=== PATIENT | female | born 1990 | race Caucasian/White ===

== ENCOUNTER → 2020-02-02 15:29 | Outpatient (BNVA) | payer MEDICAID, SELFPAY | PROVIDERS: PCP Pediatrics; Visit Provider Advanced Practice Midwife | DX: Z76.89 Persons encountering health services in other specified circumstances (principal) ==

== ENCOUNTER 2020-04-29 00:29 | Emergency (ER) | payer MEDICAID, SELFPAY ==
--- NOTE | ~2020-04-29 | US_ITS ---
EXAMINATION: ABDOMINAL ULTRASOUND LIMITED CLINICAL INFORMATION: Upper abdominal pain. Elevated LFTs. COMPARISON: Same day abdominal and pelvic CT. TECHNIQUE: Real-time imaging of the right upper quadrant abdominal viscera. FINDINGS: PANCREAS: The visualized pancreatic head and body are normal in appearance. The remainder of the pancreas is obscured from visualization by the overlying bowel gas. LIVER: The liver is of normal size and echogenicity without intrahepatic biliary ductal dilation. There is an approximately 10 mm echogenic focus within the right lobe GALLBLADDER: Normal. The gallbladder is physiologically distended without evidence of stones, sludge, polyps, wall thickening or pericholecystic fluid. COMMON BILE DUCT: Normal in caliber measuring 0.4 cm in diameter. RIGHT KIDNEY: There is an 11 mm cyst within the interpole region. No hydronephrosis. No renal calculi or focal parenchymal lesions. The kidney measures 11.2 cm in maximum dimension. FREE FLUID: None. US/US abdomen limited IMPRESSION: No acute abnormalities demonstrable within the upper abdomen. 10 mm echogenic nonshadowing focus within the right lobe of liver. This is nonspecific and may correspond to an hemangioma, though is nonspecific. Consider correlation with abdominal MRI for further tissue characterization.
--- NOTE | ~2020-04-29 | CT_ITS ---
EXAMINATION: CT ABDOMEN AND PELVIS WITHOUT CONTRAST CLINICAL INFORMATION: Left flank pain. COMPARISON: None. TECHNIQUE: Contiguous axial thin section helical images of the abdomen and pelvis were performed without oral or IV contrast. The data set was reformatted in the coronal and sagittal planes and reviewed on an independent workstation. DLP: 649 mGy-cm. FINDINGS: The visualized lung bases are clear. The visualized portions of the heart are unremarkable. The liver is of normal size and attenuation without focal lesions nor intrahepatic biliary ductal dilation. A normal gallbladder is identified. There is no wall thickening or discernible pericholecystic fluid. The spleen, pancreas, adrenal glands are unremarkable. Both kidneys are of normal size and attenuation without hydronephrosis or nephrolithiasis. There is no abdominal free fluid. There is neither mesenteric nor retroperitoneal lymphadenopathy. Normal unopacified loops of small and large bowel are identified. There is no pelvic free fluid. The urinary bladder is unremarkable. There is neither pelvic nor inguinal lymphadenopathy. Bone windows: Neither sclerotic nor lytic bone lesions are identified. CT/CT abdomen pelvis wo con IMPRESSION: Neither hydronephrosis nor nephrolithiasis. No acute abdominal or pelvic inflammatory or infectious processes. Automated exposure control (Care Dose) Adjustment of the mA and/or kv according to patient size (this includes techniques or standardized protocols for targeted exams where dose is matched to indication / reason for exam; i.e. extremities or head).
[2020-04-29 02:21] VITALS: BP 112/49; PULSE 81; RESP 18; TEMP 36.4; O2SAT 99; BMI 28.3
--- NOTE | 2020-04-29 03:11 | ED.ABDPAIN ---
HPI - Abdominal Pain General Chief Complaint: Abdominal Pain Stated Complaint: Flank pain Time Seen by Provider: 04/29/20 02:22 Source: patient and full time staff interpreter Mode of arrival: ambulatory Limitations: no limitations History of Present Illness HPI narrative: 30-year-old female presented with left flank pain, patient stated that the pain is severe dull aching pain localized to the left flank area sometimes radiates down to the left groin area, pain is severe (10/10), pain started since this morning, patient has been fluctuating, associated with nausea, nothing makes the pain better or nothing make it worse, patient had similar pain before when she had kidney stones. Patient had a history of kidney stones that required surgical intervention for removal. Related Data Allergies Allergy/AdvReac Type Severity Reaction Status Date / Time No Known Allergies Allergy Unverified 12/09/19 19:17 [No Known Allergies*] Review of Systems Review of Systems All other systems are reviewed and are negative Constitutional: Reports as per HPI and Reports no additional constitutional complaints Eyes: Reports as per HPI and Reports no additional eye complaints Reports system reviewed and no additional complaints, except as documented Cardiovascular: Reports as per HPI and Reports no additional cardiovascular complaints Respiratory: Reports as per HPI and Reports no additional respiratory complaints Gastrointestinal: Reports as per HPI and Reports no additional gastrointestinal complaints Genitourinary: Reports no additional female genitourinary complaints Musculoskeletal: Reports no additional musculoskeletal complaints Skin/Breast: Reports system reviewed and no additional complaints, except as docu Psychiatric: Reports no additional psychiatric complaints Endocrine: Reports no additional endocrine complaints Hematologic/Lymphatic: Reports no additional hematologic/lymphatic complaints Allergic/Immunologic: Reports no additional allergic/immunologic complaints Reports system reviewed and no additional complaints, except as documented and Reports Abnormal speech present Physical Exam Vital Signs: Vital Signs: Last Vital Signs Temp 98 F 04/29/20 06:00 Pulse 74 04/29/20 06:00 Resp 18 04/29/20 06:00 BP 134/72 04/29/20 06:00 Pulse Ox 99 04/29/20 06:00 Body Mass Index 28.3 Vital signs have been reviewed as normal and appeared to be correct. Blood pressure normal. Heart rate normal. Respiration rate normal. Temperature normal. Oxygen saturation normal. Appearance: Alert. Oriented X3. No acute distress. Head: Normal external exam. Normocephalic. Atraumatic. No Sales signs noted. No raccoon eyes noted Eyes: PERRLA. EOMI. Conjunctiva and sclera normal. Eyelids normal. ENT: TM's Normal. Pharynx normal. Uvula midline. Moist mucous membranes. No trismus noted. No drooling noted. No muffled voice noted. Neck: Normal inspection. Neck supple. FROM. No adenopathy. Thyroid Normal. No meningeal signs. No neck mass noted. CVS: Normal heart rate and rhythm. Heart sound normal. No murmurs noted. Pulses normal throughout. Respiratory: No respiratory distress. Painless inspiration. Breath sounds normal. No wheezes/rales/rhonchi noted. Chest nontender. No accessory muscle usage noted or decreased air movement noted. Abdomen: Soft , mild left side abdominal tenderness, no guarding, no rebound tenderness.. Bowel sounds normal in all 4 quadrants. No distention noted. No organomegaly noted. No visible injury noted. Back: Left CVA tenderness. Full range of motion noted. Skin: Skin warm and dry. Normal skin color. Normal skin turgor. No rashes/lesions/lacerations noted. Extremities: No lower extremity edema. Extremities exhibit normal range of motion. Extremities nontender. Neuro: Oriented X 3. No motor deficit. No sensory deficit. Reflexes normal. Course Course Course Narrative: Assessment and plan. 30-year-old female came in with upper abdominal pain/left flank pain with a history of kidney stones. Labs showed acute elevation of LFTs and bilirubin, patient will need ultrasound to rule out hepatobiliary disease. Patient had ultrasound which showed no acute abnormalities. Patient is few weeks , HELP syndrome is not a concern with unremarkable blood pressure and platelet counts. The patient is breast feeding her baby and would rather to go home to take care of the baby, I explained the patient using full time staff interpreter the importance of following up with her primary doctor for her acute elevation of her LFTs. Patient has no pain now able to tolerate p.o. intake. MDM - Abdominal Pain Lab Data Attestation: I reviewed the patient's lab results. Result diagrams: 04/29/20 03:43 04/29/20 03:43 Labs: Lab Results 04/29/20 04/29/20 04/29/20 Range/Units 03:43 03:43 04:40 WBC 8.2 (4.8-10.8) X10*3/uL RBC 4.09 L (4.20-5.50) X10*6/uL Hgb 12.8 (12.0-16.0) g/dl Hct 38.5 (37-47) % MCV 94.1 (80-98) fL MCH 31.3 (27.0-33.0) pg MCHC 33.2 (31.0-35.0) g/dl RDW 11.9 (11.0-16.0) % Plt Count 271 (160-400) X10*3/uL MPV 10.1 (9.4-12.3) fL Immature Gran % (Auto) 0.4 (0.0-0.4) % Neut % (Auto) 65.0 (45-73) % Lymph % (Auto) 21.5 (20-40) % [place] % (Auto) 11.8 H (2-11) % Eos % (Auto) 0.9 (0-4) % Baso % (Auto) 0.4 (0-2) % Lymph # (Auto) 1.8 (1.2-4.9) X10*3/uL [place] # (Auto) 1.0 (0.1-1.2) X10*3/uL Eos # (Auto) 0.1 (0.0-0.4) X10*3/uL Baso # (Auto) 0.0 (0.0-0.2) X10*3/uL Abs Immat Gran (auto) 0.03 (0.00-0.03) X10*3/uL Absolute Neuts (auto) 5.3 (2.0-8.3) X10*3/uL Absolute Nucleated RBC 0.000 (0.0-0.012) X10*3/uL Nucleated RBC % (auto) 0.0 (0.0-0.2) /100WBC Sodium 140 (135-145) mmol/L Potassium 4.2 (3.3-5.1) mmol/L Chloride 105 (96-108) mmol/L Carbon Dioxide 27 (22-29) mmol/L Anion Gap 12 (12-20) BUN 17 H (9-16) mg/dL Creatinine 0.72 (0.5-1.4) mg/dL Estim Creat Clear Calc 111.0 Estimated GFR > 60 Random Glucose 100 (60-115) mg/dL Calcium 9.3 (8.4-10.2) mg/dL Total Bilirubin 1.1 H (0.0-1.0) mg/dL Direct Bilirubin 0.7 H (0.0-0.5) mg/dL AST 569 H (5-31) U/L ALT 346 H (0-31) U/L Alkaline Phosphatase 159 H (39-117) U/L Total Protein 7.1 (6.5-8.0) g/dL Albumin 4.4 (3.5-5.0) g/dL Lipase 75 (8-78) U/L Urine Color YELLOW Urine Appearance CLEAR Urine pH 6.5 (5.0-8.0) Ur Specific [place] 1.025 (1.005-1.025) Urine Protein NEG (NEG-TRACE) MG/DL Urine Glucose (UA) NEG (NEG) MG/DL Urine Ketones NEG (NEG) MG/DL Urine Blood NEG (NEG) Urine Nitrite NEG (NEG) Ur Leukocyte Esterase NEG (NEG) Urine Test NEGATIVE (NEGATIVE) Imaging Data Abdominal ultrasound: Radiologist's impression: No acute abnormalities demonstrable within the upper abdomen. 10 mm echogenic nonshadowing focus within the right lobe of liver. This is nonspecific and may correspond to an hemangioma, though is nonspecific. Consider correlation with abdominal MRI for further tissue characterization. CT scan - abdomen: Radiologist's impression: Neither hydronephrosis nor nephrolithiasis. No acute abdominal or pelvic inflammatory or infectious processes. Automated exposure control (Care Dose) Adjustment of the mA and/or kv according to patient size (this includes techniques or standardized protocols for targeted exams where dose is matched to indication / reason for exam; i.e. extremities or head). Discharge Plan Discharge Clinical Impression: Acute left flank pain, Elevated liver function tests Patient Disposition: Home, Self-Care Instructions: Abdominal Pain (ED) Referrals: Physician,Unknown [Primary Care Provider] - 2 days (For evaluation for acute abnormal liver function test.) Interventions: ED Discharge Assessment Last Done: 04/29/20 07:26 Discharge Date/Time: 04/29/20 07:27 [facility] Past Medical History Medical History Kidney stones Surgical History History of appendectomy Social History Social History Alcohol intake: never Smoking Status: Never smoker Smoked in Last 30 Days: No Use of substances other than those prescribed or required for medical reasons: No Advance Directives: No Advance Directives Information Provided: No
[2020-04-29 03:47] LABS: Basophils Percent Auto 0.4 % (0-2); Eosinophils Absolute Auto 0.1 X10*3/uL (0.0-0.4); Eosinophils Percent Auto 0.9 % (0-4); Hematocrit 38.5 % (37-47); Hemoglobin 12.8 g/dl (12.0-16.0); Imm Gran Abs Auto 0.03 X10*3/uL (0.00-0.03); Imm Gran Pct Auto 0.4 % (0.0-0.4); Lymphocytes Absolute Auto 1.8 X10*3/uL (1.2-4.9); Lymphocytes Percent Auto 21.5 % (20-40); MANUAL DIFF FLAG NO; Mean Corpuscular HGB Conc 33.2 g/dl (31.0-35.0); Mean Corpuscular Hemoglobin 31.3 pg (27.0-33.0); Mean Corpuscular Volume 94.1 fL (80-98); Mean Platelet Volume 10.1 fL (9.4-12.3); Monocytes Percent Auto 11.8 % (2-11); Neutrophils Absolute Auto 5.3 X10*3/uL (2.0-8.3); Platelet Count 271 X10*3/uL (160-400); Red Blood Count 4.09 X10*6/uL (4.20-5.50); Red Cell Distribution Width 11.9 % (11.0-16.0); White Blood Count 8.2 X10*3/uL (4.8-10.8)
[2020-04-29] MEDS: Ketorolac Tromethamine 15 MG/ML VIAL IV (03:48)
[2020-04-29] MEDS: Morphine Sulfate 2 MG/ML CARTRIDGE 1 MG IVPUSH (03:49)
[2020-04-29 04:00] VITALS: BP 112/68; PULSE 68; RESP 18; O2SAT 98
[2020-04-29 04:13] LABS: Alanine Aminotransferase 346 U/L (0-31); Albumin Level 4.4 g/dL (3.5-5.0); Alkaline Phosphatase 159 U/L (39-117); Anion Gap 12 (12-20); Aspartate Amino Transferase 569 U/L (5-31); Bilirubin Direct 0.7 mg/dL (0.0-0.5); Bilirubin Total 1.1 mg/dL (0.0-1.0); Blood Urea Nitrogen 17 mg/dL (9-16); Calcium 9.3 mg/dL (8.4-10.2); Carbon Dioxide 27 mmol/L (22-29); Chloride 105 mmol/L (96-108); Estimated Glomerular Filt Rate > 60; Glucose Random 100 mg/dL (60-115); Lipase 75 U/L (8-78); Potassium 4.2 mmol/L (3.3-5.1); Sodium 140 mmol/L (135-145); Total Protein 7.1 g/dL (6.5-8.0)
[2020-04-29 04:46] LABS: Glucose Urine UA NEG (NEG); Leukocyte Esterase Urine NEG (NEG); Nitrite Urine NEG (NEG); PH 6.5 (5.0-8.0); Specific Gravity - Urine 1.025 (1.005-1.025); Urine Blood NEG (NEG); Urine Ketones NEG (NEG); Urine Protein NEG (NEG-TRACE)
[2020-04-29 04:47] LABS: UPreg QC Valid YES
[2020-04-29 04:48] LABS: Appearance Urine CLEAR; Color Urine YELLOW; Urine Pregnancy NEGATIVE (NEGATIVE)
[2020-04-29 06:00] VITALS: BP 134/72; PULSE 74; RESP 18; TEMP 36.6; O2SAT 99
== END 2020-04-29 07:27 | disposition home or self-care (01) ==
PROVIDERS: Emergency Provider Emergency Medicine
DX: R10.9 Unspecified abdominal pain (principal); R10.2 Pelvic and perineal pain; R79.89 Other specified abnormal findings of blood chemistry; Z87.442 Personal history of urinary calculi
CPT/HCPCS: 36415; 74176; 76705; 80048; 80076; 81003; 81025; 83690; 85025; 96374; 96375; 99284; J1885; J2270

== ENCOUNTER → 2020-06-01 12:45 | Outpatient (BNVA) | payer MEDICAID, SELFPAY | PROVIDERS: PCP Pediatrics; Visit Provider Physician Assistant ==

== ENCOUNTER → 2020-07-03 11:52 | Outpatient (BNVA) | payer MEDICAID, SELFPAY | PROVIDERS: PCP Pediatrics; Visit Provider Physician Assistant ==

== ENCOUNTER 2020-07-05 13:57 | Outpatient (REF) | payer MEDICAID, SELFPAY ==
[2020-07-05 15:00] LABS: COVID-19 Test Positive (Negative)
== END 2020-07-05 13:58 | disposition home or self-care (01) ==
LOC: HO.LAB 13:57
PROVIDERS: Visit Provider Internal Medicine
DX: Z20.822 Contact with and (suspected) exposure to COVID-19 (principal)
CPT/HCPCS: 36415; 87635; C9803

== ENCOUNTER 2020-07-24 11:33 | Outpatient (REF) | payer MEDICAID, SELFPAY ==
[2020-07-24 12:21] LABS: MANUAL DIFF FLAG NO
[2020-07-24 12:25] LABS: Basophils Absolute Auto 0.1 X10*3/uL (0.0-0.2); Basophils Percent Auto 0.8 % (0-2); Eosinophils Absolute Auto 0.1 X10*3/uL (0.0-0.4); Hematocrit 39.9 % (37-47); Hemoglobin 13.4 g/dl (12.0-16.0); Imm Gran Abs Auto 0.02 X10*3/uL (0.00-0.03); Imm Gran Pct Auto 0.3 % (0.0-0.4); Mean Corpuscular HGB Conc 33.6 g/dl (31.0-35.0); Mean Corpuscular Hemoglobin 31.2 pg (27.0-33.0); Mean Platelet Volume 10.9 fL (9.4-12.3); Monocytes Absolute Auto 0.7 X10*3/uL (0.1-1.2); Monocytes Percent Auto 10.2 % (2-11); Neutrophils Absolute Auto 3.8 X10*3/uL (2.0-8.3); Neutrophils Percent Auto 56.7 % (45-73); Platelet Count 268 X10*3/uL (160-400); Red Blood Count 4.29 X10*6/uL (4.20-5.50); Red Cell Distribution Width 11.5 % (11.0-16.0); White Blood Count 6.6 X10*3/uL (4.8-10.8)
[2020-07-24 12:58] LABS: Alanine Aminotransferase 14 U/L (0-31); Albumin Level 4.5 g/dL (3.5-5.0); Alkaline Phosphatase 93 U/L (39-117); Anion Gap 11 (12-20); Aspartate Amino Transferase 14 U/L (5-31); Bilirubin Total 0.5 mg/dL (0.0-1.0); Blood Urea Nitrogen 12 mg/dL (9-16); Calcium 9.6 mg/dL (8.4-10.2); Carbon Dioxide 27 mmol/L (22-29); Chloride 106 mmol/L (96-108); Estimated Glomerular Filt Rate > 60; Glucose Random 97 mg/dL (60-115); Potassium 4.3 mmol/L (3.3-5.1); Sodium 140 mmol/L (135-145); Total Protein 7.3 g/dL (6.5-8.0)
[2020-07-25 04:45] LABS: HBS Num1 66.67 mIU/mL (0-7.99); HBc Num1 0.06 S/CO (0.00-0.79); Hepatitis B Core Antibody Nonreactive (Nonreactive); ~Hepatitis B Surface Antibody REACTIVE (Nonreactive)
[2020-07-25 04:51] LABS: HBsAGNum1 0.19 S/CO (0.00-0.99); Hepatitis B Surface Antigen Negative (Negative); ~HepC Num1 0.12 S/CO (0.00-0.79); ~Hepatitis C Antibody Nonreactive (Nonreactive)
[2020-07-25 17:42] LABS: Mitochondrial Antibodies NEGATIVE (NEGATIVE)
[2020-07-26 08:18] LABS: Hepatitis A Antibody IgM 0.15 Index (0-0.79); ~Hepatitis A Antibody IgM Nonreactive (Nonreactive)
[2020-07-26 23:32] LABS: Anti Nuclear Antibody Screen POSITIVE (NEGATIVE); Anti Nuclear Antibody Titer 1:40 titer
[2020-07-30 11:26] LABS: Smooth Muscle Antibody <20 U (<20)
== END 2020-07-24 11:34 | disposition home or self-care (01) ==
LOC: HO.LAB 11:33
PROVIDERS: PCP Pediatrics; Visit Provider Physician Assistant
DX: R10.11 Right upper quadrant pain (principal); R79.89 Other specified abnormal findings of blood chemistry; R74.8 Abnormal levels of other serum enzymes; R74.01 Elevation of levels of liver transaminase levels
CPT/HCPCS: 36415; 80053; 85025; 86038; 86039; 86255; 86256; 86704; 86706; 86709; 86803; 87340

== ENCOUNTER → 2020-08-01 11:03 | Outpatient (BNVA) | payer MEDICAID, SELFPAY | PROVIDERS: Visit Provider Physician Assistant ==

== ENCOUNTER 2020-08-14 14:38 | Outpatient (REF) | payer MEDICAID, SELFPAY ==
[2020-08-15 09:00] LABS: CT PCR NOT DETECTED (Not Detect.); NG PCR NOT DETECTED (Not Detect.)
[2020-08-26 15:51] LABS: HPV 16 RNA NOT DETECTED (NOT DETECTED); HPV mRNA E6/E7 rflx Detected (Not Detected)
== END 2020-08-14 14:39 | disposition home or self-care (01) ==
LOC: HO.LAB 14:38
PROVIDERS: Visit Provider Advanced Practice Midwife
DX: Z01.419 Encounter for gynecological examination (general) (routine) without abnormal findings (principal); E66.9 Obesity, unspecified; Z20.2 Contact with and (suspected) exposure to infections with a predominantly sexual mode of transmission; Z68.34 Body mass index [BMI] 34.0-34.9, adult
CPT/HCPCS: 36415; 84443; 87491; 87591; 87624; 87625; 88142

== ENCOUNTER → 2020-09-04 12:09 | Outpatient (BNVA) | payer MEDICAID, SELFPAY | PROVIDERS: Visit Provider Advanced Practice Midwife ==

== ENCOUNTER 2020-09-27 10:07 | Outpatient (REF) | payer MEDICAID, SELFPAY | END 2020-09-27 10:08 | disposition home or self-care (01) | LOC: HO.LAB 10:07 | PROVIDERS: Visit Provider Obstetrics & Gynecology | DX: R87.612 Low grade squamous intraepithelial lesion on cytologic smear of cervix (LGSIL) (principal) | CPT/HCPCS: 57454; 88305 ==

== ENCOUNTER → 2020-10-11 11:36 | Outpatient (BNVA) | payer MEDICAID, SELFPAY | PROVIDERS: PCP Pediatrics; Visit Provider Obstetrics & Gynecology ==

== ENCOUNTER 2020-12-08 15:50 | Outpatient (REF) | payer MEDICAID, SELFPAY ==
--- NOTE | ~2020-12-08 | XR_ITS ---
EXAMINATION: XR LUMBAR SPINE XR HIP, RIGHT XR HIP, LEFT CLINICAL INFORMATION: Sacrococcygeal disorders. COMPARISON: None TECHNIQUE: AP, lateral, coned down, bilateral oblique views of the lumbar spine. AP view of the pelvis with AP and frog-leg lateral views of the right and left hip. FINDINGS: LUMBAR SPINE: Transitional anatomy with 6 xkr-wyk-ozbyrua lumbar-type vertebral bodies. Normal vertebral body alignment. No acute fracture or subluxation. No loss of vertebral body or intervertebral disc height. No lytic or blastic osseous lesion. No abnormal soft tissue calcification. Right lower quadrant surgical clips. RIGHT HIP: No joint space narrowing or marginal osteophytes. No osseous erosion. No fracture or dislocation. Phleboliths within the pelvis. LEFT HIP: No joint space narrowing or marginal osteophytes. No osseous erosion. No fracture or dislocation. Phleboliths within the pelvis. XR/XR lumbar spine 4V min IMPRESSION: Lumbar spine: Transitional anatomy with 6 [id number]-[id number] lumbar-type vertebral bodies. No acute osseous abnormality. Right hip: Unremarkable examination. Left hip: Unremarkable examination.
--- NOTE | ~2020-12-08 | XR_ITS ---
EXAMINATION: XR LUMBAR SPINE XR HIP, RIGHT XR HIP, LEFT CLINICAL INFORMATION: Sacrococcygeal disorders. COMPARISON: None TECHNIQUE: AP, lateral, coned down, bilateral oblique views of the lumbar spine. AP view of the pelvis with AP and frog-leg lateral views of the right and left hip. FINDINGS: LUMBAR SPINE: Transitional anatomy with 6 pfx-rqc-cwrsoec lumbar-type vertebral bodies. Normal vertebral body alignment. No acute fracture or subluxation. No loss of vertebral body or intervertebral disc height. No lytic or blastic osseous lesion. No abnormal soft tissue calcification. Right lower quadrant surgical clips. RIGHT HIP: No joint space narrowing or marginal osteophytes. No osseous erosion. No fracture or dislocation. Phleboliths within the pelvis. LEFT HIP: No joint space narrowing or marginal osteophytes. No osseous erosion. No fracture or dislocation. Phleboliths within the pelvis. XR/XR hip LT min 2V IMPRESSION: Lumbar spine: Transitional anatomy with 6 cey-ktw-uuzress lumbar-type vertebral bodies. No acute osseous abnormality. Right hip: Unremarkable examination. Left hip: Unremarkable examination.
--- NOTE | ~2020-12-08 | XR_ITS ---
EXAMINATION: XR LUMBAR SPINE XR HIP, RIGHT XR HIP, LEFT CLINICAL INFORMATION: Sacrococcygeal disorders. COMPARISON: None TECHNIQUE: AP, lateral, coned down, bilateral oblique views of the lumbar spine. AP view of the pelvis with AP and frog-leg lateral views of the right and left hip. FINDINGS: LUMBAR SPINE: Transitional anatomy with 6 zgc-riz-yokzjyy lumbar-type vertebral bodies. Normal vertebral body alignment. No acute fracture or subluxation. No loss of vertebral body or intervertebral disc height. No lytic or blastic osseous lesion. No abnormal soft tissue calcification. Right lower quadrant surgical clips. RIGHT HIP: No joint space narrowing or marginal osteophytes. No osseous erosion. No fracture or dislocation. Phleboliths within the pelvis. LEFT HIP: No joint space narrowing or marginal osteophytes. No osseous erosion. No fracture or dislocation. Phleboliths within the pelvis. XR/XR hip RT min 2V IMPRESSION: Lumbar spine: Transitional anatomy with 6 hvx-gje-yeshwzp lumbar-type vertebral bodies. No acute osseous abnormality. Right hip: Unremarkable examination. Left hip: Unremarkable examination.
[2020-12-08 16:28] LABS: Hematocrit 39.2 % (37-47); Mean Corpuscular HGB Conc 33.2 g/dl (31.0-35.0); Mean Corpuscular Hemoglobin 30.7 pg (27.0-33.0); Mean Corpuscular Volume 92.5 fL (80-98); Mean Platelet Volume 10.9 fL (9.4-12.3); Platelet Count 248 X10*3/uL (160-400); Red Blood Count 4.24 X10*6/uL (4.20-5.50); Red Cell Distribution Width 11.9 % (11.0-16.0); White Blood Count 7.9 X10*3/uL (4.8-10.8)
[2020-12-08 17:00] LABS: Anion Gap 12 (12-20); Blood Urea Nitrogen 15 mg/dL (9-16); Calcium 9.6 mg/dL (8.4-10.2); Carbon Dioxide 25 mmol/L (22-29); Chloride 105 mmol/L (96-108); Cholesterol 159 mg/dL; Estimated Glomerular Filt Rate > 60; Glucose Random 91 mg/dL (60-115); HDL Cholesterol 55 mg/dL; LDL Cholesterol Calculated 87 mg/dl; Potassium 4.3 mmol/L (3.3-5.1); Sodium 138 mmol/L (135-145); Triglycerides 86 mg/dL
[2020-12-08 17:20] LABS: Thyroid Stimulating Hormone 2.15 uIU/mL (0.32-4.0); Vitamin D 25-OH Total 22.3 ng/mL (>30)
[2020-12-09 07:47] LABS: Estimated Average Glucose 105 mg/dL; Hemoglobin A1c % 5.3 %
[2020-12-11 04:05] LABS: ~HepC Num1 0.09 S/CO (0.00-0.79); ~Hepatitis C Antibody Nonreactive (Nonreactive)
[2020-12-11 04:07] LABS: HBS Num1 77.42 mIU/mL (0-7.99); HBsAGNum1 0.82 S/CO (0.00-0.99); HIV AB/AG Nonreactive (Nonreactive); HIV Num 1 0.06 S/CO (0.00-0.99); Hepatitis B Surface Antigen Negative (Negative); ~Hepatitis B Surface Antibody REACTIVE (Nonreactive)
== END 2020-12-08 15:51 | disposition home or self-care (01) ==
LOC: HO.LAB 15:50
PROVIDERS: PCP Pediatrics; Visit Provider Family Medicine
DX: Z01.84 Encounter for antibody response examination (principal); Z11.4 Encounter for screening for human immunodeficiency virus [HIV]; E66.9 Obesity, unspecified
CPT/HCPCS: 36415; 72110; 73502; 80048; 80061; 82306; 83036; 84443; 85027; 86706; 86803; 87340; 87389

== ENCOUNTER 2021-08-13 12:50 | Outpatient (REF) | payer MEDICAID, SELFPAY ==
[2021-08-13 16:20] LABS: CT PCR NOT DETECTED (Not Detect.)
[2021-08-13 16:21] LABS: NG PCR NOT DETECTED (Not Detect.)
[2021-08-14 10:54] LABS: BV Int Neg Control Negative (Negative); BV Int Pos Control Positive (Positive)
== END 2021-08-13 12:51 | disposition home or self-care (01) ==
LOC: HO.LAB 12:50
PROVIDERS: PCP Pediatrics; Visit Provider Obstetrics & Gynecology
DX: Z11.3 Encounter for screening for infections with a predominantly sexual mode of transmission (principal); B37.3 Candidiasis of vulva and vagina
CPT/HCPCS: 87480; 87491; 87510; 87591; 87660; 99212

== ENCOUNTER 2021-10-11 17:05 | Emergency (ER) | payer MEDICAID, SELFPAY ==
--- NOTE | ~2021-10-11 | CT_ITS ---
EXAMINATION: CT ANGIOGRAM OF THE CHEST WITH AND WITHOUT CONTRAST (CT PULMONARY ANGIOGRAM FOR PE) CLINICAL INFORMATION: Reason for Exam CP, elevated D-dimer COMPARISON: None TECHNIQUE: Prior to contrast administration, noncontrast localization images were obtained. Subsequently, multidetector volumetric imaging was performed from the thoracic inlet to below the diaphragms following the administration of 71 mL Omnipaque 350 intravenous contrast. No contrast reaction reported Sagittal, coronal, and MIP oblique sagittal reformatted images were obtained on the CT workstation, uploaded to PACS, and reviewed. This CT examination was performed using dose optimization techniques as appropriate, variously including the following: *Automated exposure control *Adjustment of mA and/or kV according to patient size (this includes techniques or standardized protocols for targeted exams where dose is matched to indication/reason for exam; i.e. extremities or head) *Use of iterative reconstruction technique Total exam dose-length product 327 mGy-cm FINDINGS: QUALITY OF STUDY/CONTRAST BOLUS: Satisfactory. PULMONARY ARTERIES: No central or segmental pulmonary emboli. THORACIC AORTA: No aneurysm or dissection. LUNG: No focal consolidation, nodules or masses. PLEURA: No pleural effusion or pneumothorax. MEDIASTINUM: Normal heart size. No pericardial effusion. No hilar or mediastinal lymphadenopathy. No evidence of septal bowing or right heart strain. CHEST WALL/AXILLA: No axillary or internal mammary lymphadenopathy. OSSEOUS STRUCTURES: No acute or suspicious osseous abnormality. UPPER ABDOMEN: Unremarkable. No reflux of contrast into the hepatic veins to suggest elevated right heart pressures. CT/CT angio chest PE protocol IMPRESSION: Normal CT of chest. VTE: negative
--- NOTE | ~2021-10-11 | XR_ITS ---
EXAMINATION: XR CHEST CLINICAL INFORMATION: Syncope. COMPARISON: Chest x-ray 05/12/2016 TECHNIQUE: Frontal portable view of the chest was obtained. 6:02 PM FINDINGS: No significant abnormality is noted involving the heart, lungs, mediastinum, bony thorax or soft tissues. XR/XR chest 1V IMPRESSION: Unremarkable examination.
[2021-10-11 17:16] VITALS: BP 115/38; PULSE 75; RESP 14; TEMP 37.2; O2SAT 99; BMI 38.2
--- NOTE | 2021-10-11 17:18 | ECG_ITS ---
Test Reason : syncope Blood Pressure : / mmHG Vent. Rate : 086 BPM Atrial Rate : 086 BPM P-R Int : 098 ms QRS Dur : 072 ms QT Int : 346 ms P-R-T Axes : 044 020 006 degrees QTc Int : 414 ms Sinus rhythm with sinus arrhythmia with short [place] Otherwise normal ECG When compared to the previous EKG of No significant changes seen Referred By: Jimbo Potter Electronically Signed By:Bright Schultz
--- NOTE | 2021-10-11 17:50 | ED.GENADULT ---
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 Mid chest pain started 3 weeks ago described as dull aching pain in the middle of her chest with no radiation pain has been constant, severe 10/10, increased with movement or touch nothing relieves the pain. Patient declined any trauma to her chest, no recent travel, no lower extremity swelling or tenderness, no difficulty breathing. No history of chest pain. supervisor liquid yeast was used patient was flat affect shake her head to answer most of the questions. Decline depression or SI or HI. Stated that she passed out at work today patient is not giving details of the syncopal episode. Related Data Previous Rx's Medication Instructions Recorded terconazole 0.8 % vaginal cream 1 appful vaginal BEDTIME 3 days 08/13/21 #20 grams metronidazole 500 mg tablet 500 mg PO BID 7 days #14 tabs 08/14/21 Allergies Allergy/AdvReac Type Severity Reaction Status Date / Time No Known Allergies Allergy Verified 09/04/20 12:15 [No Known Allergies*] Review of Systems Review of Systems: All other systems are reviewed and are negative Constitutional: Reports as per HPI and Reports no additional constitutional complaints Eyes: Reports as per HPI and Reports no additional eye complaints Reports system reviewed and no additional complaints, except as documented Cardiovascular: Reports as per HPI and Reports no additional cardiovascular complaints Respiratory: Reports as per HPI and Reports no additional respiratory complaints Gastrointestinal: Reports as per HPI and Reports no additional gastrointestinal complaints Genitourinary: Reports no additional female genitourinary complaints Musculoskeletal: Reports no additional musculoskeletal complaints Skin/Breast: Reports system reviewed and no additional complaints, except as docu Psychiatric: Reports no additional psychiatric complaints Endocrine: Reports no additional endocrine complaints Hematologic/Lymphatic: Reports no additional hematologic/lymphatic complaints Allergic/Immunologic: Reports no additional allergic/immunologic complaints Reports system reviewed and no additional complaints, except as documented and Reports Abnormal speech present [facility] Past Medical History Medical History ASCUS with positive high risk HPV Kidney stones due to Obese Pap smear of cervix with ASCUS, cannot exclude HGSIL Surgical History History of appendectomy Family History Family History Maternal Grandmother Cancer Social History Social History Household Members: Significant Other Alcohol intake: never Patient Tobacco Use Status: Never used Tobacco Use of substances other than those prescribed or required for medical reasons: No Advance Directives: No Advance Directives Information Provided: No Patient : No Current occupational status: 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 Blood pressure normal. Heart rate normal. Respiration rate normal. Temperature normal. Oxygen saturation normal. Appearance: Alert. Oriented X3. No acute distress. Head: Normal external exam. Normocephalic. Atraumatic. No Sales signs noted. No raccoon eyes noted Eyes: PERRLA. EOMI. Conjunctiva and sclera normal. Eyelids normal. ENT: TM's Normal. Pharynx normal. Uvula midline. Moist mucous membranes. No trismus noted. No drooling noted. No muffled voice noted. Neck: Normal inspection. Neck supple. FROM. No adenopathy. Thyroid Normal. No meningeal signs. No neck mass noted. CVS: Normal heart rate and rhythm. Heart sound normal. No murmurs noted. Pulses normal throughout. Respiratory: No respiratory distress. Painless inspiration. Breath sounds normal. No wheezes/rales/rhonchi noted. Sternal/mid chest tenderness, no step-off, no deformity.. No accessory muscle usage noted or decreased air movement noted. Abdomen: Soft and nontender. Bowel sounds normal in all 4 quadrants. No distention noted. No organomegaly noted. No visible injury noted. Back: No CVA tenderness. Full range of motion noted. Skin: Skin warm and dry. Normal skin color. Normal skin turgor. No rashes/lesions/lacerations noted. Extremities: No lower extremity edema. Extremities exhibit normal range of motion. Extremities nontender. Neuro: Oriented X 3. Cranial nerve exam: II-XII are grossly intact No motor deficit. No sensory deficit. Reflexes normal. Course Course Course Narrative: 31-year-old female came in for evaluation of chest pain, patient's HEART score of 1, because slightly elevated handley of D-dimer patient had a CTA which was negative for PE or any other pathology. Patient is tender on costochondral joint which suggesting acute costochondritis. Patient was instructed to use NSAIDs. 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 Medical Decision Making Lab Data Result diagrams: 10/11/21 17:53 10/11/21 17:53 Labs: Lab Results 10/11/21 10/11/21 10/11/21 Range/Units 17:53 17:53 17:53 WBC 10.5 (4.8-10.8) X10*3/uL RBC 4.24 (4.20-5.50) X10*6/uL Hgb 12.9 (12.0-16.0) g/dl Hct 38.8 (37.0-47.0) % MCV 91.5 (80.0-98.0) fL MCH 30.4 (27.0-33.0) pg MCHC 33.2 (31.0-35.0) g/dl RDW 11.9 (11.0-16.0) % Plt Count 275 (160-400) X10*3/uL MPV 11.1 (9.4-12.3) fL Immature Gran % (Auto) 0.3 (0.0-0.4) % Neut % (Auto) 71.6 (45-73) % Lymph % (Auto) 19.3 L (20-40) % [place] % (Auto) 8.2 (2-11) % Eos % (Auto) 0.3 (0-4) % Baso % (Auto) 0.3 (0-2) % Lymph # (Auto) 2.0 (1.2-4.9) X10*3/uL [place] # (Auto) 0.9 (0.1-1.2) X10*3/uL Eos # (Auto) 0.0 (0.0-0.4) X10*3/uL Baso # (Auto) 0.0 (0.0-0.2) X10*3/uL Abs Immat Gran (auto) 0.03 (0.00-0.03) X10*3/uL Absolute Neuts (auto) 7.5 (2.0-8.3) x10*3/uL Absolute Nucleated RBC 0.000 (0.0-0.012) X10*3/uL Nucleated RBC % (auto) 0.0 (0.0-0.2) /100WBC D-Dimer High Sensitivty NG/ML Sodium 137 (135-145) mmol/L Potassium 3.9 (3.3-5.1) mmol/L Chloride 104 (96-108) mmol/L Carbon Dioxide 25 (22-29) mmol/L Anion Gap 12 (12-20) BUN 10 (9-16) mg/dL Creatinine 0.74 (0.5-1.4) mg/dL Estim Creat Clear Calc 120.4 Estimated GFR > 60 Random Glucose 96 (60-115) mg/dL Calcium 9.2 (8.4-10.2) mg/dL Total Bilirubin 0.5 (0.0-1.0) mg/dL Direct Bilirubin 0.2 (0.0-0.5) mg/dL AST 14 (5-31) U/L ALT 10 (0-31) U/L Alkaline Phosphatase 89 (39-117) U/L Troponin I High Sens < 3.5 (<3.5-17.0) ng/L Total Protein 7.3 (6.5-8.0) g/dL Albumin 4.4 (3.5-5.0) g/dL Lipase 22 (8-78) U/L Beta HCG, Quant < 2 mIU/mL Urine Color Urine Appearance Urine pH (5.0-8.0) Ur Specific [place] (1.005-1.025) Urine Protein (NEG-TRACE) MG/DL Urine Glucose (UA) (NEG) MG/DL Urine Ketones (NEG) MG/DL Urine Blood (NEG) Urine Nitrite (NEG) Ur Leukocyte Esterase (NEG) Urine RBC (0) /HPF Urine WBC (0-4) /HPF Ur Squamous Epith Cells /LPF Urine Bacteria /LPF Urine Test (NEGATIVE) 10/11/21 10/11/21 10/11/21 Range/Units 17:53 19:20 19:20 WBC (4.8-10.8) X10*3/uL RBC (4.20-5.50) X10*6/uL Hgb (12.0-16.0) g/dl Hct (37.0-47.0) % MCV (80.0-98.0) fL MCH (27.0-33.0) pg MCHC (31.0-35.0) g/dl RDW (11.0-16.0) % Plt Count (160-400) X10*3/uL MPV (9.4-12.3) fL Immature Gran % (Auto) (0.0-0.4) % Neut % (Auto) (45-73) % Lymph % (Auto) (20-40) % [place] % (Auto) (2-11) % Eos % (Auto) (0-4) % Baso % (Auto) (0-2) % Lymph # (Auto) (1.2-4.9) X10*3/uL [place] # (Auto) (0.1-1.2) X10*3/uL Eos # (Auto) (0.0-0.4) X10*3/uL Baso # (Auto) (0.0-0.2) X10*3/uL Abs Immat Gran (auto) (0.00-0.03) X10*3/uL Absolute Neuts (auto) (2.0-8.3) x10*3/uL Absolute Nucleated RBC (0.0-0.012) X10*3/uL Nucleated RBC % (auto) (0.0-0.2) /100WBC D-Dimer High Sensitivty 360 NG/ML Sodium (135-145) mmol/L Potassium (3.3-5.1) mmol/L Chloride (96-108) mmol/L Carbon Dioxide (22-29) mmol/L Anion Gap (12-20) BUN (9-16) mg/dL Creatinine (0.5-1.4) mg/dL Estim Creat Clear Calc Estimated GFR Random Glucose (60-115) mg/dL Calcium (8.4-10.2) mg/dL Total Bilirubin (0.0-1.0) mg/dL Direct Bilirubin (0.0-0.5) mg/dL AST (5-31) U/L ALT (0-31) U/L Alkaline Phosphatase (39-117) U/L Troponin I High Sens (<3.5-17.0) ng/L Total Protein (6.5-8.0) g/dL Albumin (3.5-5.0) g/dL Lipase (8-78) U/L Beta HCG, Quant mIU/mL Urine Color YELLOW Urine Appearance CLEAR Urine pH 6.5 (5.0-8.0) Ur Specific [place] <= 1.005 (1.005-1.025) Urine Protein NEG (NEG-TRACE) MG/DL Urine Glucose (UA) NEG (NEG) MG/DL Urine Ketones NEG (NEG) MG/DL Urine Blood TRACE (NEG) Urine Nitrite NEG (NEG) Ur Leukocyte Esterase TRACE H (NEG) Urine RBC 1-4 (0) /HPF Urine WBC 1-4 (0-4) /HPF Ur Squamous Epith Cells 2+ /LPF Urine Bacteria TRACE /LPF Urine Test NEGATIVE (NEGATIVE) Imaging Data Chest x-ray: Attestation: I personally reviewed and interpreted this imaging study as follows: Radiologist's impression: No acute pathology. CTA of the chest: Attestation: I personally reviewed and interpreted this imaging study as follows: Radiologist's impression: No acute pathology ECG Data Attestation: I personally reviewed and interpreted this ECG as follows: Interpretation: Normal sinus rhythm at 86 beats per minute, slightly short VA interval, no ST-T changes. Discharge Plan Discharge Clinical Impression: Chest pain, Abnormal ECG Patient Disposition: Home, Self-Care Instructions: Costochondritis (ED) Prescriptions: No Action metronidazole 500 mg tablet 500 mg PO BID 7 Days Qty: 14 0RF terconazole 0.8 % cream 1 appful vaginal BEDTIME 3 Days Qty: 20 0RF Referrals: Physician,Unknown J [Primary Care Provider] -
[2021-10-11 17:54] VITALS: O2SAT 100
[2021-10-11] MEDS: 0.9 % Sodium Chloride 1,000 ML 999 ML IV (17:56)
[2021-10-11 18:03] LABS: MANUAL DIFF FLAG NO
[2021-10-11 18:04] LABS: Basophils Percent Auto 0.3 % (0-2); Eosinophils Percent Auto 0.3 % (0-4); Hematocrit 38.8 % (37.0-47.0); Hemoglobin 12.9 g/dl (12.0-16.0); Imm Gran Abs Auto 0.03 X10*3/uL (0.00-0.03); Imm Gran Pct Auto 0.3 % (0.0-0.4); Lymphocytes Percent Auto 19.3 % (20-40); Mean Corpuscular HGB Conc 33.2 g/dl (31.0-35.0); Mean Corpuscular Hemoglobin 30.4 pg (27.0-33.0); Mean Corpuscular Volume 91.5 fL (80.0-98.0); Mean Platelet Volume 11.1 fL (9.4-12.3); Monocytes Absolute Auto 0.9 X10*3/uL (0.1-1.2); Monocytes Percent Auto 8.2 % (2-11); Neutrophils Absolute Auto 7.5 x10*3/uL (2.0-8.3); Neutrophils Percent Auto 71.6 % (45-73); Platelet Count 275 X10*3/uL (160-400); Red Blood Count 4.24 X10*6/uL (4.20-5.50); Red Cell Distribution Width 11.9 % (11.0-16.0); White Blood Count 10.5 X10*3/uL (4.8-10.8)
[2021-10-11 18:15] LABS: D Dimer High Sensitivity 360 NG/ML
[2021-10-11 18:18] LABS: Alanine Aminotransferase 10 U/L (0-31); Albumin Level 4.4 g/dL (3.5-5.0); Alkaline Phosphatase 89 U/L (39-117); Anion Gap 12 (12-20); Aspartate Amino Transferase 14 U/L (5-31); Bilirubin Direct 0.2 mg/dL (0.0-0.5); Bilirubin Total 0.5 mg/dL (0.0-1.0); Blood Urea Nitrogen 10 mg/dL (9-16); Calcium 9.2 mg/dL (8.4-10.2); Carbon Dioxide 25 mmol/L (22-29); Chloride 104 mmol/L (96-108); Creatinine Clr Calc Pharmacy 120.4; Estimated Glomerular Filt Rate > 60; Glucose Random 96 mg/dL (60-115); Lipase 22 U/L (8-78); Potassium 3.9 mmol/L (3.3-5.1); Sodium 137 mmol/L (135-145); Total Protein 7.3 g/dL (6.5-8.0)
[2021-10-11 18:23] LABS: Troponin-I High Sensitivity < 3.5 ng/L (<3.5-17.0)
[2021-10-11 18:59] LABS: HCG Quantitative < 2 mIU/mL
[2021-10-11 19:33] LABS: UPreg QC Valid YES; Urine Pregnancy NEGATIVE (NEGATIVE)
[2021-10-11 19:43] VITALS: BP 115/52; PULSE 71; RESP 13; TEMP 36.6; O2SAT 97
[2021-10-11 19:55] LABS: Appearance Urine CLEAR; Color Urine YELLOW; Glucose Urine UA NEG (NEG); Leukocyte Esterase Urine TRACE (NEG); Nitrite Urine NEG (NEG); PH 6.5 (5.0-8.0); Specific Gravity - Urine <= 1.005 (1.005-1.025); UACC Culture Trigger NO; Urine Blood TRACE (NEG); Urine Ketones NEG (NEG); Urine Protein NEG (NEG-TRACE)
[2021-10-11 19:59] LABS: Bacteria Urine TRACE /LPF; Squamous Epithelial Cell Urine 2+ /LPF
[2021-10-11] MEDS: iohexoL 350 MG/ML 100 ML INFUS..BTL IV (20:41)
[2021-10-11] MEDS: Ibuprofen 600 MG TABLET PO (21:20)
[2021-10-11 22:33] VITALS: BP 112/58; PULSE 67; RESP 18; TEMP 36.7; O2SAT 98
== END 2021-10-11 23:05 | disposition home or self-care (01) ==
PROVIDERS: Emergency Provider Emergency Medicine
DX: R07.9 Chest pain, unspecified (principal); R94.31 Abnormal electrocardiogram [ECG] [EKG]; E66.9 Obesity, unspecified; Z68.38 Body mass index [BMI] 38.0-38.9, adult
CPT/HCPCS: 36415; 71045; 71275; 80048; 80076; 81001; 81025; 83690; 84484; 84702; 85025; 85379; 93005; 96360; 99284; 99285; Q9967

== ENCOUNTER 2021-11-08 10:39 | Outpatient (REF) | payer MEDICAID, SELFPAY ==
--- NOTE | ~2021-11-08 | XR_ITS ---
EXAMINATION: XR LUMBOSACRAL SPINE WITH OBLIQUES CLINICAL INFORMATION: Low back pain and left-sided sciatica COMPARISON: Previous x-ray November 2020 TECHNIQUE: AP, both oblique, and lateral views of the lumbar spine. Lateral view of the lumbosacral junction. FINDINGS: There may be a transitional vertebral body segment or 6 lumbar-type vertebral bodies. There is mild curvature of the lower lumbar spine to the right. Bone alignment is otherwise normal. No fracture or dislocation is seen. Disc spaces are normal. There is lower lumbar spine facet arthritis. XR/XR lumbar spine 4V min IMPRESSION: Transitional anatomy. Lower lumbar spine facet arthritis.
--- NOTE | ~2021-11-08 | XR_ITS ---
EXAMINATION: XR HIP, LEFT CLINICAL INFORMATION: Pain COMPARISON: Previous x-ray November 2020 TECHNIQUE: Two views of the left hip. FINDINGS: Bones and soft tissues are normal. No fracture. Alignment is anatomic. Hip joint space is maintained. XR/XR hip LT min 2V IMPRESSION: Normal left hip.
== END 2021-11-08 10:40 | disposition home or self-care (01) ==
LOC: HO.XRAY 10:39
PROVIDERS: Absent Provider Pediatrics; PCP Pediatrics; Visit Provider Internal Medicine
DX: M25.552 Pain in left hip (principal); M54.42 Lumbago with sciatica, left side
CPT/HCPCS: 72110; 73502

== ENCOUNTER → 2021-12-06 08:57 | Outpatient (BNVA) | payer MEDICAID, SELFPAY | PROVIDERS: PCP Pediatrics; Visit Provider Advanced Practice Midwife | DX: N92.6 Irregular menstruation, unspecified (principal) | CPT/HCPCS: 99212 ==

== ENCOUNTER → 2021-12-12 10:23 | Outpatient (BNVA) | payer MEDICAID, SELFPAY | PROVIDERS: PCP Family Medicine; Referring Provider Family Medicine; Visit Provider Internal Medicine Cardiovascular Disease | DX: R07.89 Other chest pain (principal) | CPT/HCPCS: 99202 ==

== ENCOUNTER 2022-01-03 11:01 | Outpatient (REF) | payer MEDICAID, SELFPAY ==
[2022-01-03 15:56] LABS: CT PCR NOT DETECTED (Not Detect.); NG PCR NOT DETECTED (Not Detect.)
== END 2022-01-03 11:02 | disposition home or self-care (01) ==
LOC: HO.LNP 11:01
PROVIDERS: Visit Provider Advanced Practice Midwife
DX: Z01.419 Encounter for gynecological examination (general) (routine) without abnormal findings (principal); Z11.3 Encounter for screening for infections with a predominantly sexual mode of transmission
CPT/HCPCS: 87491; 87591; 88142

== ENCOUNTER 2022-07-22 07:56 | Outpatient (REF) | payer MEDICAID, SELFPAY ==
[2022-07-22 15:37] LABS: CT PCR NOT DETECTED (Not Detect.); NG PCR NOT DETECTED (Not Detect.)
[2022-07-23 09:35] LABS: BV Int Neg Control Negative (Negative); BV Int Pos Control Positive (Positive)
== END 2022-07-22 07:57 | disposition home or self-care (01) ==
LOC: HO.LAB 07:56
PROVIDERS: PCP Pediatrics; Visit Provider Advanced Practice Midwife
DX: R10.2 Pelvic and perineal pain (principal)
CPT/HCPCS: 0353U; 87086; 87480; 87510; 87660; 99212

== ENCOUNTER 2022-07-22 08:45 | Outpatient (REF) | payer MEDICAID, SELFPAY | END 2022-07-22 08:46 | disposition home or self-care (01) | LOC: HO.LNP 08:45 | PROVIDERS: Visit Provider Advanced Practice Midwife | DX: Z13.89 Encounter for screening for other disorder (principal) ==

== ENCOUNTER 2022-10-17 13:16 | Emergency (ER) | payer MEDICAID, SELFPAY ==
--- NOTE | ~2022-10-17 | US_ITS ---
EXAMINATION: US ABDOMEN LIMITED CLINICAL INFORMATION: Right upper quadrant pain. COMPARISON: 04/29/2020 Limited abdominal ultrasound. TECHNIQUE: Real-time imaging of the right upper quadrant abdominal viscera. FINDINGS: PANCREAS: Visualized portions unremarkable. LIVER: Diffuse increased echotexture. A homogeneous echogenic focus is seen in the right lobe inferiorly measuring 1.7 x 1.0 x 1.2 cm (previously 1.0 x 0.8 x 0.7 cm). Color Doppler showed no abnormal vascular flow. GALLBLADDER: Mildly distended limiting evaluation without intraluminal abnormality. No pericholecystic fluid. COMMON BILE DUCT: Normal in caliber measuring 0.3 cm in diameter. RIGHT KIDNEY: 10.0 cm. Unremarkable. FREE FLUID: None. US/US abdomen limited IMPRESSION: 1. Hepatic steatosis. Small homogeneous echogenic focus in the right lobe is nonspecific but demonstrates benign features. This could represent a small hemangioma, mildly increased in size from the 2020 study.
--- NOTE | ~2022-10-17 | CT_ITS ---
9EXAMINATION: CT ABDOMEN AND PELVIS WITH CONTRAST CLINICAL INFORMATION: Abdominal pain with elevated lipase COMPARISON: 04/29/2020 TECHNIQUE: Multidetector volumetric images were obtained from the superior aspect of the liver through the pubic symphysis following administration 85 mL of Omnipaque 350 intravenous contrast. Sagittal and coronal reformatted images were obtained on the technologist's workstation. Oral contrast: No This CT examination was performed using dose optimization techniques as appropriate, variously including the following: *Automated exposure control *Adjustment of mA and/or kV according to patient size (this includes techniques or standardized protocols for targeted exams where dose is matched to indication/reason for exam; i.e. extremities or head) *Use of iterative reconstruction technique DLP: 799mGy-cm FINDINGS: LUNG BASES: The visualized lung bases are unremarkable. LIVER, GALLBLADDER, AND BILIARY TREE: Liver is of low attenuation without intrahepatic masses or ductal dilatation seen. The gallbladder is unremarkable with no evidence of radiopaque gallstones, gallbladder wall thickening, or obvious pericholecystic inflammatory changes. PANCREAS: Unremarkable. SPLEEN: Unremarkable. ADRENAL GLANDS: Unremarkable. KIDNEYS AND URETERS: The kidneys are normal in size, shape, and attenuation. No hydronephrosis, hydroureter, or calculi seen. No perinephric stranding. BLADDER: Unremarkable. GASTROINTESTINAL TRACT: The small and large bowel are unremarkable. The appendix is surgically absent.. ABDOMINAL WALL: No significant hernia is appreciated. LYMPH NODES: Normal. VASCULAR: Unremarkable. PELVIC VISCERA: There is left ovarian 3.5 x 3.7 x 3.3 cm cyst. There is no free fluid in the pelvis. The right adnexa is unremarkable. OSSEOUS STRUCTURES: Unremarkable. CT/CT abdomen pelvis w IV con IMPRESSION: 1. No explanation for abdominal pain. 2. Hepatic steatosis. 3. Left ovarian cyst. Fleischner guidelines were followed.
[2022-10-17 13:22] VITALS: BP 107/67; PULSE 82; RESP 18; TEMP 36.6; O2SAT 100; BMI 41.1
--- NOTE | 2022-10-17 13:23 | ED.GENADULT ---
HPI - General Adult General Chief complaint: Abdominal Pain Stated complaint: abd pain weakness in body Time Seen by Provider: 10/17/22 17:34 Source: patient Mode of arrival: ambulatory Limitations: no limitations History of Present Illness HPI narrative: Patient comes to the emergency room complaining of epigastric pain. Patient denies nausea vomiting diarrhea. No URI or UTI symptoms. The abdominal pain is unrelated to foods or drinks. Related Data Previous Rx's Medication Instructions Recorded metronidazole 500 mg tablet 500 mg PO BID 7 days #14 tabs 07/23/22 Allergies Allergy/AdvReac Type Severity Reaction Status Date / Time No Known Allergies Allergy Verified 07/22/22 08:13 [No Known Allergies*] Review of Systems Review of Systems: Constitutional : No Weight loss, No Fever, No Chills, No Night Sweats, No Fatigue, No Malaise ENT/Mouth : No Hearing loss, No Ear Pain, No Nasal Congestion, No Sinus Pain, No Hoarseness, No sore throat, No Rhinorrhea, No Swallowing Difficulty Eyes: No Eye Pain, No Swelling, No Redness, No Foreign Body, No Discharge, No Vision Changes Cardiovascular : No Chest Pain, No SOB, No Dyspnea on Exertion, No Orthopnea, No Edema, No Palpitations Respiratory : No Cough, No Sputum, No Wheezing, No Smoke Exposure, No Dyspnea Gastrointestinal : No Nausea, No Vomiting, No Diarrhea, No Constipation, complaining of epigastric pain, no melena Genitourinary : no irregular bleeding, No Dysuria, No Urinary Frequency, No Hematuria, No Urinary Incontinence, No Urgency, No Flank Pain, No Urinary Flow Changes, No Hesitancy Musculoskeletal : No joint pain, No Myalgias, No Joint Swelling Skin : No Skin Lesions, No rash Neuro : No Weakness, No Numbness, No Paresthesias, No Loss of Consciousness, No Dizziness, No Headache Psych : No Anxiety/Panic, No Depression, No SI/HI/AH/VH, No Social Issues, Heme/Lymph: No Bruising, No Bleeding,No Lymphadenopathy Endocrine : No Polyuria, No Polydipsia, No Temperature Intolerance PMFSH Past Medical History Medical History ASCUS with positive high risk HPV DALTON I (cervical intraepithelial neoplasia I) Kidney stones Obese Pap smear of cervix with ASCUS, cannot exclude HGSIL Surgical History History of appendectomy Family History Family History Maternal Grandmother Colon cancer Father HTN (hypertension) Maternal Grandfather Diabetes Social History Social History Household Members: Significant Other Household Members Other:: mom Housing: House Alcohol intake: never Patient Tobacco Use Status: Never used Tobacco Smoked in Last 30 Days: No Use of substances other than those prescribed or required for medical reasons: No Advance Directives: No Advance Directives Information Provided: No Patient : No 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 Oriented X3. No acute distress. Well-appearing Eyes: Pupils equal, round and reactive to light. ENT: Pharynx normal. Neck: Normal inspection. Neck supple. No lymph nodes noted. No crepitus CVS: Normal heart rate and rhythm. Pulses normal. Normal S1 and S2 Respiratory: No respiratory distress. Breath sounds normal. No Wheezing. No rales Abdomen: Soft , mild epigastric pain to palpation, no rebound, no guarding, No rigidity. No distention. Skin: Skin warm and dry. Normal skin color. Normal skin turgor. Extremities: No lower extremity edema. No Lacerations. No Rash Neuro: Oriented X 3. No motor deficit. No sensory deficit. Moving all extremities. No slurred speech. CN 2 through 12 grossly intact Psych: calm, cooperative, normal affect Course Course Course Narrative: This is an RME: Additional HPI, ROS, PE not included below will be deferred to primary provider. This is a [id number] presenting to the emergency department with a complaint of abdominal pain x 1 week. Reports nausea, no fevers, no chills. No vomiting. VSS. +RUQ pain with palpation. Hx of appendectomy. Plan: labs, UA, US RUQ Medications Administered Discontinued Medications Generic Name Dose Route Start Last Admin Trade Name Joseph PRN Reason Stop Dose Admin Iohexol 85 ml 10/17/22 19:39 10/17/22 19:40 Iohexol 350 Mg/Ml 100 Ml Infus..Btl IV 10/17/22 19:40 85 ml ONCE ONE Administration Medical Decision Making Medical Decision Making [facility] Narrative: -my interpretation of labs: Lipase is slightly elevated, white blood cell count within normal limits. Also, in the urine there is blood. Patient states that she has not had her menstrual period in couple of months. Denies flank pain, negative for UTI. Patient does have his kidney stones. my interpretation of CT scan of the abdomen: no kidney stones, pancreas looks normal Differential Diagnosis Differential Diagnoses: The differential diagnosis associated with the presentation includes (Pancreatitis, peptic ulcer disease, kidney stones, UTI, peptic ulcer perforation) Admission/Observation Consideration of admission/observation: Escalation of care including admission/observation considered ( initially, admission was considered for abdominal pain, pancreatitis, peptic ulcer disease versus perforation) Lab Data [facility] Lab Attestation statement: I reviewed the patient's lab results. 10/17/22 13:40 10/17/22 13:40 Labs: Lab Results 10/17/22 10/17/22 10/17/22 Range/Units 13:40 13:40 14:54 WBC 8.4 (4.8-10.8) X10*3/uL RBC 4.31 (4.20-5.50) X10*6/uL Hgb 13.1 (12.0-16.0) g/dl Hct 39.0 (37.0-47.0) % MCV 90.5 (80.0-98.0) fL MCH 30.4 (27.0-33.0) pg MCHC 33.6 (31.0-35.0) g/dl RDW 12.7 (11.0-16.0) % Plt Count 284 (160-400) X10*3/uL MPV 10.4 (9.4-12.3) fL Immature Gran % (Auto) 0.5 H (0.0-0.4) % Neut % (Auto) 66.1 (45-73) % Lymph % (Auto) 22.4 (20-40) % [place] % (Auto) 8.8 (2-11) % Eos % (Auto) 1.5 (0-4) % Baso % (Auto) 0.7 (0-2) % Lymph # (Auto) 1.9 (1.2-4.9) X10*3/uL [place] # (Auto) 0.7 (0.1-1.2) X10*3/uL Eos # (Auto) 0.1 (0.0-0.4) X10*3/uL Baso # (Auto) 0.1 (0.0-0.2) X10*3/uL Abs Immat Gran (auto) 0.04 H (0.00-0.03) X10*3/uL Absolute Neuts (auto) 5.6 (2.0-8.3) x10*3/uL Absolute Nucleated RBC 0.000 (0.0-0.012) X10*3/uL Nucleated RBC % (auto) 0.0 (0.0-0.2) /100WBC Sodium 139 (135-145) mmol/L Potassium 4.1 (3.3-5.1) mmol/L Chloride 107 (96-108) mmol/L Carbon Dioxide 23 (22-29) mmol/L Anion Gap 13 (12-20) BUN 10 (9-16) mg/dL Creatinine 0.69 (0.5-1.4) mg/dL Estim Creat Clear Calc 133.3 Estimated GFR > 60 Random Glucose 116 H (60-115) mg/dL Calcium 9.3 (8.4-10.2) mg/dL Magnesium 2.1 (1.6-2.6) mg/dL Total Bilirubin 0.4 (0.0-1.0) mg/dL Direct Bilirubin 0.1 (0.0-0.5) mg/dL AST 18 (5-31) U/L ALT 23 (0-31) U/L Alkaline Phosphatase 82 (39-117) U/L Total Protein 7.3 (6.5-8.0) g/dL Albumin 4.1 (3.5-5.0) g/dL Lipase 88 H (8-78) U/L Urine Color Yellow Urine Appearance Cloudy Urine pH 7.5 (5.0-9.0) Ur Specific Sage 1.015 (1.005-1.025) Urine Protein Negative (Neg-Trace) mg/dL Urine Glucose (UA) Negative (Negative) mg/dL Urine Ketones Negative (Negative) mg/dL Urine Blood Trace H (Negative) Urine Nitrite Negative (Negative) Ur Leukocyte Esterase Trace H (Negative) Urine RBC 6-10 H (0-2) /HPF Urine WBC 6-10 H (0-5) /HPF Ur Squamous Epith Cells 6-10 (0-2) /HPF Urine Bacteria Trace (None Seen) Hyaline Casts 0-2 (0-2) /LPF Urine Test (NEGATIVE) 10/17/22 Range/Units 14:54 WBC (4.8-10.8) X10*3/uL RBC (4.20-5.50) X10*6/uL Hgb (12.0-16.0) g/dl Hct (37.0-47.0) % MCV (80.0-98.0) fL MCH (27.0-33.0) pg MCHC (31.0-35.0) g/dl RDW (11.0-16.0) % Plt Count (160-400) X10*3/uL MPV (9.4-12.3) fL Immature Gran % (Auto) (0.0-0.4) % Neut % (Auto) (45-73) % Lymph % (Auto) (20-40) % [place] % (Auto) (2-11) % Eos % (Auto) (0-4) % Baso % (Auto) (0-2) % Lymph # (Auto) (1.2-4.9) X10*3/uL [place] # (Auto) (0.1-1.2) X10*3/uL Eos # (Auto) (0.0-0.4) X10*3/uL Baso # (Auto) (0.0-0.2) X10*3/uL Abs Immat Gran (auto) (0.00-0.03) X10*3/uL Absolute Neuts (auto) (2.0-8.3) x10*3/uL Absolute Nucleated RBC (0.0-0.012) X10*3/uL Nucleated RBC % (auto) (0.0-0.2) /100WBC Sodium (135-145) mmol/L Potassium (3.3-5.1) mmol/L Chloride (96-108) mmol/L Carbon Dioxide (22-29) mmol/L Anion Gap (12-20) BUN (9-16) mg/dL Creatinine (0.5-1.4) mg/dL Estim Creat Clear Calc Estimated GFR Random Glucose (60-115) mg/dL Calcium (8.4-10.2) mg/dL Magnesium (1.6-2.6) mg/dL Total Bilirubin (0.0-1.0) mg/dL Direct Bilirubin (0.0-0.5) mg/dL AST (5-31) U/L ALT (0-31) U/L Alkaline Phosphatase (39-117) U/L Total Protein (6.5-8.0) g/dL Albumin (3.5-5.0) g/dL Lipase (8-78) U/L Urine Color Urine Appearance Urine pH (5.0-9.0) Ur Specific Sage (1.005-1.025) Urine Protein (Neg-Trace) mg/dL Urine Glucose (UA) (Negative) mg/dL Urine Ketones (Negative) mg/dL Urine Blood (Negative) Urine Nitrite (Negative) Ur Leukocyte Esterase (Negative) Urine RBC (0-2) /HPF Urine WBC (0-5) /HPF Ur Squamous Epith Cells (0-2) /HPF Urine Bacteria (None Seen) Hyaline Casts (0-2) /LPF Urine Test NEGATIVE (NEGATIVE) Independent Interpretation I performed an independent interpretation of an: CT Scan Radiology Impression Discussion of test interpretation with radiology: I have reviewed the radiologist's reading. Radiologist Impression: FINDINGS: LUNG BASES: The visualized lung bases are unremarkable.? LIVER, GALLBLADDER, AND BILIARY TREE: Liver is of low attenuation without intrahepatic masses or ductal dilatation seen. The gallbladder is unremarkable with no evidence of radiopaque gallstones, gallbladder wall thickening, or obvious pericholecystic inflammatory changes.? PANCREAS: Unremarkable.? SPLEEN: Unremarkable.? ADRENAL GLANDS: Unremarkable.? KIDNEYS AND URETERS: The kidneys are normal in size, shape, and attenuation. No hydronephrosis, hydroureter, or calculi seen. No perinephric stranding. ? BLADDER: Unremarkable.? GASTROINTESTINAL TRACT: The small and large bowel are unremarkable. The appendix is surgically absent..? ABDOMINAL WALL: No significant hernia is appreciated.? LYMPH NODES: Normal. VASCULAR: Unremarkable. PELVIC VISCERA: There is left ovarian 3.5 x 3.7 x 3.3 cm cyst. There is no free fluid in the pelvis. The right adnexa is unremarkable.? OSSEOUS STRUCTURES: Unremarkable.? CT/CT abdomen pelvis w IV con IMPRESSION: 1.? No explanation for abdominal pain. 2.? Hepatic steatosis. 3.? Left ovarian cyst. ? Fleischner guidelines were followed.m Critical Care Time Critical Care Time Critical Care Time: Yes Total Critical Care Time: 30 Attestation: I have personally provided critical care time. Time includes review of lab data, radiology results, discussion with consultants, and monitoring for potential decompensation. Intervention performed as documented. Discharge Plan Discharge Clinical Impression: Abdominal pain Patient Disposition: Home, Self-Care Instructions: Abdominal Pain (ED) Additional Instructions: Please follow-up with your primary care physician tomorrow. If you have any worsening or new symptoms, please return to the emergency room or call 911 Prescriptions: No Action metronidazole 500 mg tablet 500 mg PO BID 7 Days Qty: 14 0RF Rx Instructions: Take with food, Avoid alcohol and vinegar products
[2022-10-17 13:43] LABS: MANUAL DIFF FLAG NO
[2022-10-17 13:45] LABS: Basophils Absolute Auto 0.1 X10*3/uL (0.0-0.2); Basophils Percent Auto 0.7 % (0-2); Eosinophils Absolute Auto 0.1 X10*3/uL (0.0-0.4); Eosinophils Percent Auto 1.5 % (0-4); Hemoglobin 13.1 g/dl (12.0-16.0); Imm Gran Abs Auto 0.04 X10*3/uL (0.00-0.03); Imm Gran Pct Auto 0.5 % (0.0-0.4); Lymphocytes Absolute Auto 1.9 X10*3/uL (1.2-4.9); Lymphocytes Percent Auto 22.4 % (20-40); Mean Corpuscular HGB Conc 33.6 g/dl (31.0-35.0); Mean Corpuscular Hemoglobin 30.4 pg (27.0-33.0); Mean Corpuscular Volume 90.5 fL (80.0-98.0); Mean Platelet Volume 10.4 fL (9.4-12.3); Monocytes Absolute Auto 0.7 X10*3/uL (0.1-1.2); Monocytes Percent Auto 8.8 % (2-11); Neutrophils Absolute Auto 5.6 x10*3/uL (2.0-8.3); Neutrophils Percent Auto 66.1 % (45-73); Platelet Count 284 X10*3/uL (160-400); Red Blood Count 4.31 X10*6/uL (4.20-5.50); Red Cell Distribution Width 12.7 % (11.0-16.0); White Blood Count 8.4 X10*3/uL (4.8-10.8)
[2022-10-17 13:58] LABS: Alanine Aminotransferase 23 U/L (0-31); Albumin Level 4.1 g/dL (3.5-5.0); Alkaline Phosphatase 82 U/L (39-117); Anion Gap 13 (12-20); Aspartate Amino Transferase 18 U/L (5-31); Bilirubin Direct 0.1 mg/dL (0.0-0.5); Bilirubin Total 0.4 mg/dL (0.0-1.0); Blood Urea Nitrogen 10 mg/dL (9-16); Calcium 9.3 mg/dL (8.4-10.2); Carbon Dioxide 23 mmol/L (22-29); Chloride 107 mmol/L (96-108); Creatinine Clr Calc Pharmacy 133.3; Estimated Glomerular Filt Rate > 60; Glucose Random 116 mg/dL (60-115); Lipase 88 U/L (8-78); Magnesium 2.1 mg/dL (1.6-2.6); Potassium 4.1 mmol/L (3.3-5.1); Sodium 139 mmol/L (135-145); Total Protein 7.3 g/dL (6.5-8.0)
[2022-10-17 15:06] LABS: UPreg QC Valid YES
[2022-10-17 15:08] LABS: Appearance Urine Cloudy; Color Urine Yellow; Glucose Urine UA Negative (Negative); Leukocyte Esterase Urine Trace (Negative); Nitrite Urine Negative (Negative); PH 7.5 (5.0-9.0); Specific Gravity - Urine 1.015 (1.005-1.025); UMIC TRIGGER UACC YES; Urine Blood Trace (Negative); Urine Ketones Negative (Negative); Urine Pregnancy NEGATIVE (NEGATIVE); Urine Protein Negative (Neg-Trace)
[2022-10-17 15:13] LABS: Bacteria Urine Trace (None Seen); Hyaline Casts Urine 0-2 /LPF (0-2); UACC Culture Trigger YES
[2022-10-17 17:41] VITALS: BP 107/65; PULSE 77; RESP 18; TEMP 36.8; O2SAT 100
[2022-10-17 19:35] VITALS: BP 91/45; PULSE 77; RESP 16; O2SAT 100
[2022-10-17] MEDS: iohexoL 350 MG/ML 100 ML INFUS..BTL 85 ML IV (19:40)
== END 2022-10-17 21:06 | disposition home or self-care (01) ==
PROVIDERS: Physician Assistant Medical; Emergency Provider Emergency Medicine; PCP Pediatrics
DX: R10.13 Epigastric pain (principal); Z79.899 Other long term (current) drug therapy
CPT/HCPCS: 36415; 74177; 76705; 80048; 80076; 81001; 81003; 81025; 83690; 83735; 85025; 87086; 99284; Q9967

== ENCOUNTER 2022-10-18 12:33 | Outpatient (REF) | payer MEDICAID, SELFPAY ==
--- NOTE | ~2022-10-18 | US_ITS ---
EXAMINATION: US PELVIS CLINICAL INFORMATION: Pelvic and perineal pain. Left ovarian cyst on CT 10/17/2022. COMPARISON: None available. TECHNIQUE: Ultrasound of the pelvis is performed using transabdominal transducer along with Doppler. The patient declined transvaginal evaluation. FINDINGS: Uterus: The uterus is anteverted and measures 7.9 x 3.6 x 5.7 cm. The uterus is anteverted and anteflexed. The double wall endometrial thickness is 8 mm. The uterus is smooth in contour and has normal myometrial echogenicity. No visible fibroid. Adnexa: Both ovaries are visualized. There is normal color flow to the adnexa. There is no ovarian torsion. There is no pelvic ascites or fluid collection. Right ovary measures 3.4 x 2.2 x 3.3 cm. Right ovarian volume 13 mL. Left ovary measures 3.4 x 2.2 x 3.3 cm. Left ovarian volume 17 mL. There is a 2.7 x 1.6 x 2.2 cm simple avascular cyst in the right ovary. This is consistent with a a follicle, normal finding. No follow-up imaging is recommended based on the ultrasound appearance. US/US pelvic complete IMPRESSION: 2.7 cm follicle in the left ovary. No follow-up imaging is recommended. No evidence of ovarian torsion by Doppler.
== END 2022-10-18 12:34 | disposition home or self-care (01) ==
LOC: HO.US 12:33
PROVIDERS: PCP Pediatrics; Visit Provider Advanced Practice Midwife
DX: R10.2 Pelvic and perineal pain (principal)
CPT/HCPCS: 76856

== ENCOUNTER 2022-11-08 11:41 | Outpatient (REF) | payer MEDICAID, SELFPAY | END 2022-11-08 11:42 | disposition home or self-care (01) | LOC: HO.LNP 11:41 | PROVIDERS: PCP Pediatrics; Visit Provider Advanced Practice Midwife | DX: Z71.2 Person consulting for explanation of examination or test findings (principal); R10.2 Pelvic and perineal pain; N83.202 Unspecified ovarian cyst, left side; N89.8 Other specified noninflammatory disorders of vagina | CPT/HCPCS: 99214 ==

== ENCOUNTER 2022-11-08 11:41 | Outpatient (AMB) | payer MEDICAID, SELFPAY ==
--- NOTE | 2022-11-08 11:48 | A.OFFVISPN_ITS ---
Intake Intake Visit Reasons: ultra sound follow up (30 mins) Allergies No Known Allergies [No Known Allergies*] Allergy (Verified 07/22/22 08:13) [facility] Medical History ASCUS with positive high risk HPV DALTON I (cervical intraepithelial neoplasia I) Kidney stones Obese Pap smear of cervix with ASCUS, cannot exclude HGSIL Surgical History History of appendectomy Family History Maternal Grandmother Colon cancer Father HTN (hypertension) Maternal Grandfather Diabetes Social History Household Members: Significant Other Household Members Other:: mom Housing: House Alcohol intake: never Patient Tobacco Use Status: Never used Tobacco 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
--- NOTE | 2022-11-08 11:51 | A.OFFVIS_ITS ---
Intake Vital Signs 11/08/22 11:54 Height 5 ft 2 in Weight 222 lb BMI 40.6 BP 110/70 Intake Visit Reasons: ultra sound follow up (30 mins) Intake Note: The patient agreed to use of a medical affairs leader during this encounter. Scribed for SIRISHA Griggs by Maddison Stern medical affairs leader, on 11/08/2022 at 12:02 pm EST. Etcher Hand Required: Yes Etcher Hand Language: Tnt Powder Worker Name: Jayna DUCKWORTH Information Interpreted: non-clinical & clinical Accompanied by: Self / Same As Patient Allergies No Known Allergies [No Known Allergies*] Allergy (Verified 11/08/22 11:55) Is last menstrual period known: Yes Last menstrual period: 10/26/22 HPI HPI Comments History of Present Illness Details She is here to discuss US results regarding history of left pelvic pain. Reports she is still having pelvic pain today and now green vaginal discharge. She denies any dysuria or urinary symptoms, and admits to holding her urine for while at work. Her menses skipped in September, had a normal cycle this month. She has not been sexually active for sometime. She is unable to void for a urine sample and agree's to complete one at the lab. 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 Sexual orientation: Straight/Heterosexual Gender identity: Female Female Reproductive History Menstrual Date of last menstrual period: 10/26/22 Physical Exam Vital Signs: Last Vital Signs BP 110/70 11/08/22 11:54 BMI result Body Mass Index 40.6 Const General: cooperative, healthy appearing, comfortable, no acute distress, well developed, alert and awake Other: slightly tender on left pelvis General: Yes bladder normal to palpation External Female Exam: normal external appearance and normal appearance of the urethra Speculum Exam - Vagina: normal appearance of the vagina, normal palpation and abnormal vaginal discharge yellow (slightly green ) Speculum Exam - Cervix: normal appearance of the cervix and normal palpation Bimanual exam- vagina & uterus: normal bimanual exam, normal palpation, bladder normal to palpation and normal palpation Bimanual Exam- Adnexa, other: normal adnexae and no masses Results Reviewed Results Reviewed: EXAMINATION:? US PELVIS CLINICAL INFORMATION:? Pelvic and perineal pain. Left ovarian cyst on CT 10/17/2022. COMPARISON: None available. TECHNIQUE: Ultrasound of the pelvis is performed using transabdominal transducer along with Doppler. The patient declined transvaginal evaluation. FINDINGS: Uterus: The uterus is anteverted and measures 7.9 x 3.6 x 5.7 cm.? The uterus is anteverted and anteflexed. The double wall endometrial thickness is 8 mm.? The uterus is smooth in contour and has normal myometrial echogenicity. ? No visible fibroid. Adnexa: Both ovaries are visualized. There is normal color flow to the adnexa. There is no ovarian torsion.? There is no pelvic ascites or fluid collection. Right ovary measures 3.4 x 2.2 x 3.3 cm. Right ovarian volume 13 mL. Left ovary measures 3.4 x 2.2 x 3.3 cm. Left ovarian volume 17 mL. There is a 2.7 x 1.6 x 2.2 cm simple avascular cyst in the right ovary. This is consistent with a a follicle, normal finding. No follow-up imaging is recommended based on the ultrasound appearance. US/US pelvic complete IMPRESSION: 2.7 cm follicle in the left ovary. No follow-up imaging is recommended. No evidence of ovarian torsion by Doppler. Ordering Physician: Ayaka Chen MD Date of Service: 10/17/22 Procedure(s): CT abdomen pelvis w IV con Accession Number(s): [id number] cc: Ayaka Chen MD~ 9EXAMINATION: CT ABDOMEN AND PELVIS WITH CONTRAST? CLINICAL INFORMATION: Abdominal pain with elevated lipase? COMPARISON: 04/29/2020 TECHNIQUE: Multidetector volumetric images were obtained from the superior aspect of the liver through the pubic symphysis following administration 85 mL of Omnipaque 350 intravenous contrast. Sagittal and coronal reformatted images were obtained on the technologist's workstation.? Oral contrast: No This CT examination was performed using dose optimization techniques as appropriate, variously including the following: *Automated exposure control *Adjustment of mA and/or kV according to patient size (this includes techniques or standardized protocols for targeted exams where dose is matched to indication/reason for exam; i.e. extremities or head) *Use of iterative reconstruction technique DLP: 799mGy-cm FINDINGS: LUNG BASES: The visualized lung bases are unremarkable.? LIVER, GALLBLADDER, AND BILIARY TREE: Liver is of low attenuation without intrahepatic masses or ductal dilatation seen. The gallbladder is unremarkable with no evidence of radiopaque gallstones, gallbladder wall thickening, or obvious pericholecystic inflammatory changes.? PANCREAS: Unremarkable.? SPLEEN: Unremarkable.? ADRENAL GLANDS: Unremarkable.? KIDNEYS AND URETERS: The kidneys are normal in size, shape, and attenuation. No hydronephrosis, hydroureter, or calculi seen. No perinephric stranding. ? BLADDER: Unremarkable.? GASTROINTESTINAL TRACT: The small and large bowel are unremarkable. The appendix is surgically absent..? ABDOMINAL WALL: No significant hernia is appreciated.? LYMPH NODES: Normal. VASCULAR: Unremarkable. PELVIC VISCERA: There is left ovarian 3.5 x 3.7 x 3.3 cm cyst. There is no free fluid in the pelvis. The right adnexa is unremarkable.? OSSEOUS STRUCTURES: Unremarkable.? CT/CT abdomen pelvis w IV con IMPRESSION: 1.? No explanation for abdominal pain. 2.? Hepatic steatosis. 3.? Left ovarian cyst. ? Fleischner guidelines were followed. Assessment & Plan Assessment & Plan (1) Encounter to discuss test results: Code(s): Z71.2 - Person consulting for explanation of examination or test findings Plan: Discussed: US findings of: 2.7 cm follicle in the left ovary. (2) Pelvic pain: Code(s): R10.2 - Pelvic and perineal pain Plan: Recommended: Due to her ongoing pain from the cyst, plan to schedule US follow up in 2 months. She agrees to have work up done. Pelvic US ordered. Instructed to go to ER with any increased pain. May take Tylenol and use heating pad prn for pain. Urine at lab. All of her questions and concerns were addressed to the best of my ability and shared decision making. She is agreeable to plan of care. (3) Left ovarian cyst: Code(s): N83.202 - Unspecified ovarian cyst, left side (4) Vaginal discharge: Code(s): N89.8 - Other specified noninflammatory disorders of vagina Plan: BV testing and GC/CT panel done today. Await results and treat accordingly. Orders: Orders US pelvic and transvaginal 12/19/22 N83.202 - Unspecified ovarian cyst, left side, R10.2 - Pelvic and perineal pain UA CC w/rflx Micro + Cult Today R10.2 - Pelvic and perineal pain Bacterial Vaginosis Panel Today R10.2 - Pelvic and perineal pain CT NG by PCR Today R10.2 - Pelvic and perineal pain Coding Level of Care Code Est Pt Level 4 (64358) Diagnoses Encounter to discuss test results Z71.2 Pelvic pain R10.2 Left ovarian cyst N83.202 Vaginal discharge N89.8
[2022-11-08 11:54] VITALS: BP 110/70; BMI 40.6
== END 2022-11-08 12:17 | disposition home or self-care (01) ==
LOC: HO.HWS 11:41
PROVIDERS: PCP Pediatrics; Visit Provider Advanced Practice Midwife
DX: Z71.2 Person consulting for explanation of examination or test findings (principal); R10.2 Pelvic and perineal pain; N83.202 Unspecified ovarian cyst, left side; N89.8 Other specified noninflammatory disorders of vagina
CPT/HCPCS: 99214

== ENCOUNTER 2022-11-08 19:37 | Outpatient (REF) | payer MEDICAID, SELFPAY ==
[2022-11-09 04:08] LABS: CT PCR NOT DETECTED (Not Detect.); NG PCR NOT DETECTED (Not Detect.)
[2022-11-09 11:48] LABS: BV Int Neg Control Negative (Negative); BV Int Pos Control Positive (Positive)
== END 2022-11-08 19:38 | disposition home or self-care (01) ==
LOC: HO.LNP 19:37
PROVIDERS: Visit Provider Advanced Practice Midwife
DX: R10.2 Pelvic and perineal pain (principal)
CPT/HCPCS: 0353U; 87480; 87510; 87660

== ENCOUNTER 2022-12-19 10:52 | Outpatient (REF) | payer MEDICAID, SELFPAY ==
--- NOTE | ~2022-12-19 | US_ITS ---
EXAMINATION: US PELVIS COMPLETE CLINICAL INFORMATION: Pelvic pain COMPARISON: Pelvic ultrasound 10/10/2022 TECHNIQUE: Transabdominal imaging was performed. FINDINGS: The uterus is of normal size and echogenicity measuring 9.9 x 3.6 x 4.1 cm. A regular homogeneous endometrium is identified measuring 0.8 cm. Both ovaries are of normal size and echogenicity. The right measures 3.4 x 1.8 x 2.4 cm for a volume of 7.7 mL. The left measures 3.2 x 2.2 x 2.0 cm for a volume of 7.4 mL. There is no pelvic free fluid. US/US pelvic complete IMPRESSION: Unremarkable pelvic ultrasound.
[2022-12-19 14:15] LABS: Appearance Urine Clear; Color Urine Yellow; Glucose Urine UA Negative (Negative); Leukocyte Esterase Urine Moderate (2+) (Negative); Nitrite Urine Negative (Negative); PH 6.5 (5.0-9.0); Specific Gravity - Urine <= 1.005 (1.005-1.025); UMIC TRIGGER UACC YES; Urine Blood Trace (Negative); Urine Ketones Negative (Negative); Urine Protein Negative (Neg-Trace)
[2022-12-19 14:30] LABS: Bacteria Urine None Seen (None Seen); Hyaline Casts Urine 0-2 /LPF (0-2); RBC Urine 0-2 /HPF (0-2); Squamous Epithelial Cell Urine 0-2 /HPF (0-2); WBC Urine 0-5 /HPF (0-5)
== END 2022-12-19 10:53 | disposition home or self-care (01) ==
LOC: HO.US 10:52
PROVIDERS: PCP Pediatrics; Visit Provider Advanced Practice Midwife
DX: R10.2 Pelvic and perineal pain (principal); N83.202 Unspecified ovarian cyst, left side
CPT/HCPCS: 76856; 81001

== ENCOUNTER 2022-12-26 11:19 | Outpatient (REF) | payer MEDICAID, SELFPAY ==
[2022-12-28 04:35] LABS: Prolactin 6.7 ng/mL
[2022-12-30 16:13] LABS: Testosterone, Free 9.4 pg/mL (0.1-6.4); Testosterone, Total 50 ng/dL (2-45)
== END 2022-12-26 11:20 | disposition home or self-care (01) ==
LOC: HO.CHCLDS 11:19
PROVIDERS: Visit Provider Pediatrics
DX: L70.0 Acne vulgaris (principal); R63.5 Abnormal weight gain; N92.6 Irregular menstruation, unspecified
CPT/HCPCS: 36415; 80061; 83036; 83525; 84146; 84402; 84403; 84443

== ENCOUNTER 2023-01-09 10:43 | Outpatient (AMB) | payer MEDICAID, SELFPAY ==
--- NOTE | 2023-01-09 10:45 | A.OFFVIS_ITS ---
Intake Vital Signs 01/09/23 10:46 Height 5 ft 2 in Weight 220 lb BMI 40.2 BP 100/66 Intake Visit Reasons: US follow up/45 mins Intake Note: The patient agreed to use of a medical director/head team physician during this encounter. Scribed for SIRISHA Griggs by Maddison Stern medical director/head team physician, on 01/09/2023 at 11:24 am EST. Telecasting Technician Required: Yes Telecasting Technician Language: Appraiser Irrigation Tax Name: Renetta [id number] Information Interpreted: non-clinical & clinical Allergies No Known Allergies [No Known Allergies*] Allergy (Verified 01/09/23 10:46) Is last menstrual period known: Yes Last menstrual period: 12/03/22 HPI HPI Comments History of Present Illness Details She is here to discuss US results regarding pelvic pain. Reports she feels occasion pelvic pain. Hx of BV; has taken Rx and has no more abnormal vaginal discharge. Currently not sexually active. 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 FINDINGS: The uterus is of normal size and echogenicity measuring 9.9 x 3.6 x 4.1 cm. A regular homogeneous endometrium is identified measuring 0.8 cm. Both ovaries are of normal size and echogenicity. The right measures 3.4 x 1.8 x 2.4 cm for a volume of 7.7 mL. The left measures 3.2 x 2.2 x 2.0 cm for a volume of 7.4 mL. There is no pelvic free fluid. US/US pelvic complete IMPRESSION: Unremarkable pelvic ultrasound. Assessment & Plan Assessment & Plan (1) Encounter to discuss test results: Code(s): Z71.2 - Person consulting for explanation of examination or test findings Plan: Discussed: US findings: normal. Encouraged to use condoms for STD and prevention if become sexually active. All of her questions and concerns were addressed to the best of my ability and shared decision making. She is agreeable to plan of care. RTO 03/2023 for AG. Coding Level of Care Code Est Pt Level 3 (07730) Diagnoses Encounter to discuss test results Z71.2
[2023-01-09 10:46] VITALS: BP 100/66; BMI 40.2
== END 2023-01-09 11:28 | disposition home or self-care (01) ==
PROVIDERS: PCP Pediatrics; Visit Provider Advanced Practice Midwife
DX: Z71.2 Person consulting for explanation of examination or test findings (principal)
CPT/HCPCS: 99213

== ENCOUNTER → 2023-01-09 10:43 | Outpatient (BNVA) | payer MEDICAID, SELFPAY | PROVIDERS: PCP Pediatrics; Visit Provider Advanced Practice Midwife | DX: Z71.2 Person consulting for explanation of examination or test findings (principal) | CPT/HCPCS: 99212 ==

== ENCOUNTER 2023-05-23 10:17 | Outpatient (AMB) | payer MEDICAID, SELFPAY ==
[2023-05-23 10:38] VITALS: BP 112/68; BMI 40.8
--- NOTE | 2023-05-23 10:38 | MHC.OFFVIS ---
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 Doing well with no concerns. She tries to eat healthy and stays active with exercise. Menses irregular, skips up to several months, x7-8d, HMB x 3-4d/7-8. She reports her menses are irregular when her weight is up. She has been struggling with weight loss and has a follow up with her PCP to discuss this again. Lab values reviewed there was a elevated testosterone level noted from December of 2022, the patient was unaware of the test results ordered by her primary care physician. She reports never being told she had PCOS. Currently is not sexually active. She denies vaginal itching and irritation. STI screening offered; she declines. Denies family history of breast, ovarian cancer. colon cancer-[facility] [place]. Last pap smear 2021, negative. CINI/HPV+-2020, Colpo 2020-CINI. [facility] Medical History (Updated 05/23/23 @ 11:03 by Ifrah Lilly CNM) Left ovarian cyst Pelvic pain DLATON I (cervical intraepithelial neoplasia I) ASCUS with positive high risk HPV Pap smear of cervix with ASCUS, cannot exclude HGSIL Obese Kidney stones Surgical History History of appendectomy Family History (Updated 05/23/23 @ 10:48 by Jayna Almeida CMA) Maternal Grandmother Colon cancer Father HTN (hypertension) Maternal Grandfather Diabetes Maternal Grandfather Prostate cancer Social History (Updated 05/23/23 @ 10:55 by Jayna Almeida CMA) Household Members Other:: mom and son Housing: House Alcohol intake: never Patient Tobacco Use Status: Never used Tobacco Current occupational status: 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 Sexual orientation: Straight/Heterosexual Gender identity: Female Female Reproductive History Menstrual Age of Menarche: 14 Duration of menses: 3-5 days Date of last menstrual period: 04/20/23 Total pregnancies: 1 Full term: 1 Number of Living Children: 1 Date of last pap smear: 01/04/22 Review of Systems Const All systems reviewed & are unremarkable except as noted in HPI and below Reports as per HPI Eyes Reports no additional complaints ENT Reports no additional complaints Card Reports no additional complaints Resp Reports no additional complaints GI Reports as per HPI and Reports no additional complaints Reports as per HPI Musc Reports no additional complaints Skin/Breast Reports as per HPI Neuro Reports no additional complaints Psych Reports no additional complaints Endo Reports no additional complaints Prem/Lymph Reports no additional complaints Aller/Immun Reports no additional complaints Physical Exam Vital Signs: Last Vital Signs BP 112/68 05/23/23 10:38 BMI result Body Mass Index 40.8 Const General: cooperative, healthy appearing, no acute distress, well developed and alert Orientation/consciousness: patient oriented x3 HEENT Head: Yes normal to inspection Eyes General: appearance normal, both eyes and all related structures Neck Neck: Yes normal visual inspection Thyroid: Thyroid normal Chest Chest palpation & inspection: normal inspection of the chest and other (no puckering, dimpling, peau de orange, retraction, discharge, masses) Breast/axilla inspection: normal inspection of the breasts Breast/axilla palpation: normal palpation of the breasts Resp Effort & Inspection: normal respiratory effort GI Inspection: Yes normal to inspection Palpation (GI): Soft to palpation Rectal Exam - Female: deferred General: Yes bladder normal to palpation External Female Exam: normal external appearance and normal appearance of the urethra Speculum Exam - Vagina: normal appearance of the vagina, normal palpation and normal vaginal discharge Speculum Exam - Cervix: normal appearance of the cervix and normal palpation Bimanual exam- vagina & uterus: normal bimanual exam, normal palpation, uterine size normal, bladder normal to palpation, normal palpation and non-tender Bimanual Exam- Adnexa, other: no masses Skin General skin exam: no rashes or lesions noted Rashes: no rashes Neuro General: patient oriented x3 Cognition (Neuro): normal cognition Extrem General: Yes normal to inspection Psych Attitude: cooperative Thought process: Normal thought process present Assessment & Plan Assessment & Plan (1) Encounter for well woman exam with routine gynecological exam: Code(s): Z01.419 - Encounter for gynecological examination (general) (routine) without abnormal findings (2) History of abnormal cervical Pap smear: Code(s): Z87.42 - Personal history of other diseases of the female genital tract Plan Discussed: Current recommendations for pap smears per ASCCP guidelines. Breast awareness and periodic breast exams. Maintain a healthy lifestyle including a well balanced diet and routine exercise. Use condoms for STI and prevention. Advised to discuss the test results with her primary care at her next visit this month. There may be a diagnosis of PCOS that she is unaware of, advised treatment is available either intermittent use of hormones or continues dosing and other options available if needed, consider a follow-up appointment to review the options. Patient verbalizes understanding and agrees to the plan of care. She was given opportunity to ask questions and all questions were answered to the best of my ability. RTO in one year for annual animal behaviorist examination. This note is constructed using voice recognition software. While every effort has been made to ensure accuracy, perforator operator errors may have been included. Orders: Orders Pap Smear Today R87.619 - Unspecified abnormal cytological findings in specimens from cervix uteri Coding Level of Care Code Est Pt Prev Care 18-39y(75094) Diagnoses Encounter for well woman exam with routine gynecological exam Z01.419 History of abnormal cervical Pap smear Z87.42
== END 2023-05-23 11:25 | disposition home or self-care (01) ==
PROVIDERS: PCP Pediatrics; Visit Provider Advanced Practice Midwife
DX: Z01.419 Encounter for gynecological examination (general) (routine) without abnormal findings (principal); Z87.42 Personal history of other diseases of the female genital tract
CPT/HCPCS: 99395

== ENCOUNTER 2023-05-23 10:17 | Outpatient (REF) | payer MEDICAID, SELFPAY ==
[2023-05-30 05:58] LABS: HPV mRNA E6/E7 rflx Detected (Not Detected)
[2023-05-30 06:09] LABS: HPV 16 RNA NOT DETECTED (NOT DETECTED)
== END 2023-05-23 10:18 | disposition home or self-care (01) ==
LOC: HO.LNP 10:17
PROVIDERS: PCP Pediatrics; Visit Provider Advanced Practice Midwife
DX: Z01.419 Encounter for gynecological examination (general) (routine) without abnormal findings (principal); R87.619 Unspecified abnormal cytological findings in specimens from cervix uteri; Z87.42 Personal history of other diseases of the female genital tract
CPT/HCPCS: 87624; 87625; 88142; 99395

== ENCOUNTER → 2023-05-28 09:15 | Outpatient (BNVA) | payer MEDICAID, SELFPAY | PROVIDERS: PCP Pediatrics; Visit Provider Physician Assistant ==

== ENCOUNTER 2023-06-06 11:28 | Outpatient (AMB) | payer MEDICAID, SELFPAY ==
--- NOTE | 2023-06-05 13:20 | A.OFFVIS_ITS ---
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 Her goal is-------. She reports first being concerned about her weight . She has tried multiple methods of weight loss including------- without permanent results. She lives with -------. She works ---days per week She wakes at: bed at Breakfast: Lunch: Dinner: After dinner: Other snacks: Liquids: Alcohol intake: tobacco: marijuana: Exercise: Last mammogram: Last pap smear: control method: UMANG: ESS: GERD: QOL: PFSH Medical History (Updated 06/05/23 @ 13:21 by Kiana Acuna PA-C) Obese Left ovarian cyst Pelvic pain DALTON I (cervical intraepithelial neoplasia I) ASCUS with positive high risk HPV Pap smear of cervix with ASCUS, cannot exclude HGSIL Kidney stones Surgical History History of appendectomy Family History (Updated 05/23/23 @ 10:48 by Jayna Almeida CMA) Maternal Grandmother Colon cancer Father HTN (hypertension) Maternal Grandfather Diabetes Maternal Grandfather Prostate cancer Social History (Updated 05/23/23 @ 10:55 by Jayna Almeida CMA) Household Members Other:: mom and son Housing: House Alcohol intake: never Patient Tobacco Use Status: Never used Tobacco Current occupational status: 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 Blood work, h pylori , CXR, ECG, Abd ULS and UGI have been ordered. She is being scheduled for RD and BH initial consultations. She will start SWL classes and watch at 3 classes before her next appt with Karen. 1. Adequate sleep of 7-8 hours per night discussed 2. Healthy meal plan - stop skipping meals and stop all sweetened drinks All meals/MR's need to take 20 minutes to complete 8am - protein shake with water or UAM 11 am - protein shake with water or UAM 1:30 pm- bar or yogurt 7 pm- dinner of 12 forks lean protein, 12 forks vegetable, 1 serving fruit Exercise - Cardio 4 d week = treadmill at speed 3.0, incline 3-5 - to burn 350 calories 3 d/ wk - circuit room 20/20/40 lbs The importance of avoiding and breast feeding for at least 18 months after bariatric surgery was discussed in the information session and was reinforced today. Pt will purchase body composition analyzer (recommended list given to patient) and weight herself weekly. Next appt with me in 3 weeks. Text me with any questions and weekly weights. Patient is morbidly obese and is not considered stable at this time.?I spent a total of 60 minutes reviewing/updating records, examining the patient and counseling the patient on weight management as detailed above. Coding Diagnoses Obese E66.9
--- NOTE | 2023-06-06 11:32 | MHC.OFFVISWM ---
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 Her goal is to have good life with her son. He is 3 years old and she has not been able to losse the weight since she gave . . She reports first being concerned about her weight over last 3 years. . She has tried multiple methods of weight loss including diets without permanent results. She lives with her mother and her son. She works 5 days per week from 2 pm to 11 pm. She wakes at: 10 am bed at 5 am. Breakfast: 10am- 2 eggs boiled, crackers and coffee lactaid and sugar Lunch: 5-6 pm - [employer] mostly -- chicken nugget, vietnamese fries and lemonade. IF brings food rice/larsen and pork chop, water. only eats lettuce and tomato for vegetables Dinner: 11:30 pm - corn flakes with Lactaid. After dinner: nothing Other snacks: states no snacks Liquids: no soda or fruit juices Alcohol intake: none, tobacco:none, marijuana: none Exercise: has gym membership - has not been since last year. Last mammogram: too young Last pap smear: within 1 year control method: none, no male sex partners UMANG: 3 ESS:3 GERD: 5 QOL:76 PFSH Medical History (Updated 06/05/23 @ 13:21 by Kiana Acuna PA-C) Obese Left ovarian cyst Pelvic pain DALTON I (cervical intraepithelial neoplasia I) ASCUS with positive high risk HPV Pap smear of cervix with ASCUS, cannot exclude HGSIL Kidney stones Surgical History History of appendectomy Family History (Updated 05/23/23 @ 10:48 by Jayna Almeida CMA) Maternal Grandmother Colon cancer Father HTN (hypertension) Maternal Grandfather Diabetes Maternal Grandfather Prostate cancer Social History (Updated 05/23/23 @ 10:55 by Jayna Almeida CMA) Household Members Other:: mom and son Housing: House Alcohol intake: never Patient Tobacco Use Status: Never used Tobacco 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 Blood work, h pylori , CXR, ECG, Abd ULS and UGI have been ordered. She is being scheduled for initial consultations. She will start SWL classes, and will be scheduled for RD appt when we are able to do so. Weight/BMI when had initial appointment on May in our office was 222.4 lbsor BMI of 40.7. 1. Adequate sleep of 7-8 hours per night discussed, 2am - 10 am 2. Healthy meal plan - All meals/MR's need to take 20 minutes to complete 10 am- coffee 11 am - protein shake with water or UAM 2 pm - protein shake with water or UAM 5- 6 pm- dinner of 12 forks lean protein, 12 forks vegetable, 1 serving fruit 11:30 pm - protein bar Exercise - gym 5 d week. treadmill speed 2.8, incliine 2-7 (3 minutes) 350 calories The importance of avoiding and breast feeding for at least 18 months after bariatric surgery was discussed in the information session and was reinforced today. Pt will purchase body composition analyzer (recommended list given to patient) and weight herself weekly. Next appt with Dr Terry in 3 weeks. Will purchase scale to send Dr Terry weekly weights. Patient is morbidly obese and is not considered stable at this time.?I spent a total of 60 minutes reviewing/updating records, examining the patient and counseling the patient on weight management as detailed above. Coding Level of Care Code New Pt Level 5 (96686) Diagnoses Obese E66.9
[2023-06-06 11:43] VITALS: BP 116/58; PULSE 91; TEMP 35.9; O2SAT 96; BMI 39.9
== END 2023-06-06 12:36 | disposition home or self-care (01) ==
PROVIDERS: PCP Pediatrics; Visit Provider Physician Assistant
DX: E66.9 Obesity, unspecified (principal)
CPT/HCPCS: 99205

== ENCOUNTER → 2023-06-06 11:28 | Outpatient (BNVA) | payer MEDICAID, SELFPAY | PROVIDERS: PCP Pediatrics; Visit Provider Physician Assistant | DX: E66.9 Obesity, unspecified (principal); Z68.39 Body mass index [BMI] 39.0-39.9, adult | CPT/HCPCS: 99212 ==

== ENCOUNTER 2023-06-25 10:50 | Outpatient (REF) | payer OTHER, SELFPAY ==
--- NOTE | 2023-06-25 11:15 | ECG_ITS ---
Test Reason : e66.9 Blood Pressure : / mmHG Vent. Rate : 079 BPM Atrial Rate : 079 BPM P-R Int : 126 ms QRS Dur : 074 ms QT Int : 362 ms P-R-T Axes : 061 021 005 degrees QTc Int : 415 ms Normal sinus rhythm Normal ECG When compared with ECG of 11-OCT-2021 17:41, No significant change was found Referred By: Kiana Acuna Electronically Signed By:NOEMÍ WARREN MD
[2023-06-25 11:41] LABS: MANUAL DIFF FLAG NO
[2023-06-25 11:44] LABS: Basophils Percent Auto 0.4 % (0-2); Eosinophils Absolute Auto 0.1 X10*3/uL (0.0-0.4); Eosinophils Percent Auto 0.7 % (0-4); Hematocrit 38.5 % (37.0-47.0); Hemoglobin 12.7 g/dl (12.0-16.0); Imm Gran Abs Auto 0.03 X10*3/uL (0.00-0.03); Imm Gran Pct Auto 0.3 % (0.0-0.4); Lymphocytes Absolute Auto 1.6 X10*3/uL (1.2-4.9); Lymphocytes Percent Auto 14.3 % (20-40); Mean Corpuscular Hemoglobin 30.2 pg (27.0-33.0); Mean Corpuscular Volume 91.7 fL (80.0-98.0); Mean Platelet Volume 10.6 fL (9.4-12.3); Monocytes Absolute Auto 0.9 X10*3/uL (0.1-1.2); Monocytes Percent Auto 8.1 % (2-11); Neutrophils Absolute Auto 8.7 x10*3/uL (2.0-8.3); Neutrophils Percent Auto 76.2 % (45-73); Platelet Count 283 X10*3/uL (160-400); Red Cell Distribution Width 12.9 % (11.0-16.0); White Blood Count 11.4 X10*3/uL (4.8-10.8)
[2023-06-25 12:05] LABS: Alanine Aminotransferase 20 U/L (0-31); Albumin Level 3.9 g/dL (3.5-5.0); Alkaline Phosphatase 83 U/L (39-117); Anion Gap 11 (12-20); Aspartate Amino Transferase 16 U/L (5-31); Bilirubin Total 0.5 mg/dL (0.0-1.0); Blood Urea Nitrogen 11 mg/dL (9-16); C Reactive Protein 2.89 mg/dL (< or = 0.50); Calcium 9.1 mg/dL (8.4-10.2); Carbon Dioxide 25 mmol/L (22-29); Chloride 108 mmol/L (96-108); Cholesterol 130 mg/dL (<200); Estimated Glomerular Filt Rate > 60; Glucose Random 125 mg/dL (60-115); HDL Cholesterol 47 mg/dL (>40); Iron 57 mcg/dL (30-160); LDL Cholesterol Calculated 73 mg/dL (<100); Percent Iron Saturation 22 % (15-50); Sodium 140 mmol/L (135-145); Total Iron Binding Capacity 260 mcg/dL (228-428); Total Protein 7.4 g/dL (6.5-8.0); Triglycerides 54 mg/dL (<150); Unsaturated Iron Binding 203 ug/dL
[2023-06-25 12:21] LABS: Ferritin 26 ng/mL (10-122); Insulin 20 uU/mL (2-29); TSH reflex Free T4 7.34 uIU/mL (0.32-4.0); Vitamin D 25-OH Total 18.1 ng/mL (>30)
[2023-06-25 12:35] LABS: Folate 13.2 ng/mL (> or = 4.0); Vitamin B12 616 pg/mL (200-900)
[2023-06-25 13:18] LABS: Free T4 (Free Thyroxine) 0.68 ng/dL (0.71-1.85)
[2023-06-25 15:00] LABS: Estimated Average Glucose 108 mg/dL; Hemoglobin A1c % 5.4 % (<6.0)
[2023-06-28 03:18] LABS: Zinc 57 mcg/dL (60-130)
[2023-06-29 10:48] LABS: Vitamin B1 7 nmol/L (8-30)
[2023-06-30 22:19] LABS: Vitamin A 28 mcg/dL (38-98)
== END 2023-06-25 10:51 | disposition home or self-care (01) ==
LOC: HO.XRAY 10:50
PROVIDERS: Absent Provider Physician Assistant; PCP Pediatrics; Visit Provider Physician Assistant Surgical
DX: E66.9 Obesity, unspecified (principal); Z01.818 Encounter for other preprocedural examination
CPT/HCPCS: 36415; 80053; 80061; 82306; 82607; 82728; 82746; 83036; 83525; 83540; 84425; 84439; 84443; 84590; 84630; 85025; 86140; 93005

== ENCOUNTER → 2023-06-25 11:15 | Outpatient (BNV) | payer OTHER, SELFPAY | PROVIDERS: Absent Provider Physician Assistant; PCP Pediatrics; Visit Provider Internal Medicine Cardiovascular Disease | DX: I45.6 Pre-excitation syndrome (principal) | CPT/HCPCS: 93010 ==

== ENCOUNTER 2023-07-02 10:46 | Outpatient (AMB) | payer OTHER, SELFPAY ==
[2023-07-02 11:01] VITALS: BP 120/78; BMI 40.2
--- NOTE | 2023-07-02 11:01 | MHC.OFFVIS ---
Intake Vital Signs 07/02/23 11:01 Height 5 ft 2 in Weight 220 lb BMI 40.2 BP 120/78 Intake Visit Reasons: colposcopy Chief Financial Officer Required: Yes Chief Financial Officer Language: Computer Aided Design Drafter Name: Avi [id number] Information Interpreted: non-clinical & clinical Restaurant Front Manager: Restaurant Front Manager Present (Aidyn) Allergies No Known Allergies [No Known Allergies*] Allergy (Verified 07/02/23 11:01) Is last menstrual period known: Yes Last menstrual period: 06/26/23 Post menopausal: No HPI HPI Comments History of Present Illness Details Presenting for colposcopy for negative Pap/HPV positive, history of DALTON 1 in 2020 [facility] Medical History Obese Left ovarian cyst Pelvic pain DALTON I (cervical intraepithelial neoplasia I) ASCUS with positive high risk HPV Pap smear of cervix with ASCUS, cannot exclude HGSIL Kidney stones Surgical History History of appendectomy Family History Maternal Grandmother Colon cancer Father HTN (hypertension) Maternal Grandfather Diabetes Maternal Grandfather Prostate cancer Social History Household Members Other:: mom and son Housing: House Alcohol intake: never Patient Tobacco Use Status: Never used Tobacco 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 occupational 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: 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 Sexual 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: Straight/Heterosexual Gender identity: Female Female Reproductive History Menstrual Age of Menarche: 14 Date of last menstrual period: 06/26/23 control method: none Date of last pap smear: 05/27/23 (+HPV) Physical Exam Vital Signs: Last Vital Signs BP 120/78 07/02/23 11:01 BMI result Body Mass Index 40.2 Office Procedures Colposcopy Before the procedure was started discussed with the patient the procedure, alternatives & all the risks associated with the procedure (bleeding, infection, injury to vagina, bladder, vessels, possible need for transfusion with all its risks) then patient signed the consent Pap smear = LSIL Urine test done in the office was negative Speculum inserted, acetic acid used Colposcopy done Transformation zone seen, acetowhite lesions identified at 11+12+1 o?clock, cervical biopsies taken from 11+12+1 o?clock, ECC done afterwards. Vaginoscopy of the upper vagina showed no evidence of any aceto-white lesions Monsel solution used for hemostasis. The patient tolerated well . At the end the patient was instructed to call if temp>100.4, abdominal pain, n/v, bleeding; The patient was given the following instructions: nothing per vagina, no intercourse or bath tub use. All questions answered the patient verbalized understanding. Instructed the patient to make an appointment in 2 weeks for follow-up This note was generated with a voice recognition program. Some errors may have been overlooked during the review of this note. Sometimes these errors may affect the content or meaning of a given sentence. 64362-Nnvegnsco of cervix including upper vagina with biopsy and ECC Procedure code (CPT) selection complete Results AMB Test Urine AMB Test Urine Negative Last Edit by GUCCI Fritz on 07/02/23 12:12 Results Reviewed Results Reviewed: Laboratory Last Values [facility] Clinic Negative 07/02/23 12:11 Assessment & Plan Assessment & Plan (1) HPV (human papilloma virus) infection: Code(s): B97.7 - Papillomavirus as the cause of diseases classified elsewhere Plan: Colpo done, see procedure Orders: Orders AMB HCG Urine Test Today Z32.02 - Encounter for test, result negative AMB Colposcopy Today B97.7 - Papillomavirus as the cause of diseases classified elsewhere Coding Level of Care Code Procedure Only Diagnoses HPV (human papilloma virus) infection B97.7 CPT Codes Colposcopy - CPT: 59677-Yoajdnqzh of cervix including upper vagina with biopsy and ECC ([id number])
== END 2023-07-02 12:32 | disposition home or self-care (01) ==
LOC: HO.HWS 10:46
PROVIDERS: PCP Pediatrics; Visit Provider Obstetrics & Gynecology
DX: R87.810 Cervical high risk human papillomavirus (HPV) DNA test positive (principal); Z32.02 Encounter for pregnancy test, result negative
CPT/HCPCS: 57454

== ENCOUNTER 2023-07-02 10:46 | Outpatient (REF) | payer OTHER, SELFPAY | END 2023-07-02 10:47 | disposition home or self-care (01) | LOC: HO.LNP 10:46 | PROVIDERS: PCP Pediatrics; Visit Provider Obstetrics & Gynecology | DX: A63.0 Anogenital (venereal) warts (principal); Z32.02 Encounter for pregnancy test, result negative | CPT/HCPCS: 57454; 81025; 88305 ==

== ENCOUNTER 2023-07-08 16:46 | Emergency (ER) | payer OTHER, SELFPAY ==
[2023-07-08 17:24] VITALS: BP 138/66; PULSE 90; RESP 18; TEMP 37.2; O2SAT 98; BMI 41.1
[2023-07-08 18:22] LABS: IDNOW Serial# 08D9AD1C; Strep A Nucleic Acid Negative (Negative)
[2023-07-08 18:28] LABS: Influenza A PCR NEGATIVE (Negative); Influenza B PCR NEGATIVE (Negative); Resp Syncy Virus RNA Qual PCR NEGATIVE (Negative); SARS COV2 PCR INHOUSE NEGATIVE (Negative)
--- NOTE | 2023-07-08 18:32 | ED.URI ---
HPI - URI/Sore Throat General Chief Complaint: Upper Respiratory Symptoms Stated Complaint: sore throat/fever/headaches/body aches Time Seen by Provider: 07/08/23 18:14 Source: patient Mode of arrival: ambulatory Limitations: no limitations History of Present Illness HPI Narrative: Patient is a 33-year-old female who presents emergency department for evaluation of body aches, intermittent headache, nonproductive cough, sore throat. Symptom onset was 2 days ago. She denies taking any pobb-tiz-uhqaunw medications for symptomatic relief. Denies any known sick contacts. Denies fevers, chills, dizziness, neck pain, neck stiffness, chest pain, shortness of breath, difficulty breathing, vomiting, abdominal pain, numbness or tingling of the extremities, genitourinary symptoms. Related Data Previous Rx's ?Medication ?Instructions ?Recorded cholecalciferol (vitamin D3) 125 125 mcg PO DAILY 90 days #90 caps 06/25/23 mcg (5,000 unit) capsule thiamine HCl (vitamin B1) 100 mg 100 mg PO DAILY 90 days #90 tabs 06/30/23 tablet zinc gluconate 30 mg tablet 30 mg PO DAILY #60 tabs 06/30/23 vitamin A palmitate 3,000 mcg 3,000 mcg PO DAILY 90 days #90 caps 07/01/23 (10,000 unit) capsule amoxicillin 500 mg capsule 500 mg PO BID #20 caps 07/08/23 Allergies Allergy/AdvReac Type Severity Reaction Status Date / Time No Known Allergies Allergy Verified 07/08/23 17:27 [No Known Allergies*] Review of Systems Review of Systems: Yes all other systems are reviewed and are negative PMFSH Past Medical History Attestation statement: The following information was validated with the patient. Source: old records reviewed Medical History Obese Left ovarian cyst Pelvic pain DALTON I (cervical intraepithelial neoplasia I) ASCUS with positive high risk HPV Pap smear of cervix with ASCUS, cannot exclude HGSIL Kidney stones Surgical History History of appendectomy Family History Family History Maternal Grandmother Colon cancer Father HTN (hypertension) Maternal Grandfather Diabetes Maternal Grandfather Prostate cancer Social History Social History Household Members Other:: mom and son Housing: House Alcohol intake: never Patient Tobacco Use Status: Never used Tobacco Advance Directives: No Advance Directives Information Provided: No 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 No acute distress.?Normal affect. Eyes: Pupils equal, round and reactive to light.? ENT: TM normal bilaterally. Pharynx 3+ tonsillar hypertrophy bilaterally with white exudates. Uvula midline. No trismus. No drooling. No palatal petechiae ? Neck: Normal inspection.? Neck supple.??No cervical adenopathy CVS: Heart sounds normal. Normal heart rate and rhythm.? Pulses normal.?? Respiratory: No respiratory distress.? Lung sounds clear to auscultation bilaterally?? Abdomen: Soft and non-tender. Normoactive bowel sounds. Skin: Skin warm and dry.? Normal skin color.? ? Extremities: No lower extremity edema.? Neuro: Moves all extremities spontaneously. Sensation intact bilaterally. No motor deficits. Ambulates with normal steady gait. Medical Decision Making Medical Decision Making MDM Narrative: Patient is a 33-year-old female presenting for evaluation of upper respiratory symptoms. COVID-19/influenza/RSV testing negative. Strep a testing is negative. At this time history and physical exam not consistent with pneumonia. Discussed treatment with course of antibiotics given physical exam of pharynx, received single dose of dexamethasone while in the emergency department Well-appearing, nontoxic, afebrile, no tachycardia or tachypnea/hypoxia. Speaking clear full sentences, ambulatory with steady gait. Discussed conservative treatment including rest, hydration, Tylenol/ibuprofen as needed for fever and body aches, saline nasal spray, humidifier, ofms-qcb-hxqzzzc cold medication. Advised to follow-up with primary care provider as needed, discussed reasons to return back to the emergency department. All questions were answered. Patient discharged home in stable condition. Differential Diagnosis Differential Diagnoses: The differential diagnosis associated with the presentation includes ( See narrative above) Admission/Observation Consideration of admission/observation: Escalation of care including admission/observation considered ( see narrative above) Lab Data MDM Lab Attestation statement: I reviewed the patient's lab results. ( see narrative above) Labs: Lab Results 07/08/23 Range/Units 17:34 Influenza Type A (PCR) NEGATIVE (Negative) Influenza Type B (PCR) NEGATIVE (Negative) RSV RNA Qual (PCR) NEGATIVE (Negative) SARS-CoV-2 RNA (RT-PCR) NEGATIVE (Negative) S. pyogenes GrpA FABIO Negative (Negative) External Record Review External record reviewed: Outpatient record Prescription Management I considered prescription management with: Pain Medication ( acetaminophen/ibuprofen) and Antibiotic Discharge Plan Discharge Clinical Impression: Pharyngitis Patient Disposition: Home, Self-Care Instructions: Pharyngitis (ED) Additional Instructions: Complete the entire course of antibiotics as prescribed. Be sure to rest, stay well hydrated drinking plenty of fluids, eat small frequent meals. Tylenol/ibuprofen can be used as needed for fever/pain. Hrcs-vij-rkumqhk cold medications may be helpful as well for symptoms. Saline nasal spray, humidifier may be helpful for nasal congestion. You may return to the emergency department with any new or worsening symptoms or concerns. Follow-up with your primary care provider as needed. Should remain out of school/ work until symptoms have resolved and have been without a fever for 24 hours without the use of Tylenol or ibuprofen. Prescriptions: New amoxicillin 500 mg capsule 500 mg PO BID Qty: 20 0RF No Action cholecalciferol (vitamin D3) 125 mcg (5,000 unit) capsule 125 mcg PO DAILY 90 Days Qty: 90 1RF thiamine HCl (vitamin B1) 100 mg tablet 100 mg PO DAILY 90 Days Qty: 90 0RF zinc gluconate 30 mg tablet 30 mg PO DAILY Qty: 60 0RF vitamin A palmitate 3,000 mcg (10,000 unit) capsule 3,000 mcg PO DAILY 90 Days Qty: 90 0RF Print Language: Latvian
[2023-07-08] MEDS: Amoxicillin 500 MG CAPSULE 1000 MG PO (18:49)
[2023-07-08] MEDS: dexAMETHasone sod phosphate 4 MG/ML VIAL 8 MG PO (18:49)
[2023-07-08 19:03] VITALS: BP 103/55; PULSE 74; RESP 16; TEMP 36.9; O2SAT 97
== END 2023-07-08 19:04 | disposition home or self-care (01) ==
PROVIDERS: Emergency Provider Emergency Medicine; PCP Pediatrics
DX: J02.9 Acute pharyngitis, unspecified (principal)
CPT/HCPCS: 0241U; 87651; 99282; 99283; J1100

== ENCOUNTER 2023-07-15 10:33 | Outpatient (REF) | payer OTHER, SELFPAY ==
[2023-07-15 15:08] LABS: TSH reflex Free T4 21.66 uIU/mL (0.32-4.0)
[2023-07-15 18:58] LABS: Free T4 (Free Thyroxine) 0.57 ng/dL (0.71-1.85)
== END 2023-07-15 10:34 | disposition home or self-care (01) ==
LOC: HO.CHCLDS 10:33
PROVIDERS: Visit Provider Pediatrics
DX: R79.89 Other specified abnormal findings of blood chemistry (principal)
CPT/HCPCS: 36415; 84439; 84443

== ENCOUNTER 2023-07-21 08:56 | Outpatient (AMB) | payer OTHER, SELFPAY ==
--- NOTE | 2023-07-21 09:06 | MHC.OFFVIS ---
Vital Signs 07/21/23 09:08 Height 5 ft 2 in Weight 224 lb 13.944 oz BMI 41.1 BP 108/66 Intake Visit Reasons: colpo follow up Arc Cutter Plasma Arc Required: Yes Arc Cutter Plasma Arc Language: Assistant Manager Retail Name: Jayna DUCKWORTH Information Interpreted: non-clinical & clinical Accompanied by: Self / Same As Patient Allergies No Known Allergies [No Known Allergies*] Allergy (Verified 07/21/23 09:09) Is last menstrual period known: Yes Last menstrual period: 07/09/23 HPI Comments Details: Presenting post colpo for follow-up. The patient is doing well with no complaints. The pathology showed the following: A. Endocervix, curettage: Endocervical glandular mucosa with abundant mucus and inflammation; negative for dysplasia. B. Cervix, 1:00, biopsy: Endocervical glandular mucosa with marked inflammation; negative for dysplasia; no squamous component present. C. Cervix, 11:00, biopsy: Endocervical glandular mucosa with marked inflammation; negative for dysplasia; no squamous component present. D. Cervix, 12:00, biopsy: Endocervical glandular mucosa with marked inflammation and focal reactive changes; negative for dysplasia; no squamous component present [facility] Medical History Obese Left ovarian cyst Pelvic pain DALTON I (cervical intraepithelial neoplasia I) ASCUS with positive high risk HPV Pap smear of cervix with ASCUS, cannot exclude HGSIL Kidney stones Surgical History History of appendectomy Family History Maternal Grandmother Colon cancer Father HTN (hypertension) Maternal Grandfather Diabetes Maternal Grandfather Prostate cancer Social History Household Members Other:: mom and son Housing: House Alcohol intake: never Patient Tobacco Use Status: Never used Tobacco 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 occupational status: 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 Sexual orientation: Straight/Heterosexual Gender identity: Female Female Reproductive History Menstrual Age of Menarche: 14 Date of last menstrual period: 07/09/23 Review of Systems Const All systems reviewed & are unremarkable except as noted in HPI and below Reports as per HPI and Reports no additional complaints GI Reports no additional complaints Reports no additional complaints Physical Exam Vital Signs: Last Vital Signs BP 108/66 07/21/23 09:08 BMI result Body Mass Index 41.1 Assessment & Plan Assessment & Plan (1) HPV (human papilloma virus) infection: Code(s): B97.7 - Papillomavirus as the cause of diseases classified elsewhere Category: Medical Plan: Discussed with the patient the pathology results of the colposcopy biopsies & endocervical curettage. Discussed with the patient the sensitivity specificity, positive and negative predictive value in detecting cervical cancer in addition discussed the regression, persistence and progression rates. Recommended co-testing in 12 months, if cytology and or HPV are abnormal will proceed was colposcopy biopsy and endocervical curettage. Instructions given to the patient to schedule a co test appointment in 1 year. All questions answered the patient verbalized understanding. Coding Level of Care Code Est Pt Level 3 (36977) Diagnoses HPV (human papilloma virus) infection B97.7
[2023-07-21 09:08] VITALS: BP 108/66; BMI 41.1
== END 2023-07-21 09:21 | disposition home or self-care (01) ==
LOC: HO.HWS 08:56
PROVIDERS: PCP Pediatrics; Visit Provider Obstetrics & Gynecology
DX: R87.810 Cervical high risk human papillomavirus (HPV) DNA test positive (principal)
CPT/HCPCS: 99213

== ENCOUNTER → 2023-07-21 08:56 | Outpatient (BNVA) | payer OTHER, SELFPAY | PROVIDERS: PCP Pediatrics; Visit Provider Obstetrics & Gynecology | DX: Z71.2 Person consulting for explanation of examination or test findings (principal) | CPT/HCPCS: 99212 ==

== ENCOUNTER 2023-08-25 13:30 | Outpatient (REF) | payer MEDICAID, SELFPAY ==
[2023-08-25 15:42] LABS: TSH reflex Free T4 14.56 uIU/mL (0.32-4.0)
== END 2023-08-25 13:31 | disposition home or self-care (01) ==
LOC: HO.CHCLDS 13:30
PROVIDERS: Visit Provider Pediatrics
DX: E03.9 Hypothyroidism, unspecified (principal)
CPT/HCPCS: 36415; 84439; 84443

== ENCOUNTER 2023-09-09 16:23 | Outpatient (REF) | payer MEDICAID, SELFPAY ==
--- NOTE | ~2023-09-09 | XR_ITS ---
EXAMINATION: XR FOOT, RIGHT CLINICAL INFORMATION: Acute pain. COMPARISON: None available. TECHNIQUE: AP, lateral, and oblique views of the right foot. FINDINGS: Radiopaque marker placed by technologist to indicate the area of concern as indicated by the patient along the medial base of the first metatarsal. Minimal degenerative changes in the first metatarsophalangeal joint and first tarsometatarsal joint. No displaced fracture appreciated. XR/XR foot RT min 3V IMPRESSION: 1. Minimal degenerative changes in the first metatarsophalangeal joint and first tarsometatarsal joint. No displaced fracture appreciated. 2. Recommend follow-up imaging in 10-14 days if fracture is suspected.
== END 2023-09-09 16:24 | disposition home or self-care (01) ==
LOC: HO.XRAY 16:23
PROVIDERS: Absent Provider Pediatrics; PCP Pediatrics; Visit Provider Nurse Practitioner Family
DX: M79.671 Pain in right foot (principal)
CPT/HCPCS: 73630

== ENCOUNTER 2023-10-16 14:56 | Outpatient (REF) | payer MEDICAID, SELFPAY ==
[2023-10-16 18:09] LABS: TSH reflex Free T4 2.56 uIU/mL (0.32-4.0)
[2023-10-17 23:08] LABS: Triiodothyronine T3 Total 123 ng/dL (76-181)
== END 2023-10-16 14:57 | disposition home or self-care (01) ==
LOC: HO.CHCLDS 14:56
PROVIDERS: Visit Provider Pediatrics
DX: E03.8 Other specified hypothyroidism (principal)
CPT/HCPCS: 36415; 84443; 84480

== ENCOUNTER 2023-10-30 14:47 | Outpatient (AMB) | payer MEDICAID, SELFPAY ==
--- NOTE | 2023-10-30 14:56 | MHC.OFFVISWM ---
VS Expanded 10/30/23 15:07 BP 125/63 Blood Pressure Location Rt brachial Blood Pressure Position Sitting Pulse 93 Pulse Source Pulse Oximeter Temp 97.2 F Temperature Source Temporal Artery Scan Pulse Oximetry 97 Oxygen Delivery Method Room Air Height 5 ft 2 in Weight 227 lb 12.8 oz BMI 41.7 Body Fat % 45.6 Body Fat Mass 103.8 Fat Free Mass 123.8 Visceral Fat Rating 14.0 Body Water % 38.7 Body Water Mass 88.2 Muscle Mass/Score 117.8 Basal Metabolic Rate/Score 1,738 Intake Visit Reasons: (OV) f/u SWL Envelope Folding Machine Adjuster Required: Yes Envelope Folding Machine Adjuster Name: office cmi Allergies No Known Allergies [No Known Allergies*] Allergy (Verified 10/30/23 15:00) Medication List - Last Reconciled 10/30/23 by DANGELO Ayala amoxicillin 500 mg PO BID thiamine HCl (vitamin B1) 100 mg PO DAILY 90 days vitamin A palmitate 3,000 mcg PO DAILY 90 days zinc gluconate 30 mg PO DAILY HPI Comments Details: Patient is a 33-year-old female who returns to the office today in follow-up. She was initially seen in the office for her 1st visit on 06/06/2023 with a weight of 218 lb and a BMI of 39.9. She has not been seen since. There was an insurance issue that now is cleared up. Weight today is 227.8 lb with a BMI of 41.7. Meal plan: Orgain 1 scoop in water, in the morning ham and cheese lunch veg with chicken protein bar, doesn't know name rice, 1/2 chicken breast, salad Drinking 80 oz water Exercise plan: none PF gym membership [facility] Medical History Obese Left ovarian cyst Pelvic pain DALTON I (cervical intraepithelial neoplasia I) ASCUS with positive high risk HPV Pap smear of cervix with ASCUS, cannot exclude HGSIL Kidney stones Surgical History History of appendectomy Family History Maternal Grandmother Colon cancer Father HTN (hypertension) Maternal Grandfather Diabetes Maternal Grandfather Prostate cancer Social History Household Members Other:: mom and son Housing: House Alcohol intake: never Patient Tobacco Use Status: Never used Tobacco 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 occupational 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: 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 Sexual orientation: Straight/Heterosexual Gender identity: Female Female Reproductive History Menstrual Age of Menarche: 14 Physical Exam Vital Signs: Last Vital Signs Temp 97.2 F 10/30/23 15:07 Pulse 93 10/30/23 15:07 BP 125/63 10/30/23 15:07 Pulse Ox 97 10/30/23 15:07 Oxygen Delivery Method Room Air 10/30/23 15:07 BMI result Body Mass Index 41.7 Const General: healthy appearing and no acute distress Resp Effort & Inspection: normal respiratory effort Auscultation: clear to auscultation bilaterally Cardio Rate: regular rate Rhythm: regular rhythm GI Auscultation: normal bowel sounds Extrem General: Yes normal to inspection Assessment & Plan Assessment & Plan (1) Morbid obesity: Code(s): E66.01 - Morbid (severe) obesity due to excess calories Category: Medical Plan: Patient will reestablish in the program. She was given a link to the [email or web address]. she was instructed to follow the directions exactly. We will have her return to the office in approximately 1 month. Encouraged to return to [employer] with a goal of burning 300 calories or more per day on cardio equipment such as stationary bike, treadmill, elliptical machine. She expressed understanding and will follow up as directed.
[2023-10-30 15:07] VITALS: BP 125/63; PULSE 93; TEMP 36.2; O2SAT 97; BMI 41.7
== END 2023-10-30 15:26 | disposition home or self-care (01) ==
PROVIDERS: PCP Pediatrics; Visit Provider Physician Assistant Surgical
DX: E66.01 Morbid (severe) obesity due to excess calories (principal)
CPT/HCPCS: 99213

== ENCOUNTER → 2023-10-30 14:47 | Outpatient (BNVA) | payer MEDICAID, SELFPAY | PROVIDERS: PCP Pediatrics; Visit Provider Physician Assistant Surgical | DX: E66.01 Morbid (severe) obesity due to excess calories (principal); Z68.41 Body mass index [BMI] 40.0-44.9, adult | CPT/HCPCS: 99212 ==

== ENCOUNTER 2023-11-01 14:30 | Emergency (ER) | payer MEDICAID, SELFPAY ==
[2023-11-01 14:34] VITALS: BP 111/43; PULSE 79; RESP 16; TEMP 36.6; O2SAT 96; BMI 41.9
--- NOTE | 2023-11-01 14:34 | ED.GENADULT ---
HPI - General Adult General Chief complaint: Upper Respiratory Symptoms Stated complaint: Wants Covid Test Time Seen by Provider: 11/01/23 15:40 Source: patient Mode of arrival: ambulatory Limitations: no limitations History of Present Illness ED Provider: evie CARR narrative: Patient is a 33-year-old female presenting with cough and congestion for 3 days. Denies fevers. Reports sore throat. Requesting covid testing. Denies sick contacts. complaint: cough, sore throat Onset (ago): day(s) Treatments prior to arrival: none Related Data Previous Rx's ?Medication ?Instructions ?Recorded zinc gluconate 30 mg tablet 30 mg PO DAILY #60 tabs 06/30/23 vitamin A palmitate 3,000 mcg 3,000 mcg PO DAILY 90 days #90 caps 07/01/23 (10,000 unit) capsule amoxicillin 500 mg capsule 500 mg PO BID #20 caps 07/08/23 thiamine HCl (vitamin B1) 100 mg 100 mg PO DAILY 90 days #90 tabs 10/13/23 tablet Allergies Allergy/AdvReac Type Severity Reaction Status Date / Time No Known Allergies Allergy Verified 11/01/23 14:37 [No Known Allergies*] Review of Systems Review of Systems: As per HPI. Yes all other systems are reviewed and are negative Constitutional: Constitutional: Reports as per HPI PMF Past Medical History Medical History Obese Left ovarian cyst Pelvic pain DALTON I (cervical intraepithelial neoplasia I) ASCUS with positive high risk HPV Pap smear of cervix with ASCUS, cannot exclude HGSIL Kidney stones Surgical History History of appendectomy Family History Family History Maternal Grandmother Colon cancer Father HTN (hypertension) Maternal Grandfather Diabetes Maternal Grandfather Prostate cancer Social History Social History Household Members Other:: mom and son Housing: House Alcohol intake: never Patient Tobacco Use Status: Never used Tobacco Advance Directives: No Advance Directives Information Provided: No 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 Blood pressure normal. Heart rate normal. Respiratory rate normal. Temperature normal. Oxygen saturation normal. Const General: cooperative, healthy appearing and no acute distress Orientation/consciousness: oriented to person, oriented to place, oriented to time and patient oriented x3 Limitations: no limitations HENMT Head: Yes normocephalic and Yes atraumatic Ears: external ears normal, TM's normal bilaterally and EAC's normal General nose exam: Normal external nose present, Normal nasal mucous membranes and turbinates present and Normal septum present Face and sinus: Yes face symmetric Mouth: oropharynx normal and moist mucous membranes Throat: Yes tonsils normal, Yes uvula midline, No peritonsillar mass and No uvular edema Eyes Pupils: Equal, round and reactive pupils present Neck Neck: Yes normal visual inspection, Yes no lymphadenopathy and Yes supple Resp Effort & Inspection: normal respiratory effort and able to speak in complete sentences Auscultation: clear to auscultation bilaterally Cardio Rate: regular rate Rhythm: regular rhythm Heart sounds: S1 normal heart sound present and S2 normal heart sound present GI Palpation (GI): Soft to palpation and nontender Auscultation: normoactive bowel sounds General: Yes no CVA tenderness Back/Spine/Pelvis Back: no CVA tenderness Skin General skin exam: elasticity normal and turgor normal Neuro General: oriented to person, oriented to place, oriented to time, patient oriented x3, moves all extremities, no focal motor deficits and CN's II-XI intact bilaterally Cranial nerves: Yes Equal, round and reactive pupils present Cognition (Neuro): normal cognition Extrem General: Yes full ROM, Yes no pedal edema and Yes no calf tenderness Psych Mental Status: mental status grossly normal Affect: normal affect Thought process: Normal thought process present Course Course Course Narrative: This is a rapid medical exam performed by Vida Haddad NP: Additional HPI, ROS, PE not included below will be deferred to primary provider. Patient is a 33-year-old female presenting with cough and congestion for 3 days. Denies fevers. Reports sore throat. Requesting covid testing.' Plan: viral and strep swabs Medical Decision Making Medical Decision Making MDM Narrative: Patient is a 33-year-old female presenting with cough and congestion for 3 days. On exam patient is awake, A+Ox3, VS WNL, afebrile, normal neurological exam without focal deficits, physical exam findings as above. Given reported symptoms and physical exam findings, initial differential includes viral illness, Covid, flu, strep pharyngitis. Strep and viral swabs negative. Patient left the department prior to receiving results of testing, stated she needed to pick her son up. Discussed with patient that results can be found on the patient portal and patient verbalized understanding of this. Instructed patient to ensure adequate fluid, adequate rest, alternate Tylenol and ibuprofen. Follow up with PCP. Patient verbalized understanding of and agreement with plan. Differential Diagnosis Differential Diagnoses: The differential diagnosis associated with the presentation includes As per [facility] Lab Data [facility] Lab Attestation statement: I reviewed the patient's lab results. As per [facility] Labs: Lab Results 11/01/23 Range/Units 14:43 Influenza Type A (PCR) NEGATIVE (Negative) Influenza Type B (PCR) NEGATIVE (Negative) RSV RNA Qual (PCR) NEGATIVE (Negative) SARS-CoV-2 RNA (RT-PCR) NEGATIVE (Negative) S. pyogenes GrpA FABIO Negative (Negative) External Record Review External record reviewed: Inpatient record, Office record and Outpatient record Discharge Plan Discharge Clinical Impression: Acute viral syndrome Patient Disposition: Left W/O Completing Treatment Additional Instructions: You were evaluated in the emergency department today for sore throat and cough. Your Covid, flu, and strep tests were all negative. Your symptoms are likely related to a viral illness which will resolve on its own with time and rest. You should ensure adequate fluid intake, and can use Tylenol 650 mg or ibuprofen 600 mg every 6 hours as needed for fever or discomfort. Please follow-up with your primary care provider this week. Return to the emergency department if you develop chest pain, worsening shortness of breath, difficulty swallowing, fever 100.4? F or greater or any other concerning symptoms. Prescriptions: No Action zinc gluconate 30 mg tablet 30 mg PO DAILY Qty: 60 0RF vitamin A palmitate 3,000 mcg (10,000 unit) capsule 3,000 mcg PO DAILY 90 Days Qty: 90 0RF thiamine HCl (vitamin B1) 100 mg tablet 100 mg PO DAILY 90 Days Qty: 90 0RF amoxicillin 500 mg capsule 500 mg PO BID Qty: 20 0RF Print Language: Czech
[2023-11-01 15:26] LABS: Influenza A PCR NEGATIVE (Negative); Influenza B PCR NEGATIVE (Negative); Resp Syncy Virus RNA Qual PCR NEGATIVE (Negative); SARS COV2 PCR INHOUSE NEGATIVE (Negative)
[2023-11-01 15:28] LABS: IDNOW Serial# 58CA691E; Strep A Nucleic Acid Negative (Negative)
--- NOTE | 2023-11-01 16:21 | PC.NURSE ---
pt was not in ED when results came back. LWCT
== END 2023-11-01 16:21 | disposition left against medical advice (07) ==
PROVIDERS: Registered Nurse Emergency; Emergency Provider Emergency Medicine; PCP Pediatrics
DX: B34.9 Viral infection, unspecified (principal); R05.9 Cough, unspecified; J02.9 Acute pharyngitis, unspecified; Z03.818 Encounter for observation for suspected exposure to other biological agents ruled out
CPT/HCPCS: 0241U; 87651; 99281; 99283

== ENCOUNTER 2023-12-31 10:31 | Outpatient (AMB) | payer MEDICAID, SELFPAY ==
--- NOTE | 2023-12-31 10:36 | MHC.OFFVISWM ---
VS Expanded 12/31/23 10:44 BP 110/55 L Blood Pressure Location Rt brachial Blood Pressure Position Sitting Pulse 81 Pulse Source Pulse Oximeter Temp 97.7 F Temperature Source Temporal Artery Scan Pulse Oximetry 97 Oxygen Delivery Method Room Air Height 5 ft 2 in Weight 222 lb 6.4 oz BMI 40.7 Body Fat % 43.4 Body Fat Mass 96.4 Fat Free Mass 125.8 Visceral Fat Rating 11.0 Body Water % 40.7 Body Water Mass 90.4 Muscle Mass/Score 119.4 Basal Metabolic Rate/Score 1,784 Intake Visit Reasons: (OV) f/u SWL Past Due Accounts Clerk Required: Yes Past Due Accounts Clerk Services: Past Due Accounts Clerk Present Past Due Accounts Clerk Name: hospital cmi Allergies No Known Allergies [No Known Allergies*] Allergy (Verified 12/31/23 10:39) Medication List - Last Reconciled 12/31/23 by DANGELO Ayala levothyroxine 88 mcg PO QAM thiamine HCl (vitamin B1) 100 mg PO DAILY 90 days vitamin A palmitate 3,000 mcg PO DAILY 90 days zinc gluconate 30 mg PO DAILY HPI Comments Details: Patient is a 33-year-old female who returns to the office today in follow-up. She was initially seen in the office for her 1st visit on 06/06/2023 with a weight of 218 lb and a BMI of 39.9. She had not been seen since. There was an insurance issue that now is cleared up. She was seen to reestablish care on 10/30/2023 with a weight of 227.8 lb with a BMI of 41.7. Weight today is 2-2.4 lb with a BMI of 40.7. She has lost 5.4 lb or 2.3% total body weight loss. She states she is following the meal plan but sometimes does not eat. She was not using the [employer] kimberly, although she would have been given her vanc at her last appointment, there was some confusion and it was unclear how this happened. She had not been communicating either. She is now completely committed to the process. She was given another piece of paper with a link to the kimberly. Meal plan: oatmeal or ham and cheese, coffee black chicken w lettuce bar exercise plan: PF 3 days per week, 30 min, treadmill, 150-200 calories stationary bike at home 1-2 x per week, [facility] Medical History Obese Left ovarian cyst Pelvic pain DALTON I (cervical intraepithelial neoplasia I) ASCUS with positive high risk HPV Pap smear of cervix with ASCUS, cannot exclude HGSIL Kidney stones Surgical History History of appendectomy Family History Maternal Grandmother Colon cancer Father HTN (hypertension) Maternal Grandfather Diabetes Maternal Grandfather Prostate cancer Social History Household Members Other:: mom and son Housing: House Alcohol intake: never Patient Tobacco Use Status: Never used Tobacco Current occupational status: 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 Sexual orientation: Straight/Heterosexual Gender identity: Female Female Reproductive History Menstrual Age of Menarche: 14 Physical Exam Const General: healthy appearing and no acute distress Resp Effort & Inspection: normal respiratory effort Auscultation: clear to auscultation bilaterally Cardio Rate: regular rate Rhythm: regular rhythm GI Auscultation: normal bowel sounds Extrem General: Yes normal to inspection Assessment & Plan Assessment & Plan (1) Morbid obesity: Code(s): E66.01 - Morbid (severe) obesity due to excess calories Category: Medical Plan: We will start the kimberly, meal plan, exercise plan. Discussed the importance of exercise and counting her calories burned per day. Goal is 300 per day. She states she can go to [employer] 3 days per week and use her stationary bike at home 4 days per week. We will have her return to the office in approximately 1 month.
[2023-12-31 10:44] VITALS: BP 110/55; PULSE 81; TEMP 36.5; O2SAT 97; BMI 40.7
== END 2023-12-31 11:03 | disposition home or self-care (01) ==
PROVIDERS: PCP Pediatrics; Visit Provider Physician Assistant Surgical
DX: E66.01 Morbid (severe) obesity due to excess calories (principal)
CPT/HCPCS: 99213

== ENCOUNTER → 2023-12-31 10:31 | Outpatient (BNVA) | payer MEDICAID, SELFPAY | PROVIDERS: PCP Pediatrics; Visit Provider Physician Assistant Surgical | DX: E66.01 Morbid (severe) obesity due to excess calories (principal); Z68.41 Body mass index [BMI] 40.0-44.9, adult | CPT/HCPCS: 99212 ==

== ENCOUNTER 2024-01-06 08:17 | Day surgery (SDC) | payer MEDICAID, SELFPAY ==
--- NOTE | 2024-01-02 11:53 | P.CONAN_ITS ---
Documented by User: Vonnie Blakely NP 01/02/24 11:53 HPI - Anesthesia Eval Consult details Narrative: 33yo F for Upper Endoscopy PMFSH Active Problems Active Problems: All Active Problems Morbid obesity (Acute) HPV (human papilloma virus) infection (Acute) Elevated TSH (Acute) Pre-op evaluation (Acute) Obese (Acute) Left ovarian cyst (Acute) Pelvic pain (Acute) Encounter for annual routine gynecological examination (Acute) Bacterial vaginosis (Acute) Vulvovaginal candidiasis (Acute) LGSIL (low grade squamous intraepithelial dysplasia) (Acute) Abnormal Pap smear of cervix (Acute) Transaminitis (Acute) Past Medical History Medical History Kidney calculi Left ovarian cyst Pelvic pain DALTON I (cervical intraepithelial neoplasia I) ASCUS with positive high risk HPV Pap smear of cervix with ASCUS, cannot exclude HGSIL Obese Kidney stones Family History Family History Maternal Grandmother Colon cancer Father HTN (hypertension) Maternal Grandfather Diabetes Maternal Grandfather Prostate cancer Surgical History Surgical History History of appendectomy Social History Social History Household Members Other:: mom and son Housing: House Alcohol intake: never Patient Tobacco Use Status: Never used Tobacco Have you been hit, kicked, punched, or otherwise hurt by someone within the past year? 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 Sexual orientation: Straight/Heterosexual Gender identity: Female Meds Allergies Allergy/AdvReac Type Severity Reaction Status Date / Time No Known Allergies Allergy Verified 12/31/23 10:39 [No Known Allergies*] Home Medications ?Medication ?Instructions ?Recorded ?Confirmed ?Last Taken ?Type levothyroxine 50 mcg tablet 88 mcg PO QAM 12/31/23 12/31/23 Unknown History Assessment and Plan Assessment Anesthesia Assessment: Chart Reviewed Documented by User: Erna Martinez MD 01/06/24 10:14 [facility] Past Medical History Medical History Kidney calculi Left ovarian cyst Pelvic pain DALTON I (cervical intraepithelial neoplasia I) ASCUS with positive high risk HPV Pap smear of cervix with ASCUS, cannot exclude HGSIL Obese Kidney stones Family History Family History Maternal Grandmother Colon cancer Father HTN (hypertension) Maternal Grandfather Diabetes Maternal Grandfather Prostate cancer Surgical History Surgical History History of appendectomy History of Problems with Anesthesia: No Social History Social History Household Members Other:: mom and son Housing: House Alcohol intake: never Patient Tobacco Use Status: Never used Tobacco Have you been hit, kicked, punched, or otherwise hurt by someone within the past year? 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 Sexual orientation: Straight/Heterosexual Gender identity: Female Meds Allergies Allergy/AdvReac Type Severity Reaction Status Date / Time No Known Allergies Allergy Verified 12/31/23 10:39 [No Known Allergies*] Home Medications ?Medication ?Instructions ?Recorded ?Confirmed ?Last Taken ?Type levothyroxine 50 mcg tablet 88 mcg PO QAM 12/31/23 12/31/23 Unknown History Exam Airway Mallampati Class: II TM Dist: >3cm Neck ROM: Full Loose/Missing/Broken Teeth: No Heart: RRR Lungs: CTA Assessment and Plan Assessment Anesthesia Assessment: Anesthesia Plan Discussed Final Anesthetic Review History of Problems with Anesthesia: No NPO: Yes ASA Class: III Final Preanesthetic Review: Meds/Allgs Chart Reviewed, Consent Obtained/Reviewed and Anes Risks/Benef Reviewed Patient Risk: Intermediate Procedure Risk: Intermediate Anesthetic Plan Anesthetic Plan: MAC: Disposition: Standard PACU
[2024-01-06 08:27] VITALS: BP 94/56; PULSE 82; RESP 18; TEMP 36.3; O2SAT 98; BMI 40.8
[2024-01-06] MEDS: Lactated Ringers 1,000 ML 100 ML IVCONT (08:46)
[2024-01-06 09:25] LABS: UPreg QC Valid YES; Urine Pregnancy NEGATIVE (NEGATIVE)
--- NOTE | 2024-01-06 10:03 | MHC.SHP ---
Pre-Procedural Eval Section A - 24 Hr Update-Section A only Date of Service: 01/06/24 The patient is an INPATIENT: No The patient has been examined within 24 hours of the surgical procedure. The History & Physical has been completed within 30 days and I have reviewed it.: Yes Section B - Complete if H&P > 30 days Chief Complaint: Morbid (severe) obesity due to excess calories Details of Present Illness: GERD Relevant Family History (Specify if Yes): No Relevant Social History: None Present Medications: None Medical History: No relevant PMH History of Previous Operations: No relevant previous surgery Allergies: Allergies Allergy/AdvReac Type Severity Reaction Status Date / Time No Known Allergies Allergy Verified 12/31/23 10:39 [No Known Allergies*] Review of Systems Sugical H&P ROS: Negative: Constitution, Cardiovascular, Respiratory, Neurological, Psychiatric, Hem-Onc, Allergic/Immunologic, Gastrointestinal, Genitourinary, Musculoskeletal, Integumentary, Endocrine and Eyes/Ears/Nose/Throat Exam Surgical H&P Exam: Normal: HEENT, Normal: Heart, Normal: Lungs, Normal: Extremities, Normal: Abdomen, Normal: Skin and Normal: Neurological Plan Diagnosis/Plan: Unchanged (EGD to assess etiology of GERD. Risks of bleeding and perforation were discussed with the patient and she is in agreement with the plan.) I have reviewed the history and physical and performed a pertinent physical examination on my patient. No changes have occurred unless specified. Time Spent With Patient Time: Total time managing care of this patient today ____ minutes.
--- NOTE | 2024-01-06 10:04 | PM.OP ---
Brief Operative Note Date of Service: 01/06/24 Pre-op diagnosis: GERD Post-op diagnosis: same (Normal endoscopy) Procedure: PROCEDURE DATE: 01/06/2024 PREOPERATIVE DIAGNOSIS: GERD POSTOPERATIVE DIAGNOSIS: ?Same as above. 1) Normal endoscopy PROCEDURE: [id number] with biopsies Surgeon: ?Moses Iverson M.D.. Ph.D. Talent Acquisition Coordinator: None ? Anesthesia: IV sedation Estimated blood loss: ?Minimal FINDINGS AND PROCEDURE: ? OPERATIVE INDICATIONS: ?The patient is a 33 year old female known to me who is interested in bariatric surgery. The patient has GERD. Based on this information I recommended an upper endoscopy to evaluate the patient's symptoms. Risks and complications of the surgery were discussed with the patient in advance particularly the possibility of perforation or bleeding that may require surgical intervention. The patient understood the risks and was in agreement with the plan. ? PROCEDURE: After informed consent was obtained by the patient, the patient was ?transferred to the Operating Room and was placed in the supine position.? After successful induction of IV sedation, a mouth block was inserted and the patient was placed in the left lateral decubitus position. An upper endoscopy was performed next, the oropharynx and esophagus appeared within the normal limits. There was no hiatal hernia. The z-line was smooth. Two biopsies were obtained from the distal esophagus 2-3 cm proximal to the GE junction and two additional biopsies from the GE junction. The stomach was entered and it appeared to be of normal size. There was no gastritis. There was no stricture or ulcer. A biopsy was obtained from the gastric fundus and the antrum. Retroflexion of the scope revealed a normal GE junction. No significant bleeding was noted from any of the biopsy sites. The scope was then advanced into the duodenum which appeared to be normal as well. At that point the duodenum ?and the stomach were decompressed and the scope was withdrawn from the patient's mouth. The patient extubated and was transferred in stable condition to the Recovery Room for further care. I was present and performed all steps of the procedure. There were no residents to assist with this case. Moses Iverson M.D., Ph.D. Surgeon: Tristan Iverson MD Anesthesia: MAC Was an Talent Acquisition Coordinator used for this Procedure?: No Estimated blood loss (mL): 0 IV fluids (mL): 400 Urine output (mL): 0 (Dino Person to record output) Pathology: other (1) antrum x1, 2) fundus x1, 3) GE junction x2, 4) distal esophagus x2) Condition: stable Disposition: PACU
[2024-01-06 10:40] VITALS: BP 104/50; PULSE 79; RESP 18; TEMP 36.4; O2SAT 100
[2024-01-06 10:55] VITALS: BP 114/52; PULSE 75; RESP 18; O2SAT 98
[2024-01-06 11:09] VITALS: BP 104/58; PULSE 63; RESP 18; TEMP 36.4; O2SAT 98
== END 2024-01-06 11:50 | disposition home or self-care (01) ==
PROVIDERS: Nurse Practitioner; PCP Pediatrics; Visit Provider Surgery
PROC: 0DJ08ZZ Inspection of Upper Intestinal Tract, Via Natural or Artificial Opening Endoscopic (ICD-10-PCS; CPT 43235; principal; 2024-01-06 10:20)
DX: K21.9 Gastro-esophageal reflux disease without esophagitis (principal); E66.01 Morbid (severe) obesity due to excess calories; Z68.41 Body mass index [BMI] 40.0-44.9, adult; R10.2 Pelvic and perineal pain; N87.0 Mild cervical dysplasia; N83.202 Unspecified ovarian cyst, left side; Z79.899 Other long term (current) drug therapy; Z87.442 Personal history of urinary calculi
CPT/HCPCS: 43239; 81025; 88305; 88313; 88342; J2003; J2704

== ENCOUNTER → 2024-01-06 08:17 | Outpatient (BNV) | payer MEDICAID, SELFPAY | PROVIDERS: PCP Pediatrics; Visit Provider Surgery | DX: K21.9 Gastro-esophageal reflux disease without esophagitis (principal) | CPT/HCPCS: 43239 ==

== ENCOUNTER 2024-02-05 15:29 | Outpatient (AMB) | payer MEDICAID, SELFPAY ==
--- NOTE | 2024-02-05 15:30 | MHC.OFFVISWM ---
VS Expanded 02/05/24 15:36 BP 111/57 L Blood Pressure Location Rt brachial Blood Pressure Position Sitting Pulse 83 Pulse Source Pulse Oximeter Temp 96.6 F L Temperature Source Temporal Artery Scan Pulse Oximetry 98 Oxygen Delivery Method Room Air Height 5 ft 2 in Weight 219 lb 3.2 oz BMI 40.1 Body Fat % 43.1 Body Fat Mass 94.4 Fat Free Mass 124.8 Visceral Fat Rating 10.0 Body Water % 40.8 Body Water Mass 89.6 Muscle Mass/Score 118.4 Basal Metabolic Rate/Score 1,767 Intake Visit Reasons: (OV) f/u SWL Concrete Bucket Loader Required: Yes Concrete Bucket Loader Services: Concrete Bucket Loader Present Concrete Bucket Loader Name: hospital cmi Allergies No Known Allergies [No Known Allergies*] Allergy (Verified 02/05/24 15:32) Medication List - Last Reconciled 02/05/24 by DANGELO Ayala levothyroxine 88 mcg PO QAM thiamine HCl (vitamin B1) 100 mg PO DAILY 90 days vitamin A palmitate 3,000 mcg PO DAILY 90 days zinc gluconate 30 mg PO DAILY HPI Comments Details: Patient is a 33-year-old female who returns to the office today in follow-up. She was initially seen in the office for her 1st visit on 06/06/2023 with a weight of 227.8 lb and a BMI of 41.7. She was seen again in follow-up on 12/31/2023 at which point she was having difficulty using the [employer] kimberly. she was given another paper with the link to the program. Since then, she has lost about 8.6 lb in total. Weight today is 219.2 with a BMI of 40.1. This corresponds to an 8.6 lb weight loss or 3.7% total body weight loss. She states she is now doing the [employer] kimberly Meal plan: Orgain, 2 scoops mcduffie protein bar x 2 2 meals not counting forks exercise plan: PF 5 days per week, 30 min, treadmill, 350 calories stationary bike at home 4 x per week, 350 calories PFSH Medical History Kidney calculi Left ovarian cyst Pelvic pain DALTON I (cervical intraepithelial neoplasia I) ASCUS with positive high risk HPV Pap smear of cervix with ASCUS, cannot exclude HGSIL Obese Kidney stones Surgical History History of appendectomy Family History Maternal Grandmother Colon cancer Father HTN (hypertension) Maternal Grandfather Diabetes Maternal Grandfather Prostate cancer Social History Household Members Other:: mom and son Housing: House Alcohol intake: never Patient Tobacco Use Status: Never used Tobacco Current occupational status: 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 Sexual orientation: Straight/Heterosexual Gender identity: Female Female Reproductive History Menstrual Age of Menarche: 14 Physical Exam Const General: healthy appearing and no acute distress Resp Effort & Inspection: normal respiratory effort Auscultation: clear to auscultation bilaterally Cardio Rate: regular rate Rhythm: regular rhythm GI Auscultation: normal bowel sounds Extrem General: Yes normal to inspection Assessment & Plan Assessment & Plan (1) Morbid obesity: Code(s): E66.01 - Morbid (severe) obesity due to excess calories Category: Medical Plan: Encouraged to go into the right BMI kimberly and update with her new weight. Encouraged to text me her weight weekly which she has not been doing. Additionally, I requested that she send me her meal plan so I can see what she is doing as she is not able to clearly identify what she is doing. Her exercise has been going very well. Encouraged to continue. Return to clinic 3-4 weeks
[2024-02-05 15:36] VITALS: BP 111/57; PULSE 83; TEMP 35.9; O2SAT 98; BMI 40.1
== END 2024-02-05 16:21 | disposition home or self-care (01) ==
PROVIDERS: PCP Pediatrics; Visit Provider Physician Assistant Surgical
DX: E66.01 Morbid (severe) obesity due to excess calories (principal)
CPT/HCPCS: 99213

== ENCOUNTER → 2024-02-05 15:29 | Outpatient (BNVA) | payer MEDICAID, SELFPAY | PROVIDERS: PCP Pediatrics; Visit Provider Physician Assistant Surgical | DX: E66.01 Morbid (severe) obesity due to excess calories (principal); Z68.41 Body mass index [BMI] 40.0-44.9, adult | CPT/HCPCS: 99212 ==

== ENCOUNTER 2024-04-07 07:43 | Outpatient (AMB) | payer MEDICAID, SELFPAY ==
[2024-04-07 07:47] VITALS: BP 118/70; BMI 40.1
--- NOTE | 2024-04-07 07:47 | MHC.OFFVIS ---
Vital Signs 04/07/24 07:47 Height 5 ft 2 in Weight 219 lb BMI 40.1 BP 118/70 Intake Visit Reasons: Breast pain Three Dimensional Art Instructor Required: Yes Three Dimensional Art Instructor Language: Bait Packer Services: Three Dimensional Art Instructor Present (in person) Three Dimensional Art Instructor Name: Jayna DUCKWORTH Information Interpreted: non-clinical & clinical Accompanied by: Self / Same As Patient Allergies No Known Allergies [No Known Allergies*] Allergy (Verified 04/07/24 07:50) Is last menstrual period known: Yes Last menstrual period: 03/20/24 HPI Comments Details: Patient is here today with concerns that she had 2 cycles very closely spaced this past month, history of irregular cycles, elevated testosterone level, and thyroid disease. She reports that when her weight was 155 her cycles were normal and monthly. She admits to taking her levothyroxine daily on time. She also reports bilateral generalized breast pain, no nipple discharge. She denies any acne or hirsutism symptoms. 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/Heterosexual Gender identity: Female Female Reproductive History Menstrual Age of Menarche: 14 Date of last menstrual period: 03/20/24 Review of Systems Const All systems reviewed & are unremarkable except as noted in HPI and below Reports no additional complaints Skin/Breast Reports system reviewed and no additional complaints, except as documented and Reports as per HPI Physical Exam Vital Signs: Last Vital Signs BP 118/70 04/07/24 07:47 BMI result Body Mass Index 40.1 Const General: cooperative, healthy appearing and no acute distress Chest Breast/axilla inspection: normal inspection of the breasts and normal inspection of the axillae Breast/axilla palpation: normal palpation of the breasts Skin General skin exam: no rashes or lesions noted Assessment & Plan Assessment & Plan (1) Elevated testosterone level: Code(s): R79.89 - Other specified abnormal findings of blood chemistry Category: Medical (2) Morbid obesity: Code(s): E66.01 - Morbid (severe) obesity due to excess calories Category: Medical (3) Breast pain: Code(s): N64.4 - Mastodynia (4) Abnormal uterine bleeding (AUB): Code(s): N93.9 - Abnormal uterine and vaginal bleeding, unspecified Plan Discussed: Weight contributing factor to hormonal imbalances directly and packing menstrual cycling. Recheck labs, advised to call if there is any heavy prolonged bleeding episodes. Wear a supportive bra, may use [id number] Tylenol as manufacture's directions for breast pain. Continue with weight loss program. Follow up to discuss lab results and plan of care. The patient expressed understanding and agreement with the plan of care. All of her questions and concerns were addressed to the best of my ability. This note is constructed using voice recognition software. While every effort has been made to ensure accuracy, academic coordinator errors may have been included. Orders: Orders Testosterone, Free/Total Today N92.6 - Irregular menstruation, unspecified, R79.89 - Other specified abnormal findings of blood chemistry Prolactin Today N92.6 - Irregular menstruation, unspecified, R79.89 - Other specified abnormal findings of blood chemistry DHEA Sulfate Today N92.6 - Irregular menstruation, unspecified, R79.89 - Other specified abnormal findings of blood chemistry Complete Blood Count no Diff Today N92.6 - Irregular menstruation, unspecified, R79.89 - Other specified abnormal findings of blood chemistry TSH reflex Free T4 Today N92.6 - Irregular menstruation, unspecified, R79.89 - Other specified abnormal findings of blood chemistry 17 Hydroxyprogesterone Today N92.6 - Irregular menstruation, unspecified, R79.89 - Other specified abnormal findings of blood chemistry HCG Quantitative Today N92.6 - Irregular menstruation, unspecified, R79.89 - Other specified abnormal findings of blood chemistry Coding Level of Care Code Est Pt Level 3 (51862) Diagnoses Elevated testosterone level R7.89 Morbid obesity E66.01 Breast pain N64.4 Abnormal uterine bleeding (AUB) N93.9
== END 2024-04-07 08:25 | disposition home or self-care (01) ==
LOC: HO.HWS 07:43
PROVIDERS: PCP Pediatrics; Visit Provider Advanced Practice Midwife
DX: R79.89 Other specified abnormal findings of blood chemistry (principal); E66.01 Morbid (severe) obesity due to excess calories; N64.4 Mastodynia; N93.9 Abnormal uterine and vaginal bleeding, unspecified
CPT/HCPCS: 99213

== ENCOUNTER 2024-04-07 07:43 | Outpatient (REF) | payer MEDICAID, SELFPAY ==
[2024-04-07 09:03] LABS: Hematocrit 38.3 % (37.0-47.0); Mean Corpuscular HGB Conc 33.9 g/dl (31.0-35.0); Mean Corpuscular Hemoglobin 29.9 pg (27.0-33.0); Mean Platelet Volume 10.9 fL (9.4-12.3); Platelet Count 283 X10*3/uL (160-400); Red Blood Count 4.35 X10*6/uL (4.20-5.50); Red Cell Distribution Width 12.9 % (11.0-16.0); White Blood Count 8.8 X10*3/uL (4.8-10.8)
[2024-04-07 09:50] LABS: HCG Quantitative < 2 mIU/mL; TSH reflex Free T4 1.18 uIU/mL (0.32-4.0)
[2024-04-08 18:53] LABS: DHEA Sulfate 84 mcg/dL (19-237); Prolactin 7.9 ng/mL
[2024-04-13 20:38] LABS: Testosterone, Free 3.3 pg/mL (0.1-6.4); Testosterone, Total 26 ng/dL (2-45)
== END 2024-04-07 07:44 | disposition home or self-care (01) ==
LOC: HO.LAB 07:43
PROVIDERS: PCP Pediatrics; Visit Provider Advanced Practice Midwife
DX: N64.4 Mastodynia (principal); R79.89 Other specified abnormal findings of blood chemistry; N92.6 Irregular menstruation, unspecified; N93.9 Abnormal uterine and vaginal bleeding, unspecified; E66.01 Morbid (severe) obesity due to excess calories; Z68.41 Body mass index [BMI] 40.0-44.9, adult
CPT/HCPCS: 36415; 82627; 83498; 84146; 84402; 84403; 84443; 84702; 85027; 99212

== ENCOUNTER 2024-04-12 13:22 | Outpatient (AMB) | payer MEDICAID, SELFPAY ==
--- NOTE | 2024-04-12 13:22 | MHC.OFFVIS ---
Intake Visit Reasons: Vaginal bleeding Rolloff Driver Required: Yes Rolloff Driver Language: Engineer/Conductor Services: Rolloff Driver Present ([employer]) Rolloff Driver Name: Tammy [id number] Information Interpreted: clinical only Health And Wellness Instructor: Health And Wellness Instructor Present ([employer]) Allergies No Known Allergies [No Known Allergies*] Allergy (Verified 04/12/24 13:29) Medication List - Last Reconciled 04/12/24 by Mignon Mcgregor, KAREN levothyroxine 88 mcg PO QAM thiamine HCl (vitamin B1) 100 mg PO DAILY 90 days topiramate 50 mg PO DAILY vitamin A palmitate 3,000 mcg PO DAILY 90 days zinc gluconate 30 mg PO DAILY Is last menstrual period known: Yes Last menstrual period: 03/17/24 (on and off until 04/07/24) Post menopausal: No Patient : No HPI HPI Vaginal bleeding: Details: Patient is here because she has lot of bleeding- more than after leaving the office on the day she was seen (on the ). She said she was told to call if she has bleeding was more, so she did, and her doctor also told her to get checked. The patient says this happened 3 times for her recently that she started bleeding when it was not time for her period. On March 20 she bled, and that lasted a few days, and then it started again on March 25, and lasted 3 days, and then she started bleeding more on April 07 after she left the appointment to discuss the bleeding. She had blood work done that was ordered at that visit and she has an appointment to discuss the results on the . She also reports that she did not understand what she had to do about her abnormal Pap smear. Review of the records show that she had a colposcopy and a full discussion about the results last spring and there was a plan to repeat her Pap smear and follow-up thusly in June. Some of the blood tests she had done on the of this month are ready and are within normal limits but the others are not ready yet. Patient says she put a pad on about an hour ago but she does not want to get checked vaginally today because she is bleeding. Of note the CBC from the does not note a low H&H at all, her TSH is also within normal range. The patient also reports that she had a Nexplanon for control the year after she had her daughter and she did gain a lot of weight when she had that in. She has not had sex in the last year. She does note that she has gained a lot of weight she is working to lose the weight now. This was discussed at the visit on the as well. [facility] Medical History (Updated 04/12/24 @ 14:31 by Mignon Mcgregor CNM) Elevated testosterone level Kidney calculi Left ovarian cyst Pelvic pain DALTON I (cervical intraepithelial neoplasia I) ASCUS with positive high risk HPV Pap smear of cervix with ASCUS, cannot exclude HGSIL Obese Kidney stones Surgical History (Reviewed 04/07/24 @ 07:51 by Jayna Almeida [facility]) History of appendectomy Family History (Reviewed 04/07/24 @ 07:51 by Jayna Almeida [facility]) Maternal Grandmother Colon cancer Father HTN (hypertension) Maternal Grandfather Diabetes Maternal Grandfather Prostate cancer Social History (Reviewed 04/07/24 @ 07:51 by Jayna Almeida [facility]) Household Members Other:: mom and son Housing: House Alcohol intake: never Patient Tobacco Use Status: Never used Tobacco Patient : No Current occupational status: 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 Results Reviewed Results Reviewed: Name: Vanessa Menchaca Age/Sex: 34/F : 1990 Unit#: [id number] Attend Dr: Ifrah Lilly CNM Re04/07/24 Status: DEP REF Location: .LAB Disch: SPEC : [id number] JT: 04/07/24 STATUS: COMP REQ : [id number] RECD: 04/07/[address]: Ifrah Lilly CNM COMP: 04/07/24 ENTERED: 04/07/[address]: Melody Robins MD ORDERED: CBC No Diff Test Result Flag Reference WBC 8.8 4.8-10.8 X10*3/uL RBC 4.35 4.20-5.50 X10*6/uL HGB 13.0 12.0-16.0 g/dl HCT 38.3 37.0-47.0 % MCV 88.0 80.0-98.0 fL MCH 29.9 27.0-33.0 pg MCHC 33.9 31.0-35.0 g/dl RDW 12.9 11.0-16.0 % PLT 283 160-400 X10*3/uL MPV 10.9 9.4-12.3 fL NRBC Pct Auto 0.0 0.0-0.2 /100WBC NRBC Abs Auto 0.000 0.0-0.012 X10*3/uL Name: Vanessa Menchaca Age/Sex: 34/F : 1990 Unit#: [id number] Attend Dr: Ifrah Lilly CNM Re04/07/24 Status: DEP [facility] Disch: SPEC : [id number] JT: 04/07/24 STATUS: COMP REQ : [id number] RECD: 04/07/24 [facility] DR: Ifrah Lilly CNM COMP: 04/07/2450 ENTERED: 04/07/[address]: Melody Robins MD ORDERED: TSH Rflx, HCG Quant Test Result Flag Reference TSH 1.18 0.32-4.0 uIU/mL HCG Quant < 2 mIU/mL Weeks post LMP Approximate hCG (Last Menstrual Period) Range (mIU/ml) 3 - 4 weeks 9 - 130 4 - 5 weeks 75 - 2,600 5 - 6 weeks 850 - 20,800 6 - 7 weeks 4000 - 100,200 7 - 12 weeks 11,500 - 289,000 12 - 16 weeks 18,300 - 137,000 16 - 29 weeks (2nd trimester) 1,400 - 53,000 29 - 41 weeks (3rd trimester) 940 - 60,000 The Braga B-hCG assay is used for the early detection of ; it cannot be used to diagnose any condition unrelated to . If a B-hCG level is not supported by the clinical evidence, results should be confirmed by an alternative method (qualitative urine hCG, for example). END Most other chemistries are pending..... Assessment & Plan Assessment & Plan (1) Abnormal uterine bleeding (AUB): Code(s): N93.9 - Abnormal uterine and vaginal bleeding, unspecified Category: Medical (2) HPV (human papilloma virus) infection: Code(s): B97.7 - Papillomavirus as the cause of diseases classified elsewhere Category: Medical Plan I reviewed the plan made with Ifrah Lilly 5 days ago and reviewed that some labs are backs for instance her CBC and her thyroid levels which are both normal but other labs significantly the hormonal levels are still pending. I offered the patient an ultrasound to add to the assessment but it may or may not show anything and she would be unlikely to have that appointment for the ultrasound in a urgent fashion so it probably will not be back by the time she sees Ifrah for the follow-up of the lab work on the . Review that there is a plan for her Pap smear to be done next June according to the note per Dr. Crane status post colposcopy review. I also reviewed with the patient, her past history with her menses. She says she did have irregular menses in the past and she did not need control to help with that. She remembers being on the Nexplanon but she did gain weight during that time but it was also the year she was . I asked if she had ever had increased facial hair and she said she did I asked her if she ever heard about PCOS and she had not. I broached the subject of how weight and being overweight can contribute to an increased hormonal milieu that contributes to elevated hormones that contribute to an irregular menstrual cycle and in fact irregular bleeding. I reiterated what had been said at the previous visit that the most important thing she can do for her health is to continue her efforts to lose weight and that is the most important thing she can do and eventually her periods may return to normal. Additionally there are other hormonal methods of control that can be considered to help regulate menstrual bleeding these will be discussed further afterwards. I have added a pelvic ultrasound to her workup and we will have a visit after to review but she has should keep her original appointments made as well. She was pretty clear that she did not want a pelvic exam while she was bleeding I did review that if she were ever hemorrhaging or if anyone was that that would be important to have an exam.. Visit was supported with tablet translation. Orders: Orders US pelvic and transvaginal Today N93.9 - Abnormal uterine and vaginal bleeding, unspecified Coding Level of Care Code Est Pt Level 3 (47359) Diagnoses Abnormal uterine bleeding (AUB) N93.9 HPV (human papilloma virus) infection B97.7
== END 2024-04-12 14:13 | disposition home or self-care (01) ==
LOC: HO.HWSM 13:22
PROVIDERS: PCP Pediatrics; Visit Provider Advanced Practice Midwife
DX: N93.9 Abnormal uterine and vaginal bleeding, unspecified (principal); B97.7 Papillomavirus as the cause of diseases classified elsewhere
CPT/HCPCS: 99213

== ENCOUNTER → 2024-04-12 13:22 | Outpatient (BNVA) | payer MEDICAID, SELFPAY | PROVIDERS: PCP Pediatrics; Visit Provider Advanced Practice Midwife | DX: N93.9 Abnormal uterine and vaginal bleeding, unspecified (principal); B97.7 Papillomavirus as the cause of diseases classified elsewhere | CPT/HCPCS: 99212 ==

== ENCOUNTER 2024-04-21 07:34 | Outpatient (AMB) | payer MEDICAID, SELFPAY ==
--- OUTSIDE RECORDS SUMMARY | 2024-04-21 07:37 | XMS_ITS | Encounter Summary ---
Author Organization [employer] Address [address] [place] [address] Care Team Providers Care Cloth Brushing And Sueding Supervisor Name Role Phone Meldoy Robins MD Primary Care Provider [phone] Encounter Details Date Type Department Care Team (Late st Contact Info) Description 10/07/2022 Abstract [facility] [address] [place] [address] Melody Robins MD [address] [place] [address] Social History Tobacco Use Types Packs/Day Years Used Date Smoking Tobacco: Never Smokeless Tobacco: Never Comments Unknown Sex and Gender Information Value Date Recorded Sex Assigned at Female 01/21/2022 10:31 AM EDT Legal Sex Female 10:31 AM EDT Gender Identity Female 01/21/2022 10:31 AM EDT Sexual Orientation Straight 01/21/2022 10 :31 AM EDT documented as of this encounter Plan of Treatment Not on file documented as of this encounter Visit Diagnoses Not on filedocumented in this encounter Care Teams Cloth Brushing And Sueding Supervisor Relationship Specialty Start Date End Date Melody Robins MD [address] [place] [address] PCP - General Family Medicine 10/02/16 documented as of this encounter
--- OUTSIDE RECORDS SUMMARY | 2024-04-21 07:37 | XMS_ITS | Encounter Summary ---
Author Organization [employer] Address [address] [facility] 7t [place] [address] Care Team Providers Care Foot And Ankle Surgeon Name Role Phone Melody Robins MD Primary Care Provider [phone] Encounter Details Date Type Department Care Team ([facility] Contact Info) Description 04/07/2024 Orders Only GENERIC EXTERNAL DATA DEPARTMENT Provider, Generic External Data Social History Tobacco Use Types Packs/Day Years Used Date Smoking Tobacco: Never Passive Smoke Exposure: Never Smokeless Tobacco: Never Alcohol Use Standard Drinks/Week Comments Never 0 (1 standard drink = 0.6 oz pur e alcohol) Alcohol Answer Date Recorded Frequency of Alcohol Consumption Not on file 12/26/2022 Average Number of Drinks Not on file 023 Frequency of Binge Drinking Not on file 07/2022 Score 0 12/26/2022 Depression Answer Date Recorded Patient Health Questionnaire-9 Score 9 07/15/2023 Patient Health Questionnaire-9 Score 9 07/15/2023 Last PHQ-9: Questionnaire Data Not on file 0 07/15/2023 Housing Stability Answer Date Recorded What is your housing situation today? I have amara hirsch 01/06/[address] you li ve. Do you have problems with any of the following? I am not sure;None of the above 01/06/2023 Food Insecurity Answer Date Recorded Within the past 12 months, y ou worried that your food would run out before you got money to buy more: Never True 01/06/2023 Within the past 12 months,th e food you bought just didn't last and you didn't have enough money to get more: Never True Transportation Answer Date Recorded In the past 12 months, has l ack of transportation kept you from medical appts, meetings, work or from getting things needed for daily living? No 01/06/2023 Utilities Answer Date Recorded In the past 12 months, has t he electric, gas, oil or water company threatened to shut off services in your home? No 01/06/2023 Depression Answer Date Recorded Patient Health Questionnaire-2 Score 2 07/15/2023 Comments Unknown Sex and Gender Information Value Date Recorded Sex Assigned at Female 01/21/2022 10:31 AM EDT Legal Sex Female 10:31 AM EDT Gender Identity Female 01/21/2022 10:31 AM EDT Sexual Orientation Straight 01/21/2022 10 :31 AM EDT documented as of this encounter Plan of Treatment Not on file documented as of this encounter Procedures Procedure Name Priority Date/Time Associated Diagnosis Comments TSH W/REFLEX TO FT4 Routine 04/07/2024 8 :41 AM EST 17-HYDROXYPROGESTER ONE Routine 04/07/2024 8:41 AM EST PROLACTIN Routine 04/07/2024 8:41 AM EST DHEA SULFATE Routine 04/07/2024 8:41 AM EST CBC Routine 04/07/2024 8:41 AM EST TESTOSTERONE, FREE (DIALYSIS) AND TOTAL,MS Routine 04/07/2024 8:41 AM EST HCG, TOTAL, QN Routine 04/07/2024 8:41 AM EST documented in this encounter Results * Testosterone, Free (Dialysis) And Total, MS (04/07/2024 8:41 AM EST) Testosterone, Total 26 2 - 45 ng/dL [facility] Comment:For additional infor alf, please refer tohttp://education.EquipRent.com/faq/CivqbOrlpmcgovindQWDDDILDQ301(This link is being provided for informational/educational purposes only.)This test was developed and its analytical performancecharacteristics have been determined by [facility] [place], [place]. It hasnot been cleared or approved by the U.S. Food and DrugAdministration. This assay has been validated pursuantto the CLIA regulations and is used for clinicalpurposes. Testosterone, Free 3.3 0.1 - 6.4 pg/mL [facility] Comment:This test was develo ped and its analytical performancecharacteristics have been determined by [facility] [place], [place]. It hasnot been cleared or approved by the U.. Food and DrugAdministration. This assay has been validated pursuantto the CLIA regulations and is used for clinicalpurposes.THIS TEST WAS PERFORMED AT:[facility] [id number] [place] [address]UDVWCTEPETER LOCKETT MD,PHD 04/07/2024 8:41 AM EST 04/07/2024 8:41 AM EST us Generic External Data Provider LAB BLOOD ORDERAB LES Final Result [facility] [address] [place] [phone] * 17-Hydroxyprogesterone (04/07/2024 8:41 AM EST) 17-OHProgesterone 34 see note ng/dL [facility] Comment: Unable to flag abnormal result(s), please refer ?to reference range(s) below:Adult Female Reference Ranges ??for 17-Hydroxyprogesterone: ??Pre- Menopausal Mid Follicular: ??23 - 102 ng/dL ??Pre-Menopausal Surge: ? 67 - 349 ng/dL ??Pre-Menopausal Mid Luteal: ? 139 - 431 ng/dL ??Postmenopausal Phase: ?< or = 45 ng/dL ?Female Jasbir Stages: ??II - III Females: ??18 - 220 ng/dL ??IV - V ?? Females: ??36 - 200 ng/dLIncludes data from J Clin Endocrinol Metab. ??1990;73:674-686; J Clin Endocrinol Metab. ??1989;69;0157-6893; J Clin Endocrinol Metab. ??1994;78:226-270. Pediatr Res 1988;23:525-529. ??MedLinePlus (accessed 09/06/13).This test was developed and its analytical performancecharacteristics have been determined by [facility] [place], [place]. It hasnot been cleared or approved by the U.S. Food and DrugAdministration. This assay has been validated pursuantto the CLIA regulations and is used for clinicalpurposes.THIS TEST WAS PERFORMED AT:[id number] [place], [place] ??[address]PETER LOCKETT MD,PHD 04/07/2024 8:41 AM EST 04/07/2024 8:41 AM EST Generic External Data Provider LAB BLOOD ORDERAB LES Final Result Performing Organization Address [facility]/ZIP Co de Phone Number [facility] [address] [place] [phone] * DHEA Sulfate (04/07/2024 8:41 AM EST) Pathologist [facility] DHEA Sulfate 84 19 - 237 mcg/dL [facility] Comment:THIS TEST WAS PERFOR MED AT:[facility] [address] [id number] BAILEY MD 04/07/2024 8:41 AM EST 04/07/2024 8:41 AM EST Generic External Data Provider LAB BLOOD ORDERAB LES Final Result Performing Organization Address [facility] Co de Phone Number [facility] [address] [place] [phone] * Prolactin (04/07/2024 8:41 AM EST) Prolactin 7.9 ng/mL [facility] Comment:Reference Range Fema les Non- 3.0-30.0 10.0-209.0 Postmenopausal 2.0-20.0THIS TEST WAS PERFORMED AT:[facility] [place] [id number] BAILEY MD 04/07/2024 8:41 AM EST 04/07/2024 8:41 AM EST Generic External Data Provider LAB BLOOD ORDERAB LES Final Result Performing Organization Address [facility] Co de Phone Number [facility] [address] [place] [phone] * hCG, Total, Quantitative (04/07/2024 8:41 AM EST) HCG Quantitative <2 mIU/mL [facility] Comment:Weeks post LMP Appro ximate hCG(Last Menstrual Period) Range (mIU/ml)3 - 4 weeks 9 - 1304 - 5 weeks 75 - 2,6005 - 6 weeks 850 - 20,8006 - 7 weeks 4000 - 100,2007 - 12 weeks 11,500 - 289,33604 - 16 weeks 18,300 - 137,17106 - 29 weeks (2nd trimester) 1,400 - 53,85591 - 41 weeks (3rd trimester) 940 - 60,000The Braga B- hCG assay is used for the early detection ofpregnancy; it cannot be used to diagnose any conditionunrelated to . If a B-hCG level is not supportedby the clinical evidence, results should be confirmed by analternative method (qualitative urine hCG, for example). 04/07/2024 8:41 AM EST 04/07/2024 8:41 AM EST Generic External Data Provider LAB BLOOD ORDERAB LES Final Result Performing Organization Address [facility] Co de Phone Number [facility] [address] [place] [phone] * TSH with Reflex to Free T4 (04/07/2024 8:41 AM EST) TSH reflex Free T4 1.18 0.32 - 4.0 uIU/mL [facility] 04/07/2024 8:41 AM EST 04/07/2024 8:41 AM EST us Generic External Data Provider LAB BLOOD ORDERAB LES Final Result Performing Organization Address City/[facility] Co de Phone Number [facility] [address] [place] [phone] * CBC (04/07/2024 8:41 AM EST) White Blood Count 8.8 4.8 - 10.8 X10*3/uL [facility] Red Blood Count 4.35 4.20 - 5.50 X10*6/uL [facility] Hemoglobin 13.0 12.0 - 16.0 g/dl [facility] Hematocrit 38.3 37.0 - 47.0 % [facility] Mean Corpuscular Volume 88.0 80.0 - 98.0 fL [facility] Mean Corpuscular Hemoglobin 29.9 27.0 - 33.0 pg [facility] Mean Corpuscular HGB Conc 33.9 31.0 - 35.0 g/dl [facility] Red Cell Distribution Width 12.9 11.0 - 16.0 % [facility] Platelet Count 283 160 - 400 X10*3/uL [facility] Mean Platelet Volume 10.9 9.4 - 12.3 fL [facility] NRBC Pct Auto 0.0 0.0 - 0.2 /100WBC [facility] NRBC Abs Auto 0.000 0.0 - 0.012 X10*3/uL [facility] 04/07/2024 8:41 AM EST 04/07/2024 8:41 AM EST us Generic External Data Provider LAB BLOOD ORDERAB LES Final Result Performing Organization Address City/[facility]/ZIP Co de Phone Number [facility] [address] [place] [phone] [phone] documented in this encounter Visit Diagnoses Not on filedocumented in this encounter Additional Health Concerns Assessment Noted Time PHQ-9 Depression Total Score: 9 07/15/19 24 9:49 AM EDT documented as of this encounter Care Teams Foot And Ankle Surgeon Relationship Specialty Start Date End Date Melody Robins MD [address] [place] [phone] PCP - General Family Medicine 10/02/16 documented as of this encounter
--- OUTSIDE RECORDS SUMMARY | 2024-04-21 07:37 | XMS_ITS | Encounter Summary ---
Author Organization [employer] Address [address] [facility] 7 [place] [address] Care Team Providers Care Refinery Operator Assistant Name Role Phone Melody Robins MD Primary Care Provider [phone] Reason for Visit * Reason Onset Date Comments Appointment Request 09/19/2023 Encounter Details Date Type Department Care Team ([facility] Contact Info) Description 09/19/2023 Telephone [facility] [address] [place] [address] Melody Robins MD [address] [place] [address] Appointment Request Social History Tobacco Use Types Packs/Day Years [...] AM EDT documented as of this encounter Miscellaneous Notes * Telephone Encounter - Annie Ruano RN - 09/24/2023 4:01 PM EDT Pt is scheduled for appt to discuss with PCP. * Telephone Encounter - Jeff Edwards - 09/19/2023 2:06 PM EDT Tc from patient requesting a appt to discuss options of Weight Loss documented in this encounter Plan of Treatment Not on file documented as of this encounter Visit Diagnoses Not on filedocumented in this encounter Additional Health Concerns Assessment Noted Time PHQ-9 Depression Total Score: 9 07/15/19 24 9:49 AM EDT documented as of this encounter Care Teams Refinery Operator Assistant Relationship Specialty Start Date End Date Melody Robins MD [address] [place] [address] PCP - General Family Medicine 10/02/16 documented as of this encounter
--- OUTSIDE RECORDS SUMMARY | 2024-04-21 07:37 | XMS_ITS | Encounter Summary ---
Author Organization [employer] Address [address] [facility] 7 [place] [address] Care Team Providers Care Certified Histologic Technician Name Role Phone Melody Robins MD Primary Care Provider [phone] Reason for Visit * Reason Onset Date Comments Appointment Request 11/22/2022 Encounter Details Date Type Department Care Team ([facility] Contact Info) Description 11/22/2022 Telephone [facility] [address] [place] [address] Melody Robins MD [address] [place] [address] Appointment Request Social History Tobacco Use Types Packs/Day Years Used Date Smoking Tobacco: Never Smokeless Tobacco: Never Alcohol Answer Date Recorded Frequency of Alcohol [...] encounter Miscellaneous Notes * Telephone Encounter - Yadi Cordoba - 11/22/2022 12:34 PM EDT Tc from pt requesting schedule an appt with PCP fiction and nonfiction writer prose attempted to gather information pt denied toleave information, Supervisor [employer] also explained protocol to f/u appts and PE appt, call disconnected however after call disconnceted fiction and nonfiction writer prose noticed [facility] 01/21[facility]22 OV - chronic conditions. documented in this encounter Plan of Treatment Not on file documented as of this encounter Visit Diagnoses Not on filedocumented in this encounter Care Teams Certified Histologic Technician Relationship Specialty Start Date End Date Melody Robins MD [address] [place] [phone] PCP - General Family Medicine 10/02/16 documented as of this encounter
--- OUTSIDE RECORDS SUMMARY | 2024-04-21 07:37 | XMS_ITS | Encounter Summary ---
Author Organization [employer] Address [address] [facility] 7 [place] [address] Care Team Providers Care Drive Thru Order Taker Name Role Phone Melody Robins MD Primary Care Provider [phone] Reason for Visit * Reason Onset Date Comments Nurse Triage 03/22/2024 Encounter Details Date Type Department Care Team ([facility] Contact Info) Description 03/22/2024 Telephone [facility] PEDS [address] [place] [address] Melody Robins MD [address] [place] [address] Nurse Triage Social History Tobacco Use Types Packs/Day Years [...] encounter Miscellaneous Notes * Telephone Encounter - Linda Fisher RN - 03/22/2024 11:51 AM EST Call returned to Vanessa Taylor to triage below. Reports having back pain x weeks. Pt having lower back pain . Non radiating and no leg numbness. No urinary sx. No abd pain. Pt has used OTC advilwith mild relief. Pt advised of disposition, no appts in [facility]. Agrees to seek WIC. Reviewed WIC operating hours and that wait times vary. Reviewed home care advise, ER precautions and reasons to call back. Protocol Used: Back Pain (Adult) Protocol-Based Disposition: See in Office or Video Visit within 2 Weeks Video visit offer not recorded Positive Triage Question: * Back pain lasts > 2 weeks * All higher-acuity triage questions were negative Care Advice Discussed: * Reassurance and Education - Back Pain * Reasons To Call Back - Fever occurs - Numbness or weakness occurs - Loss of control of your bladder or bowel - Severe pain not better after taking pain medicines - Pain begins to shoot into the leg - You become worse * Telephone Encounter - Susi Lux - 03/22/2024 10:46 AM EST Symptom: Back Pain - Not From Injury Outcome: Schedule an appointment to be seen within 3 days Reason: Caller denied all higher acuity questions The caller accepted this outcome. documented in this encounter Plan of Treatment Not on file documented as of this encounter Visit Diagnoses Not on filedocumented in this encounter Additional Health Concerns Assessment Noted Time PHQ-9 Depression Total Score: 9 07/15/19 24 9:49 AM EDT documented as of this encounter Care Teams Drive Thru Order Taker Relationship Specialty Start Date End Date Melody Robins MD [address] [place] [phone] PCP - General Family Medicine 10/02/16 documented as of this encounter
--- OUTSIDE RECORDS SUMMARY | 2024-04-21 07:37 | XMS_ITS | Encounter Summary ---
Author Organization [employer] [facility] Address [address] [place] [address] [address] [place] [address] Care Team Providers Care Pool Finisher Name Role Phone Melody Robins MD Primary Care Provider [phone] Encounter Details Date Type Department Care Team (Late st Contact Info) Description 12/17/2022 Orders Only [facility] MED[facility]INE [address] [place], [place] [phone] Polly Diamond Social History Tobacco Use Types Packs/Day Years [...] Procedure Name Priority Date/Time Associated Diagnosis Comments COLPOSCOPY Routine 09/27/2020 12:00 AM EDT documented in this encounter Results * Colposcopy (09/27/2020 12:00 AM EDT) us Historical Provider IN CLINIC/BEDSIDE ORDERAB LES Final Result documented in this encounter Visit Diagnoses Not on filedocumented in this encounter Care Teams Pool Finisher Relationship Specialty Start Date End Date Melody Robins MD [address] [place] [address] PCP - General Family Medicine 10/02/16 documented as of this encounter
--- OUTSIDE RECORDS SUMMARY | 2024-04-21 07:37 | XMS_ITS | Clinical Summary ---
Author Organization [employer] Address [address] [place] [address] 7[address] [place] [address] Care Team Providers Care Tile Inspector Name Role Phone Melody Robins MD Primary Care Provider [phone] Allergies No known active allergies Medications ergocalciferol (Vitamin D2) 1.25 MG (70800 UT) capsule Take 1 capsule (1.25 mg) by mouth 1 (one) time per week. 15 capsule 07/15/19 24 Active zinc gluconate 30 MG tablet Take 1 tablet by mouth Once per day. 06/30/19 24 Active beta carotene (vitamin A) 3 MG (74723 UT) capsule Take by mouth Once per day. 07/01/19 24 Active thiamine (Vitamin B-1) 100 MG tablet TAKE 1 TABLET BY MOUTH EVERY DAY FOR 90 DAYS 06/30/19 24 Active triamcinolone (Kenalog) 0.1 % cream Apply topically if needed in the morning and at bedtime (pain and swelling). 80 g 1 09/09/19 24 Active phentermine 8 MG tablet Take 1 tab orally with topamax every morning 30 tablet 11/26/19 24 Active fluticasone (Flonase Allergy Relief) 50 MCG/ACT nasal spray Administer 1 spray into each nostril Once per day. Shake gently. Before first use, prime pump. After use, clean tip and replace cap. 16 g 2 12/04/19 24 025 Active acetaminophen (Tylenol) 500 MG tablet Take 2 tablets (1,000 mg) by mouth every 6 (six) hours if needed for moderate pain or fever for up to 25 doses. 40 tablet 12/04/19 24 Active ibuprofen 400 MG tablet Take 1 tablet (400 mg) by mouth every 6 (six) hours if needed for moderate pain or fever for up to 30 doses. 30 tablet 12/04/19 24 Active levothyroxine (Synthroid) 88 MCG tablet TAKE 1 TABLET BY MOUTH BEFORE BREAKFAST 90 tablet 1 01/26/20 24 Active topiramate 50 MG tablet TAKE 1 TABLET BY MOUTH EVERY DAY 30 tablet 3 04/15/19 25 Active topiramate (Topamax) 50 MG tablet Take 50 mg by mouth Once per day. 30 tablet 3 11/26/19 24 025 Discontinued Active Problems Problem Noted Date Diagnosed Date Class 3 severe obesity due t o excess calories without serious comorbidity with body mass index (BMI) of 40.0 to 44.9 in adult 10/15/2023 Gastroenteritis 04/26/2023 Assessment & Plan (04/26/2023 7:25 PM EST): Flu and COVID 19 neg Pt w symptoms of viral gastroenteritis Appears Hydrated, no jaundice -hydration ,tylenol prn -zofran prn -told if ongoing diarrhea in next 2 days can try w peptobismol -alarm signs and symptoms discussed w pt,to go to ER if not able to tolerate food in stomach,blood in stools or mucus ,etc. Acute back pain with sciatica 03/11/2022 Primary insomnia 11/27/2016 Acne vulgaris 10/02/2016 Generalized anxiety disorder 10/02/2016 Encounters Date Type Department Care Team Description 04/15/2024 Refill [facility] [address] [place], [place] [phone] Melody Robins MD 04/07/2024 Orders Only GENERIC EXTERNAL DATA DEPARTMENT Provider, Generic External Data 03/22/2024 Telephone [facility] [address] [place], [place] [phone] Melody Robins MD Nurse Triage 01/26/2024 Refill [facility] [address] [place] [address] Melody Robins MD from Last 3 Months Immunizations Name Administration Dates Next Due HPV 9-Valent 07/15/2023 Influenza injectable quadriv alent IIV4 with preservative 01/14/2017 Influenza injectable quadrivalent preservative f ree 01/19/2021,01/07/2020 Pfizer Covid-19 Vaccine 12+ 10/22/2020, 1 Pfizer Covid-19 Vaccine 12+ carmen-sucrose (Banks C ap) 05/28/2021 TD (adult), 2 Lf tetanus tox oid, preservative free, adsorbed 01/19/2019 Social History Tobacco Use Types Packs/Day Years Used Date Smoking Tobacco: Never Passive Smoke Exposure: Never Smokeless Tobacco: Never Tobacco Cessation:Counseling Given: Not Answered Alcohol Use Standard Drinks/Week Comments Never 0 [...] Orientation Straight 01/21/2022 10 :31 AM EDT Last Filed Vital Signs Vital Sign Reading Time Taken Comments Blood Pressure 131/68 12/04/2023 1:43 PM EDT Pulse 92 12/04/2023 1:43 PM EDT Temperature 36.5 ??C (97.7 ??F) 12/04/2023 1:43 PM ED T Respiratory Rate 17 12/04/2023 1:43 PM EDT Oxygen Saturation 99% 12/04/2023 1:43 PM EDT Inhaled Oxygen Concentration - - Weight 105 kg (230 lb 9.6 oz) 12/04/2023 1:43 PM EDT Height 159.4 cm (5' 2.75 ) 11/26/2023 10:21 AM E DT Body Mass Index 41.18 11/26/2023 10:21 AM EDT Plan of Treatment Health Maintenance Due Date Last Done Comments Alcohol/Substance Use Screening 2004 Family Planning (PISQ) 2007 Hepatitis B Vaccines (1 of 3 - 19+ 3-dose series) 2011 DTaP/Tdap/Td Vaccines (1 - Tdap) 01/20/2019 01/19/2019 HPV/Cotest 09/27/2021 08/14/2020, 08/14/2020 HPV Vaccines (2 - 3-dose SCDM series) 08/12/2023 07/15/2023 COVID-19 Vaccine ( season) 2023 05/28/2021, 10/22/2020, 10/22/2020, Additional history exists Influenza Vaccine (#1) 2023 , 01/07/2020, 01/14/2017 SDOH Screening 12/27/2023 12/26/2022 Depression Monitoring (PHQ-9) 01/14/2024 07/15/2023, 07/15/2023 Cervical Cancer Screening 05/22/2024 Pap Smear 05/22/2024 05/23/2023, 03/0 03/2023, 01/03/2022, Additional history exists Depression Screening 07/14/2024 07/15/2023, 07/15/19 24 Tobacco Screening 12/03/2024 12/04/2023 Lipid Panel 06/24/2028 06/25/2023, 12/26/2022 Zoster Vaccines (1 of 2) 2042 RSV Patients and Patients Aged 60 years or older (1 - 1-dose 75+ series) 2067 HIV Screening Completed 01/22/2022, 11/22, 12/15/2019 Hepatitis C Screening Completed 01/22/2022 , 12/08/2020, 07/24/2020, Additional history exists HIB Vaccines Aged Out No longer eligi ble based on patient's age to complete this topic Hepatitis A Vaccines Aged Out No long er eligible based on patient's age to complete this topic IPV Vaccines Aged Out No longer eligi ble based on patient's age to complete this topic Meningococcal Vaccine Aged Out No erika erlinda eligible based on patient's age to complete this topic Pneumococcal Vaccine: Pediatrics (0 to 5 Years) and At-Risk Patients (6 to 49) Years) Aged Out No longer eligible based on patient's age to complete this topic RSV under 20 months Aged Out No longe r eligible based on patient's age to complete this topic Rotavirus Vaccines Aged Out No longer eligible based on patient's age to complete this topic Procedures Procedure Name Priority Date/Time Associated Diagnosis Comments TESTOSTERONE, FREE (DIALYSIS) AND TOTAL,MS Routine 04/07/2024 8:41 AM EST 17-HYDROXYPROGESTERO NE Routine 04/07/2024 8:41 AM EST DHEA SULFATE Routine 04/07/2024 8:41 AM EST PROLACTIN Routine 04/07/2024 8:41 AM EST HCG, TOTAL, QN Routine 04/07/2024 8:41 AM EST TSH W/REFLEX TO FT4 Routine 04/07/2024 8 :41 AM EST CBC Routine 04/07/2024 8:41 AM EST LIPID PANEL, STANDARD Routine 06/25/2023 11:40 AM EDT PAP SMEAR Routine 05/23/2023 11:27 AM EST [facility] HISTORICAL HEPATITIS C AB W/REFL TO HCV RNA, QN, PCR Routine 01/22/2022 10:34 AM EDT HIV 1/2 ANTIGEN/ANTIBODY, FOURTH GENERATION W/RFL Routine 01/22/2022 10:34 AM EDT [facility] HISTORICAL HPV E6/E7 RFLX SHRUTI 16 18/45 Routine 08/14/2020 3:10 PM EDT from Last 3 Months or Most Recently Relevant to Health Maintenance Results * TSH with Reflex to Free T4 (04/07/2024 8:41 AM EST) TSH reflex Free T4 1.18 0.32 - 4.0 uIU/mL [facility] 04/07/2024 8:41 AM EST 04/07/2024 8:41 AM EST us Generic External Data Provider LAB BLOOD ORDERAB LES Final Result Performing Organization Address City/State/[facility] Co de Phone Number [facility] [address] [place] [phone] * 17-Hydroxyprogesterone (04/07/2024 8:41 AM EST) 17-OHProgesterone 34 see note ng/dL [facility] Comment: Unable to flag abnormal result(s), [...] Endocrinol Metab. ??1990;73:674-686; J Clin Endocrinol Metab. ??1989;69;2713-5667; J Clin Endocrinol Metab. ??1994;78:226-270. Pediatr Res 1988;23:525-529. ??MedLinePlus (accessed 09/06/13).This test was developed and its analytical performancecharacteristics have been determined by [employer] [place], [place]. It hasnot been cleared or approved by the U.S. Food and DrugAdministration. This assay has been validated pursuantto the CLIA regulations and is used for clinicalpurposes.THIS TEST WAS PERFORMED AT:[employer] [place], [place] ??[address]PETER LOCKETT MD,PHD 04/07/2024 8:41 AM EST 04/07/2024 8:41 AM EST Generic External Data Provider LAB BLOOD ORDERAB LES Final Result Performing Organization Address [facility] Co de Phone Number [facility] [address] [place] [phone] * Prolactin (04/07/2024 8:41 AM EST) Prolactin 7.9 ng/mL [facility] Comment:Reference Range Fema les Non- 3.0-30.0 10.0-209.0 Postmenopausal 2.0-20.0THIS TEST WAS PERFORMED AT:[employer] [address] [id number] BAILEY MD 04/07/2024 8:41 AM EST 04/07/2024 8:41 AM EST Generic External Data Provider LAB BLOOD ORDERAB LES Final Result [facility] [address] [place] [address] [phone] * DHEA Sulfate (04/07/2024 8:41 AM EST) DHEA Sulfate 84 19 - 237 mcg/dL [facility] Comment:THIS TEST WAS PERFOR MED AT:[employer] [facility])[address] [place] [id number] BAILEY MD 04/07/2024 8:41 AM EST 04/07/2024 8:41 AM EST Generic External Data Provider LAB BLOOD ORDERAB LES Final Result Performing Organization Address [facility] Co de Phone Number [facility] [address] [place] [address] [phone] * CBC (04/07/2024 8:41 AM EST) Pathologist [facility] White Blood Count 8.8 4.8 - 10.8 X10*3/uL [facility] Red Blood Count 4.35 4.20 - 5.50 X10*6/uL [facility] Hemoglobin 13.0 12.0 - 16.0 g/dl [facility] Hematocrit 38.3 37.0 - 47.0 % [facility] Mean Corpuscular Volume 88.0 80.0 - 98.0 fL [facility] Mean Corpuscular Hemoglobin 29.9 27.0 - 33.0 pg [facility] Mean Corpuscular HGB Conc 33.9 31.0 - 35.0 g/dl [facility] Red Cell Distribution Width 12.9 11.0 - 16.0 % [facility] Platelet Count 283 160 - 400 X10*3/uL [facility] Mean Platelet Volume 10.9 9.4 - 12.3 fL [facility] NRBC Pct Auto 0.0 0.0 - 0.2 /100WBC [facility] NRBC Abs Auto 0.000 0.0 - 0.012 X10*3/uL [facility] 04/07/2024 8:41 AM EST 04/07/2024 8:41 AM EST us Generic External Data Provider LAB BLOOD ORDERAB LES Final Result Performing Organization Address City/[facility]/ZIP Co de Phone Number [facility] [address] [place] [address] [phone] * Testosterone, Free (Dialysis) And Total, MS (04/07/2024 8:41 AM EST) Testosterone, Total 26 2 - 45 ng/dL [facility] Comment:For additional infor alf, please refer tohttp://education.Adwanted/faq/IsknqTtkdxkcszqeiBTKPLOELY833(This link is being provided for informational/educational purposes only.)This test was developed and its analytical performancecharacteristics have been determined by [employer], [place]. It hasnot been cleared or approved by the U.S. Food and DrugAdministration. This assay has been validated pursuantto the CLIA regulations and is used for clinicalpurposes. Testosterone, Free 3.3 0.1 - 6.4 pg/mL [facility] Comment:This test was develo ped and its analytical performancecharacteristics have been determined by [employer]. It hasnot been cleared or approved by the U.S. Food and DrugAdministration. This assay has been validated pursuantto the CLIA regulations and is used for clinicalpurposes.THIS TEST WAS PERFORMED AT:[employer] [id number] [place] [phone] LOCKETT MD,PHD 04/07/2024 8:41 AM EST 04/07/2024 8:41 AM EST us Generic External Data Provider LAB BLOOD ORDERAB LES Final Result [facility] [address] [place] [address] [phone] * hCG, Total, Quantitative (04/07/2024 8:41 AM EST) HCG Quantitative <2 mIU/mL [facility] Comment:Weeks post LMP Appro ximate hCG(Last Menstrual Period) Range (mIU/ml)3 - 4 weeks 9 - 1304 - 5 weeks 75 - 2,6005 - 6 weeks 850 - 20,8006 - 7 weeks 4000 - 100,2007 - 12 weeks 11,500 - 289,50231 - 16 weeks 18,300 - 137,93603 - 29 weeks (2nd trimester) 1,400 - 53,65614 - 41 weeks (3rd trimester) 940 - [...] Provider LAB BLOOD ORDERAB LES Final Result [facility] [address] [place] [address] [phone] * Lipid Panel, Standard (06/25/2023 11:40 AM EDT) Triglycerides 54 <150 mg/dL [facility] Comment:Desirable Triglyceri de: less than 150 mg/dLBorderline High Triglyceride 150-199 mg/dLHigh Triglyceride: 200-499 mg/dLVery High Triglyceride: greater than or equal to 5OO mg/dL Cholesterol 130 <200 mg/dL [facility] Comment:Desirable Cholestero l: less than 200 mg/dLBorderline High Cholesterol: 200-239 mg/dLHigh Cholesterol: greater than 239 mg/dL LDL Cholesterol Calculated 73 <100 mg/dL [facility] Comment:Desirable LDL: less than 100 mg/dLNear Optimal/Above Optimal LDL: 110- 129 mg/dLBorderline High LDL: 130-159 mg/dLHigh LDL: 160-189 mg/dLVery High LDL: greater than or equal to 190 mg/dL HDL Cholesterol 47 >40 mg/dL [facility] Comment:Desirable HDL: great er than 40 mg/dL Note: This HDL assay may give artificially low results in patients with liver disease. 06/25/2023 11:4 0 AM EDT 06/25/2023 11:40 AM EDT us Generic External Data Provider LAB BLOOD ORDERAB LES Final Result Performing Organization Address City/State/[facility] Co de Phone Number [facility] [address] [place] [phone] * Pap Smear (05/23/2023 11:27 AM EST) 05/23/2023 11:2 7 AM EST 05/27/2023 7:30 AM EST Narrative [facility] - 06/04/2023 6:05 PM EDT ----- ------- Name: Vanessa Menchaca ? Age/Sex: 33/F ? : 1990 Unit#: [id number] ?? Attend Dr: Ifrah Lilly CNM ?Re05/23/23 ?Status: DEP REF ? Location: HO.LNP ?Disch: ? ----- ------- SPEC : [id number] ? RECD: 05/27/23 ? STATUS: ??SOUT ? REQ NUM: [id number] ? JT: 05/23/23 ? SUBM DR: Ifrah Lilly CNM ? ENTERED: ??05/27/23 ?SP TYPE: Pap Smr ?OTHR : Melody Robins MD ? ORDERED: ??Pap Smear, PAP path review ? Interpretation ?? General Category: ? Negative for intraepithelial lesion/malignancy. ?? Adequacy: ? Endocervical component present. ?? Interpretation: ? Reactive cellular changes. ?Abundant, partially obscuring acute inflammation present. ? HPV mRNA E6/E7: ?DETECTED ? This assay detects E6/E7 viral messenger RNA (mRNA) from 14 high-risk HPV types (16, 18, ?? 31, 33, 35, 39, 45, 51, 52, 56, 58, 59, 66, 68) ? HPV Type 16 RNA: ?Not Detected ?? HPV Type 18/45 RNA: ? Not Detected ? HPV testing performed by [facility], [place], [place]. ??See reference laboratory ?? portion of the EMR for entire report. ?Clinical Information LMP: 04/20/23 Previous PAP test: 2021, ASCUS ? Material Received ?? ThinPrep-Cervical Copies To: ?? Melody Robins MD ?? [address] ?? [place] [address] ?? [phone] ?? Ifrah Lilly CNM ?? [address] [facility] ?? [place] [address] ?? [phone] ----- ------- Signed (signature on file) Zhanna Timo 06/04/231804 ? ----- ------- ? END OF REPORT ? us Generic External Data Provider LAB CYTOLOGY YOLIE YU Final Result [facility] [address] [place] [address] [phone] * HEPATITIS C AB W/REFL TO HCV RNA, QN, PCR (01/22/2022 10:34 AM EDT) HEPATITIS C ANTIBODY NON-REACTI VE NON-REACT MEL [facility] INDEX 0.09 <1.00 [facility] Comment: ?? HCV antibody was non-reactive. There is no laboratory ?? evidence of HCV infection. ?? In most cases, no further action is required. However, if recent HCV exposure is suspected, a test for HCV RNA (test code 98631) is suggested. ?? For additional information please refer to http://[employer].Adwanted/faq/IDP22c4 (This link is being provided for informational/ educational purposes only.) ?? 01/22/2022 10:3 4 AM EDT Brenda [place] ANP HISTORICAL/NON ORDERABLE LABS Fi nal Result CONVERTED LEGACY LABS * HIV 1/2 ANTIGEN/ANTIBODY,FOURTH GENERATION W/RFL (01/22/2022 10:34 AM EDT) HIV-1/2 ANTIGEN AND ANTIBODIES, 4TH GENERATION W/ REFLEX NON-REACT MEL NON-REACT MEL [facility] Comment: HIV-1 antigen and HIV-1/HIV-2 antibodies were not detected. There is no laboratory evidence of HIV infection. ?? PLEASE NOTE: This information has been disclosed to you from records whose confidentiality may be protected by state law. ??If your state requires such protection, then the state law prohibits you from making any further disclosure of the information without the specific written consent of the person to whom it pertains, or as otherwise permitted by law. A general authorization for the release of medical or other information is NOT sufficient for this purpose. ? For additional information please refer to http://[employer]/faq/RUC622 (This link is being provided for informational/ educational purposes only.) ? The performance of this assay has not been clinically validated in patients less than 2 years old. ?? 01/22/2022 10:3 4 AM EDT us Brenda Eric ANP LAB BLOOD ORDERABLES Final Resul t CONVERTED LEGACY LABS * (ABNORMAL) HPV E6/E7 RFLX SHRUTI 16 18/45 (08/14/2020 3:10 PM EDT) [facility] HPV 16 RNA NOT DETECTED NOT DETECTED [facility] HPV 18/45 RNA NOT DETECTED NOT DETECTED [facility] Comment: Methodology: Outboard Motor Assembler Mediated Amplification The analytical performance characteristics of this assay have been determined by [facility]. The modifications have not been cleared or approved by the FDA. This assay has been validated pursuant to the CLIA regulations and is used for clinical purposes. THIS TEST WAS PERFORMED AT: [employer] [facility] [address],[facility] [address] [place], [place] ??[phone] DARLYN BAILEY MD HPV mRNA E6/E7 rflx Detected(A) Not Detected [facility] Comment: Methodology: Outboard Motor Assembler-Mediated Amplification This assay detects E6/E7 viral messenger RNA (mRNA) from 14 high-risk HPV types (16,18,31,33,35,39,45,51,52,56,58,59,66,68). The analytical performance characteristics of this assay have been determined by [facility]. The modifications have not been cleared or approved by the FDA. This assay has been validated pursuant to the CLIA regulations and is used for clinical purposes. For additional information, please refer to http://education.IdenTrust.Apparity/faq/ZQI074q0 (This link if provided for information/ educational purposes only.) THIS TEST WAS PERFORMED AT: [employer] [facility] [address] [place], [place] ??[phone] DARLYN BAILEY MD 08/14/2020 3:10 PM EDT Ifrah Lilly HISTORICAL/NON ORDERABLE LABS Fi nal Result [facility] [address] from Last 3 Months or Most Recently Relevant to Health Maintenance Insurance [facility] C3 Care Teams Tile Inspector Relationship Specialty Start Date End Date Melody Robins MD [address] [place] [phone] PCP - General Family Medicine 10/02/16
--- OUTSIDE RECORDS SUMMARY | 2024-04-21 07:37 | XMS_ITS | Encounter Summary ---
Author Organization [employer] Address [address] [place] [address] [address] [place] [address] Care Team Providers Care Legal Summer Intern Name Role Phone Melody Robins MD Primary Care Provider [phone] Encounter Details Date Type Department Care Team (Late st Contact Info) Description 12/17/2022 Orders Only [facility] [address] [place], [place] [phone] ProviderLuli MD Social History Tobacco Use Types Packs/Day Years [...] Procedure Name Priority Date/Time Associated Diagnosis Comments HM PAP/HPV Routine 01/03/2022 PAP/HPV Routine 08/14/2020 documented in this encounter Results * Hm Pap Smear (01/03/2022) Historical Provider HEALTH MAINTENANCE Final Result * Hm Pap Smear (08/14/2020) us Historical Provider HEALTH MAINTENANCE Final Result documented in this encounter Visit Diagnoses Not on filedocumented in this encounter Care Teams Legal Summer Intern Relationship Specialty Start Date End Date Melody Robins MD [address] [place] [address] PCP - General Family Medicine 10/02/16 documented as of this encounter
--- OUTSIDE RECORDS SUMMARY | 2024-04-21 07:37 | XMS_ITS | Encounter Summary ---
Author Organization [employer] Address [address] [facility] [address]t [place] [address] Care Team Providers Care Furniture Sales Consultant Name Role Phone Melody Robins MD Primary Care Provider [phone] Reason for Visit * Reason Comments Med Refill Encounter Details Date Type Department Care Team ([facility] Contact Info) Description 04/15/2024 Refill [facility] [address] [place], [place] [phone] Melody Robins MD [address] [place] [address] Social History Tobacco Use Types Packs/Day Years [...] documented as of this encounter Care Teams Furniture Sales Consultant Relationship Specialty Start Date End Date Melody Robins MD [address] [place] [phone] PCP - General Family Medicine 10/02/16 documented as of this encounter
--- OUTSIDE RECORDS SUMMARY | 2024-04-21 07:37 | XMS_ITS | Encounter Summary ---
Author Organization [employer] Address [address] [facility] [address] [place] [address] Care Team Providers Care Marine Resource Economist Name Role Phone Melody Robins MD Primary Care Provider [phone] Reason for Visit * Reason Onset Date Comments Appointment Request 09/29/2023 Encounter Details Date Type Department Care Team ([facility] Contact Info) Description 09/29/2023 Telephone [facility] [address] [place] [address] Melody Robins MD [address] [place] [address] Appointment Request Social History Tobacco Use Types [...] encounter Miscellaneous Notes * Telephone Encounter - Jeff Edwards - 09/29/2023 8:47 AM EDT Tc from patient calling to request for a in person appt sooner than 10/14 or to change the televisitappt to a office visit documented in this encounter Plan of Treatment Not on file documented as of this encounter Visit Diagnoses Not on filedocumented in this encounter Additional Health Concerns Assessment Noted Time PHQ-9 Depression Total Score: 9 07/15/19 24 9:49 AM EDT documented as of this encounter Care Teams Marine Resource Economist Relationship Specialty Start Date End Date Melody Robins MD [address] [place] [address] PCP - General Family Medicine 10/02/16 documented as of this encounter
--- NOTE | 2024-04-21 07:47 | MHC.OFFVIS ---
Intake Visit Reasons: lab follow up Petal Shaper Hand Required: Yes Petal Shaper Hand Language: Self Propelled Dredge Operator Name: Rita [id number] Information Interpreted: non-clinical & clinical Mineralogy Professor: Mineralogy Professor Present Allergies No Known Allergies [No Known Allergies*] Allergy (Verified 04/21/24 07:49) Is last menstrual period known: Yes Last menstrual period: 04/07/24 HPI Comments Details: Patient is here today for a follow up lab results, history of AUB, reports 3 episodes of bleeding within the last month very heavy on 1 day April 08. Ultrasound is scheduled 04/28/2024. [facility] Medical History (Updated 04/12/24 @ 14:31 by Mignon Mcgregor CNM) Elevated testosterone level Kidney calculi Left ovarian cyst Pelvic pain DALTON I (cervical intraepithelial neoplasia I) ASCUS with positive high risk HPV Pap smear of cervix with ASCUS, cannot exclude HGSIL Obese Kidney stones Surgical History History of appendectomy Family History Maternal Grandmother Colon cancer Father HTN (hypertension) Maternal Grandfather Diabetes Maternal Grandfather Prostate cancer Social History Household Members Other:: mom and son Housing: House Alcohol intake: never Patient Tobacco Use Status: Never used Tobacco Current occupational status: 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 Sexual orientation: Straight/Heterosexual Gender identity: Female Female Reproductive History Menstrual Age of Menarche: 14 Date of last menstrual period: 04/07/24 Review of Systems Const All systems reviewed & are unremarkable except as noted in HPI and below Endo Reports no additional complaints Physical Exam Const General: cooperative, healthy appearing and no acute distress Psych Appearance: well kempt Attitude: cooperative Thought process: Normal thought process present Assessment & Plan Assessment & Plan (1) Abnormal uterine bleeding (AUB): Code(s): N93.9 - Abnormal uterine and vaginal bleeding, unspecified Category: Medical Plan Discussed: Lab work reviewed all normal ranges. Ultrasound scheduled 04/28/2024, had seen another provider for same symptoms but prefers to have only 1 visit for the follow up and plans to reschedule her appointment. Reviewed workup for AUB to include EMB, patient agrees to the plan. Options for treatment of AUB to include Mirena IUD-booklet given for review. Anticipatory guidance for EMB workup to include taking 3 Advil 200 mg each, per manufacture's recommendation if no contraindications 1 hour before her procedure with food and fluids. The patient expressed understanding and agreement with the plan of care. All of her questions and concerns were addressed to the best of my ability. Total time I personally spent on visit and management today: ?30 minutes. Time spent included review of pertinent office notes in the electronic health record; review of laboratory and imaging results; review of personal family medical history; discussing diagnosis and plan of care with the patient; documenting the encounter in the EMR. This note is constructed using voice recognition software. While every effort has been made to ensure accuracy, information director errors may have been included. Coding Level of Care Code Est Pt Level 3 (38016) Diagnoses Abnormal uterine bleeding (AUB) N93.9
== END 2024-04-21 08:29 | disposition home or self-care (01) ==
LOC: HO.HWS 07:34
PROVIDERS: PCP Pediatrics; Visit Provider Advanced Practice Midwife
DX: N93.9 Abnormal uterine and vaginal bleeding, unspecified (principal)
CPT/HCPCS: 99213

== ENCOUNTER → 2024-04-21 07:34 | Outpatient (BNVA) | payer MEDICAID, SELFPAY | PROVIDERS: PCP Pediatrics; Visit Provider Advanced Practice Midwife | DX: N93.9 Abnormal uterine and vaginal bleeding, unspecified (principal) | CPT/HCPCS: 99212 ==

== ENCOUNTER → 2024-04-28 13:19 | Outpatient (REF) | payer MEDICAID, SELFPAY ==
--- NOTE | ~2024-04-28 | US_ITS ---
EXAMINATION: US PELVIS CLINICAL INFORMATION: Abnormal uterine bleeding. COMPARISON: 11/30/2022. 10/18/2022. TECHNIQUE: Ultrasound of the pelvis is performed using both transabdominal and transvaginal transducers along with Doppler. Transvaginal imaging is performed due to inadequate visualization transabdominally. FINDINGS: Uterus: The uterus is anteverted, anteflexed and measures 9.0 x 4.0 x 4.9 cm. Normal-appearing cervix. The double wall endometrial thickness is 6 mm. It is uniform. The uterus is smooth in contour and has normal myometrial echogenicity. No visible fibroid. Adnexa: Both ovaries are visualized. There is normal color flow to the adnexa. There is no ovarian torsion. There is no pelvic ascites or fluid collection. There are no adnexal masses. Right ovary measures 3.8 x 2 x 1 x 2.1 cm. Volume = 8.8 mL. Normal sonographic appearance. Left ovary measures 3.1 x 2.0 x 2.2 cm. Volume = 7.1 mL. Normal sonographic appearance. US/US pelvic and transvaginal IMPRESSION: Normal ultrasound of the pelvis. Electronically signed by: Josemanuel Jaime MD 04/28/2024 03:58 PM [facility]
--- OUTSIDE RECORDS SUMMARY | 2024-04-28 14:45 | XMS_ITS | Encounter Summary ---
Author Organization [employer] Address [address] [facility] 7t [place] [address] Care Team Providers Care Artist Relationship Manager Name Role Phone Melody Robins MD Primary Care Provider [phone] Encounter Details Date Type Department Care Team (Late st Contact Info) Description 10/07/2022 Abstract [facility] MED & PEDS [address] [place] [address] Melody Rboins MD [address] [place] [address] Social History Tobacco Use Types Packs/Day Years [...] on filedocumented in this encounter Care Teams Artist Relationship Manager Relationship Specialty Start Date End Date Melody Robins MD [address] [place] [address] PCP - General Family Medicine 10/02/16 documented as of this encounter
--- OUTSIDE RECORDS SUMMARY | 2024-04-28 14:45 | XMS_ITS | Encounter Summary ---
Author Organization [employer] Address [address] [facility] 7t [place] [address] Care Team Providers Care Patient Services Clerk Name Role Phone Melody Robins MD Primary Care Provider [phone] Reason for Visit * Reason Comments Med Refill Encounter Details Date Type Department Care Team ([facility] Contact Info) Description 04/15/2024 Refill [facility] MED & PEDS [address] [place], [place] [phone] Melody Robins MD [address] [place] [address] Social History Tobacco Use Types Packs/Day Years [...] documented as of this encounter Care Teams Patient Services Clerk Relationship Specialty Start Date End Date Melody Robins MD [address] [place] [address] PCP - General Family Medicine 10/02/16 documented as of this encounter
--- OUTSIDE RECORDS SUMMARY | 2024-04-28 14:45 | XMS_ITS | Encounter Summary ---
Author Organization [employer] Address [address] [facility] 7 [place] [address] Care Team Providers Care Lead Manufacturing Technician Name Role Phone Melody Robins MD Primary Care Provider Reason for Visit * Reason Onset Date Comments Appointment Request 09/19/2023 Encounter Details Date Type Department Care Team ([facility] Contact Info) Description 09/19/2023 Telephone [facility] MEDICINE [address] [place] [address] Melody Robins MD [address] [place] [address] Appointment Request Social History Tobacco Use Types [...] documented as of this encounter Care Teams Lead Manufacturing Technician Relationship Specialty Start Date End Date Melody Robins MD [address] [place] [address] PCP - General Family Medicine 10/02/16 documented as of this encounter
--- OUTSIDE RECORDS SUMMARY | 2024-04-28 14:45 | XMS_ITS | Encounter Summary ---
Author Organization [employer] [facility] Address [address] [place] [address] 7t [place] [address] Care Team Providers Care Vp Of Customer Experience Strategy Name Role Phone Melody Robins MD Primary Care Provider Encounter Details Date Type Department Care Team (Late st Contact Info) Description 12/17/2022 Orders Only [facility] MEDICINE [address] [place], [place] [phone] Polly Diamond Social History Tobacco Use Types [...] on filedocumented in this encounter Care Teams Vp Of Customer Experience Strategy Relationship Specialty Start Date End Date Melody Robins MD [address] [place] [address] PCP - General Family Medicine 10/02/16 documented as of this encounter
--- OUTSIDE RECORDS SUMMARY | 2024-04-28 14:45 | XMS_ITS | Encounter Summary ---
Author Organization [employer] Address [address] [facility] 7 [place] [address] Care Team Providers Care Hotel Recreational Facilities Manager Name Role Phone Melody Robins MD Primary Care Provider [phone] Reason for Visit * Reason Onset Date Comments Appointment Request 11/22/2022 Encounter Details Date Type Department Care Team ([facility] Contact Info) Description 11/22/2022 Telephone [facility] MEDICINE [address] [place] [address] Melody Robins MD [address] [place] [address] Appointment Request Social History Tobacco Use Types [...] pt requesting schedule an appt with PCP publications writer attempted to gather information pt denied toleave information, [employer] Demonstrator also explained protocol to f/u appts and PE appt, call disconnected however after call disconnceted publications writer noticed [facility] OV - chronic conditions. documented in this encounter Plan of Treatment Not on file documented as of this encounter Visit Diagnoses Not on filedocumented in this encounter Care Teams Hotel Recreational Facilities Manager Relationship Specialty Start Date End Date Melody Robins MD [address] [place] [phone] PCP - General Family Medicine 10/02/16 documented as of this encounter
--- OUTSIDE RECORDS SUMMARY | 2024-04-28 14:45 | XMS_ITS | Encounter Summary ---
Author Organization [employer] Address [address] [place] [address] 7 [place] [address] Care Team Providers Care Rn Family Name Role Phone Melody Robins MD Primary Care Provider [phone] Encounter Details Date Type Department Care Team (Late st Contact Info) Description 12/17/2022 Orders Only [facility] MEDICINE [address] [place], [place] [phone] ProviderLuli MD Social History Tobacco Use Types [...] on filedocumented in this encounter Care Teams Rn Family Relationship Specialty Start Date End Date Melody Robins MD [address] [place] [address] PCP - General Family Medicine 10/02/16 documented as of this encounter
--- OUTSIDE RECORDS SUMMARY | 2024-04-28 14:45 | XMS_ITS | Encounter Summary ---
Author Organization [employer] Address [address] [facility] 7 [place] [address] Care Team Providers Care Brazer Crawler Torch Name Role Phone Melody Robins MD Primary Care Provider [phone] Reason for Visit * Reason Onset Date Comments Appointment Request 09/29/2023 Encounter Details Date Type Department Care Team ([facility] Contact Info) Description 09/29/2023 Telephone [facility] MEDICINE [address] [place] [address] Melody Robins MD [address] [place] [address] Appointment Request Social History Tobacco Use Types [...] documented as of this encounter Care Teams Brazer Crawler Torch Relationship Specialty Start Date End Date Melody Robins MD [address] [place] [address] PCP - General Family Medicine 10/02/16 documented as of this encounter
--- OUTSIDE RECORDS SUMMARY | 2024-04-28 14:45 | XMS_ITS | Encounter Summary ---
Author Organization [employer] Address [address] [facility] 7t [place] [address] Care Team Providers Care Social Media Strategist Name Role Phone Melody Robins MD Primary Care Provider [phone] Encounter Details Date Type Department Care Team ([facility] Contact Info) Description 04/07/2024 Orders Only GENERIC [...] Testosterone, Total 26 2 - 45 ng/dL [facility] Comment:For additional infor alf, please refer tohttp://education.GoLive! [email or web address]/[email or web address](This link is being provided for informational/educational purposes only.)This test was developed and its analytical performancecharacteristics have been determined by [facility] [place], [place]. It hasnot been cleared or approved by the U.S. Food and DrugAdministration. This assay has been validated pursuantto the CLIA regulations and is used for clinicalpurposes. Testosterone, Free 3.3 0.1 - 6.4 pg/mL [facility] Comment:This test was develo ped and its analytical performancecharacteristics have been determined by [employer] [place], [place]. It hasnot been cleared or approved by the U.. Food and DrugAdministration. This assay has been validated pursuantto the CLIA regulations and is used for clinicalpurposes.THIS TEST WAS PERFORMED AT:[employer] [id number] [place] [id number] LOCKETT MD,PHD 04/07/2024 8:41 AM EST 04/07/2024 8:41 AM EST us Generic External Data Provider LAB BLOOD ORDERAB LES Final Result [facility] [address] [place] [phone] * 17-Hydroxyprogesterone (04/07/2024 8:41 AM EST) 17-OHProgesterone 34 see note ng/dL [facility] Comment: Unable to flag [...] Endocrinol Metab. ??1990;73:674-686; J Clin Endocrinol Metab. ??1989;69;0399-8728; J Clin Endocrinol Metab. ??1994;78:226-270. Pediatr Res 1988;23:525-529. ??MedLinePlus (accessed 09/06/13).This test was developed and its analytical performancecharacteristics have been determined by [facility] [place], [place]. It hasnot been cleared or approved by the U.S. Food and DrugAdministration. This assay has been validated pursuantto the CLIA regulations and is used for clinicalpurposes.THIS TEST WAS PERFORMED AT:[employer] [place], [place] ??[address] 8PETER LOCKETT MD,PHD 04/07/2024 8:41 AM EST 04/07/2024 8:41 AM EST Generic External Data Provider LAB BLOOD ORDERAB LES Final Result Performing Organization Address [facility]/ZIP Co de Phone Number [facility] [address] [place] [phone] * DHEA Sulfate (04/07/2024 8:41 AM EST) Pathologist [facility] DHEA Sulfate 84 19 - 237 mcg/dL [facility] Comment:THIS TEST WAS PERFOR MED AT:[employer] [address] [id number] BAILEY MD 04/07/2024 8:41 AM EST 04/07/2024 8:41 AM EST Generic External Data Provider LAB BLOOD ORDERAB LES Final Result Performing Organization Address [facility] Co de Phone Number [facility] [address] [place] [phone] * Prolactin (04/07/2024 8:41 AM EST) Prolactin 7.9 ng/mL [facility] Comment:Reference Range Fema les Non- 3.0-30.0 10.0-209.0 Postmenopausal 2.0-20.0THIS TEST WAS PERFORMED AT:[employer] [place] [id number] BAILEY MD 04/07/2024 8:41 AM EST 04/07/2024 8:41 AM EST Generic External Data Provider LAB BLOOD ORDERAB LES Final Result Performing Organization Address [facility] Co de Phone Number [facility] [address] [place] [phone] * hCG, Total, Quantitative (04/07/2024 8:41 AM EST) HCG Quantitative <2 mIU/mL [facility] Comment:Weeks post LMP Appro ximate hCG(Last Menstrual Period) Range (mIU/ml)3 - 4 weeks 9 - 1304 - 5 weeks 75 - 2,6005 - 6 weeks 850 - 20,8006 - 7 weeks 4000 - 100,2007 - 12 weeks 11,500 - 289,12567 - 16 weeks 18,300 - 137,00459 - 29 weeks (2nd trimester) 1,400 - 53,84144 - 41 weeks (3rd trimester) 940 - [...] ORDERAB LES Final Result Performing Organization Address [facility] Co de Phone Number [facility] [address] [place] [phone] * TSH with Reflex to Free T4 (04/07/2024 8:41 AM EST) TSH reflex Free T4 1.18 0.32 - 4.0 uIU/mL [facility] 04/07/2024 8:41 AM EST 04/07/2024 8:41 AM EST us Generic External Data Provider LAB BLOOD ORDERAB LES Final Result Performing Organization Address [facility] Co de Phone Number [facility] [address] [place] [phone] * CBC (04/07/2024 8:41 AM EST) White Blood Count 8.8 4.8 - 10.8 X10*3/uL [facility] Red Blood Count 4.35 4.20 - 5.50 X10*6/uL [facility] Hemoglobin 13.0 12.0 - 16.0 g/dl [facility] Hematocrit 38.3 37.0 - 47.0 % [facility] Mean Corpuscular Volume 88.0 80.0 - 98.0 fL [facility] Mean Corpuscular Hemoglobin 29.9 27.0 - 33.0 pg [facility] Mean Corpuscular HGB Conc 33.9 31.0 - 35.0 g/dl [facility] Red Cell Distribution Width 12.9 11.0 - 16.0 % [facility] Platelet Count 283 160 - 400 X10*3/uL [facility] Mean Platelet Volume 10.9 9.4 - 12.3 fL [facility] NRBC Pct Auto 0.0 0.0 - 0.2 /100WBC [facility] NRBC Abs Auto 0.000 0.0 - 0.012 X10*3/uL [facility] 04/07/2024 8:41 AM EST 04/07/2024 8:41 AM EST us Generic External Data Provider LAB BLOOD ORDERAB LES Final Result Performing Organization Address [facility]/ZIP Co de Phone Number [facility] [address] [place] [phone] documented in this encounter Visit Diagnoses Not on filedocumented in this encounter Additional Health Concerns Assessment Noted Time PHQ-9 Depression Total Score: 9 07/15/19 24 9:49 AM EDT documented as of this encounter Care Teams Social Media Strategist Relationship Specialty Start Date End Date Melody Robins MD [address] [place] [address] PCP - General Family Medicine 10/02/16 documented as of this encounter
--- OUTSIDE RECORDS SUMMARY | 2024-04-28 14:45 | XMS_ITS | Clinical Summary ---
Author Organization [employer] Address [address] [place] [address] [address] [place] [address] Care Team Providers Care Army Manager Name Role Phone Melody Robins MD Primary Care Provider [phone] Allergies No known active allergies Medications * This document contains information received from the source organization and may not represent a complete record from that organization. ergocalciferol (Vitamin D2) 1.25 MG (88105 UT) capsule Take 1 capsule (1.25 mg) by mouth 1 (one) time per week. 15 capsule 07/15/19 24 Active zinc gluconate 30 MG tablet Take 1 tablet by mouth Once per day. 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 Vanessa presented to the clinic today for a virtual reality specialist visit for her son. During pedi visit, mom was visible stress and emotionally overwhelmed. Mom reported presentation of sxs are associated with her son diagnosis (Autism). She is currently living with her mother but reports needing assistance to apply for housing. Pt has a therapist with [facility] and have weekly appointments per her report. Not interested at this time to start medication. clinician engaged patient with active/reflective listening. Reviewed and assessed for risk, current stressors and protective factors using open-ended questions. Pt will be referred with CM to assist with housing resources. Explored coping strategies that pt can use during stressful times. Provided [facility] contact information and educated patient on the importance of reaching out to others. Class 3 severe obesity due t o [...] vulgaris 10/02/2016 Generalized anxiety disorder 10/02/2016 Encounters * This document contains information received from the source organization and may not represent a complete record from that organization. Date Type Department Care Team Description 04/15/2024 Refill [facility] [address] [place] [address] Melody Robins MD 04/07/2024 Orders Only GENERIC EXTERNAL DATA DEPARTMENT Provider, Generic External Data 03/22/2024 Telephone [facility] [address] [place] [address] Melody Robins MD Nurse Triage from Last 3 Months Immunizations Name Administration [...] Answer Date Recorded Patient Health Questionnaire-9 Score 11 04/21/2024 Patient Health Questionnaire-9 Score 11 04/21/2024 Last PHQ-9: Questionnaire Data Not on file 0 04/21/2024 Housing Stability Answer Date Recorded What is [...] Answer Date Recorded Patient Health Questionnaire-2 Score 4 04/21/2024 Comments Unknown Sex and Gender Information Value [...] , 01/07/2020, 01/14/2017 SDOH Screening 12/27/2023 12/26/2022 Cervical Cancer Screening 05/22/2024 Pap Smear 05/22/2024 05/23/2023, 03/0 03/2023, 01/03/2022, Additional history exists Depression Monitoring (PHQ-9) 10/19/2024 04/21/2024, 04/21/2024 Tobacco Screening 12/03/2024 12/04/2023 Depression Screening 04/21/2025 04/21/2024, 04/21/19 25 Lipid Panel 06/24/2028 06/25/2023, 12/26/2022 Zoster Vaccines [...] PAP SMEAR Routine 05/23/2023 11:27 AM EST [facility] HISTORICAL HEPATITIS C AB W/REFL TO HCV RNA, QN, PCR Routine 01/22/2022 10:34 AM EDT HIV 1/2 ANTIGEN/ANTIBODY, FOURTH GENERATION W/RFL Routine 01/22/2022 10:34 AM EDT [facility] HISTORICAL HPV E6/E7 RFLX SHRUTI 16 18/45 Routine 08/14/2020 3:10 PM EDT from Last 3 Months or Most Recently Relevant to Health Maintenance Results * TSH with Reflex to Free T4 (04/07/2024 8:41 AM EST) TSH reflex Free T4 1.18 0.32 - 4.0 uIU/mL [facility] 04/07/2024 8:41 AM EST 04/07/2024 8:41 AM EST us Generic External Data Provider LAB BLOOD ORDERAB LES Final Result Performing Organization Address City/State/[facility] Co de Phone Number [facility] [address] [place] [phone] * 17-Hydroxyprogesterone (04/07/2024 8:41 AM EST) Pathologist [facility] 17-OHProgesterone 34 see note ng/dL [facility] Comment: Unable to flag abnormal [...] Endocrinol Metab. ??1990;73:674-686; J Clin Endocrinol Metab. ??1989;69;1241-4190; J Clin Endocrinol Metab. ??1994;78:226-270. Pediatr Res 1988;23:525-529. ??MedLinePlus (accessed 09/06/13).This test was developed and its analytical performancecharacteristics have been determined by [facility] [place] It hasnot been cleared or approved by the U.S. Food and DrugAdministration. This assay has been validated pursuantto the CLIA regulations and is used for clinicalpurposes.THIS TEST WAS PERFORMED AT:[facility] [place]/[facility] [place], [place] ??[address]PETER LOCKETT MD,PHD 04/07/2024 8:41 AM EST 04/07/2024 8:41 AM EST Generic External Data Provider LAB BLOOD ORDERAB LES Final Result Performing Organization Address [facility] de Phone Number [facility] [address] [place] [phone] * Prolactin (04/07/2024 8:41 AM EST) Prolactin 7.9 ng/mL [facility] Comment:Reference Range Fema les Non- 3.0-30.0 10.0-209.0 Postmenopausal 2.0-20.0THIS TEST WAS PERFORMED AT:[facility] [place] [id number] BAILEY MD 04/07/2024 8:41 AM EST 04/07/2024 8:41 AM EST Generic External Data Provider LAB BLOOD ORDERAB LES Final Result Performing Organization Address [facility] [address] [place] [phone] * DHEA Sulfate (04/07/2024 8:41 AM EST) DHEA Sulfate 84 19 - 237 mcg/dL [facility] Comment:THIS TEST WAS PERFOR MED AT:[facility] [place] [address] [id number] BAILEY MD 04/07/2024 8:41 AM EST 04/07/2024 8:41 AM EST Generic External Data Provider LAB BLOOD ORDERAB LES Final Result Performing Organization Address [facility]/ZIP Co de Phone Number [facility] [address] [place] [phone] [phone] * CBC (04/07/2024 8:41 AM EST) White Blood Count 8.8 4.8 - 10.8 X10*3/uL [facility] Red Blood Count 4.35 4.20 - 5.50 X10*6/uL [facility] Hemoglobin 13.0 12.0 - 16.0 g/dl [facility] Hematocrit 38.3 37.0 - 47.0 % [facility] Mean Corpuscular Volume 88.0 80.0 - 98.0 fL [facility] Mean Corpuscular Hemoglobin 29.9 27.0 - 33.0 pg [facility] Mean Corpuscular HGB Conc 33.9 31.0 - 35.0 g/dl [facility] Red Cell Distribution Width 12.9 11.0 - 16.0 % [facility] Platelet Count 283 160 - 400 X10*3/uL [facility] Mean Platelet Volume 10.9 9.4 - 12.3 fL [facility] NRBC Pct Auto 0.0 0.0 - 0.2 /100WBC [facility] NRBC Abs Auto 0.000 0.0 - 0.012 X10*3/uL [facility] 04/07/2024 8:41 AM EST 04/07/2024 8:41 AM EST us Generic External Data Provider LAB BLOOD ORDERAB LES Final Result [facility] [address] [place] [phone] * Testosterone, Free (Dialysis) And Total, MS (04/07/2024 8:41 AM EST) Pathologist [facility] Testosterone, Total 26 2 - 45 ng/dL [facility] Comment:For additional infor alf, please refer tohttp://education.Generic Media/faq/VsapdYeimrlisdswcZUFHFCHQT040(This link is being provided for informational/educational purposes only.)This test was developed and its analytical performancecharacteristics have been determined by [facility] [place], [place]. It hasnot been cleared or approved by the U.S. Food and DrugAdministration. This assay has been validated pursuantto the CLIA regulations and is used for clinicalpurposes. Testosterone, Free 3.3 0.1 - 6.4 pg/mL [facility] Comment:This test was develo ped and its analytical performancecharacteristics have been determined by [place] It hasnot been cleared or approved by the U.S. Food and DrugAdministration. This assay has been validated pursuantto the CLIA regulations and is used for clinicalpurposes.THIS TEST WAS PERFORMED AT:[facility] [place]/[facility] [address] [place] [address]YAMEYMIPETER LOCKETT MD,PHD 04/07/2024 8:4 1 AM EST 04/07/2024 8:41 AM EST us Generic External Data Provider LAB BLOOD ORDERAB LES Final Result [facility] [address] [place] [phone] * hCG, Total, Quantitative (04/07/2024 8:41 AM EST) HCG Quantitative <2 mIU/mL [facility] Comment:Weeks post LMP Appro ximate hCG(Last Menstrual Period) Range (mIU/ml)3 - 4 weeks 9 - 1304 - 5 weeks 75 - 2,6005 - 6 weeks 850 - 20,8006 - 7 weeks 4000 - 100,2007 - 12 weeks 11,500 - 289,44823 - 16 weeks 18,300 - 137,84049 - 29 weeks (2nd trimester) 1,400 - 53,03800 - 41 weeks (3rd trimester) 940 - [...] ORDERAB LES Final Result Performing Organization Address [facility] Co de Phone Number [facility] [address] [place] [phone] * Lipid Panel, Standard (06/25/2023 11:40 AM EDT) Triglycerides 54 <150 mg/dL [facility] Comment:Desirable Triglyceri de: less than 150 mg/dLBorderline High Triglyceride 150-199 mg/dLHigh Triglyceride: 200-499 mg/dLVery High Triglyceride: greater than or equal to 5OO mg/dL Cholesterol 130 <200 mg/dL [facility] Comment:Desirable Cholestero l: less than 200 mg/dLBorderline High Cholesterol: 200-239 mg/dLHigh Cholesterol: greater than 239 mg/dL LDL Cholesterol Calculated 73 <100 mg/dL [facility] Comment:Desirable LDL: less than 100 mg/dLNear Optimal/Above Optimal LDL: 110- 129 mg/dLBorderline High LDL: 130-159 mg/dLHigh LDL: 160-189 mg/dLVery High LDL: greater than or equal to 190 mg/dL HDL Cholesterol 47 >40 mg/dL [facility] Comment:Desirable HDL: great er than 40 mg/dL Note: This HDL assay may give artificially low results in patients with liver disease. 06/25/2023 11:4 0 AM EDT 06/25/2023 11:40 AM EDT us Generic External Data Provider LAB BLOOD ORDERAB LES Final Result Performing Organization Address [facility]/ZIP Co de Phone Number [facility] [address] [place] [phone] * Pap Smear (05/23/2023 11:27 AM EST) 05/23/2023 11:2 7 AM EST 05/27/2023 7:30 AM EST Bhupinder [facility] - 06/04/2023 6:05 PM EDT ----- ------- Name: Vanessa Menchaca ? Age/Sex: 33/F ? : 1990 Unit#: [id number] ?? Attend Dr: Ifrah Lilly CNM ?Re05/23/23 ?Status: DEP REF ? Location: HO.LNP ?Disch: ? ----- ------- SPEC : [id number] ? RECD: 05/27/23-729 ? STATUS: ??SOUT ? REQ NUM: [id number] ? JT: 03 ? SUBM DR: Ifrah LillyM ? ENTERED: ??05/27/23 ?SP TYPE: Pap Smr ?OTHR DR: Melody Robins MD ? ORDERED: ??Pap Smear, [...] Not Detected ? HPV testing performed by [facility], [place], [place]. ??See reference laboratory ?? portion of the EMR for entire report. ?Clinical Information LMP: 04/20/23 Previous PAP test: 2021, ASCUS ? Material Received ?? ThinPrep-Cervical Copies To: ?? Melody Robins MD ?? [address] ?? [place] [address] ?? [phone] ?? Ifrah Lilly CNM ?? [address] [place] [address] [address] ?? [place] [address] ?? [phone] ----- ------- Signed (signature on file) Zhanna Laurens 06/04/231804 ? ----- ------- ? END OF REPORT ? us Generic External Data Provider LAB CYTOLOGY ORDE GIGI Final Result [facility] [address] [place] [phone] * HEPATITIS C AB W/REFL TO [...] a test for HCV RNA (test code 10644) is suggested. ?? For additional information please refer to http://education.Generic Media/faq/UCO74i4 (This link is being provided for informational/ educational purposes only.) ?? 01/22/2022 10:3 4 AM EDT us Brenda Eric ANP HISTORICAL/NON ORDERABLE LABS Fi nal Result Performing Organization Address [facility]/ZIP Co de Phone Number [facility] * HIV 1/2 ANTIGEN/ANTIBODY,FOURTH GENERATION W/RFL (01/22/2022 10:34 AM EDT) Pathologist [facility] HIV-1/2 ANTIGEN AND ANTIBODIES, 4TH GENERATION W/ [...] ? For additional information please refer to http://education.Devunity.BigMachines/faq/PDB810 (This link is being provided for informational/ educational purposes only.) ? The performance of this assay has not been clinically validated in patients less than 2 years old. ?? 01/22/2022 10:3 4 AM EDT us Brenda Eric ANP LAB BLOOD ORDERABLES Final Resul t Performing Organization Address City/[facility]/ZIP Co de Phone Number [facility] * (ABNORMAL) HPV E6/E7 RFLX SHRUTI 16 18/45 (08/14/2020 3:10 PM EDT) Pathologist [facility] HPV 16 RNA NOT DETECTED NOT DETECTED [facility] HPV 18/45 RNA NOT DETECTED NOT DETECTED [facility] Comment: Methodology: Behavioral Health Assistant Mediated Amplification The analytical performance characteristics of this assay have been determined by [facility]. The modifications have not been cleared or approved by the FDA. This assay has been validated pursuant to the CLIA regulations and is used for clinical purposes. THIS TEST WAS PERFORMED AT: [facility] [address] [place], [place] ??[phone] DARYLN BAILEY MD HPV mRNA E6/E7 rflx Detected(A) Not Detected [facility] Comment: Methodology: Behavioral Health Assistant-Mediated Amplification This assay detects E6/E7 viral messenger RNA (mRNA) from 14 high-risk HPV types (16,18,31,33,35,39,45,51,52,56,58,59,66,68). The analytical performance characteristics of this assay have been determined by [facility]. The modifications have not been cleared or approved by the FDA. This assay has been validated pursuant to the CLIA regulations and is used for clinical purposes. For additional information, please refer to http://education.Generic Media/faq/YNS950n3 (This link if provided for information/ educational purposes only.) THIS TEST WAS PERFORMED AT: [facility] [address] [place], [place] ??[phone] DARLYN BAILEY MD 08/14/2020 3:10 PM EDT us Ifrah Lilly HISTORICAL/NON ORDERABLE LABS Fi nal Result [facility] [address] from Last 3 Months or Most Recently Relevant to Health Maintenance [place] [address] C3 Care Teams Army Manager Relationship Specialty Start Date End Date Melody Robins MD [address] [place] [phone] PCP - General Family Medicine 10/02/16
== END | disposition home or self-care (01) ==
LOC: HO.US 13:19
PROVIDERS: PCP Pediatrics; Visit Provider Advanced Practice Midwife
DX: N93.9 Abnormal uterine and vaginal bleeding, unspecified (principal)
CPT/HCPCS: 76830; 76856

== ENCOUNTER → 2024-04-28 13:21 | Outpatient (BNV) | payer MEDICAID, SELFPAY | PROVIDERS: PCP Pediatrics; Visit Provider Radiology Diagnostic Radiology | DX: N93.9 Abnormal uterine and vaginal bleeding, unspecified (principal) | CPT/HCPCS: 76830; 76856 ==

== ENCOUNTER 2024-05-05 15:09 | Outpatient (REF) | payer MEDICAID, SELFPAY | END 2024-05-05 15:10 | disposition home or self-care (01) | LOC: HO.LAB 15:09 | PROVIDERS: PCP Pediatrics; Visit Provider Advanced Practice Midwife | DX: N89.8 Other specified noninflammatory disorders of vagina (principal); R30.0 Dysuria; R82.90 Unspecified abnormal findings in urine | CPT/HCPCS: 81025; 99212 ==

== ENCOUNTER 2024-05-05 15:09 | Outpatient (AMB) | payer MEDICAID, SELFPAY ==
--- NOTE | 2024-05-05 15:19 | MHC.OFFVIS ---
Intake Visit Reasons: EMB/U/S follow up/30 minutes Help Desk Administrator Required: Yes Help Desk Administrator Language: [employer] Services: Help Desk Administrator Present Help Desk Administrator Name: Jayna Information Interpreted: non-clinical & clinical Filenet Developer: Filenet Developer Present (Jayna) Allergies No Known Allergies [No Known Allergies*] Allergy (Verified 05/05/24 15:20) Is last menstrual period known: Yes Last menstrual period: 04/07/24 HPI Comments Details: Patient is here for an EMB due to AUB. She reports she is having burning with urination, with a urine odor. [facility] Medical History (Updated 04/12/24 @ 14:31 by Mignon Mcgregor CNM) Elevated testosterone level Kidney calculi Left ovarian cyst Pelvic pain DALTON I (cervical intraepithelial neoplasia I) ASCUS with positive high risk HPV Pap smear of cervix with ASCUS, cannot exclude HGSIL Obese Kidney stones Surgical History History of appendectomy Family History Maternal Grandmother Colon cancer Father HTN (hypertension) Maternal Grandfather Diabetes Maternal Grandfather Prostate cancer Social History Household Members Other:: mom and son Housing: House Alcohol intake: never Patient Tobacco Use Status: Never used Tobacco Current occupational status: 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 Sexual orientation: Straight/Heterosexual Gender identity: Female Female Reproductive History Menstrual Age of Menarche: 14 Date of last menstrual period: 04/07/24 Review of Systems Const All systems reviewed & are unremarkable except as noted in HPI and below Physical Exam Const General: cooperative, healthy appearing and no acute distress Orientation/consciousness: patient oriented x3 GI Inspection: Yes normal to inspection Palpation (GI): Soft to palpation and Other GI palpation findings present (Nontender) Rectal Exam - Female: visual inspection normal General: Yes bladder normal to palpation External Female Exam: normal appearance of the urethra Speculum Exam - Vagina: normal appearance of the vagina, normal palpation and abnormal vaginal discharge (Frothy discharge) Speculum Exam - Cervix: normal appearance of the cervix and normal palpation Bimanual exam- vagina & uterus: normal bimanual exam, normal palpation, uterine size normal, bladder normal to palpation, normal palpation, uterine shape normal and non-tender Bimanual Exam- Adnexa, other: normal adnexae Neuro General: patient oriented x3 Results AMB Test Urine AMB Test Urine Negative Last Edit by GUCCI Ohara on 05/05/24 15:27 Assessment & Plan Assessment & Plan (1) Abnormal urine odor: Code(s): R82.90 - Unspecified abnormal findings in urine Plan: Urinalysis culture if indicated. Attempted to do sample here was unable to complete, sent to lab to complete a UA clean-catch once able to void. (2) Dysuria: Code(s): R30.0 - Dysuria Plan: As noted above. (3) Vaginal discharge: Code(s): N89.8 - Other specified noninflammatory disorders of vagina Plan: GC chlamydia and BV panel. Plan Plan GC chlamydia, BV panel, UA clean-catch. Encouraged to hydrate well. Await test results for plan of care. Reschedule EMB procedure. The patient expressed understanding and agreement with the plan of care. All of her questions and concerns were addressed to the best of my ability. This note is constructed using voice recognition software. While every effort has been made to ensure accuracy, wheat combine driver errors may have been included. Orders: Orders AMB HCG Urine Test Today Z32.02 - Encounter for test, result negative Bacterial Vaginosis Panel Today N89.8 - Other specified noninflammatory disorders of vagina, R30.0 - Dysuria CT NG by PCR Today N89.8 - Other specified noninflammatory disorders of vagina, R30.0 - Dysuria UA CC w/rflx Micro + Cult Today R30.0 - Dysuria Coding Level of Care Code Est Pt Level 3 (93366) Diagnoses Abnormal urine odor R82.90 Dysuria R30.0 Vaginal discharge N89.8
--- OUTSIDE RECORDS SUMMARY | 2024-05-05 16:12 | XMS_ITS | Encounter Summary ---
Author Organization [employer] Address [address] [facility] 7 [place] [address] Care Team Providers Care Blasting Contract Man Name Role Phone Melody Robins MD Primary Care Provider [phone] Reason for Visit * Reason Onset Date Comments Appointment Request 09/19/2023 Encounter Details Date Type Department Care Team ([facility] Contact Info) Description 09/19/2023 Telephone [facility] [address] [place] [address] Melody Robins MD [address] [place] [address] Appointment Request Social History Tobacco Use Types [...] documented as of this encounter Care Teams Blasting Contract Man Relationship Specialty Start Date End Date Melody Robins MD [address] [place] [address] PCP - General Family Medicine 10/02/16 documented as of this encounter
--- OUTSIDE RECORDS SUMMARY | 2024-05-05 16:12 | XMS_ITS | Encounter Summary ---
Author Organization [employer] Address [address] [facility] 7 [place] [address] Care Team Providers Care Service Supervisor Name Role Phone Melody Robins MD Primary Care Provider [phone] Reason for Visit * Reason Onset Date Comments Appointment Request 09/29/2023 Encounter Details Date Type Department Care Team ([facility] Contact Info) Description 09/29/2023 Telephone [facility] [address] [place] [address] Melody Robins MD [address] [place] [address] Appointment Request Social History Tobacco Use Types [...] documented as of this encounter Care Teams Service Supervisor Relationship Specialty Start Date End Date Melody Robins MD [address] [place] [address] PCP - General Family Medicine 10/02/16 documented as of this encounter
--- OUTSIDE RECORDS SUMMARY | 2024-05-05 16:12 | XMS_ITS | Clinical Summary ---
Author Organization [employer] Address [address] [place] [address] [address] [place] [address] Care Team Providers Care Mileage Clerk Name Role Phone Melody Robins MD Primary Care Provider [phone] Allergies No known active allergies Medications * This document contains information received from the source organization and may not represent a complete record from that organization. ergocalciferol (Vitamin D2) 1.25 MG (95612 UT) capsule Take 1 capsule (1.25 mg) by mouth 1 (one) time per week. 15 capsule 07/15/19 24 Active zinc gluconate 30 MG tablet Take 1 tablet by mouth Once per day. 06/30/19 24 Active beta carotene (vitamin A) 3 MG (19018 UT) capsule Take by mouth Once per [...] presented to the clinic today for a accident examiner visit for her son. During pedi visit, mom was visible stress and emotionally overwhelmed. Mom reported presentation of sxs are associated with her son diagnosis (Autism). She is currently living with her mother but reports needing assistance to apply for housing. Pt has a therapist with [facility] and have weekly appointments per her report. Not interested at this time to start medication. clinician engaged patient with active/reflective listening. Reviewed and assessed for risk, current stressors and protective factors using open-ended questions. Pt will be referred with CM to assist with housing resources. Explored coping strategies that pt can use during stressful times. Provided [facility] contact information and educated patient on the [...] organization. Date Type Department Care Team Description 04/28/2024 Orders Only [facility] External Provider, [facility] 04/15/2024 Refill [facility] [address] [place] [address] Melody Robins MD 04/07/2024 Orders Only GENERIC EXTERNAL DATA DEPARTMENT Provider, Generic External Data 03/22/2024 Telephone [facility] [address] [place] [address] Melody Robins MD Nurse Triage from Last [...] Frequency of Binge Drinking Not on file 1007/2022 Score 0 12/26/2022 Depression Answer Date Recorded [...] 3-dose SCDM series) 08/12/2023 07/15/2023 COVID-19 Vaccine (2023- season) 2023 05/28/2021, 10/22/2020, 10/22/2020, Additional history [...] Procedure Name Priority Date/Time Associated Diagnosis Comments US PELVIS TRANSVAGINAL Routine 04/28/2024 1:31 PM EST TESTOSTERONE, FREE (DIALYSIS) AND TOTAL,MS Routine 04/07/2024 8:41 AM EST 17-HYDROXYPROGESTERON E Routine 04/07/2024 8:41 AM EST DHEA SULFATE [...] Recently Relevant to Health Maintenance Results * US Pelvis Transvaginal (04/28/2024 1:31 PM EST) Anatomical Region Laterality Modality Pelvis Ultrasound 04/28/2024 1:31 PM EST Narrative 04/28/2024 4:02 PM EST ? [facility] ?[address] ?[place] [address] ? Ultrasound Report ? Signed ? Patient: Vanessa Menchaca ?MR#: [id number] ?? [id number] ? : 1990 ?Acct:[id number] ? Age/Sex: 34 / F ?ADM Date: 04/28/24 ? Loc: HO.US ? Attending Dr: Mignon Mcgregor CNM ? Ordering Physician: Mignon cMgregor CNM ?? Date of Service: 04/28/24 ?? Procedure(s): US pelvic and transvaginal ?? Accession Number(s): [id number] ? cc: Melody Robins MD; Mignon Mcgregor CNM ? EXAMINATION: ? US PELVIS ? CLINICAL INFORMATION: ? Abnormal uterine bleeding. ? COMPARISON: ?? 11/30/2022. 10/18/2022. ? TECHNIQUE: ?? Ultrasound of the pelvis is performed using both transabdominal and ?? transvaginal transducers along with Doppler. Transvaginal imaging is ?? performed due to inadequate visualization transabdominally. ? FINDINGS: ?? Uterus: ?? The uterus is anteverted, anteflexed and measures 9.0 x 4.0 x 4.9 cm. ? Normal-appearing cervix. ? The double wall endometrial thickness is 6 mm. ??It is uniform. ? The uterus is smooth in contour and has normal myometrial echogenicity. ?No visible fibroid. ? Adnexa: ?? Both ovaries are visualized. There is normal color flow to the adnexa. ?? There is no ovarian torsion. ??There is no pelvic ascites or fluid ?? collection. There are no adnexal masses. ? Right ovary measures 3.8 x 2 x 1 x 2.1 cm. Volume = 8.8 mL. Normal ?? sonographic appearance. ? Left ovary measures 3.1 x 2.0 x 2.2 cm. Volume = 7.1 mL. Normal ?? sonographic appearance. ? US/US pelvic and transvaginal ?? IMPRESSION: ?? Normal ultrasound of the pelvis. ? Electronically signed by: ??Josemanuel Jaime MD ??04/28/2024 03:58 PM EST RP ? Dictated By: ?Josemanuel Jaime MD ? Signed By: ?<Electronically signed by Josemanuel Jaime MD in OV> ?04/28/24 1558 ? DD/ 1331 ? TD/TT: 04/28/24 1349 ? Physical Plant Manager: ? Procedure Note Donemlissater, Image - 04/28/2024 [place] [address] Ultrasound Report Signed Patient: Elver Menchaca#: [id number] : 1990Acct:[id number] Age/Sex: 34 / FADM Date: 04/28/24 Loc: HO. Attending Dr: Mignon Mcgregor CNM Ordering Physician: Mignon Mcgregor CNM Date of Service: 04/28/24 Procedure(s): US pelvic and transvaginal Accession Number(s): [id number] cc: Melody Robins MD; Mignon Mcgregor CNM EXAMINATION: US PELVIS CLINICAL INFORMATION: Abnormal uterine bleeding. COMPARISON: 11/30/2022. 10/18/2022. TECHNIQUE: Ultrasound of the pelvis is performed using both transabdominal and transvaginal transducers along with Doppler. Transvaginal imaging is performed due to inadequate visualization transabdominally. FINDINGS: Uterus: The uterus is anteverted, anteflexed and measures 9.0 x 4.0 x 4.9 cm. Normal-appearing cervix. The double wall endometrial thickness is 6 mm. It is uniform. The uterus is smooth in contour and has normal myometrial echogenicity. No visible fibroid. Adnexa: Both ovaries are visualized. There is normal color flow to the adnexa. There is no ovarian torsion. There is no pelvic ascites or fluid collection. There are no adnexal masses. Right ovary measures 3.8 x 2 x 1 x 2.1 cm. Volume = 8.8 mL. Normal sonographic appearance. Left ovary measures 3.1 x 2.0 x 2.2 cm. Volume = 7.1 mL. Normal sonographic appearance. US/US pelvic and transvaginal IMPRESSION: Normal ultrasound of the pelvis. Electronically signed by: Josemanuel Jaime MD 04/28/2024 03:58 PM EST Dictated By: Josemanuel Jaime MD Signed By: <Electronically signed by Josemanuel Jaime MD in OV> 04/28/24 1558 DD/ 1331 TD/TT: 04/28/24 1349 Physical Plant Manager: us [facility] External Provider IMG US PROCEDURES Edited Result - Final * TSH with Reflex to Free T4 (04/07/2024 8:41 AM EST) TSH reflex Free T4 1.18 0.32 - 4.0 uIU/mL [facility] 04/07/2024 8:41 AM EST 04/07/2024 8:41 AM EST us Generic External Data Provider LAB BLOOD ORDERAB LES Final Result [facility] [address] [place] [phone] * 17-Hydroxyprogesterone (04/07/2024 8:41 AM EST) 17-OHProgesterone 34 see note ng/dL [facility] Comment: Unable to flag abnormal [...] Endocrinol Metab. ??1990;73:674-686; J Clin Endocrinol Metab. ??1989;69;2603-2072; J Clin Endocrinol Metab. ??1994;78:226-270. Pediatr Res 1988;23:525-529. ??MedLinePlus (accessed 09/06/13).This test was developed and its analytical performancecharacteristics have been determined by [employer] [place], [place]. It hasnot been cleared or approved by the U.S. Food and DrugAdministration. This assay has been validated pursuantto the CLIA regulations and is used for clinicalpurposes.THIS TEST WAS PERFORMED AT:[employer]/[facility] [place], [place] ??[address]PATIBURCIO LOCKETT MD,PHD 04/07/2024 8:41 AM EST 04/07/2024 8:41 AM EST us Generic External Data Provider LAB BLOOD ORDERAB LES Final Result [facility] [address] [place] [phone] * Prolactin (04/07/2024 8:41 AM EST) Prolactin 7.9 ng/mL [facility] Comment:Reference Range Fema les Non- 3.0-30.0 10.0-209.0 Postmenopausal 2.0-20.0THIS TEST WAS PERFORMED AT:[employer] [address] [address]SDQVRDARLYN BAILEY MD 04/07/2024 8:41 AM EST 04/07/2024 8:41 AM EST Generic External Data Provider LAB BLOOD ORDERAB LES Final Result Performing Organization Address [facility] de Phone Number [facility] [address] [place] [address] [phone] * DHEA Sulfate (04/07/2024 8:41 AM EST) DHEA Sulfate 84 19 - 237 mcg/dL [facility] Comment:THIS TEST WAS PERFOR MED AT:[facility] [place] [id number] BAILEY MD 04/07/2024 8:41 AM EST 04/07/2024 8:41 AM EST Generic External Data Provider LAB BLOOD ORDERAB LES Final Result Performing Organization Address [facility] de Phone Number [facility] [address] [place] [address] [phone] * CBC (04/07/2024 8:41 AM EST) White Blood Count 8.8 4.8 - 10.8 X10*3/uL [facility] Red Blood Count 4.35 4.20 - 5.50 X10*6/uL [facility] Hemoglobin 13.0 12.0 - 16.0 g/dl [facility] Hematocrit 38.3 37.0 - 47.0 % [facility] Mean Corpuscular Volume 88.0 80.0 - 98.0 fL [facility] Mean Corpuscular Hemoglobin 29.9 27.0 - 33.0 pg [facility] Mean Corpuscular HGB Conc 33.9 31.0 - 35.0 g/dl [facility] Red Cell Distribution Width 12.9 11.0 - 16.0 % [facility] Platelet Count 283 160 - 400 X10*3/uL [facility] Mean Platelet Volume 10.9 9.4 - 12.3 fL [facility] NRBC Pct Auto 0.0 0.0 - 0.2 /100WBC [facility] NRBC Abs Auto 0.000 0.0 - 0.012 X10*3/uL [facility] 04/07/2024 8:41 AM EST 04/07/2024 8:41 AM EST us Generic External Data Provider LAB BLOOD ORDERAB LES Final Result [facility] [address] [place] [address] [phone] * Testosterone, Free (Dialysis) And Total, MS (04/07/2024 8:41 AM EST) Testosterone, Total 26 2 - 45 ng/dL [facility] Comment:For additional infor alf, please refer tohttp://education.Tribold/faq/ZqczvPdgsdyqskioqHOLQOCARP150(This link is being provided for informational/educational purposes only.)This test was developed and its analytical performancecharacteristics have been determined by [employer], [place]. It hasnot been cleared or approved by the U.S. Food and DrugAdministration. This assay has been validated pursuantto the CLIA regulations and is used for clinicalpurposes. Testosterone, Free 3.3 0.1 - 6.4 pg/mL [facility] Comment:This test was develo ped and its analytical performancecharacteristics have been determined by [employer], [place]. It hasnot been cleared or approved by the U.S. Food and DrugAdministration. This assay has been validated pursuantto the CLIA regulations and is used for clinicalpurposes.THIS TEST WAS PERFORMED AT:[employer] [address] [place] [address]IFACGAJ W. MASON,MD,PHD 04/07/2024 8:41 AM EST 04/07/2024 8:41 AM EST us Generic External Data Provider LAB BLOOD ORDERAB LES Final Result Performing Organization Address [facility] Co de Phone Number [facility] [address] [place] [phone] * hCG, Total, Quantitative (04/07/2024 8:41 AM EST) HCG Quantitative <2 mIU/mL [facility] Comment:Weeks post LMP Appro ximate hCG(Last Menstrual Period) Range (mIU/ml)3 - 4 weeks 9 - 1304 - 5 weeks 75 - 2,6005 - 6 weeks 850 - 20,8006 - 7 weeks 4000 - 100,2007 - 12 weeks 11,500 - 289,86503 - 16 weeks 18,300 - 137,21576 - 29 weeks (2nd trimester) 1,400 - 53,71169 - 41 weeks (3rd trimester) 940 - [...] ORDERAB LES Final Result Performing Organization Address [facility] Co de Phone Number [facility] [address] [place] [phone] * Lipid Panel, Standard (06/25/2023 11:40 AM EDT) Triglycerides 54 <150 mg/dL [facility] Comment:Desirable Triglyceri de: less than 150 mg/dLBorderline High Triglyceride 150-199 mg/dLHigh Triglyceride: 200-499 mg/dLVery High Triglyceride: greater than or equal to 5OO mg/dL Cholesterol 130 <200 mg/dL [facility] Comment:Desirable Cholestero l: less than 200 mg/dLBorderline High Cholesterol: 200-239 mg/dLHigh Cholesterol: greater than 239 mg/dL LDL Cholesterol Calculated 73 <100 mg/dL [facility] Comment:Desirable LDL: less than 100 mg/dLNear Optimal/Above Optimal LDL: 110- 129 mg/dLBorderline High LDL: 130-159 mg/dLHigh LDL: 160-189 mg/dLVery High LDL: greater than or equal to 190 mg/dL HDL Cholesterol 47 >40 mg/dL [facility] Comment:Desirable HDL: great er than 40 mg/dL Note: This HDL assay may give artificially low results in patients with liver disease. 06/25/2023 11:4 0 AM EDT 06/25/2023 11:40 AM EDT us Generic External Data Provider LAB BLOOD ORDERAB LES Final Result Performing Organization Address City/State/[facility] de Phone Number [facility] [address] [place] [phone] * Pap Smear (05/23/2023 11:27 AM EST) 05/23/2023 11:2 7 AM EST 05/27/2023 7:30 AM EST Narrative [facility] - 06/04/2023 6:05 PM EDT ----- ------- Name: Vanessa Menchaca ? Age/Sex: 33/F ? : 1990 Unit#: [id number] ?? Attend Dr: Ifrah Lilly CNM ?Re05/23/23 ?Status: DEP REF ? Location: HO.LNP ?Disch: ? ----- ------- SPEC : [id number] ? RECD: 05/27/23 ? STATUS: ??SOUT ? REQ NUM: [id number] ? JT: 05/23/23 ? SUBM DR: Ifrah [...] Not Detected ? HPV testing performed by [employer], [place], [place]. ??See reference laboratory ?? portion of the EMR for entire report. ?Clinical Information LMP: 04/20/23 Previous PAP test: 2021, [facility] ? Material Received ?? ThinPrep-Cervical Copies To: ?? Melody Robins MD ?? [address] ?? [place] [address] ?? [phone] ?? Ifrah Lilly CNM ?? [address] [place] [address] [facility] ?? [place] [address] ?? [phone] ----- ------- Signed (signature on file) Zhanna Greenwood 06/04/231804 ? ----- ------- ? END OF REPORT ? us Generic External Data Provider LAB CYTOLOGY ORDAsha YU Final Result [facility] [address] [place] [address] [phone] * HEPATITIS C AB W/REFL TO [...] a test for HCV RNA (test code 96984) is suggested. ?? For additional information please refer to http://education.Tribold/faq/VDO71b0 (This link is being provided for informational/ educational purposes only.) ?? 01/22/2022 10:3 4 AM EDT Brenda Eric ANP HISTORICAL/NON ORDERABLE LABS Fi nal Result Performing Organization Address City/[facility] Co de Phone Number CONVERTED LEGACY LABS [...] ? For additional information please refer to http://[employer].Tribold/faq/TJA553 (This link is being provided for informational/ educational purposes only.) ? The performance of this assay has not been clinically validated in patients less than 2 years old. ?? 01/22/2022 10:3 4 AM EDT [facility] LAB BLOOD ORDERABLES Final Resul t CONVERTED LEGACY LABS * (ABNORMAL) HPV E6/E7 RFLX SHRUTI 16 18/45 (08/14/2020 3:10 PM EDT) [facility] HPV 16 RNA NOT DETECTED NOT DETECTED [facility] HPV 18/45 RNA NOT DETECTED NOT DETECTED [facility] Comment: Methodology: Diplomatic Interpreter/Translator Mediated Amplification The analytical performance characteristics of this assay have been determined by [employer]. The modifications have not been cleared or approved by the FDA. This assay has been validated pursuant to the CLIA regulations and is used for clinical purposes. THIS TEST WAS PERFORMED AT: [facility] [address] [place] [address],[facility] [place], [place] ??[phone] DARLYN BAILEY MD HPV mRNA E6/E7 rflx Detected(A) Not Detected [facility] Comment: Methodology: Diplomatic Interpreter/Translator-Mediated Amplification This assay detects E6/E7 viral messenger RNA (mRNA) from 14 high-risk HPV types (16,18,31,33,35,39,45,51,52,56,58,59,66,68). The analytical performance characteristics of this assay have been determined by [employer]. The modifications have not been cleared or approved by the FDA. This assay has been validated pursuant to the CLIA regulations and is used for clinical purposes. For additional information, please refer to http://[employer].Tribold/faq/FSR575t0 (This link if provided for information/ educational purposes only.) THIS TEST WAS PERFORMED AT: [facility] [address] [place] [address],[address] [place], [place] ??[phone] DARLYN BAILEY MD 08/14/2020 3:10 PM EDT us Ifrahlisseth Bestoney HISTORICAL/NON ORDERABLE LABS Fi nal Result [facility] [address] [place] [address], from Last 3 Months or Most Recently Relevant to Health Maintenance Insurance [employer] Care Teams Mileage Clerk Relationship Specialty Start Date End Date Melody Robins MD [address] [place] [address] PCP - General Family Medicine 10/02/16
--- OUTSIDE RECORDS SUMMARY | 2024-05-05 16:12 | XMS_ITS | Encounter Summary ---
Author Organization [employer] Address [address] [facility] [address] [place] [address] Care Team Providers Care Food Critic Name Role Phone Melody Robins MD Primary Care Provider [phone] Encounter Details Date Type Department Care Team (Late st Contact Info) Description 10/07/2022 Abstract [facility] [address] [place] [address] Melody Robins MD [address] [place] [address] Social History Tobacco Use Types Packs/Day Years [...] on filedocumented in this encounter Care Teams Food Critic Relationship Specialty Start Date End Date Melody Robins MD [address] [place] [address] PCP - General Family Medicine 10/02/16 documented as of this encounter
--- OUTSIDE RECORDS SUMMARY | 2024-05-05 16:12 | XMS_ITS | Encounter Summary ---
Author Organization [employer] Address [address] [facility] 7t [place] [address] Care Team Providers Care Tomahawk Weapon System Operator Name Role Phone Melody Robins MD Primary Care Provider [phone] Encounter Details Date Type Department Care Team ([facility] Contact Info) Description 04/07/2024 Orders Only [...] Testosterone, Total 26 2 - 45 ng/dL [facility] Comment:For additional infor alf, please refer tohttp://education.Rogate/faq/YdviuVmovfzzpqkppHETMPYXCR633(This link is being provided for informational/educational purposes only.)This test was developed and its analytical performancecharacteristics have been determined by [facility] [place], [place]. It hasnot been cleared or approved by the U.S. Food and DrugAdministration. This assay has been validated pursuantto the CLIA regulations and is used for clinicalpurposes. Testosterone, Free 3.3 0.1 - 6.4 pg/mL [facility] Comment:This test was develo ped and its analytical performancecharacteristics have been determined by [facility] [place], [place]. It hasnot been cleared or approved by the U.. Food and DrugAdministration. This assay has been validated pursuantto the CLIA regulations and is used for clinicalpurposes.THIS TEST WAS PERFORMED AT:[employer] [id number] [place] [address]VIJXQJPPETER LOCKETT MD,PHD 04/07/2024 8:41 AM EST 04/07/2024 8:41 AM EST us Generic External Data Provider LAB BLOOD ORDERAB LES Final Result [facility] [address] [place] [phone] * 17-Hydroxyprogesterone (04/07/2024 8:41 AM EST) 17-OHProgesterone 34 see note ng/dL [facility] Comment: Unable to flag abnormal [...] Endocrinol Metab. ??1990;73:674-686; J Clin Endocrinol Metab. ??1989;69;3201-7765; J Clin Endocrinol Metab. ??1994;78:226-270. Pediatr Res 1988;23:525-529. ??MedLinePlus (accessed 09/06/13).This test was developed and its analytical performancecharacteristics have been determined by [facility] [place], [place]. It hasnot been cleared or approved by the U.S. Food and DrugAdministration. This assay has been validated pursuantto the CLIA regulations and is used for clinicalpurposes.THIS TEST WAS PERFORMED AT:[facility] [place], [place] ??[address]PETER LOCKETT MD,PHD 04/07/2024 8:41 AM EST 04/07/2024 8:41 AM EST Generic External Data Provider LAB BLOOD ORDERAB LES Final Result Performing Organization Address [facility]/ZIP Co de Phone Number [facility] [address] [place] [phone] * DHEA Sulfate (04/07/2024 8:41 AM EST) Pathologist [facility] DHEA Sulfate 84 19 - 237 mcg/dL [facility] Comment:THIS TEST WAS PERFOR MED AT:[employer] [address] [id number] BAILEY MD 04/07/2024 8:41 AM EST 04/07/2024 8:41 AM EST Generic External Data Provider LAB BLOOD ORDERAB LES Final Result Performing Organization Address [facility] Co de Phone Number [facility] [address] [place] [phone] * Prolactin (04/07/2024 8:41 AM EST) Prolactin 7.9 ng/mL [facility] Comment:Reference Range Fema les Non- 3.0-30.0 10.0-209.0 Postmenopausal 2.0-20.0THIS TEST WAS PERFORMED AT:[facility] [place] [address]ZDXBEDARLYN BAILEY MD 04/07/2024 8:41 AM EST 04/07/2024 8:41 AM EST Generic External Data Provider LAB BLOOD ORDERAB LES Final Result Performing Organization Address [facility] Co de Phone Number [facility] [address] [place] [phone] * hCG, Total, Quantitative (04/07/2024 8:41 AM EST) HCG Quantitative <2 mIU/mL [facility] Comment:Weeks post LMP Appro ximate hCG(Last Menstrual Period) Range (mIU/ml)3 - 4 weeks 9 - 1304 - 5 weeks 75 - 2,6005 - 6 weeks 850 - 20,8006 - 7 weeks 4000 - 100,2007 - 12 weeks 11,500 - 289,22424 - 16 weeks 18,300 - 137,67602 - 29 weeks (2nd trimester) 1,400 - 53,86118 - 41 weeks (3rd trimester) 940 - [...] ORDERAB LES Final Result Performing Organization Address [facility] Co de Phone Number [facility] [address] [place] [phone] * TSH with Reflex to Free T4 (04/07/2024 8:41 AM EST) TSH reflex Free T4 1.18 0.32 - 4.0 uIU/mL [facility] 04/07/2024 8:41 AM EST 04/07/2024 8:41 AM EST us Generic External Data Provider LAB BLOOD ORDERAB LES Final Result Performing Organization Address City/[facility] Co de Phone Number [facility] [address] [place] [phone] * CBC (04/07/2024 8:41 AM EST) White Blood Count 8.8 4.8 - 10.8 X10*3/uL [facility] Red Blood Count 4.35 4.20 - 5.50 X10*6/uL [facility] Hemoglobin 13.0 12.0 - 16.0 g/dl [facility] Hematocrit 38.3 37.0 - 47.0 % [facility] Mean Corpuscular Volume 88.0 80.0 - 98.0 fL [facility] Mean Corpuscular Hemoglobin 29.9 27.0 - 33.0 pg [facility] Mean Corpuscular HGB Conc 33.9 31.0 - 35.0 g/dl [facility] Red Cell Distribution Width 12.9 11.0 - 16.0 % [facility] Platelet Count 283 160 - 400 X10*3/uL [facility] Mean Platelet Volume 10.9 9.4 - 12.3 fL [facility] NRBC Pct Auto 0.0 0.0 - 0.2 /100WBC [facility] NRBC Abs Auto 0.000 0.0 - 0.012 X10*3/uL [facility] 04/07/2024 8:41 AM EST 04/07/2024 8:41 AM EST us Generic External Data Provider LAB BLOOD ORDERAB LES Final Result Performing Organization Address City/[facility]/ZIP Co de Phone Number [facility] [address] [place] [phone] documented in this encounter Visit Diagnoses Not on filedocumented in this encounter Additional Health Concerns Assessment Noted Time PHQ-9 Depression Total Score: 9 07/15/19 24 9:49 AM EDT documented as of this encounter Care Teams Tomahawk Weapon System Operator Relationship Specialty Start Date End Date Melody Robins MD [address] [place] [phone] PCP - General Family Medicine 10/02/16 documented as of this encounter
--- OUTSIDE RECORDS SUMMARY | 2024-05-05 16:12 | XMS_ITS | Encounter Summary ---
Author Organization [employer] Address [address] [facility] 7t [place] [address] Care Team Providers Care Material Worker Name Role Phone Melody Robins MD Primary Care Provider [phone] Reason for Visit * Reason Comments Med Refill Encounter Details Date Type Department Care Team ([facility] Contact Info) Description 04/15/2024 Refill [facility] MED & PEDS [address] [place], [place] [phone] Melody Robins MD [address] [place] [address] Social History Tobacco Use Types Packs/Day Years [...] documented as of this encounter Care Teams Material Worker Relationship Specialty Start Date End Date Melody Robins MD [address] [place] [address] PCP - General Family Medicine 10/02/16 documented as of this encounter
--- OUTSIDE RECORDS SUMMARY | 2024-05-05 16:12 | XMS_ITS | Encounter Summary ---
Author Organization [employer] Address [address] [place] [address] 7 [place] [address] Care Team Providers Care Director Hematology Name Role Phone Melody Robins MD Primary Care Provider [phone] Encounter Details Date Type Department Care Team (Late st Contact Info) Description 12/17/2022 Orders Only [facility] MEDICINE [address] [place], [place] [phone] ProviderLuli MD Social History Tobacco Use Types [...] on filedocumented in this encounter Care Teams Director Hematology Relationship Specialty Start Date End Date Melody Robins MD [address] [place] [address] PCP - General Family Medicine 10/02/16 documented as of this encounter
--- OUTSIDE RECORDS SUMMARY | 2024-05-05 16:12 | XMS_ITS | Encounter Summary ---
Author Organization [facility] Address [address] [place] [address] 7t [place] [address] Care Team Providers Care Manager Labor Relations Name Role Phone Melody Robins MD Primary Care Provider [phone] Encounter Details Date Type Department Care Team (Late st Contact Info) Description 12/17/2022 Orders Only [facility] MEDICINE [address] [place], [place] [phone] Polly Diamond Social History Tobacco Use Types [...] on filedocumented in this encounter Care Teams Manager Labor Relations Relationship Specialty Start Date End Date Melody Robins MD [address] [place] [address] PCP - General Family Medicine 10/02/16 documented as of this encounter
--- OUTSIDE RECORDS SUMMARY | 2024-05-05 16:12 | XMS_ITS | Encounter Summary ---
Author Organization [employer] Address [address] [facility] 7t [place] [address] Care Team Providers Care Ear Mold Laboratory Technician Name Role Phone Melody Robins MD Primary Care Provider [phone] Encounter Details Date Type Department Care Team ([facility] Contact Info) Description 04/28/2024 Orders Only [facility] External Provider, [facility] Social History Tobacco Use Types Packs/Day Years [...] PELVIS TRANSVAGINAL Routine 04/28/2024 1:31 PM EST documented in this encounter Results * US Pelvis Transvaginal (04/28/2024 1:31 PM EST) Anatomical Region Laterality Modality Pelvis Ultrasound 04/28/2024 1:31 PM EST Narrative 04/28/2024 4:02 PM EST ? [facility] ?[address] ?[place] [address] ? Ultrasound Report ? Signed ? Patient: Ran Taylor,Vanessa ?MR#: [id number] ?? [id number] ? : 1990 ?Acct:[id number] ? Age/Sex: 34 / F ?ADM Date: 04/28/24 ? Loc: HO.US ? Attending Dr: Mignon Mcgregor CNM ? Ordering Physician: Mignon Mcgregor CNM ?? Date of Service: 04/28/24 ?? Procedure(s): US pelvic and transvaginal ?? Accession Number(s): [id number] ? cc: Melody Robins MD; Mignon Mcgregor CNMarivel ? EXAMINATION: ? US PELVIS ? CLINICAL [...] Jaime MD ??04/28/2024 03:58 PM EST RP ?? Workstation: [id number] ? Dictated By: ?Josemanuel Jaime MD ? Signed By: ?<Electronically signed by Josemanuel Jaime MD in OV> ?04/28/24 1558 ? DD/ 1331 ? TD/TT: 04/28/24 1349 ? Printed Circuit Designer: ? Procedure Note Laura Sauceda - 04/28/[address] [address] Ultrasound Report Signed Patient: Parag MenchacaR#: [id number] : 1990Acct:[id number] Age/Sex: 34 / FADM Date: 04/28/24 Loc: HO.US Attending Dr: Mignon Mcgregor CNM Ordering Physician: Mignon Mcgregor CNM Date of Service: 04/28/24 Procedure(s): US pelvic and transvaginal Accession Number(s): [id number] cc: Melody Robins MD; [place] Encin[place] CNM EXAMINATION: US PELVIS CLINICAL INFORMATION: Abnormal [...] 04/28/24 1558 DD/ 1331 TD/TT: 04/28/24 1349 Printed Circuit Designer: us [facility] External Provider IMG US PROCEDURES Edited Result - Final documented in this encounter Visit Diagnoses Not on filedocumented in this encounter Additional Health Concerns Assessment Noted Time PHQ-9 Depression Total Score: 11 025 3:59 PM EST documented as of this encounter Care Teams Ear Mold Laboratory Technician Relationship Specialty Start Date End Date Melody Robins MD [address] [place] [address] PCP - General Family Medicine 10/02/16 documented as of this encounter
--- OUTSIDE RECORDS SUMMARY | 2024-05-05 16:12 | XMS_ITS | Encounter Summary ---
Author Organization [facility] [employer] [facility] [employer] Address [address] [facility] 7 [place] [address] Care Team Providers Care Photographic Equipment Assembler Name Role Phone Melody Robins MD Primary Care Provider Reason for Visit * Reason Onset Date Comments Appointment Request 11/22/2022 Encounter Details Date Type Department Care Team ([facility] Contact Info) Description 11/22/2022 Telephone [facility] MEDICINE [address] [place] [address] Melody Robins MD [address] [place] [address] Appointment Request Social History Tobacco Use Types [...] pt requesting schedule an appt with PCP medical technical writer attempted to gather information pt denied toleave information, Party Planner also explained protocol to f/u appts and PE appt, call disconnected however after call disconnceted medical technical writer noticed pt is on a recall in [facility] for 01/21/22 OV - chronic conditions. documented in this encounter Plan of Treatment Not on file documented as of this encounter Visit Diagnoses Not on filedocumented in this encounter Care Teams Photographic Equipment Assembler Relationship Specialty Start Date End Date Melody Robins MD [address] [place] [address] PCP - General Family Medicine 10/02/16 documented as of this encounter
== END 2024-05-05 16:15 | disposition home or self-care (01) ==
LOC: HO.HWS 15:09
PROVIDERS: PCP Pediatrics; Visit Provider Advanced Practice Midwife
DX: R82.90 Unspecified abnormal findings in urine (principal); R30.0 Dysuria; N89.8 Other specified noninflammatory disorders of vagina; Z32.02 Encounter for pregnancy test, result negative
CPT/HCPCS: 99213

== ENCOUNTER 2024-05-05 15:34 | Outpatient (REF) | payer MEDICAID, SELFPAY ==
[2024-05-05 17:12] LABS: Appearance Urine Clear; Color Urine Yellow; Glucose Urine UA Negative (Negative); Leukocyte Esterase Urine Small (1+) (Negative); Nitrite Urine Negative (Negative); Specific Gravity - Urine <= 1.005 (1.005-1.025); UMIC TRIGGER UACC YES; Urine Blood Trace (Negative); Urine Ketones Negative (Negative); Urine Protein Negative (Neg-Trace)
[2024-05-05 17:35] LABS: Bacteria Urine 1+ (None Seen); Hyaline Casts Urine 0-2 /LPF (0-2); RBC Urine 0-2 /HPF (0-2); Squamous Epithelial Cell Urine 0-2 /HPF (0-2); UACC Culture Trigger YES; WBC Urine 0-5 /HPF (0-5)
[2024-05-06 07:15] LABS: CT PCR NOT DETECTED (Not Detect.); NG PCR NOT DETECTED (Not Detect.)
[2024-05-06 13:30] LABS: Bacterial Vaginosis PCR NEGATIVE (Negative); Candida Group PCR NOT DETECTED (Not Detect); Candida glab krusei PCR NOT DETECTED (Not Detect); Trichomonas vaginalis PCR NOT DETECTED (Not Detect)
== END 2024-05-05 15:35 | disposition home or self-care (01) ==
LOC: HO.LNP 15:34
PROVIDERS: Visit Provider Advanced Practice Midwife
DX: Z32.02 Encounter for pregnancy test, result negative (principal); N89.8 Other specified noninflammatory disorders of vagina; R30.0 Dysuria
CPT/HCPCS: 81001; 81515; 87086; 87088; 87186; 87491; 87591

== ENCOUNTER 2024-05-12 08:00 | Outpatient (REF) | payer MEDICAID, SELFPAY ==
--- OUTSIDE RECORDS SUMMARY | 2024-05-12 09:22 | XMS_ITS | Encounter Summary ---
Author Organization [employer] Address [address] [facility] [address]t [place] [address] Care Team Providers Care Loss Prevention Lead Name Role Phone Melody Robins MD Primary Care Provider [phone] Reason for Visit * Reason Comments Med Refill Encounter Details Date Type Department Care Team ([facility] Contact Info) Description 04/15/2024 Refill [facility] & PEDS [address] [place], [place] [phone] Melody Robins MD [address] [place] [address] Social History Tobacco Use Types Packs/Day Years [...] documented as of this encounter Care Teams Loss Prevention Lead Relationship Specialty Start Date End Date Melody Robins MD [address] [place] [address] PCP - General Family Medicine 10/02/16 documented as of this encounter
--- OUTSIDE RECORDS SUMMARY | 2024-05-12 09:23 | XMS_ITS | Encounter Summary ---
Author Organization [employer] Address [address] [facility] 7 [place] [address] Care Team Providers Care Catering Barista Name Role Phone Melody Robins MD Primary Care Provider [phone] Reason for Visit * Reason Onset Date Comments Appointment Request 11/22/2022 Encounter Details Date Type Department Care Team ([facility] Contact Info) Description 11/22/2022 Telephone [facility] MEDICINE [address] [place] [address] Melody Robins MD [address] [place] [address] Appointment Request Social History Tobacco Use Types [...] pt requesting schedule an appt with PCP editorial writer attempted to gather information pt denied toleave information, Yard Brakeman also explained protocol to f/u appts and PE appt, call disconnected however after call disconnceted editorial writer noticed [facility]22 OV - chronic conditions. documented in this encounter Plan of Treatment Not on file documented as of this encounter Visit Diagnoses Not on filedocumented in this encounter Care Teams Catering Barista Relationship Specialty Start Date End Date Melody Robins MD [address] [place] [address] PCP - General Family Medicine 10/02/16 documented as of this encounter
--- OUTSIDE RECORDS SUMMARY | 2024-05-12 09:23 | XMS_ITS | Encounter Summary ---
Author Organization [employer] Address [address] [facility] 7 [place] [address] Care Team Providers Care Registrar Nurses' Registry Name Role Phone Melody Robins MD Primary Care Provider [phone] Reason for Visit * Reason Onset Date Comments Appointment Request 09/29/2023 Encounter Details Date Type Department Care Team ([facility] Contact Info) Description 09/29/2023 Telephone [facility] MEDICINE [address] [place] [address] Melody Robins MD [address] [place] [address] Appointment Request Social History Tobacco Use Types [...] documented as of this encounter Care Teams Registrar Nurses' Registry Relationship Specialty Start Date End Date Melody Robins MD [address] [place] [address] PCP - General Family Medicine 10/02/16 documented as of this encounter
--- OUTSIDE RECORDS SUMMARY | 2024-05-12 09:23 | XMS_ITS | Encounter Summary ---
Author Organization [employer] Address [address] [facility] 7t [place] [address] Care Team Providers Care Rn Ambulatory Name Role Phone Melody Robins MD Primary Care Provider [phone] Encounter Details Date Type Department Care Team (Late st Contact Info) Description 10/07/2022 Abstract [facility] MED & PEDS [address] [place] [address] Melody Robins MD [address] [place] [address] Social History Tobacco Use Types Packs/Day Years [...] filedocumented in this encounter Care Teams Rn Ambulatory Relationship Specialty Start Date End Date Melody Robins MD [address] [place] [address] PCP - General Family Medicine 10/02/16 documented as of this encounter
--- OUTSIDE RECORDS SUMMARY | 2024-05-12 09:23 | XMS_ITS | Clinical Summary ---
Author Organization [employer] Address [address] [place] [address] 7t [place] [address] Care Team Providers Care Stock Layer Name Role Phone Melody Robins MD Primary Care Provider [phone] Allergies No known active allergies Medications * This document contains information received from the source organization and may not represent a complete record from that organization. ergocalciferol (Vitamin D2) 1.25 MG (14365 UT) capsule Take 1 capsule (1.25 mg) by mouth 1 (one) time per week. 15 capsule 07/15/19 24 Active zinc gluconate 30 MG tablet Take 1 tablet by mouth Once per day. 06/30/19 24 Active beta carotene (vitamin A) 3 MG (54387 UT) capsule Take by mouth Once per [...] presented to the clinic today for a drilling field specialist visit for her son. During pedi visit, mom was visible stress and emotionally overwhelmed. Mom reported presentation of sxs are associated with her son diagnosis (Autism). She is currently living with her mother but reports needing assistance to apply for housing. Pt has a therapist with [facility] and have weekly appointments per her report. Not interested at this time to start medication. clinician engaged patient with active/reflective listening. Reviewed and assessed for risk, current stressors and protective factors using open-ended questions. Pt will be referred with CM to assist with housing resources. Explored coping strategies that pt can use during stressful times. Provided [facility] contact information and educated patient on the [...] Department Care Team Description 04/28/2024 Orders Only [facility] External Provider, [facility] 04/15/2024 Refill [facility] MED & PEDS [address] [place] [address] Melody Robins MD 04/07/2024 Orders Only GENERIC EXTERNAL DATA DEPARTMENT Provider, Generic External Data 03/22/2024 Telephone [facility] MED & PEDS [address] [place] [address] Melody Robins MD Nurse Triage from Last [...] EST Narrative 04/28/2024 4:02 PM EST ? [facility] ?[address] ?[place] [address] ? Ultrasound Report ? Signed ? Patient: Vanessa Menchaca ?MR#: [id number] ?? [id number] ? : 1990 ?Acct:[id number] ? Age/Sex: 34 / F ?ADM Date: 04/28/24 ? Loc: HO.US ? Attending Dr: Mignon Mcgregor CNM ? Ordering Physician: Mignon Mcgregor CNM ?? Date of Service: 04/28/24 ?? Procedure(s): US pelvic and transvaginal ?? Accession Number(s): [id number] ? cc: Melody Robins MD; Mignon Mcgregor [...] DD/ 1331 ? TD/TT: 04/28/24 1349 ? Needle Straightener: ? Procedure Note Donmelissater, Image - 04/28/2024 [place] [address] Ultrasound Report Signed Patient: Elver Menchaca#: [id number] : 1990Acct:[id number] Age/Sex: 34 / FADM Date: 04/28/24 Loc: HO. Attending Dr: Mignon Mcgregor CNM Ordering Physician: Mignon Mcgregor CNM Date of Service: 04/28/24 Procedure(s): US pelvic and transvaginal Accession Number(s): [id number] cc: Melody Robins MD; Mignon Mcgregor CNM [...] 04/28/24 1558 DD/ 1331 TD/TT: 04/28/24 1349 Needle Straightener: us [facility] External Provider IMG US PROCEDURES Edited Result - Final * TSH with Reflex to Free T4 (04/07/2024 8:41 AM EST) TSH reflex Free T4 1.18 0.32 - 4.0 uIU/mL [facility] 04/07/2024 8:41 AM EST 04/07/2024 8:41 AM EST us Generic External Data Provider LAB BLOOD ORDERAB LES Final Result [facility] [address] [place] [phone] * 17-Hydroxyprogesterone (04/07/2024 8:41 AM EST) 17-OHProgesterone 34 see note ng/dL [facility] Comment: Unable to flag abnormal [...] Endocrinol Metab. ??1990;73:674-686; J Clin Endocrinol Metab. ??1989;69;8639-8355; J Clin Endocrinol Metab. ??1994;78:226-270. Pediatr Res 1988;23:525-529. ??MedLinePlus (accessed 09/06/13).This test was developed and its analytical performancecharacteristics have been determined by [employer] [place], [place]. It hasnot been cleared or approved by the U.S. Food and DrugAdministration. This assay has been validated pursuantto the CLIA regulations and is used for clinicalpurposes.THIS TEST WAS PERFORMED AT:[facility] [place], [place] ??[address] 3PATIBURCIO LOCKETT MD,PHD 04/07/2024 8:41 AM EST 04/07/2024 8:41 AM EST us Generic External Data Provider LAB BLOOD ORDERAB LES Final Result [facility] [address] [place] [phone] * Prolactin (04/07/2024 8:41 AM EST) Prolactin 7.9 ng/mL [facility] Comment:Reference Range Fema les Non- 3.0-30.0 10.0-209.0 Postmenopausal 2.0-20.0THIS TEST WAS PERFORMED AT:[facility] [address] [address]MIFTFDARLYN BAILEY MD 04/07/2024 8:41 AM EST 04/07/2024 8:41 AM EST Generic External Data Provider LAB BLOOD ORDERAB LES Final Result Performing Organization Address [facility] de Phone Number [facility] [address] [place] [address] [phone] * DHEA Sulfate (04/07/2024 8:41 AM EST) DHEA Sulfate 84 19 - 237 mcg/dL [facility] Comment:THIS TEST WAS PERFOR MED AT:[facility] [place] [phone] BAILEY MD 04/07/2024 8:41 AM EST 04/07/2024 8:41 AM EST Generic External Data Provider LAB BLOOD ORDERAB LES Final Result Performing Organization Address [facility] de Phone Number [facility] [address] [place] [address] [phone] * CBC (04/07/2024 8:41 AM EST) White Blood Count 8.8 4.8 - 10.8 X10*3/uL [facility] Red Blood Count 4.35 4.20 - 5.50 X10*6/uL [facility] Hemoglobin 13.0 12.0 - 16.0 g/dl [facility] Hematocrit 38.3 37.0 - 47.0 % [facility] Mean Corpuscular Volume 88.0 80.0 - 98.0 fL [facility] Mean Corpuscular Hemoglobin 29.9 27.0 - 33.0 pg [facility] Mean Corpuscular HGB Conc 33.9 31.0 - 35.0 g/dl [facility] Red Cell Distribution Width 12.9 11.0 - 16.0 % [facility] Platelet Count 283 160 - 400 X10*3/uL [facility] Mean Platelet Volume 10.9 9.4 - 12.3 fL [facility] NRBC Pct Auto 0.0 0.0 - 0.2 /100WBC [facility] NRBC Abs Auto 0.000 0.0 - 0.012 X10*3/uL [facility] 04/07/2024 8:41 AM EST 04/07/2024 8:41 AM EST us Generic External Data Provider LAB BLOOD ORDERAB LES Final Result [facility] [address] [place] [address] [phone] * Testosterone, Free (Dialysis) And Total, MS (04/07/2024 8:41 AM EST) Testosterone, Total 26 2 - 45 ng/dL [facility] Comment:For additional infor alf, please refer tohttp://education.[employer]/faq/LhzvsCnrldxzccxlbRPHYZLBBO740(This link is being provided for informational/educational purposes only.)This test was developed and its analytical performancecharacteristics have been determined by [employer], [place]. It hasnot been cleared or approved by the U.S. Food and DrugAdministration. This assay has been validated pursuantto the CLIA regulations and is used for clinicalpurposes. Testosterone, Free 3.3 0.1 - 6.4 pg/mL [facility] Comment:This test was develo ped and its analytical performancecharacteristics have been determined by [employer]. It hasnot been cleared or approved by the U.S. Food and DrugAdministration. This assay has been validated pursuantto the CLIA regulations and is used for clinicalpurposes.THIS TEST WAS PERFORMED AT:[facility] [id number] [place] [address]NYQDRND W. MASON,MD,PHD 04/07/2024 8:41 AM EST 04/07/2024 8:41 AM EST us Generic External Data Provider LAB BLOOD ORDERAB LES Final Result Performing Organization Address [facility] Co de Phone Number [facility] [address] [place] [phone] * hCG, Total, Quantitative (04/07/2024 8:41 AM EST) HCG Quantitative <2 mIU/mL [facility] Comment:Weeks post LMP Appro ximate hCG(Last Menstrual Period) Range (mIU/ml)3 - 4 weeks 9 - 1304 - 5 weeks 75 - 2,6005 - 6 weeks 850 - 20,8006 - 7 weeks 4000 - 100,2007 - 12 weeks 11,500 - 289,75381 - 16 weeks 18,300 - 137,53404 - 29 weeks (2nd trimester) 1,400 - 53,12521 - 41 weeks (3rd trimester) 940 - [...] ORDERAB LES Final Result Performing Organization Address [facility] Co de Phone Number [facility] [address] [place] [phone] * Lipid Panel, Standard (06/25/2023 11:40 AM EDT) Triglycerides 54 <150 mg/dL [facility] Comment:Desirable Triglyceri de: less than 150 mg/dLBorderline High Triglyceride 150-199 mg/dLHigh Triglyceride: 200-499 mg/dLVery High Triglyceride: greater than or equal to 5OO mg/dL Cholesterol 130 <200 mg/dL [facility] Comment:Desirable Cholestero l: less than 200 mg/dLBorderline High Cholesterol: 200-239 mg/dLHigh Cholesterol: greater than 239 mg/dL LDL Cholesterol Calculated 73 <100 mg/dL [facility] Comment:Desirable LDL: less than 100 mg/dLNear Optimal/Above Optimal LDL: 110- 129 mg/dLBorderline High LDL: 130-159 mg/dLHigh LDL: 160-189 mg/dLVery High LDL: greater than or equal to 190 mg/dL HDL Cholesterol 47 >40 mg/dL [facility] Comment:Desirable HDL: great er than 40 mg/dL Note: This HDL assay may give artificially low results in patients with liver disease. 06/25/2023 11:4 0 AM EDT 06/25/2023 11:40 AM EDT us Generic External Data Provider LAB BLOOD ORDERAB LES Final Result Performing Organization Address City/State/[facility] de Phone Number [facility] [address] [place] [phone] * Pap Smear (05/23/2023 11:27 AM EST) 05/23/2023 11:2 7 AM EST 05/27/2023 7:30 AM EST Narrative [facility] - 06/04/2023 6:05 PM EDT ----- ------- Name: Vanessa Menchaca ? Age/Sex: 33/F ? : 1990 Unit#: [id number] ?? Attend Dr: Ifrah Lilly CNM ?Re05/23/23 ?Status: DEP REF ? Location: HO.LNP ?Disch: ? ----- ------- SPEC : [id number] ? RECD: 05/27/23 ? STATUS: ??SOUT ? REQ NUM: [id number] ? JT: 05/23/23 ? SUBM DR: Ifrah [...] Not Detected ? HPV testing performed by [facility], [place], [place]. ??See reference laboratory ?? portion of the EMR for entire report. ?Clinical Information LMP: 04/20/23 Previous PAP test: 2021, [facility] ? Material Received ?? ThinPrep-Cervical Copies To: ?? Melody Robins MD ?? [address] ?? [place] [address] ?? [phone] ?? Ifrah Lilly CNM ?? [address] [place] [address] Dr. Easton [facility] ?? [place] [address] ?? [phone] ----- ------- Signed (signature on file) Zhanna Greenwood 06/04/231804 ? ----- ------- ? END OF REPORT ? us Generic External Data Provider LAB CYTOLOGY ORDAsha YU Final Result [facility] [address] [place] [address] [phone] * HEPATITIS C AB W/REFL TO [...] a test for HCV RNA (test code 92616) is suggested. ?? For additional information please refer to http://education.[employer]/faq/ADU61a0 (This link is being provided for informational/ educational purposes only.) ?? 01/22/2022 10:3 4 AM EDT Brenda Eric ANP HISTORICAL/NON ORDERABLE LABS Fi nal Result Performing Organization Address City/[facility] Co de Phone Number CONVERTED LEGACY [...] ? For additional information please refer to http://Quintiles.[employer]/faq/RCA711 (This link is being provided for informational/ educational purposes only.) ? The performance of this assay has not been clinically validated in patients less than 2 years old. ?? 01/22/2022 10:3 4 AM EDT [facility] LAB BLOOD ORDERABLES Final Resul t CONVERTED LEGACY LABS * (ABNORMAL) HPV E6/E7 RFLX SHRUTI 16 18/45 (08/14/2020 3:10 PM EDT) [facility] HPV 16 RNA NOT DETECTED NOT DETECTED [facility] HPV 18/45 RNA NOT DETECTED NOT DETECTED [facility] Comment: Methodology: Die Fitter Mediated Amplification The analytical performance characteristics of this assay have been determined by [facility]. The modifications have not been cleared or approved by the FDA. This assay has been validated pursuant to the CLIA regulations and is used for clinical purposes. THIS TEST WAS PERFORMED AT: [facility] [address] [place] [address],[facility] [place], [place] ??[phone] DARLYN BAILEY MD HPV mRNA E6/E7 rflx Detected(A) Not Detected [facility] Comment: Methodology: Die Fitter-Mediated Amplification This assay detects E6/E7 viral messenger RNA (mRNA) from 14 high-risk HPV types (16,18,31,33,35,39,45,51,52,56,58,59,66,68). The analytical performance characteristics of this assay have been determined by [facility]. The modifications have not been cleared or approved by the FDA. This assay has been validated pursuant to the CLIA regulations and is used for clinical purposes. For additional information, please refer to http://Quintiles.[employer]/faq/ZUJ777l4 (This link if provided for information/ educational purposes only.) THIS TEST WAS PERFORMED AT: [facility] [address] [place] [address],[address] [place], [place] ??[address] DARLYN BAILEY MD 08/14/2020 3:10 PM EDT us Ifrahlisseth Best[facility] HISTORICAL/NON ORDERABLE LABS Fi nal Result [facility] [address] [place] [address], from Last 3 Months or Most Recently Relevant to Health Maintenance Insurance [employer] C3 Care Teams Stock Layer Relationship Specialty Start Date End Date Melody Robins MD [address] [place] [address] PCP - General Family Medicine 10/02/16
--- OUTSIDE RECORDS SUMMARY | 2024-05-12 09:23 | XMS_ITS | Encounter Summary ---
Author Organization [facility] [facility] Address [address] [place] [address] 7t [place] [address] Care Team Providers Care Mosaic Technician Name Role Phone Melody Robins MD Primary Care Provider [phone] Encounter Details Date Type Department Care Team (Late st Contact Info) Description 12/17/2022 Orders Only [facility] MEDICINE [address] [place], [place] [phone] Polly Diamond Social History Tobacco Use Types [...] on filedocumented in this encounter Care Teams Mosaic Technician Relationship Specialty Start Date End Date Melody Robins MD [address] [place] [address] PCP - General Family Medicine 10/02/16 documented as of this encounter
--- OUTSIDE RECORDS SUMMARY | 2024-05-12 09:23 | XMS_ITS | Encounter Summary ---
Author Organization [employer] Address [address] [facility] 7 [place] [address] Care Team Providers Care Agency Sales Management Assistant Name Role Phone Melody Robins MD Primary Care Provider [phone] Reason for Visit * Reason Onset Date Comments Appointment Request 09/19/2023 Encounter Details Date Type Department Care Team ([facility] Contact Info) Description 09/19/2023 Telephone [facility] MEDICINE [address] [place] [address] Melody Robins MD [address] [place] [address] Appointment Request Social History Tobacco Use Types [...] documented as of this encounter Care Teams Agency Sales Management Assistant Relationship Specialty Start Date End Date Melody Robins MD [address] [place] [address] PCP - General Family Medicine 10/02/16 documented as of this encounter
--- OUTSIDE RECORDS SUMMARY | 2024-05-12 09:23 | XMS_ITS | Encounter Summary ---
Author Organization [employer] Address [address] [place] [address] 7 [place] [address] Care Team Providers Care Word Processor Operator Name Role Phone Melody Robins MD Primary Care Provider [phone] Encounter Details Date Type Department Care Team (Late st Contact Info) Description 12/17/2022 Orders Only [facility] MEDICINE [address] [place], [place] [phone] ProviderLuli MD Social History Tobacco Use Types [...] on filedocumented in this encounter Care Teams Word Processor Operator Relationship Specialty Start Date End Date Melody Robins MD [address] [place] [address] PCP - General Family Medicine 10/02/16 documented as of this encounter
--- OUTSIDE RECORDS SUMMARY | 2024-05-12 09:23 | XMS_ITS | Encounter Summary ---
Author Organization [employer] Address [address] [facility] 7t [place] [address] Care Team Providers Care Fine Craft Artist Name Role Phone Melody Robins MD Primary Care Provider [phone] Encounter Details Date Type Department Care Team ([facility] Contact Info) Description 04/28/2024 Orders Only [facility] External Provider, [facility] Social History Tobacco Use Types Packs/Day Years [...] EST ? [facility] ?[address] ?[place] [address] ? Ultrasound Report ? Signed ? Patient: Ran Taylor,Vanessa ?MR#: [id number] ?? [id number] ? : 1990 ?Acct:[id number] ? Age/Sex: 34 / F ?ADM Date: 04/28/24 ? Loc: HO.US ? Attending Dr: Mignon Mcgregor CNM ? Ordering Physician: Mignon Mcgregor CNM ?? Date of Service: 04/28/24 ?? Procedure(s): US pelvic and transvaginal ?? Accession Number(s): [id number] ? cc: Melody Robins MD; Mignon Mcgregor [...] ??04/28/2024 03:58 PM EST RP ?? Workstation: [id number] ? Dictated By: ?Josemanuel Jaime MD ? Signed By: ?<Electronically signed by Josemanuel Jaime MD in OV> ?04/28/24 1558 ? DD/ 1331 ? TD/TT: 04/28/24 1349 ? Emergency Communications Dispatcher: ? Procedure Note Laura Sauceda - 04/28/[address] [address] Ultrasound Report Signed Patient: Parag MenchacaR#: [id number] : 1990Acct:[id number] Age/Sex: 34 / FADM Date: 04/28/24 Loc: HO.US Attending Dr: Mignon Mcgregor CNM Ordering Physician: Mignon Mcgregor CNM Date of Service: 04/28/24 Procedure(s): US pelvic and transvaginal Accession Number(s): [id number] cc: Melody Robins MD; [place] CityMignon Encinas CNM EXAMINATION: US PELVIS CLINICAL INFORMATION: [...] 04/28/24 1558 DD/ 1331 TD/TT: 04/28/24 1349 Emergency Communications Dispatcher: us [facility] External Provider IMG US PROCEDURES Edited Result - Final documented in this encounter Visit Diagnoses Not on filedocumented in this encounter Additional Health Concerns Assessment Noted Time PHQ-9 Depression Total Score: 11 025 3:59 PM EST documented as of this encounter Care Teams Fine Craft Artist Relationship Specialty Start Date End Date Melody Robins MD [address] [place] [address] PCP - General Family Medicine 10/02/16 documented as of this encounter
== END 2024-05-12 08:01 | disposition home or self-care (01) ==
LOC: HO.LNP 08:00
PROVIDERS: PCP Pediatrics; Visit Provider Advanced Practice Midwife
DX: Z32.02 Encounter for pregnancy test, result negative (principal); N93.9 Abnormal uterine and vaginal bleeding, unspecified
CPT/HCPCS: 58100; 81025; 88305

== ENCOUNTER 2024-05-12 08:00 | Outpatient (AMB) | payer MEDICAID, SELFPAY ==
--- OUTSIDE RECORDS SUMMARY | 2024-05-12 08:06 | XMS_ITS | Encounter Summary ---
Author Organization [employer] Address [address] [facility] 7t [place] [address] Care Team Providers Care Buffing Machine Tender Name Role Phone Melody Robins MD Primary Care Provider [phone] Encounter Details Date Type Department Care Team (Late st Contact Info) Description 10/07/[address] [facility] CHC MED & PEDS [address] [place] [address] Melody Robins MD [address] [place] [address] Social History Tobacco Use Types Packs/Day Years [...] on filedocumented in this encounter Care Teams Buffing Machine Tender Relationship Specialty Start Date End Date Melody Robins MD [address] [place] [address] PCP - General Family Medicine 10/02/16 documented as of this encounter
--- OUTSIDE RECORDS SUMMARY | 2024-05-12 08:06 | XMS_ITS | Encounter Summary ---
Author Organization [employer] Address [address] [facility] 7t [place] [address] Care Team Providers Care Behavioral Geneticist Name Role Phone Melody Robins MD Primary Care Provider [phone] Encounter Details Date Type Department Care Team ([facility] Contact Info) Description 04/28/2024 Orders Only [facility] External Provider, [facility] Social History Tobacco Use Types Packs/Day Years [...] EST Narrative 04/28/2024 4:02 PM EST ? [facility] ?[address] ?[place] [address] ? Ultrasound Report ? Signed ? Patient: Ran Taylor,Vanessa ?MR#: [id number] ?? [id number] ? : 1990 ?Acct:[id number] ? Age/Sex: 34 / F ?ADM Date: 04/28/24 ? Loc: HO.US ? Attending Dr: Mignon Mcgregor CNM ? Ordering Physician: Mignon Mcgregor CNM ?? Date of Service: 04/28/24 ?? Procedure(s): US pelvic and transvaginal ?? Accession Number(s): [id number] ? cc: Melody Robins MD; Mignon Mcgregor [...] ??04/28/2024 03:58 PM EST RP ?? Workstation: [id number] ? Dictated By: ?Josemanuel Jaime MD ? Signed By: ?<Electronically signed by Josemanuel Jaime MD in OV> ?04/28/24 1558 ? DD/ 1331 ? TD/TT: 04/28/24 1349 ? Phone Screener: ? Procedure Note Laura Sauceda - 04/28/[address] [address] Ultrasound Report Signed Patient: Parag MenchacaR#: [id number] : 1990Acct:[id number] Age/Sex: 34 / FADM Date: 04/28/24 Loc: HO.US Attending Dr: Mignon Mcgregor CNM Ordering Physician: Mignon Mcgregor CNM Date of Service: 04/28/24 Procedure(s): US pelvic and transvaginal Accession Number(s): [id number] cc: Melody Robins MD; [place] Encin[place] CNM EXAMINATION: US PELVIS CLINICAL INFORMATION: [...] 04/28/24 1558 DD/ 1331 TD/TT: 04/28/24 1349 Phone Screener: us [facility] External Provider IMG US PROCEDURES Edited Result - Final documented in this encounter Visit Diagnoses Not on filedocumented in this encounter Additional Health Concerns Assessment Noted Time PHQ-9 Depression Total Score: 11 025 3:59 PM EST documented as of this encounter Care Teams Behavioral Geneticist Relationship Specialty Start Date End Date Melody Robins MD [address] [place] [address] PCP - General Family Medicine 10/02/16 documented as of this encounter
--- OUTSIDE RECORDS SUMMARY | 2024-05-12 08:06 | XMS_ITS | Encounter Summary ---
Author Organization [employer] [facility] Address [address] [place] [address] 7t [place] [address] Care Team Providers Care Medical Information Specialist Name Role Phone Melody Robins MD Primary Care Provider [phone] Encounter Details Date Type Department Care Team (Late st Contact Info) Description 12/17/2022 Orders Only [facility] MEDICINE [address] [place], [place] [phone] Polly Diamond Social History Tobacco Use Types [...] on filedocumented in this encounter Care Teams Medical Information Specialist Relationship Specialty Start Date End Date Melody Robins MD [address] [place] [address] PCP - General Family Medicine 10/02/16 documented as of this encounter
--- OUTSIDE RECORDS SUMMARY | 2024-05-12 08:06 | XMS_ITS | Encounter Summary ---
Author Organization [employer] Address [address] [facility] 7 [place] [address] Care Team Providers Care Cash Accountant Name Role Phone Melody Robins MD Primary Care Provider [phone] Reason for Visit * Reason Onset Date Comments Appointment Request 09/19/2023 Encounter Details Date Type Department Care Team ([facility] Contact Info) Description 09/19/2023 Telephone [facility] MEDICINE [address] [place] [address] Melody Robins MD [address] [place] [address] Appointment Request Social History Tobacco Use Types [...] documented as of this encounter Care Teams Cash Accountant Relationship Specialty Start Date End Date Melody Robins MD [address] [place] [address] PCP - General Family Medicine 10/02/16 documented as of this encounter
--- OUTSIDE RECORDS SUMMARY | 2024-05-12 08:06 | XMS_ITS | Encounter Summary ---
Author Organization [employer] Address [address] [facility] 7t [place] [address] Care Team Providers Care Oil Changer Name Role Phone Melody Robins MD Primary Care Provider [phone] Reason for Visit * Reason Comments Med Refill Encounter Details Date Type Department Care Team ([facility] Contact Info) Description 04/15/2024 Refill [facility] CHC MED & PEDS [address] [place], [place] [phone] Melody Robins MD [address] [place] [address] Social History Tobacco Use Types Packs/Day Years [...] documented as of this encounter Care Teams Oil Changer Relationship Specialty Start Date End Date Melody Robins MD [address] [place] [address] PCP - General Family Medicine 10/02/16 documented as of this encounter
--- OUTSIDE RECORDS SUMMARY | 2024-05-12 08:06 | XMS_ITS | Clinical Summary ---
Author Organization [employer] Address [address] [place] [address] 7t [place] [address] Care Team Providers Care Block Stacker Name Role Phone Melody Robins MD Primary Care Provider [phone] Allergies No known active allergies Medications * This document contains information received from the source organization and may not represent a complete record from that organization. ergocalciferol (Vitamin D2) 1.25 MG (72441 UT) capsule Take 1 capsule (1.25 mg) by mouth 1 (one) time per week. 15 capsule 07/15/19 24 Active zinc gluconate 30 MG tablet Take 1 tablet by mouth Once per day. 06/30/19 24 Active beta carotene (vitamin A) 3 MG (95145 UT) capsule Take by mouth Once per [...] presented to the clinic today for a decker operator visit for her son. During pedi visit, mom was visible stress and emotionally overwhelmed. Mom reported presentation of sxs are associated with her son diagnosis (Autism). She is currently living with her mother but reports needing assistance to apply for housing. Pt has a therapist with [facility] and have weekly appointments per her report. [...] Department Care Team Description 04/28/2024 Orders Only [facility] External Provider, [facility] 04/15/2024 Refill [facility] [address] [place] [address] Melody Robins MD 04/07/2024 Orders Only GENERIC EXTERNAL DATA DEPARTMENT Provider, Generic External Data 03/22/2024 Telephone [facility] [address] [place] [address] Melody Robins MD Nurse Triage from Last [...] EST Narrative 04/28/2024 4:02 PM EST ? [facility] ?[address] ?[place] [address] ? Ultrasound Report ? Signed ? Patient: Vanessa Menchaca ?MR#: [id number] ?? [id number] ? : 1990 ?Acct:[id number] ? Age/Sex: 34 / F ?ADM Date: 04/28/24 ? Loc: HO.US ? Attending Dr: Mignon Mcgregor CNM ? Ordering Physician: Mignon Mcgregor CNM ?? Date of Service: 04/28/24 ?? Procedure(s): US pelvic and transvaginal ?? Accession Number(s): [id number] ? cc: Melody Robins MD; Mignon Mcgregor [...] MD ? Signed By: ?<Electronically signed by Joesmanuel Jaime MD in OV> ?04/28/24 1558 ? DD/ 1331 ? TD/TT: 04/28/24 1349 ? Freight And Passenger Agent: ? Procedure Note Donmelissater, Image - 04/28/2024 [place] [address] Ultrasound Report Signed Patient: Elver Menchaca#: [id number] : 1990Acct:[id number] Age/Sex: 34 / FADM Date: 04/28/24 Loc: HO. Attending Dr: Mignon Mcgregor CNM Ordering Physician: Mignon Mcgregor CNM Date of Service: 04/28/24 Procedure(s): US pelvic and transvaginal Accession Number(s): [id number] cc: Melody Robins MD; Mignon Mcgregor CNM [...] 04/28/24 1558 DD/ 1331 TD/TT: 04/28/24 1349 Freight And Passenger Agent: us [facility] External Provider IMG US PROCEDURES Edited Result - Final * TSH with Reflex to Free T4 (04/07/2024 8:41 AM EST) TSH reflex Free T4 1.18 0.32 - 4.0 uIU/mL [facility] 04/07/2024 8:41 AM EST 04/07/2024 8:41 AM EST us Generic External Data Provider LAB BLOOD ORDERAB LES Final Result [facility] [address] [place] [phone] * 17-Hydroxyprogesterone (04/07/2024 8:41 AM EST) 17-OHProgesterone 34 see note ng/dL [facility] Comment: Unable to flag abnormal [...] Endocrinol Metab. ??1990;73:674-686; J Clin Endocrinol Metab. ??1989;69;3675-4321; J Clin Endocrinol Metab. ??1994;78:226-270. Pediatr Res 1988;23:525-529. ??MedLinePlus (accessed 09/06/13).This test was developed and its analytical performancecharacteristics have been determined by [employer] [place], [place]. It hasnot been cleared or approved by the U.S. Food and DrugAdministration. This assay has been validated pursuantto the CLIA regulations and is used for clinicalpurposes.THIS TEST WAS PERFORMED AT:[employer]/[id number] [place], [place] ??[address]- PATIBURCIO LOCKETT MD,PHD 04/07/2024 8:41 AM EST 04/07/2024 8:41 AM EST us Generic External Data Provider LAB BLOOD ORDERAB LES Final Result [facility] [address] [place] [phone] * Prolactin (04/07/2024 8:41 AM EST) Prolactin 7.9 ng/mL [facility] Comment:Reference Range Fema les Non- 3.0-30.0 10.0-209.0 Postmenopausal 2.0-20.0THIS TEST WAS PERFORMED AT:[employer] [address] [address]YNCFTDARLYN BAILEY MD 04/07/2024 8:41 AM EST 04/07/2024 8:41 AM EST Generic External Data Provider LAB BLOOD ORDERAB LES Final Result Performing Organization Address [facility] de Phone Number [facility] [address] [place] [address] [phone] * DHEA Sulfate (04/07/2024 8:41 AM EST) DHEA Sulfate 84 19 - 237 mcg/dL [facility] Comment:THIS TEST WAS PERFOR MED AT:[employer] [place] [id number] BAILEY MD 04/07/2024 8:41 AM EST 04/07/2024 8:41 AM EST Generic External Data Provider LAB BLOOD ORDERAB LES Final Result Performing Organization Address [facility] de Phone Number [facility] [address] [place] [address] [phone] * CBC (04/07/2024 8:41 AM EST) White Blood Count 8.8 4.8 - 10.8 X10*3/uL [facility] Red Blood Count 4.35 4.20 - 5.50 X10*6/uL [facility] Hemoglobin 13.0 12.0 - 16.0 g/dl [facility] Hematocrit 38.3 37.0 - 47.0 % [facility] Mean Corpuscular Volume 88.0 80.0 - 98.0 fL [facility] Mean Corpuscular Hemoglobin 29.9 27.0 - 33.0 pg [facility] Mean Corpuscular HGB Conc 33.9 31.0 - 35.0 g/dl [facility] Red Cell Distribution Width 12.9 11.0 - 16.0 % [facility] Platelet Count 283 160 - 400 X10*3/uL [facility] Mean Platelet Volume 10.9 9.4 - 12.3 fL [facility] NRBC Pct Auto 0.0 0.0 - 0.2 /100WBC [facility] NRBC Abs Auto 0.000 0.0 - 0.012 X10*3/uL [facility] 04/07/2024 8:41 AM EST 04/07/2024 8:41 AM EST us Generic External Data Provider LAB BLOOD ORDERAB LES Final Result [facility] [address] [place] [address] [phone] * Testosterone, Free (Dialysis) And Total, MS (04/07/2024 8:41 AM EST) Testosterone, Total 26 2 - 45 ng/dL [facility] Comment:For additional infor alf, please refer tohttp://education.[employer]/faq/PjxzmTgzdwcioagrvDGHHYNNIX060(This link is being provided for informational/educational purposes only.)This test was developed and its analytical performancecharacteristics have been determined by [place] It hasnot been cleared or approved by the U.S. Food and DrugAdministration. This assay has been validated pursuantto the CLIA regulations and is used for clinicalpurposes. Testosterone, Free 3.3 0.1 - 6.4 pg/mL [facility] Comment:This test was develo ped and its analytical performancecharacteristics have been determined by [place]. It hasnot been cleared or approved by the U.S. Food and DrugAdministration. This assay has been validated pursuantto the CLIA regulations and is used for clinicalpurposes.THIS TEST WAS PERFORMED AT:[employer] [id number] [place] [address]NKGVICF W. MASON,MD,PHD 04/07/2024 8:41 AM EST 04/07/2024 8:41 AM EST us Generic External Data Provider LAB BLOOD ORDERAB LES Final Result Performing Organization Address [facility] Co de Phone Number [facility] [address] [place] [phone] * hCG, Total, Quantitative (04/07/2024 8:41 AM EST) HCG Quantitative <2 mIU/mL [facility] Comment:Weeks post LMP Appro ximate hCG(Last Menstrual Period) Range (mIU/ml)3 - 4 weeks 9 - 1304 - 5 weeks 75 - 2,6005 - 6 weeks 850 - 20,8006 - 7 weeks 4000 - 100,2007 - 12 weeks 11,500 - 289,78808 - 16 weeks 18,300 - 137,10901 - 29 weeks (2nd trimester) 1,400 - 53,61947 - 41 weeks (3rd trimester) 940 - [...] ORDERAB LES Final Result Performing Organization Address [facility] Co de Phone Number [facility] [address] [place] [phone] * Lipid Panel, Standard (06/25/2023 11:40 AM EDT) Triglycerides 54 <150 mg/dL [facility] Comment:Desirable Triglyceri de: less than 150 mg/dLBorderline High Triglyceride 150-199 mg/dLHigh Triglyceride: 200-499 mg/dLVery High Triglyceride: greater than or equal to 5OO mg/dL Cholesterol 130 <200 mg/dL [facility] Comment:Desirable Cholestero l: less than 200 mg/dLBorderline High Cholesterol: 200-239 mg/dLHigh Cholesterol: greater than 239 mg/dL LDL Cholesterol Calculated 73 <100 mg/dL [facility] Comment:Desirable LDL: less than 100 mg/dLNear Optimal/Above Optimal LDL: 110- 129 mg/dLBorderline High LDL: 130-159 mg/dLHigh LDL: 160-189 mg/dLVery High LDL: greater than or equal to 190 mg/dL HDL Cholesterol 47 >40 mg/dL [facility] Comment:Desirable HDL: great er than 40 mg/dL Note: This HDL assay may give artificially low results in patients with liver disease. 06/25/2023 11:4 0 AM EDT 06/25/2023 11:40 AM EDT us Generic External Data Provider LAB BLOOD ORDERAB LES Final Result Performing Organization Address City/State/[facility] de Phone Number [facility] [address] [place] [phone] * Pap Smear (05/23/2023 11:27 AM EST) 05/23/2023 11:2 7 AM EST 05/27/2023 7:30 AM EST Narrative [facility] - 06/04/2023 6:05 PM EDT ----- ------- Name: Vanessa Menchaca ? Age/Sex: 33/F ? : 1990 Unit#: [id number] ?? Attend Dr: Ifrah Lilly CNM ?Re05/23/23 ?Status: DEP REF ? Location: HO.LNP ?Disch: ? ----- ------- SPEC : [id number] ? RECD: 05/27/23 ? STATUS: ??SOUT ? REQ NUM: [id number] ? JT: 05/23/23 ? SUBM DR: Ifrah [...] Not Detected ? HPV testing performed by [employer], [place], [place]. ??See reference laboratory ?? portion of the EMR for entire report. ?Clinical Information LMP: 04/20/23 Previous PAP test: 2021, ASCUS ? Material Received ?? ThinPrep-Cervical Copies To: ?? Melody Robins MD ?? [address] ?? [place] [address] ?? [phone] ?? Ifrah Lilly CNM ?? [address] [place] [address] Dr[facility] ?? [place] [address] ?? [phone] ----- ------- Signed (signature on file) Zhanna Greenwood 06/04/231804 ? ----- ------- ? END OF REPORT ? us Generic External Data Provider LAB CYTOLOGY ORDAsha YU Final Result [facility] [address] [place] [address] [phone] * HEPATITIS C AB W/REFL TO [...] a test for HCV RNA (test code 75147) is suggested. ?? For additional information please refer to http://education.Sai Med[employer]/faq/DHZ46k4 (This link is being provided for informational/ educational purposes only.) ?? 01/22/2022 10:3 4 AM EDT Brenda Eric ANP HISTORICAL/NON ORDERABLE LABS Fi nal Result Performing Organization Address City/[facility] Co de Phone Number CONVERTED LEGACY LABS [...] ? For additional information please refer to http://[employer]/faq/EYD299 (This link is being provided for informational/ educational purposes only.) ? The performance of this assay has not been clinically validated in patients less than 2 years old. ?? 01/22/2022 10:3 4 AM EDT [facility] LAB BLOOD ORDERABLES Final Resul t CONVERTED LEGACY LABS * (ABNORMAL) HPV E6/E7 RFLX SHRUTI 16 18/45 (08/14/2020 3:10 PM EDT) [facility] HPV 16 RNA NOT DETECTED NOT DETECTED [facility] HPV 18/45 RNA NOT DETECTED NOT DETECTED [facility] Comment: Methodology: Agricultural Services Director Mediated Amplification The analytical performance characteristics of this assay have been determined by [employer]. The modifications have not been cleared or approved by the FDA. This assay has been validated pursuant to the CLIA regulations and is used for clinical purposes. THIS TEST WAS PERFORMED AT: [employer] [address] [place] [address],[facility] [place], [place] ??[phone] DARLYN BAILEY MD HPV mRNA E6/E7 rflx Detected(A) Not Detected [facility] Comment: Methodology: Agricultural Services Director-Mediated Amplification This assay detects E6/E7 viral messenger RNA (mRNA) from 14 high-risk HPV types (16,18,31,33,35,39,45,51,52,56,58,59,66,68). The analytical performance characteristics of this assay have been determined by [employer]. The modifications have not been cleared or approved by the FDA. This assay has been validated pursuant to the CLIA regulations and is used for clinical purposes. For additional information, please refer to http://[employer]/faq/PNS251r7 (This link if provided for information/ educational purposes only.) THIS TEST WAS PERFORMED AT: [employer] [address] [place] [address],[address] [place], [place] ??[phone] DARLYN BAILEY MD 08/14/2020 3:10 PM EDT us [employer] HISTORICAL/NON ORDERABLE LABS Fi nal Result [facility] [address] [place] [address], from Last 3 Months or Most Recently Relevant to Health Maintenance Insurance [employer] Care Teams Block Stacker Relationship Specialty Start Date End Date Melody Robins MD [address] [place] [address] PCP - General Family Medicine 10/02/16
--- OUTSIDE RECORDS SUMMARY | 2024-05-12 08:06 | XMS_ITS | Encounter Summary ---
Author Organization [employer] Address [address] [facility] 7 [place] [address] Care Team Providers Care Bi Solutions Architect Name Role Phone Melody Robins MD Primary Care Provider [phone] Reason for Visit * Reason Onset Date Comments Appointment Request 11/22/2022 Encounter Details Date Type Department Care Team ([facility] Contact Info) Description 11/22/2022 Telephone [facility] [address] [place] [address] Melody Robins MD [address] [place] [address] Appointment Request Social History Tobacco Use Types [...] requesting schedule an appt with PCP fiction writer attempted to gather information pt denied toleave information, Assistant Professor Of German also explained protocol to f/u appts and PE appt, call disconnected however after call disconnceted fiction writer noticed [facility] 01/21/22 OV - chronic conditions. documented in this encounter Plan of Treatment Not on file documented as of this encounter Visit Diagnoses Not on filedocumented in this encounter Care Teams Bi Solutions Architect Relationship Specialty Start Date End Date Melody Robins MD [address] [place] [address] PCP - General Family Medicine 10/02/16 documented as of this encounter
--- OUTSIDE RECORDS SUMMARY | 2024-05-12 08:06 | XMS_ITS | Encounter Summary ---
Author Organization [employer] Address [address] [facility] 7 [place] [address] Care Team Providers Care Brazer Controlled Atmospheric Furnace Name Role Phone Melody Robins MD Primary Care Provider [phone] Reason for Visit * Reason Onset Date Comments Appointment Request 09/29/2023 Encounter Details Date Type Department Care Team ([facility] Contact Info) Description 09/29/2023 Telephone [facility] [address] [place] [address] Melody Robins MD [address] [place] [address] Appointment Request Social History Tobacco Use Types [...] as of this encounter Care Teams Brazer Controlled Atmospheric Furnace Relationship Specialty Start Date End Date Melody Robins MD [address] [place] [address] PCP - General Family Medicine 10/02/16 documented as of this encounter
--- OUTSIDE RECORDS SUMMARY | 2024-05-12 08:06 | XMS_ITS | Encounter Summary ---
Author Organization [employer] Address [address] [place] [address] 7 [place] [address] Care Team Providers Care Shiftman Name Role Phone Melody Robins MD Primary Care Provider [phone] Encounter Details Date Type Department Care Team (Late st Contact Info) Description 12/17/2022 Orders Only [facility] MED[facility]INE [address] [place], [place] [phone] ProviderLuli MD Social History Tobacco Use Types [...] on filedocumented in this encounter Care Teams Shiftman Relationship Specialty Start Date End Date Melody Robins MD [address] [place] [address] PCP - General Family Medicine 10/02/16 documented as of this encounter
--- NOTE | 2024-05-12 08:16 | A.OFFVIS_ITS ---
Intake Visit Reasons: EMB Entry Level Sales Consultant Required: Yes Entry Level Sales Consultant Language: District Engineer Services: Entry Level Sales Consultant Present (in person) Entry Level Sales Consultant Name: Jayna SETH AlmeidaPiotr Information Interpreted: non-clinical & clinical Rrts: Rrts Present (GUCCI Colón) Accompanied by: Self / Same As Patient Allergies No Known Allergies [No Known Allergies*] Allergy (Verified 05/12/24 08:17) HPI Comments Details: Patient is here today for an EMB procedure due to the history of AUB, history of obesity. Currently not sexually active and denies any risk to today. UPT is negative. [facility] Medical History Elevated testosterone level Kidney calculi Left ovarian cyst Pelvic pain DALTON I (cervical intraepithelial neoplasia I) ASCUS with positive high risk HPV Pap smear of cervix with ASCUS, cannot exclude HGSIL Obese Kidney stones Surgical History History of appendectomy Family History Maternal Grandmother Colon cancer Father HTN (hypertension) Maternal Grandfather Diabetes Maternal Grandfather Prostate cancer Social History Household Members Other:: mom and son Housing: House Alcohol intake: never Patient Tobacco Use Status: Never used Tobacco Current occupational status: 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 Sexual orientation: Straight/Heterosexual Gender identity: Female Female Reproductive History Menstrual Age of Menarche: 14 Review of Systems Const All systems reviewed & are unremarkable except as noted in HPI and below Physical Exam Const General: cooperative, healthy appearing and no acute distress Orientation/consciousness: patient oriented x3 GI Inspection: Yes normal to inspection Palpation (GI): Soft to palpation and Other GI palpation findings present (Nontender) Rectal Exam - Female: visual inspection normal General: Yes bladder normal to palpation External Female Exam: normal appearance of the urethra Speculum Exam - Vagina: normal appearance of the vagina, normal palpation and normal vaginal discharge Speculum Exam - Cervix: normal appearance of the cervix and normal palpation Bimanual exam- vagina & uterus: normal bimanual exam, normal palpation, uterine size normal, bladder normal to palpation, normal palpation, uterine shape normal and non-tender Bimanual Exam- Adnexa, other: normal adnexae Neuro General: patient oriented x3 Office Procedures Endometrial Biopsy Details: The patient is here today for an endometrial biopsy due to AUB to rule out any pathology including atypical, hyperplasia or cancer cells of the uterus. She was counseled regarding anticipatory guidance for the procedure including the risks for pain, infection, bleeding, perforation, potential injury to the tissues may include the cervix, uterus, tubes, bladder and bowels. These injuries may include further treatment and evaluation including surgery, blood transfusions, antibiotics, hospitalizations and anesthesia. Permanent injury and scarring can occur. She was consented for the procedure, and the consent forms were signed. She is agreeable to have the procedure today. All questions were answered. Endometrial Biopsy Procedure: The patient was placed in the dorsal lithotomy position and a sterile speculum inserted. Using aseptic technique for the procedure. The cervix was cleansed with Betadine x 3 swabs. A single toothed tenaculum was placed on the cervix for stabilization and the uterus was sounded to 9cm with a 4mm pipelle, and tissue sample obtained. Minimal bleeding was observed. The tissue sample was placed in formalin in a patient labeled container by staff assisting and sent to the pathology department for processing and interpretation. The patient tolerate the procedure well and was in good condition when leaving the department. Endometrial Biopsy Post Procedure Care: Nothing in the vagina including: tampons, douching or intimacy until all the bleeding has subsided. There may be some post procedure bleeding for several days, this bleeding is usually light and may turn to a light brown or pink color. Mild cramps may occurs. Nothing in the vaginal including: tampons, douching, or intimacy until all the bleeding has subsided. You may take an over the counter mild analgesic such as Tylenol or Advil (if no allergies) per the manufactures recommendation on dosing, frequency, and follow the directions completely. Call the office if any: fever (over 100.4), flu like symptoms, abdominal pain (worse than cramping), foul smelling, infected appearing vaginal discharge, or heavy bleeding. If indicated: Use condoms to prevent and STI's, and only after the bleeding has stopped completely. Return to the office in 2 weeks for results and plan of care. This note is constructed using voice recognition software. While every effort has been made to ensure accuracy, garage door technician errors may have been included. 41449-Ygkjaxgmfna Biopsy Results AMB Test Urine AMB Test Urine Negative Last Edit by Jayna Almeida CMA on 09:12 Results Reviewed Results Reviewed: Laboratory Last Values Tst Clinic Negative 05/12/24 09:11 Assessment & Plan Assessment & Plan (1) Abnormal uterine bleeding (AUB): Code(s): N93.9 - Abnormal uterine and vaginal bleeding, unspecified Category: Medical Plan Discussed treatment options for AUB to include hormonal therapy, including Mirena IUD, booklet given. Advised if she decides to do the Mirena she can and schedule an appointment within the 1st 5 days of her cycle. Annual exam and repeat Pap is due in 07/11/2024. The patient expressed understanding and agreement with the plan of care. All of her questions and concerns were addressed to the best of my ability. This note is constructed using voice recognition software. While every effort has been made to ensure accuracy, garage door technician errors may have been included. Orders: Orders AMB HCG Urine Test Today N93.9 - Abnormal uterine and vaginal bleeding, unspecified, Z32.02 - Encounter for test, result negative Surgical Today N93.9 - Abnormal uterine and vaginal bleeding, unspecified, Z32.02 - Encounter for test, result negative Coding Level of Care Code Procedure Only Diagnoses Abnormal uterine bleeding (AUB) N93.9 CPT Codes Endometrial Biopsy - CPT: 81620-Btzynvovcdc Biopsy ([id number])
== END 2024-05-12 09:37 | disposition home or self-care (01) ==
LOC: HO.HWS 08:00
PROVIDERS: PCP Pediatrics; Visit Provider Advanced Practice Midwife
DX: N93.9 Abnormal uterine and vaginal bleeding, unspecified (principal); Z32.02 Encounter for pregnancy test, result negative
CPT/HCPCS: 58100

== ENCOUNTER 2024-08-10 10:51 | Outpatient (AMB) | payer MEDICAID, SELFPAY ==
--- NOTE | 2024-08-10 10:53 | A.OFFVIS_ITS ---
Vital Signs 08/10/24 10:54 08/10/24 10:55 Height 5 ft 2 in 5 ft 2 in Weight 218 lb BMI 39.9 BP 103/78 Intake Visit Reasons: Annual/EMB Intake Note: no consert 08/10 ascus +hpv 08/11 lgsil +hpv 10/11 colpo dalton 1 01/12 neg 06/14 neg +hpv 07/15 colpo Show Card Writer Required: Yes Show Card Writer Language: Plant Maintenance Technician Services: Show Card Writer Present (in person) Show Card Writer Name: Jayna DUCKWORTH Information Interpreted: non-clinical & clinical Bleach Plant Operator: Bleach Plant Operator Present (Jayna DUCKWORTH) Accompanied by: Self / Same As Patient Allergies No Known Allergies [No Known Allergies*] Allergy (Verified 08/10/24 10:58) Is last menstrual period known: Yes Last menstrual period: 07/21/24 HPI Comments Details: She is a premenopausal woman presenting for annual examination. Doing well with no rn employee health concerns. Regular monthly menses x 8-10d. Currently is sexually active. She denies vaginal itching or irritation. STI screening offered; she declines. She tries to eat healthy. Denies family history of breast, ovarian or colon cancer. Last pap smear 2021, negative. [facility] Medical History Elevated testosterone level Kidney calculi Left ovarian cyst Pelvic pain DALTON I (cervical intraepithelial neoplasia I) ASCUS with positive high risk HPV Pap smear of cervix with ASCUS, cannot exclude HGSIL Obese Kidney stones Surgical History History of appendectomy Family History Maternal Grandmother Colon cancer Father HTN (hypertension) Maternal Grandfather Diabetes Maternal Grandfather Prostate cancer Social History Household Members Other:: mom and son Housing: House Alcohol intake: never Patient Tobacco Use Status: Never used Tobacco Current occupational status: 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 Sexual orientation: Straight/Heterosexual Gender identity: Female Female Reproductive History Menstrual Age of Menarche: 14 Duration of menses: 8-10 days Date of last menstrual period: 07/21/24 Total pregnancies: 1 Full term: 1 Number of Living Children: 1 Date of last pap smear: 05/23/23 (neg +hpv 07/15 colpo) History of abnormal pap smear: Yes (see intake note) Review of Systems Const All systems reviewed & are unremarkable except as noted in HPI and below Reports as per HPI Eyes Reports no additional complaints ENT Reports no additional complaints Card Reports no additional complaints Resp Reports no additional complaints GI Reports as per HPI and Reports no additional complaints Reports as per HPI Musc Reports no additional complaints Skin/Breast Reports as per HPI Neuro Reports no additional complaints Psych Reports no additional complaints Endo Reports no additional complaints Prem/Lymph Reports no additional complaints Aller/Immun Reports no additional complaints Physical Exam Vital Signs: Last Vital Signs BP 103/78 08/10/24 10:55 BMI result Body Mass Index 39.9 Const General: cooperative, healthy appearing, no acute distress, well developed and alert Orientation/consciousness: patient oriented x3 HEENT Head: Yes normal to inspection Eyes General: appearance normal, both eyes and all related structures Neck Neck: Yes normal visual inspection Thyroid: Thyroid normal Chest Chest palpation & inspection: normal inspection of the chest and other (no puckering, dimpling, peau de orange, retraction, discharge, masses) Breast/axilla inspection: normal inspection of the breasts Breast/axilla palpation: normal palpation of the breasts Resp Effort & Inspection: normal respiratory effort GI Inspection: Yes normal to inspection Palpation (GI): Soft to palpation Rectal Exam - Female: deferred General: Yes bladder normal to palpation External Female Exam: normal external appearance and normal appearance of the urethra Speculum Exam - Vagina: normal appearance of the vagina, normal palpation and normal vaginal discharge Speculum Exam - Cervix: normal appearance of the cervix, normal palpation and Other cervical findings present (Bled slightly with Pap) Bimanual exam- vagina & uterus: normal bimanual exam, normal palpation, uterine size normal, bladder normal to palpation, normal palpation and non-tender Bimanual Exam- Adnexa, other: no masses Skin General skin exam: no rashes or lesions noted Rashes: no rashes Neuro General: patient oriented x3 Cognition (Neuro): normal cognition Extrem General: Yes normal to inspection Psych Attitude: cooperative Thought process: Normal thought process present Assessment & Plan Assessment & Plan (1) Encounter for annual routine gynecological examination: Code(s): Z01.419 - Encounter for gynecological examination (general) (routine) without abnormal findings Category: Medical (2) Abnormal Pap smear of cervix: Comment: LGSIL with HPV Code(s): R87.619 - Unspecified abnormal cytological findings in specimens from cervix uteri Category: Medical Qualifiers: Abnormal Pap type: unspecified Qualified Code(s): R87.619 - Unspecified abnormal cytological findings in specimens from cervix uteri Plan Discussed: Current recommendations for pap smears per ASCCP guidelines. Breast awareness and periodic breast exams. Maintain a healthy lifestyle including a well balanced diet and routine exercise. Discuss control including Mirena IUD for cycle control, she prefers not to have any control as she may consider a future it some time. Monitor menses and report any abnormal uterine bleeding, increased prolonged, heavy or closely spaced episodes Use of vitamin. Patient verbalizes understanding and agrees to the plan of care. She was given opportunity to ask questions and all questions were answered to the best of my ability. RTO in one year for annual rn employee health examination. This note is constructed using voice recognition software. While every effort has been made to ensure accuracy, tool and die supervisor errors may have been included. Orders: Orders Pap Smear Today B97.7 - Papillomavirus as the cause of diseases classified elsewhere HPV High risk Today B97.7 - Papillomavirus as the cause of diseases classified elsewhere Coding Level of Care Code Est Pt Prev Care 18-39y(16720) Diagnoses Encounter for annual routine gynecological examination Z01.419 Abnormal cervical Papanicolaou smear, unspecified abnormal pap finding R87.619 Abnormal Pap type: unspecified
[2024-08-10 10:55] VITALS: BP 103/78; BMI 39.9
--- OUTSIDE RECORDS SUMMARY | 2024-08-10 12:05 | XMS_ITS | Clinical Summary ---
Author Organization [employer] Address [address] [facility] [address] [place] [address] Care Team Providers Care Smoke And Flame Specialist Name Role Phone Melody Robins MD Primary Care Provider [phone] Allergies No known active allergies Medications * This document contains information received from the source organization and may not represent a complete record from that organization. ergocalciferol (Vitamin D2) 1.25 MG (28362 UT) capsule Take 1 capsule (1.25 mg) by mouth 1 (one) time per week. 15 capsule 4 Active zinc gluconate 30 MG tablet Take 1 tablet by mouth Once per day. 4 Active beta carotene (vitamin A) 3 MG (18954 UT) capsule Take by mouth Once per day. 4 Active thiamine (Vitamin B-1) 100 MG tablet TAKE 1 TABLET BY MOUTH EVERY DAY FOR 90 DAYS 4 Active triamcinolone (Kenalog) 0.1 % cream Apply topically if needed in the morning and at bedtime (pain and swelling). 80 g 1 4 Active phentermine 8 MG tablet Take 1 tab orally with topamax every morning 30 tablet 4 Active fluticasone (Flonase Allergy Relief) 50 MCG/ACT nasal spray Administer 1 spray into each nostril Once per day. Shake gently. Before first use, prime pump. After use, clean tip and replace cap. 16 g 2 4 12/04/19 25 Active acetaminophen (Tylenol) 500 MG tablet Take 2 tablets (1,000 mg) by mouth every 6 (six) hours if needed for moderate pain or fever for up to 25 doses. 40 tablet 4 Active ibuprofen 400 MG tablet Take 1 tablet (400 mg) by mouth every 6 (six) hours if needed for moderate pain or fever for up to 30 doses. 30 tablet 4 Active levothyroxine (Synthroid) 88 MCG tablet TAKE 1 TABLET BY MOUTH BEFORE BREAKFAST 90 tablet 1 5 Active topiramate 50 MG tablet Take 1 tablet (50 mg) by mouth Once per day. 30 tablet 3 5 Active Active Problems Problem Noted Date Diagnosed Date [...] presented to the clinic today for a accounting analyst visit for her son. During pedi visit, mom was visible stress and emotionally overwhelmed. Mom reported presentation of sxs are associated with her son diagnosis (Autism). She is currently living with her mother but reports needing assistance to apply for housing. Pt has a therapist with [facility] and have weekly appointments per her report. Not interested at this time to start medication. clinician engaged patient with active/reflective listening. Reviewed and assessed for risk, current stressors and protective factors using open-ended questions. Pt will be referred with CM to assist with housing resources. Explored coping strategies that pt can use during stressful times. Provided [facility] contact information and educated patient on [...] Encounters Date Type Department Care Team Description 08/06/2024 Patient Outreach [facility] [address] [place] [address] Melody Robins MD 08/05/[address] [address] Melody Robins MD Med Refill 08/05/2024 Patient Outreach [facility] [address] [place] [address] Melody Robins MD Care Coordination (C3/CM Outreach) 07/23/2024 Patient Outreach [facility] [address] [place] [address] Melody Robins MD Care Coordination (C3/CM Outreach) 07/21/2024 Patient Outreach [facility] [address] [place] [address] Melody Robins MD 07/20/2024 Patient Outreach [facility] [address] [place] [address] Melody Robins MD Care Coordination (C3/CM Appt reminder) 07/01/2024 Orders Only [facility] [address] [place] [address] Luli Doll MD 06/30/2024 Patient Outreach [address] [address] Melody Robins MD Care Coordination (C3/CM Outreach) 06/30/2024 Patient Outreach [address] [address] Melody Robins MD Care Coordination (C3/CM Chart Review) 06/30/[address] [facility] [address] [place] [address] Melody Robins MD Care Coordination ([facility] Chart review) 06/30/[address] [facility] [address] [place] [address] ProviderLuli MD 06/30/[address] [facility] [address] [place] [address] Melody Robins MD 06/04/2024 Population Health Risk Score [facility] (C3) Department [address] [place] [phone] Provider, Population Health Generic 06/03/2024 Refill [facility] [address] [place] [address] Melody Robins MD 06/03/2024 Telephone [facility] [address] [place] [address] Melody Robins MD Med Refill from Last 3 Months Immunizations Immunization Administration Dates Next Due HPV 9-Valent 07/15/2023 [...] 11/26/2023 10:21 AM EDT Plan of Treatment Upcoming Encounters Date Type Department Care Team ([facility] st Contact Info) Description 09/28/2024 9:15 AM EDT Office Visit [facility] [address] [place] [address] Melody Robins MD [address] [place] [address] Health Maintenance Due Date Last Done Comments Disability Screening 1990 Alcohol/Substance Use Screening 2004 Family Planning (PISQ) [...] 05/23/2023, 03/0 03/2023, 01/03/2022, Additional history exists Tobacco Screening 12/03/2024 12/04/2023 Depression Screening 04/21/2025 [...] patient's age to complete this topic Meningococcal B Vaccine Aged Out No l onger eligible based on patient's age to complete [...] Procedure Name Priority Date/Time Associated Diagnosis Comments URINALYSIS, COMPLETE, WITH REFLEX TO CULTURE Routine 06/29/2024 10:33 AM EDT CULTURE, URINE, ROUTINE Routine 06/29/2024 9:18 AM EDT CULTURE, URINE, ROUTINE Routine 06/29/2024 9:16 AM EDT LIPID PANEL, STANDARD Routine 06/25/2023 11:40 AM [...] Recently Relevant to Health Maintenance Results * Urinalysis, Complete, with Reflex to Culture (06/29/2024 10:33 AM EDT) Urine us Historical Provider LAB URINE ORDERABLES Mikaal l Result * Culture, Urine, Routine (06/29/2024 9:18 AM EDT) Only the most recent of2 resultswithin the time period is included. Urine us Historical Provider MD LAB MICROBIOLOGY - GENERA L ORDERABLES Final Result * Lipid Panel, Standard (06/25/2023 11:40 AM EDT) Triglycerides 54 <150 mg/dL [facility] Comment:Desirable Triglyceri de: less than 150 mg/dLBorderline High Triglyceride 150-199 mg/dLHigh Triglyceride: 200-499 mg/dLVery High Triglyceride: greater than or equal to 5OO mg/dL Cholesterol 130 <200 mg/dL [facility] Comment:Desirable Cholestero l: less than 200 mg/dLBorderline High Cholesterol: 200-239 mg/dLHigh Cholesterol: greater than 239 mg/dL LDL Cholesterol Calculated 73 <100 mg/dL [facility] Comment:Desirable LDL: less than 100 mg/dLNear Optimal/Above Optimal LDL: 110- 129 mg/dLBorderline High LDL: 130-159 mg/dLHigh LDL: 160-189 mg/dLVery High LDL: greater than or equal to 190 mg/dL HDL Cholesterol 47 >40 mg/dL [facility] Comment:Desirable HDL: great er than 40 mg/dL Note: This HDL assay may give artificially low results in patients with liver disease. 06/25/2023 11:4 0 AM EDT 06/25/2023 11:40 AM EDT us Generic External Data Provider LAB BLOOD ORDERAB LES Final Result [facility] [address] [place] [phone] * Pap Smear (05/23/2023 11:27 AM EST) 05/23/2023 11:2 7 AM EST 05/27/2023 7:30 AM EST Narrative [facility] - 06/04/2023 6:05 PM EDT ----- ------- Name: Vanessa Menchaca ? Age/Sex: 33/F ? : 1990 Unit#: [id number] ?? Attend Dr: Ifrah Lilly CNM ?Re05/23/23 ?Status: DEP REF ? Location: HO.LNP ?Disch: ? ----- ------- SPEC : [id number] ? RECD: 05/27/23 ? STATUS: ??SOUT ? REQ NUM: [id number] ? JT: 05/23/23-1126 ? SUBM DR: Ifrah Lilly CNM ? [...] Not Detected ? HPV testing performed by [facility], [place], [place]. ??See reference laboratory ?? portion of the EMR for entire report. ?Clinical Information LMP: 04/20/23 Previous PAP test: 2021, ASCUS ? Material Received ?? ThinPrep-Cervical Copies To: ?? Melody Robins MD ?? [address] ?? [place] [address] ?? [phone] ?? Ifrah Lilly CNM ?? [address] [place] [address] Dr. [place]on [facility] ?? [place] [address] ?? [phone] ----- ------- Signed (signature on file) Zhanna Timo 06/04/23 1805 ? ----- ------- ? END OF REPORT ? Generic External Data Provider LAB CYTOLOGY YOLIE YU Final Result Performing Organization Address [facility] Co de Phone Number [facility] [address] [place] [phone] * HEPATITIS C AB W/REFL TO [...] a test for HCV RNA (test code 73512) is suggested. ?? For additional information please refer to http://education.[employer]/faq/MVF68m3 (This link is being provided for informational/ educational purposes only.) ?? 01/22/2022 10:3 4 AM EDT Brenda GRIMALDO HISTORICAL/NON ORDERABLE LABS Fi nal Result Performing Organization Address [facility] Co de Phone Number CONVERTED LEGACY LABS * HIV 1/2 ANTIGEN/ANTIBODY,FOURTH GENERATION W/RFL (01/22/2022 10:34 AM EDT) Pathologist [facility] HIV-1/2 ANTIGEN AND ANTIBODIES, 4TH GENERATION W/ [...] ? For additional information please refer to http://education.bookletmobile/faq/MVK420 (This link is being provided for informational/ educational purposes only.) ? The performance of this assay has not been clinically validated in patients less than 2 years old. ?? 01/22/2022 10:3 4 AM EDT [facility] LAB BLOOD ORDERABLES Final Resul t Performing Organization Address [facility] Co de Phone Number CONVERTED LEGACY LABS * (ABNORMAL) HPV E6/E7 RFLX SHRUTI 16 18/45 (08/14/2020 3:10 PM EDT) [facility] HPV 16 RNA NOT DETECTED NOT DETECTED [facility] HPV 18/45 RNA NOT DETECTED NOT DETECTED [facility] Comment: Methodology: Dry Press Operator Mediated Amplification The analytical performance characteristics of this assay have been determined by [facility]. The modifications have not been cleared or approved by the FDA. This assay has been validated pursuant to the CLIA regulations and is used for clinical purposes. THIS TEST WAS PERFORMED AT: [facility] [address] [place] [address],[address] [place], [place] ??[phone] DARLYN BAILEY MD HPV mRNA E6/E7 rflx Detected(A) Not Detected [facility] Comment: Methodology: Dry Press Operator-Mediated Amplification This assay detects E6/E7 viral messenger RNA (mRNA) from 14 high-risk HPV types (16,18,31,33,35,39,45,51,52,56,58,59,66,68). The analytical performance characteristics of this assay have been determined by [facility]. The modifications have not been cleared or approved by the FDA. This assay has been validated pursuant to the CLIA regulations and is used for clinical purposes. For additional information, please refer to http://education.bookletmobile/faq/QXC389e1 (This link if provided for information/ educational purposes only.) THIS TEST WAS PERFORMED AT: [facility] [address] [place] [address] [address] [place], [place] ??[phone] DARLYN BAILEY MD 08/14/2020 3:10 PM EDT us Ifrah Lilly HISTORICAL/NON ORDERABLE LABS Fi nal Result [facility] [address] from Last 3 Months or Most Recently Relevant to Health Maintenance Insurance C3 Care Teams Smoke And Flame Specialist Relationship Specialty Start Date End Date Melody Robins MD [address] [place] [phone] PCP - General Family Medicine 10/02/16
--- OUTSIDE RECORDS SUMMARY | 2024-08-10 12:05 | XMS_ITS | Encounter Summary ---
Author Organization [employer] Address [address] [place] [address] 7 [place] [address] Care Team Providers Care Profiling Machine Operator Name Role Phone Melody Robins MD Primary Care Provider [phone] Encounter Details Date Type Department Care Team (Late Contact Info) Description 12/17/[address] [facility] [address] [place] [address] Polly Diamond Social History Tobacco Use Types Packs/Day Years Used Date Smoking Tobacco: Never Smokeless Tobacco: Never Comments Unknown Sex and Gender Information Value Date Recorded Sex Assigned at Female 01/21/2022 10:31 AM EDT Legal Sex Female 10:31 AM EDT Gender Identity Female 01/21/2022 10:31 AM EDT Sexual Orientation Straight 01/21/2022 10 :31 AM EDT documented as of this encounter Plan of Treatment Upcoming Encounters Date Type Department Care Team ([facility] Contact Info) Description 09/28/2024 9:15 AM EDT Office Visit [facility] [address] [place], [place] [phone] Melody Robins MD [address] [place] [address] documented as of this encounter Procedures Procedure Name Priority Date/Time Associated Diagnosis Comments COLPOSCOPY Routine 09/27/2020 12:00 AM EDT documented in this encounter Results * Colposcopy (09/27/2020 12:00 AM EDT) us Historical Provider IN CLINIC/BEDSIDE ORDERAB LES Final Result documented in this encounter Visit Diagnoses Not on filedocumented in this encounter Care Teams Profiling Machine Operator Relationship Specialty Start Date End Date Melody Robins MD [address] [place] [address] PCP - General Family Medicine 10/02/16 documented as of this encounter
--- OUTSIDE RECORDS SUMMARY | 2024-08-10 12:05 | XMS_ITS | Encounter Summary ---
Author Organization [employer] Address [address] [place] [address] 7 [place] [address] Care Team Providers Care Seasonal Delivery Driver Name Role Phone Melody Robins MD Primary Care Provider [phone] Encounter Details Date Type Department Care Team ([facility] Contact Info) Description 10/07/2022 Abstract [facility] [address] [place] [address] Melody Robins MD [address] [place] [address] Social History Tobacco Use Types Packs/Day Years [...] Upcoming Encounters Date Type Department Care Team ([facility] Contact Info) Description 09/28/2024 9:15 AM EDT Office Visit [facility] [address] [place] [address] Melody Robins MD [address] [place] [address] documented as of this encounter Visit Diagnoses Not on filedocumented in this encounter Care Teams Seasonal Delivery Driver Relationship Specialty Start Date End Date Melody Robins MD [address] [place] [address] PCP - General Family Medicine 10/02/16 documented as of this encounter
--- OUTSIDE RECORDS SUMMARY | 2024-08-10 12:05 | XMS_ITS | Encounter Summary ---
Author Organization [employer] Address [address] [place] [address] 7 [place] [address] Care Team Providers Care Director Of Event Management Name Role Phone Melody Robins MD Primary Care Provider [phone] Encounter Details Date Type Department Care Team (Late Contact Info) Description 12/17/2022 Orders Only [facility] MEDICINE [address] [place] [address] ProviderLuli MD Social History Tobacco Use Types [...] Upcoming Encounters Date Type Department Care Team ([facility] Contact Info) Description 09/28/2024 9:15 AM EDT Office Visit [facility] [address] [place], [place] [phone] Melody Robins MD [address] [place] [address] documented as of this encounter Procedures Procedure Name Priority Date/Time Associated Diagnosis Comments HM PAP/HPV Routine 01/03/2022 HM PAP/HPV Routine 08/14/2020 documented in this encounter Results * Hm Pap Smear (01/03/2022) Historical Provider HEALTH MAINTENANCE Final Result * Hm Pap Smear (08/14/2020) us Historical Provider HEALTH MAINTENANCE Final Result documented in this encounter Visit Diagnoses Not on filedocumented in this encounter Care Teams Director Of Event Management Relationship Specialty Start Date End Date Melody Robins MD [address] [place] [address] PCP - General Family Medicine 10/02/16 documented as of this encounter
--- OUTSIDE RECORDS SUMMARY | 2024-08-10 12:05 | XMS_ITS ---
Author Organization [employer] Address [address] [place] [address] [address] [place] [address] Care Team Providers Care Bow Repairer Custom Name Role Phone Melody Robins MD Primary Care Provider [phone] CM Complex Status:Outreach In Progress (Enrolling) Start date:06/30/2024 Enrollment reason:ADT Feed Overview ED- Pt went to [facility] ED on 06/29/24. Case Team Name Relationship Phone Liliana Ahn RN(Responsible Staff) Registered Nurse [phone] Continued Care and Services Coordination
--- OUTSIDE RECORDS SUMMARY | 2024-08-10 12:05 | XMS_ITS | Encounter Summary ---
Author Organization [employer] Address [address] [facility] 7t [place] [address] Care Team Providers Care Scrap Hooker Name Role Phone Melody Robins MD Primary Care Provider [phone] Encounter Details Date Type Department Care Team ([facility] st Contact Info) Description 08/06/2024 Patient Outreach [facility] CHC MED & PEDS [address] [place] [address] Melody Robins MD [address] [place] [address] Social History Tobacco Use Types Packs/Day Years [...] Upcoming Encounters Date Type Department Care Team ([facility] st Contact Info) Description 09/28/2024 9:15 AM EDT Office Visit [facility] MED & PEDS [address] [place] [address] Melody Robins MD [address] [place] [address] documented as of this encounter Visit Diagnoses Not on filedocumented in this encounter Additional Health Concerns Assessment Noted Time PHQ-9 Depression Total Score: 11 025 3:59 PM EST documented as of this encounter Care Teams Scrap Hooker Relationship Specialty Start Date End Date Melody Robins MD [address] [place] [address] PCP - General Family Medicine 10/02/16 documented as of this encounter
--- OUTSIDE RECORDS SUMMARY | 2024-08-10 12:05 | XMS_ITS ---
Author Organization [employer] Address [address] [place] [address] 7t [place] [address] Care Team Providers Care Net Developer Name Role Phone Melody Robins MD Primary Care Provider [phone] CHW Complex Status:Outreach In Progress (Enrolling) Start date:06/30/2024 Enrollment reason:ADT Feed Overview ED- Pt went to [facility] ED on 06/29/24. Case Team Name Relationship Phone Ladan Veloz(Responsible Staff) [phone] Continued Care and Services Coordination
--- OUTSIDE RECORDS SUMMARY | 2024-08-10 12:05 | XMS_ITS | Encounter Summary ---
Author Organization [employer] Address [address] 7t [place] [address] Care Team Providers Care Convex Grinder Operator Name Role Phone Melody Robins MD Primary Care Provider [phone] Encounter Details Date Type Department Care Team (Late st Contact Info) Description 07/01/2024 Orders Only [facility] CHC MED & PEDS [address] [place] [address] Provider, MD Luli Social History Tobacco Use Types Packs/Day Years [...] Upcoming Encounters Date Type Department Care Team (Late st Contact Info) Description 09/28/2024 9:15 AM EDT Office Visit [facility] CHC MED & PEDS [address] [place] [address] Melody Robins MD [address] [place] [address] documented as of this encounter Procedures Procedure Name Priority Date/Time Associated Diagnosis Comments CULTURE, URINE, ROUTINE Routine 06/29/2024 9:18 AM EDT CULTURE, URINE, ROUTINE Routine 06/29/2024 9:16 AM EDT documented in this encounter Results * Culture, Urine, Routine (06/29/2024 9:18 AM EDT) Urine Historical Provider LAB MICROBIOLOGY - GENERA L ORDERABLES Final Result * Culture, Urine, Routine (06/29/2024 9:16 AM EDT) Urine Historical Provider LAB MICROBIOLOGY - GENERA L ORDERABLES Final Result documented in this encounter Visit Diagnoses Not on filedocumented in this encounter Additional Health Concerns Assessment Noted Time PHQ-9 Depression Total Score: 11 025 3:59 PM EST documented as of this encounter Care Teams Convex Grinder Operator Relationship Specialty Start Date End Date Melody Robins MD [address] [place] [address] PCP - General Family Medicine 10/02/16 documented as of this encounter
--- OUTSIDE RECORDS SUMMARY | 2024-08-10 12:05 | XMS_ITS | Encounter Summary ---
Author Organization [employer] Address [address] [facility] 7 [place] [address] Care Team Providers Care Control Operator Name Role Phone Melody Robins MD Primary Care Provider [phone] Reason for Visit * Reason Onset Date Comments Appointment Request 09/19/2023 Encounter Details Date Type Department Care Team ([facility] Contact Info) Description 09/19/2023 Telephone [facility] MEDICINE [address] [place] [address] Melody Robins MD [address] [place] [address] Appointment Request Social History Tobacco Use Types [...] documented in this encounter Plan of Treatment Upcoming Encounters Date Type Department Care Team (Late st Contact Info) Description 09/28/2024 9:15 AM EDT Office Visit [facility] CHC MED & PEDS [address] [place] [address] Melody Robins MD [address] [place] [address] documented as of this encounter Visit Diagnoses Not on filedocumented in this encounter Additional Health Concerns Assessment Noted Time PHQ-9 Depression Total Score: 9 07/15/19 24 9:49 AM EDT documented as of this encounter Care Teams Control Operator Relationship Specialty Start Date End Date Melody Robins MD [address] [place] [address] PCP - General Family Medicine 10/02/16 documented as of this encounter
--- OUTSIDE RECORDS SUMMARY | 2024-08-10 12:05 | XMS_ITS | Encounter Summary ---
Author Organization [employer] Address [address] [facility] 7 [place] [address] Care Team Providers Care Paper Machine Operator Name Role Phone Melody Robins MD Primary Care Provider [phone] Reason for Visit * Reason Onset Date Comments Appointment Request 09/29/2023 Encounter Details Date Type Department Care Team ([facility] Contact Info) Description 09/29/2023 Telephone [facility] MEDICINE [address] [place] [address] Melody Robins MD [address] [place] [address] Appointment Request Social History Tobacco Use Types [...] Description 09/28/2024 9:15 AM EDT Office Visit [facility] CHC MED & PEDS [address] [place] [address] Melody Robins MD [address] [place] [address] documented as of this encounter Visit Diagnoses Not on filedocumented in this encounter Additional Health Concerns Assessment Noted Time PHQ-9 Depression Total Score: 9 07/15/19 9:49 AM EDT documented as of this encounter Care Teams Paper Machine Operator Relationship Specialty Start Date End Date Melody Robins MD [address] [place] [address] PCP - General Family Medicine 10/02/16 documented as of this encounter
--- OUTSIDE RECORDS SUMMARY | 2024-08-10 12:05 | XMS_ITS | Encounter Summary ---
Author Organization [employer] Address [address] [facility] [address] 7t [place] [address] Care Team Providers Care Hunter Name Role Phone Melody Robins MD Primary Care Provider [phone] Encounter Details Date Type Department Care Team (Late st Contact Info) Description 06/30/2024 Orders Only [facility] CHC MED & PEDS [address] [place] [address] Provider, MD Luli Social History Tobacco Use [...] 9:15 AM EDT Office Visit [facility] MED & PEDS 505 [place], [place] [phone] Melody Robins MD [address] [place] [address] documented as of this encounter Procedures Procedure Name Priority Date/Time Associated Diagnosis Comments URINALYSIS, COMPLETE, WITH REFLEX TO CULTURE Routine 06/29/2024 10:33 AM EDT documented in this encounter Results * Urinalysis, Complete, with Reflex to Culture (06/29/2024 10:33 AM EDT) Urine us Historical Provider LAB URINE ORDERABLES Mikala l Result documented in this encounter Visit Diagnoses Not on filedocumented in this encounter Additional Health Concerns Assessment Noted Time PHQ-9 Depression Total Score: 11 025 3:59 PM EST documented as of this encounter Care Teams Hunter Relationship Specialty Start Date End Date Melody Robins MD [address] [place] [address] PCP - General Family Medicine 10/02/16 documented as of this encounter
--- OUTSIDE RECORDS SUMMARY | 2024-08-10 12:05 | XMS_ITS | Encounter Summary ---
Author Organization [employer] Address [address] [place] [address] 7 [place] [address] Care Team Providers Care Materials Management Supervisor Name Role Phone Melody Robins MD Primary Care Provider [phone] Reason for Visit * Reason Comments Care Coordination C3/CM Outreach Encounter Details Date Type Department Care Team (Latest Contact Info) Description 08/05/[address] Out[address] [facility] CHC MED & PEDS [address] [place] [address] Melody Robins MD [address] [place] [address] Care Coordination (C3/CM Outreach) Social History Tobacco Use Types Packs/Day Years [...] AM EDT documented as of this encounter Progress Notes * Ladan Veloz - 08/05/2024 10:41 AM EDT CHW Ladan Veloz placed outbound call to patient in regards to rescheduling missed initial assessment appointment on 07/21/24 for Adult Complex Care program services. No answer at this time. LVM introducing self from [facility] CM Department with name and direct contact number requesting call back. Will re-attempt to contact within 5 days. and address not confirmed. documented in this encounter Plan of Treatment Upcoming Encounters Date Type Department Care Team ([facility] st Contact Info) Description 09/28/2024 9:15 AM EDT Office Visit [facility] MED & PEDS [address] [place] [address] Melody Robins MD [address] [place] [address] documented as of this encounter Visit Diagnoses Not on filedocumented in this encounter Additional Health Concerns Assessment Noted Time PHQ-9 Depression Total Score: 11 025 3:59 PM EST documented as of this encounter Care Teams Materials Management Supervisor Relationship Specialty Start Date End Date Melody Robins MD [address] [place] [address] PCP - General Family Medicine 10/02/16 documented as of this encounter
--- OUTSIDE RECORDS SUMMARY | 2024-08-10 12:05 | XMS_ITS | Encounter Summary ---
Author Organization [employer] Address [address] [facility] 7 [place] [address] Care Team Providers Care Processing Archivist Name Role Phone Melody Robins MD Primary Care Provider [phone] Reason for Visit * Reason Onset Date Comments Med Refill 08/05/2024 Encounter Details Date Type Department Care Team ([facility] Contact Info) Description 08/05/2024 Telephone [facility] MEDICINE [address] [place] [address] Melody Robins MD [address] [place] [address] Med Refill Social History Tobacco Use Types Packs/Day Years [...] encounter Miscellaneous Notes * Telephone Encounter - Shama Fortune LPN - 08/05/2024 2:31 PM EDT Patient should have a refill left * Telephone Encounter - Nika Waldrop - 08/05/2024 2:28 PM EDT TC from pt requesting medication refill. Medications needing refill : topiramate 50 MG tablet To be sent to: [facility]/pharmacy #2500 [facility] - [address] [place] [address] documented in this encounter Plan of Treatment Upcoming Encounters Date Type Department Care Team ([facility] st Contact Info) Description 09/28/2024 9:15 AM EDT Office Visit [facility] CHC MED & PEDS [address] [place], [place] [phone] Melody Robins MD [address] [place], [place] [phone] documented as of this encounter Visit Diagnoses Not on filedocumented in this encounter Additional Health Concerns Assessment Noted Time PHQ-9 Depression Total Score: 11 025 3:59 PM EST documented as of this encounter Care Teams Processing Archivist Relationship Specialty Start Date End Date Melody Robins MD [address] [place] [address] PCP - General Family Medicine 10/02/16 documented as of this encounter
== END 2024-08-10 11:20 | disposition home or self-care (01) ==
PROVIDERS: PCP Pediatrics; Visit Provider Advanced Practice Midwife
DX: Z01.419 Encounter for gynecological examination (general) (routine) without abnormal findings (principal); R87.619 Unspecified abnormal cytological findings in specimens from cervix uteri
CPT/HCPCS: 99395; 99459

== ENCOUNTER 2024-08-10 10:51 | Outpatient (REF) | payer MEDICAID, SELFPAY ==
--- OUTSIDE RECORDS SUMMARY | 2024-08-10 12:38 | XMS_ITS ---
Author Organization [employer] Address [address] [place] [address] 7t [place] [address] Care Team Providers Care Marketing Strategy Analyst Name Role Phone Melody Robins MD Primary Care Provider [phone] CHW Complex Status:Outreach In Progress (Enrolling) Start date:06/30/2024 Enrollment reason:ADT Feed Overview ED- Pt went to [facility] ED on 06/29/24. Case Team Name Relationship Phone Ladan Veloz(Responsible Staff) [phone] Continued Care and Services Coordination
--- OUTSIDE RECORDS SUMMARY | 2024-08-10 12:38 | XMS_ITS ---
Author Organization [employer] Address [address] [place] [address] 7t [place] [address] Care Team Providers Care Wardrobe Specialist Name Role Phone Melody Robins MD Primary Care Provider [phone] CM Complex Status:Outreach In Progress (Enrolling) Start date:06/30/2024 Enrollment reason:ADT Feed Overview ED- Pt went to [facility] ED on 06/29/24. Case Team Name Relationship Phone Liliana Ahn RN(Responsible Staff) Registered Nurse [phone] Continued Care and Services Coordination
--- OUTSIDE RECORDS SUMMARY | 2024-08-10 12:39 | XMS_ITS | Encounter Summary ---
Author Organization [employer] Address [address] [facility] [address] 7t [place] [address] Care Team Providers Care Adhesive Primer Name Role Phone Melody Robins MD Primary Care Provider [phone] Encounter Details Date Type Department Care Team (Late st Contact Info) Description 06/30/2024 Orders Only [facility] CHC MED & PEDS [address] [place] [address] Provider, MD Luli Social History Tobacco Use [...] is your housing situation today? I have maara hirsch 01/06/[address] you [...] Description 09/28/2024 9:15 AM EDT Office Visit [facility] MED & PEDS [address] [place], [place] [phone] Melody Robins MD [address] [place] [address] documented as of this encounter Procedures Procedure [...] documented as of this encounter Care Teams Adhesive Primer Relationship Specialty Start Date End Date Melody Robins MD [address] [place] [address] PCP - General Family Medicine 10/02/16 documented as of this encounter
--- OUTSIDE RECORDS SUMMARY | 2024-08-10 12:39 | XMS_ITS | Clinical Summary ---
Author Organization [employer] Address [address] [facility] 7t [place] [address] Care Team Providers Care Bond Trader Name Role Phone Melody Robins MD Primary Care Provider Allergies No known active allergies Medications * This document contains information received from the source organization and may not represent a complete record from that organization. ergocalciferol (Vitamin D2) 1.25 MG (94916 UT) capsule Take 1 capsule (1.25 mg) by mouth 1 (one) time per week. 15 capsule 4 Active zinc gluconate 30 MG tablet Take 1 tablet by mouth Once per day. 4 Active beta carotene (vitamin A) 3 MG (41769 UT) capsule Take by mouth Once per [...] presented to the clinic today for a compensation expert visit for her son. During pedi visit, mom was visible stress and emotionally overwhelmed. Mom reported presentation of sxs are associated with her son diagnosis (Autism). She is currently living with her mother but reports needing assistance to apply for housing. Pt has a therapist with [facility] and have weekly appointments per her report. Not interested at this time to start medication. clinician engaged patient with active/reflective listening. Reviewed and assessed for risk, current stressors and protective factors using open-ended questions. Pt will be referred with CM to assist with housing resources. Explored coping strategies that pt can use during stressful times. Provided [facility] contact information and educated patient on [...] Department Care Team Description 08/06/2024 Patient Outreach [facility] MED & PEDS [address] [place] [address] Melody Robins MD 08/05/[address] [address] Melody Robins MD Med Refill 08/05/2024 Patient Outreach [facility] MED & PEDS [address] [place] [address] Melody Robins MD Care Coordination (C3/CM Outreach) 07/23/2024 Patient Outreach [facility] MED & PEDS [address] [place] [address] Melody Robins MD Care Coordination (C3/CM Outreach) 07/21/2024 Patient Outreach [facility] MED & PEDS [address] [place] [address] Melody Robins MD 07/20/2024 Patient Outreach [facility] MED & PEDS [address] [place] [address] Melody Robins MD Care Coordination (C3/CM Appt reminder) 07/01/2024 Orders Only [facility] MED & PEDS [address] [place] [address] Luli Doll MD 06/30/2024 Patient Outreach [address] [address] Melody Robins MD Care Coordination (C3/CM Outreach) 06/30/2024 Patient Outreach [address] [address] Melody Robins MD Care Coordination (C3/CM Chart Review) 06/30/2024 Patient Outreach [facility] CHC MED & PEDS [address] [place] [address] Melody Robins MD Care Coordination ([facility] Chart review) 06/30/2024 Orders Only [facility] CHC MED & PEDS [address] [place] [address] ProviderLuli MD 06/30/2024 Patient Outreach [facility] MEDICINE [address] [place] [address] Melody Robins MD 06/04/2024 [address] Health Risk Score [facility] (C3) Department [address] [place] [phone] Provider, Population Health Generic 06/03/2024 Refill [facility] MED & PEDS [address] [place] [address] Melody Robins MD 06/03/2024 Telephone [facility] MED & PEDS [address] [place] [address] Melody Robins MD Med Refill from Last [...] Upcoming Encounters Date Type Department Care Team ([facility] st Contact Info) Description 09/28/2024 9:15 AM EDT Office Visit [facility] CHC MED & PEDS [address] [place] [address] Melody Robins MD [address] [place] [address] Health Maintenance Due Date Last Done Comments [...] Provider LAB URINE ORDERABLES Mikala l Result * Culture, Urine, Routine (06/29/2024 9:18 AM EDT) Only the most recent of2 resultswithin the time period is included. Urine us Historical Provider MD LAB MICROBIOLOGY - GENERA L ORDERABLES Final Result * Lipid Panel, Standard (06/25/2023 11:40 AM EDT) Triglycerides 54 <150 mg/dL [facility] Comment:Desirable Triglyceri de: less than 150 mg/dLBorderline High Triglyceride 150-199 mg/dLHigh Triglyceride: 200-499 mg/dLVery High Triglyceride: greater than or equal to 5OO mg/dL Cholesterol 130 <200 mg/dL [facility] Comment:Desirable Cholestero l: less than 200 mg/dLBorderline High Cholesterol: 200-239 mg/dLHigh Cholesterol: greater than 239 mg/dL LDL Cholesterol Calculated 73 <100 mg/dL [facility] Comment:Desirable LDL: less than 100 mg/dLNear Optimal/Above Optimal LDL: 110- 129 mg/dLBorderline High LDL: 130-159 mg/dLHigh LDL: 160-189 mg/dLVery High LDL: greater than or equal to 190 mg/dL HDL Cholesterol 47 >40 mg/dL [facility] Comment:Desirable HDL: great er than 40 mg/dL Note: This HDL assay may give artificially low results in patients with liver disease. 06/25/2023 11:4 0 AM EDT 06/25/2023 11:40 AM EDT us Generic External Data Provider LAB BLOOD ORDERAB LES Final Result [facility] [address] [place] [phone] * Pap Smear (05/23/2023 11:27 AM EST) 05/23/2023 11:2 7 AM EST 05/27/2023 7:30 AM EST Narrative [facility] - 06/04/2023 6:05 PM EDT ----- ------- Name: Vanessa Menchaca ? Age/Sex: 33/F ? : 1990 Unit#: [id number] ?? Attend Dr: Ifrah Lilly CNM ?Re05/23/23 ?Status: DEP REF ? Location: HO.LNP ?Disch: ? ----- ------- SPEC : [id number] ? RECD: 05/27/23 ? STATUS: ??SOUT ? REQ NUM: [id number] ? JT: 05/23/23-1126 ? SUBM DR: Ifrah [...] Not Detected ? HPV testing performed by [facility], [place], [place]. ??See reference laboratory ?? portion of the EMR for entire report. ?Clinical Information LMP: 04/20/23 Previous PAP test: 2021, ASC[facility] ? Material Received ?? ThinPrep-Cervical Copies To: ?? Melody Robins MD ?? [address] ?? [place] [address] ?? [phone] ?? Ifrah Lilly CNM ?? [address] [place] [address] [address] [facility] ?? [place] [address] ?? [phone] ----- ------- Signed (signature on file) Zhanna Timo 06/04/23 1805 ? ----- ------- ? END OF REPORT ? Generic External Data Provider LAB CYTOLOGY YOLIE YU Final Result Performing Organization Address [facility] Co de Phone Number [facility] [address] [place] [phone] * HEPATITIS C AB W/REFL TO [...] a test for HCV RNA (test code 73050) is suggested. ?? For additional information please refer to http://education.[employer].PushToTest/faq/HHR83s5 (This link is being provided for informational/ educational purposes only.) ?? 01/22/2022 10:3 4 AM EDT Brenda GRIMALDO HISTORICAL/NON ORDERABLE LABS Fi nal Result Performing Organization Address [facility] Co de Phone Number CONVERTED LEGACY LABS * HIV 1/2 ANTIGEN/ANTIBODY,FOURTH GENERATION W/RFL (01/22/2022 10:34 AM EDT) Pathologist [facility] HIV-1/2 ANTIGEN AND ANTIBODIES, 4TH GENERATION W/ [...] ? For additional information please refer to http://education.[employer]/faq/QLZ450 (This link is being provided for informational/ educational purposes only.) ? The performance of this assay has not been clinically validated in patients less than 2 years old. ?? 01/22/2022 10:3 4 AM EDT [facility] LAB BLOOD ORDERABLES Final Resul t Performing Organization Address [facility] Co de Phone Number CONVERTED LEGACY LABS * (ABNORMAL) HPV E6/E7 RFLX SHRUTI 16 18/45 (08/14/2020 3:10 PM EDT) [facility] HPV 16 RNA NOT DETECTED NOT DETECTED [facility] HPV 18/45 RNA NOT DETECTED NOT DETECTED [facility] Comment: Methodology: Cryptography Teacher Mediated Amplification The analytical performance characteristics of this assay have been determined by [facility]. The modifications have not been cleared or approved by the FDA. This assay has been validated pursuant to the CLIA regulations and is used for clinical purposes. THIS TEST WAS PERFORMED AT: [facility] [address] [place] [address],[address] [place], [place] ??[phone] DARLYN BAILEY MD HPV mRNA E6/E7 rflx Detected(A) Not Detected [facility] Comment: Methodology: Cryptography Teacher-Mediated Amplification This assay detects E6/E7 viral messenger RNA (mRNA) from 14 high-risk HPV types (16,18,31,33,35,39,45,51,52,56,58,59,66,68). The analytical performance characteristics of this assay have been determined by [facility]. The modifications have not been cleared or approved by the FDA. This assay has been validated pursuant to the CLIA regulations and is used for clinical purposes. For additional information, please refer to http://education.[employer]/faq/UZA109m7 (This link if provided for information/ educational purposes only.) THIS TEST WAS PERFORMED AT: [facility] [address] [place] [address] [address] [place], [place] ??[phone] DARLYN BAILEY MD 08/14/2020 3:10 PM EDT us Ifrah Lilly HISTORICAL/NON ORDERABLE LABS Fi nal Result [facility] Formerly [facility] [address] from Last 3 Months or Most Recently Relevant to Health Maintenance Insurance C3 Care Teams Bond Trader Relationship Specialty Start Date End Date Melody Robins MD [address] [place] [address] PCP - General Family Medicine 10/02/16
--- OUTSIDE RECORDS SUMMARY | 2024-08-10 12:39 | XMS_ITS | Encounter Summary ---
Author Organization [employer] Address [address] [facility] 7 [place] [address] Care Team Providers Care Cream Ripener Name Role Phone Melody Robins MD Primary Care Provider [phone] Reason for Visit * Reason Onset Date Comments Med Refill 08/05/2024 Encounter Details Date Type Department Care Team ([facility] Contact Info) Description 08/05/2024 Telephone [facility] MEDICINE [address] [place] [address] Melody Robins MD [address] [place] [address] Med Refill Social History Tobacco Use Types [...] 50 MG tablet To be sent to: [facility]/pharmacy #[id number] [facility] - [address] [place] [address] documented in this encounter Plan of Treatment Upcoming Encounters Date Type Department Care Team ([facility] st Contact Info) Description 09/28/2024 9:15 AM EDT Office Visit [facility] CHC MED & PEDS [address] [place], [place] [phone] Melody Robins MD [address] [place], [place] [phone] documented as of this encounter Visit Diagnoses Not on filedocumented in this encounter Additional Health Concerns Assessment Noted Time PHQ-9 Depression Total Score: 11 025 3:59 PM EST documented as of this encounter Care Teams Cream Ripener Relationship Specialty Start Date End Date Melody Robins MD [address] [place] [address] PCP - General Family Medicine 10/02/16 documented as of this encounter
--- OUTSIDE RECORDS SUMMARY | 2024-08-10 12:39 | XMS_ITS | Encounter Summary ---
Author Organization [employer] Address [address] [facility] 7 [place] [address] Care Team Providers Care Nanotechnology Engineering Technician Name Role Phone Melody Robins MD Primary Care Provider [phone] Reason for Visit * Reason Onset Date Comments Appointment Request 09/29/2023 Encounter Details Date Type Department Care Team ([facility] Contact Info) Description 09/29/2023 Telephone [facility] MEDICINE [address] [place] [address] Melody Robins MD [address] [place] [address] Appointment Request Social History Tobacco Use Types [...] Description 09/28/2024 9:15 AM EDT Office Visit [facility] CHC MED & PEDS [address] [place] [address] Melody Robins MD [address] [place] [address] documented as of this encounter Visit Diagnoses Not on filedocumented in this encounter Additional Health Concerns Assessment Noted Time PHQ-9 Depression Total Score: 9 07/15/19 9:49 AM EDT documented as of this encounter Care Teams Nanotechnology Engineering Technician Relationship Specialty Start Date End Date Melody Robins MD [address] [place] [address] PCP - General Family Medicine 10/02/16 documented as of this encounter
--- OUTSIDE RECORDS SUMMARY | 2024-08-10 12:39 | XMS_ITS | Encounter Summary ---
Author Organization [employer] Address [address] [place] [address] 7 [place] [address] Care Team Providers Care District Manager Postal Service Name Role Phone Melody Robins MD Primary Care Provider [phone] Reason for Visit * Reason Comments Care Coordination C3/CM Outreach Encounter Details Date Type Department Care Team (Latest Contact Info) Description 08/05/2024 Patient Outreach [facility] CHC MED & PEDS [address] [place] [address] Melody Robins MD [address] [place] [address] Care Coordination (C3/CM Outreach) Social History Tobacco [...] at this time. LVM introducing self from [facility] CM Department with name and direct contact number requesting call back. Will re-attempt to contact within 5 days. and address not confirmed. documented in this encounter Plan of Treatment Upcoming Encounters Date Type Department Care Team ([facility] st Contact Info) Description 09/28/2024 9:15 AM EDT Office Visit [facility] MED & PEDS [address] [place] [address] Melody Robins MD [address] [place] [address] documented as of this encounter Visit Diagnoses Not on filedocumented in this encounter Additional Health Concerns Assessment Noted Time PHQ-9 Depression Total Score: 11 025 3:59 PM EST documented as of this encounter Care Teams District Manager Postal Service Relationship Specialty Start Date End Date Melody Robins MD [address] [place] [address] PCP - General Family Medicine 10/02/16 documented as of this encounter
--- OUTSIDE RECORDS SUMMARY | 2024-08-10 12:39 | XMS_ITS | Encounter Summary ---
Author Organization [employer] Address [address] [place] [address] 7 [place] [address] Care Team Providers Care Restaurant Crew Name Role Phone Melody Robins MD Primary Care Provider [phone] Encounter Details Date Type Department Care Team ([facility] Contact Info) Description 10/07/2022 Abstract [facility] MED & PEDS [address] [place] [address] Melody Robins MD [address] [place] [address] Social History Tobacco Use Types Packs/Day Years [...] Upcoming Encounters Date Type Department Care Team ([facility] Contact Info) Description 09/28/2024 9:15 AM EDT Office Visit [facility] MED & PEDS [address] [place] [address] Melody Robins MD [address] [place] [address] documented as of this encounter Visit Diagnoses Not on filedocumented in this encounter Care Teams Restaurant Crew Relationship Specialty Start Date End Date Melody Robins MD [address] [place] [address] PCP - General Family Medicine 10/02/16 documented as of this encounter
--- OUTSIDE RECORDS SUMMARY | 2024-08-10 12:39 | XMS_ITS | Encounter Summary ---
Author Organization [employer] Address [address] [facility] [address] 7[address] [place] [address] Care Team Providers Care Comparison Shopper Name Role Phone Melody Robins MD Primary Care Provider [phone] Encounter Details Date Type Department Care Team (Late st Contact Info) Description 07/01/2024 Orders Only [facility] CHC MED & PEDS [address] [place] [address] Provider, MD Luli Social History Tobacco Use [...] 09/28/2024 9:15 AM EDT Office Visit [facility] CHC MED & PEDS [address] [place] [address] Melody Robins MD [address] [place] [address] documented as of this encounter Procedures Procedure [...] documented as of this encounter Care Teams Comparison Shopper Relationship Specialty Start Date End Date Melody Robins MD [address] [place] [address] PCP - General Family Medicine 10/02/16 documented as of this encounter
--- OUTSIDE RECORDS SUMMARY | 2024-08-10 12:39 | XMS_ITS | Encounter Summary ---
Author Organization [employer] Address [address] [place] [address] 7 [place] [address] Care Team Providers Care Chart Clerk Name Role Phone Melody Robins MD Primary Care Provider [phone] Encounter Details Date Type Department Care Team (Late Contact Info) Description 12/17/2022 Orders Only [facility] MEDICINE [address] [place] [address] Polly Diamond Social History Tobacco Use Types [...] Upcoming Encounters Date Type Department Care Team ([facility] Contact Info) Description 09/28/2024 9:15 AM EDT Office Visit [facility] CHC MED & PEDS [address] [place], [place] [phone] Melody Robins MD [address] [place] [address] documented as of this encounter Procedures Procedure Name Priority Date/Time Associated Diagnosis Comments COLPOSCOPY Routine 09/27/2020 12:00 AM EDT documented in this encounter Results * Colposcopy (09/27/2020 12:00 AM EDT) us Historical Provider IN CLINIC/BEDSIDE ORDERAB LES Final Result documented in this encounter Visit Diagnoses Not on filedocumented in this encounter Care Teams Chart Clerk Relationship Specialty Start Date End Date Melody Robins MD [address] [place] [address] PCP - General Family Medicine 10/02/16 documented as of this encounter
--- OUTSIDE RECORDS SUMMARY | 2024-08-10 12:39 | XMS_ITS | Encounter Summary ---
Author Organization [employer] Address [address] [place] [address] 7 [place] [address] Care Team Providers Care Parachute Panel Joiner Name Role Phone Melody Robins MD Primary Care Provider Encounter Details Date Type Department Care Team (Late Contact Info) Description 12/17/2022 Orders Only [facility] MEDICINE [address] [place] [address] ProviderLuli MD Social History Tobacco Use Types [...] Upcoming Encounters Date Type Department Care Team ([facility] Contact Info) Description 09/28/2024 9:15 AM EDT Office Visit [facility] CHC MED & PEDS [address] [place], [place] [phone] Melody Robins MD [address] [place] [address] documented as of this encounter Procedures Procedure Name Priority Date/Time Associated Diagnosis Comments HM PAP/HPV Routine 01/03/2022 HM PAP/HPV Routine 08/14/2020 documented in this encounter Results * Hm Pap Smear (01/03/2022) Historical Provider HEALTH MAINTENANCE Final Result * Hm Pap Smear (08/14/2020) us Historical Provider HEALTH MAINTENANCE Final Result documented in this encounter Visit Diagnoses Not on filedocumented in this encounter Care Teams Parachute Panel Joiner Relationship Specialty Start Date End Date Melody Robins MD [address] [place] [address] PCP - General Family Medicine 10/02/16 documented as of this encounter
--- OUTSIDE RECORDS SUMMARY | 2024-08-10 12:39 | XMS_ITS | Encounter Summary ---
Author Organization [employer] Address 75 [facility] 7 [place] [address] Care Team Providers Care Pig Furnace Operator Name Role Phone Melody Robins MD Primary Care Provider [phone] Reason for Visit * Reason Onset Date Comments Appointment Request 09/19/2023 Encounter Details Date Type Department Care Team ([facility] Contact Info) Description 09/19/2023 Telephone [facility] [address] [place] [address] Melody Robins MD [address] [place] [address] Appointment Request Social History Tobacco Use Types [...] 09/28/2024 9:15 AM EDT [facility] MED [facility] PEDS [address] [place] [address] Melody Robins MD [address] [place] [address] documented as of this encounter Visit Diagnoses Not on filedocumented in this encounter Additional Health Concerns Assessment Noted Time PHQ-9 Depression Total Score: 9 07/15/19 24 9:49 AM EDT documented as of this encounter Care Teams Pig Furnace Operator Relationship Specialty Start Date End Date Melody Robins MD [address] [place] [address] PCP - General Family Medicine 10/02/16 documented as of this encounter
--- OUTSIDE RECORDS SUMMARY | 2024-08-10 12:39 | XMS_ITS | Encounter Summary ---
Author Organization [employer] Address 75 [facility] 7t [place] [address] Care Team Providers Care Operator Control Room Name Role Phone Melody Robins MD Primary Care Provider [phone] Encounter Details Date Type Department Care Team ([facility] st Contact Info) Description 08/06/2024 Patient Outreach [facility] CHC MED & PEDS [address] [place] [address] Melody Robins MD [address] [place] [address] Social History Tobacco Use Types Packs/Day Years [...] Description 09/28/2024 9:15 AM EDT Office Visit [facility] MED & PEDS [address] [place] [address] Melody Robins MD [address] [place] [address] documented as of this encounter Visit Diagnoses Not on filedocumented in this encounter Additional Health Concerns Assessment Noted Time PHQ-9 Depression Total Score: 11 025 3:59 PM EST documented as of this encounter Care Teams Operator Control Room Relationship Specialty Start Date End Date Melody Robins MD [address] [place] [address] PCP - General Family Medicine 10/02/16 documented as of this encounter
[2024-08-13 14:16] LABS: HPV Genotype 16 Positive (Negative); HPV Genotype 18 Negative (Negative); HPV High Risk Negative (Negative)
== END 2024-08-10 10:52 | disposition home or self-care (01) ==
LOC: HO.LNP 10:51
PROVIDERS: PCP Pediatrics; Visit Provider Advanced Practice Midwife
DX: Z01.411 Encounter for gynecological examination (general) (routine) with abnormal findings (principal); R87.610 Atypical squamous cells of undetermined significance on cytologic smear of cervix (ASC-US); R87.810 Cervical high risk human papillomavirus (HPV) DNA test positive; B97.7 Papillomavirus as the cause of diseases classified elsewhere
CPT/HCPCS: 87626; 88175; 99395; 99459

== ENCOUNTER 2024-09-29 10:26 | Outpatient (REF) | payer MEDICAID, SELFPAY | END 2024-09-29 10:27 | disposition home or self-care (01) | LOC: HO.LNP 10:26 | PROVIDERS: PCP Pediatrics; Visit Provider Obstetrics & Gynecology | DX: R87.610 Atypical squamous cells of undetermined significance on cytologic smear of cervix (ASC-US) (principal); R87.810 Cervical high risk human papillomavirus (HPV) DNA test positive; Z32.02 Encounter for pregnancy test, result negative; B97.7 Papillomavirus as the cause of diseases classified elsewhere | CPT/HCPCS: 57454; 81025; 88305 ==

== ENCOUNTER 2024-09-29 10:26 | Outpatient (AMB) | payer MEDICAID, SELFPAY ==
--- NOTE | 2024-09-29 10:30 | A.OFFVIS_ITS ---
Intake Visit Reasons: Colposcopy Automatic Fancy Machine Operator Required: Yes Automatic Fancy Machine Operator Language: S[employer]er Services: Automatic Fancy Machine Operator Present (in person) Automatic Fancy Machine Operator Name: Jayna Almeida GCUCI Information Interpreted: non-clinical & clinical Ethyl Blender: Ethyl Blender Present (GUCCI Colón) Accompanied by: Self / Same As Patient Allergies No Known Allergies (No Known Allergies*) Allergy (Verified 09/29/24 10:30) HPI Comments Details: Presenting referred for abnormal Pap smear showing ASCUS HPV 16 positive, HPV 18 negative [facility] Medical History (Updated 09/29/24 @ 10:33 by Chi Crane MD) Elevated testosterone level Kidney calculi Left ovarian cyst Pelvic pain DALTON I (cervical intraepithelial neoplasia I) ASCUS with positive high risk HPV Pap smear of cervix with ASCUS, cannot exclude HGSIL Obese Kidney stones Surgical History History of appendectomy Family History Maternal Grandmother Colon cancer Father HTN (hypertension) Maternal Grandfather Diabetes Maternal Grandfather Prostate cancer Social History Household Members Other:: mom and son Housing: House Alcohol intake: never Patient Tobacco Use Status: Never used Tobacco Current occupational status: 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 We thoroughly discussed the procedure itself, including its details, alternatives, and all associated risks. This included but not limited to the following complications such as bleeding, infection, and injury to the vagina, bladder, and vessels, as well as the potential need for transfusion with all its associated risks. Subsequently, the patient sign the consent. Pap smear result: LSIL. Urine test in office = Negative Procedure: During the procedure, the following steps were performed: A speculum was inserted, and acetic acid was applied. Colposcopy was conducted, allowing visualization of the transformation zone. Acetowhite lesions were identified at the 3+4+7+11+12 o'clock position. Cervical biopsies were obtained from the 3+4+7+11+12 o'clock position, followed by an endocervical curettage (ECC). Vaginoscopy of the upper vagina revealed no evidence of aceto-white lesions. Hemostasis was achieved using Monsel solution, and the patient tolerated the procedure well. Post-Procedure Instructions: The patient was advised to promptly contact the office or the after hours answering service or go to the emergency room if experiencing a temperature exceeding 100.4?F, abdominal pain, nausea/vomiting, or bleeding. Additionally, the patient was instructed to abstain from vaginal intercourse and bathtub use. The patient confirmed understanding of these instructions. Discharge Instructions: The patient was instructed to schedule a follow-up appointment in 2 weeks for further evaluation and management. Please note that this note was generated using a voice recognition program, and errors may have occurred during nursery school teacher. Procedure code (CPT) selection complete Results AMB Test Urine AMB Test Urine Negative Last Edit by Jayna Almeida CMA on 10:33 Assessment & Plan Assessment & Plan (1) ASCUS with positive high risk HPV cervical: Comment: HPV 16 positive/HPV 18 negative Code(s): R87.610 - Atypical squamous cells of undetermined significance on cytologic smear of cervix (ASC-US); R87.810 - Cervical high risk human papillomavirus (HPV) DNA test positive Category: Medical Plan: Discussed with the patient the result of her abnormal pap, its significance, risk of progression, persistence, and regression. the false positive/negative rate of a Pap smear as a screening test in detecting cervical cancer and the indication for a diagnostic test -colposcopy, biopsy, endocervical curettage. The patient verbalized understanding and agreed with the plan, all questions answered. Colposcopy, biopsy /ECC done, see procedure note Orders: Orders AMB HCG Urine Test Today Z32.02 - Encounter for test, result negative AMB Colposcopy Today R87.610 - Atypical squamous cells of undetermined significance on cytologic smear of cervix (ASC-US), R87.810 - Cervical high risk human papillomavirus (HPV) DNA test positive Coding Level of Care Code Procedure Only Diagnoses ASCUS with positive high risk HPV cervical R87.610; R87.810
--- OUTSIDE RECORDS SUMMARY | 2024-09-29 11:17 | XMS_ITS | Encounter Summary ---
Author Organization [employer] Address 75 [facility] 7 [place] [address] Care Team Providers Care Radiation Technician Name Role Phone Melody Robins MD Primary Care Provider [phone] Reason for Visit * Reason Onset Date Comments Nurse Triage 08/19/2024 Encounter Details Date Type Department Care Team ([facility] Contact Info) Description 08/19/2024 Telephone [facility] MEDICINE [address] [place] [address] Melody Robins MD [address] [place] [address] Nurse Triage Social History Tobacco Use Types [...] the past 12 months, has t he [employer], gas, oil or water company threatened to [...] Telephone Encounter - Linda Fisher RN - 08/19/2024 11:10 AM EDT Per chart review pt not seen recently. No med changes noted. 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 Call returned to Vanessa Taylor to triage below. Reports that med levothyroxine was changed from [facility]. Per pt having body pain, lump on head, having itchy skin. Med was changed this month. Pt last dose taken this morning. Call to [facility] [phone] to determine previous corn sheller and current med corn sheller name. Spoke with Brisa , Pt had been getting rx from [facility]On 07/30/24 pharmacy dispensed supply from [facility]. Pt offered sick onsite with PCP today at 1pm, pt unable to come in due to conflicting meeting. Given appt with [facility] next available on Friday. Message to be forwarded to PCP to review and further advise primary care team of any further changes to plan of care regarding Thyroid medication. Protocol Used: Muscle Aches and Body Pain (Adult) Protocol-Based Disposition: See in Office or Video Visit within 3 Days Future Appointments Date Time Provider Department Center 08/23/2024 11:15 AM Melody Robins MD [facility] 09/28/2024 9:15 AM Melody Robins MD [facility] Insurance verified as active per Real Time Eligibility in [facility]. Video visit offer not recorded Positive Triage Question: * Moderate pain (e.g., interferes with normal activities) and present > 3 days * All higher-acuity triage questions were negative Care Advice Discussed: * Reassurance and Education - Mild Muscle Pain * Pain Medicines * Reasons To Call Back - Fever occurs - Pain lasts longer than 7 days - You become worse * Telephone Encounter - Carlene Mauro - 08/19/2024 11:01 AM EDT Symptom: Medication Reaction Outcome: Schedule an urgent appointment (within 1 hour) or talk to a nurse or provider soon Reason: Caller denied all higher acuity questions The caller accepted this outcome. documented in this encounter Plan of Treatment Upcoming Encounters Date Type Department Care Team (Late st Contact Info) Description 11/25/2024 2:15 PM EDT Office Visit [facility] MED & PEDS [address] [place] [address] Melody Robins MD [address] [place] [address] documented as of this encounter Visit Diagnoses Not on filedocumented in this encounter Additional Health Concerns Assessment Noted Time PHQ-9 Depression Total Score: 11 025 3:59 PM EST documented as of this encounter Care Teams Radiation Technician Relationship Specialty Start Date End Date Melody Robins MD [address] [place] [address] PCP - General Family Medicine 10/02/16 documented as of this encounter
== END 2024-09-29 10:56 | disposition home or self-care (01) ==
LOC: HO.HWS 10:26
PROVIDERS: PCP Pediatrics; Visit Provider Obstetrics & Gynecology
DX: R87.610 Atypical squamous cells of undetermined significance on cytologic smear of cervix (ASC-US) (principal); R87.810 Cervical high risk human papillomavirus (HPV) DNA test positive; Z32.02 Encounter for pregnancy test, result negative
CPT/HCPCS: 57454

== ENCOUNTER 2024-10-14 09:05 | Outpatient (AMB) | payer MEDICAID, SELFPAY ==
--- NOTE | 2024-10-14 09:06 | MHC.OFFVIS ---
Intake Visit Reasons: colpo Results Manager Cafe Required: Yes Manager Cafe Language: Cloth Wire Weaver Services: Manager Cafe Present (in person) Manager Cafe Name: Jayna DUCKWORTH Information Interpreted: non-clinical & clinical Allergies No Known Allergies (No Known Allergies*) Allergy (Verified 10/14/24 09:06) HPI Comments Details: Presenting post colpo for follow-up. The patient is doing well with no complaints. The pathology showed the following: A. Endocervix, curettage: Superficial fragments of endocervical mucosa within normal limits. B. Cervix, 3 o'clock, biopsy: Endocervical and squamous mucosa within normal limits. C. Cervix, 4 o'clock, biopsy: Mildly inflamed cervical transformation zone mucosa with reactive changes. D. Cervix, 7 o'clock, biopsy: Mildly inflamed cervical transformation zone mucosa with reactive changes. E. Cervix, 11 o'clock, biopsy: Inflamed endocervical mucosa with reactive changes. F. Cervix, 12 o'clock, biopsy: Inflamed cervical transformation zone mucosa with reactive changes. COMMENT: The atypical cells in the patient's recent Pap (VM43-146; ASCUS with positive HPV 16) are not definitively represented in the current samples - slide reviewed [facility] Medical History (Updated 10/14/24 @ 09:31 by Chi Crane MD) Elevated testosterone level Kidney calculi Left ovarian cyst Pelvic pain DALTON I (cervical intraepithelial neoplasia I) ASCUS with positive high risk HPV Pap smear of cervix with ASCUS, cannot exclude HGSIL Obese Kidney stones Surgical History History of appendectomy Family History Maternal Grandmother Colon cancer Father HTN (hypertension) Maternal Grandfather Diabetes Maternal Grandfather Prostate cancer Social History Household Members Other:: mom and son Housing: House Alcohol intake: never Patient Tobacco Use Status: Never used Tobacco Current occupational status: 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 Sexual orientation: Straight/Heterosexual Gender identity: Female Female Reproductive History Menstrual Age of Menarche: 14 Review of Systems Const All systems reviewed & are unremarkable except as noted in HPI and below Reports as per HPI and Reports no additional complaints GI Reports no additional complaints Reports no additional complaints Telehealth Telehealth Telehealth Platform: Telephone Location of provider rendering services: practice address Location of patient: address on file Patient Identification confirmed using: Name, : Yes Telehealth method: video Patient verbally consented to treatment: Yes Patient verbally consented to billing insurance company: Yes Patient informed of any privacy concerns related to visit: Yes Minutes spent on Phone/Video with Pt.: 2 Assessment & Plan Assessment & Plan (1) ASCUS with positive high risk HPV cervical: Comment: HPV 16 positive/HPV 18 negative Code(s): R87.610 - Atypical squamous cells of undetermined significance on cytologic smear of cervix (ASC-US); R87.810 - Cervical high risk human papillomavirus (HPV) DNA test positive Category: Medical Plan: Discussed with the patient the pathology results of the colposcopy biopsies & endocervical curettage. Discussed with the patient the sensitivity specificity, positive and negative predictive value in detecting cervical cancer in addition discussed the regression, persistence and progression rates. Recommended co-testing in 12 months, if cytology and or HPV are abnormal will proceed was colposcopy biopsy and endocervical curettage. Instructions given to the patient to schedule a co test appointment in 1 year. All questions answered the patient verbalized understanding. I spent a total of 20 minutes reviewing the chart, talking to the patient via video and documenting in the medical record. Coding Level of Care Code Tele Est Pt Level 3 (15494) Diagnoses ASCUS with positive high risk HPV cervical R87.610; R87.810
--- OUTSIDE RECORDS SUMMARY | 2024-10-14 09:32 | XMS_ITS | Encounter Summary ---
Author Organization [employer] Address [address] [facility] [address] [place] [address] Care Team Providers Care Contracts Officer Name Role Phone Melody Robins MD Primary Care Provider [phone] Reason for Visit * Reason Onset Date Comments Nurse Triage 08/19/2024 Encounter Details Date Type Department Care Team ([facility] Contact Info) Description 08/19/2024 Telephone [facility] MEDICINE [address] [place] [address] Melody Robins MD [address] [place] [address] Nurse Triage Social History Tobacco Use Types [...] the past 12 months, has t he [employer], gas, oil or water company threatened to [...] seen recently. No med changes noted. 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 Call returned to Vanessa Taylor to triage below. Reports that med levothyroxine was changed from safety coordinator. Per pt having body pain, lump on head, having itchy skin. Med was changed this month. Pt last dose taken this morning. Call to [facility] [phone] to determine previous safety coordinator and current med safety coordinator name. Spoke with Brisa , Pt had been getting rx from [facility]On 07/30/24 pharmacy dispensed supply from safety coordinator [employer]. Pt offered sick onsite with PCP today [...] Center 08/23/2024 11:15 AM Melody Robins MD [facility] 09/28/2024 9:15 AM Melody Robins MD [facility] Insurance verified as active per Real Time Eligibility in [facility]. Video visit offer not recorded Positive Triage [...] Description 11/25/2024 2:15 PM EDT Office Visit [facility] MED & PEDS [address] [place] [address] Melody Robins MD [address] [place] [address] documented as of this encounter Visit Diagnoses Not on filedocumented in this encounter Additional Health Concerns Assessment Noted Time PHQ-9 Depression Total Score: 11 025 3:59 PM EST documented as of this encounter Care Teams Contracts Officer Relationship Specialty Start Date End Date Melody Robins MD [address] [place] [address] PCP - General Family Medicine 10/02/16 documented as of this encounter
--- OUTSIDE RECORDS SUMMARY | 2024-10-14 09:32 | XMS_ITS | Encounter Summary ---
Author Organization [facility] Address [address] [facility] [address] [place] [address] Phone Care Team Providers Care Dry Drug Worker Name Role Phone Melody Robins MD Primary Care Provider [phone] Encounter Details Date Type Department Care Team (Late st Contact Info) Description 06/29/2024 Procedure Pass [facility], Ct Scan - [facility] [address] [place] [address] Social History Tobacco Use Types Packs/Day Years Used Date Smoking Tobacco: Never Assessed Education Answer Date Recorded Are you interested in more education? Not on jaxon e 06/29/2024 Are you concerned about learning? Not on file 06/29/2024 No 06/29/2024 No 06/29/2024 Digital Access Answer Date Recorded No 06/29/2024 No 06/29/2024 Reliable internet access at home? Not on file 06/29/2024 Device with a working camera? Not on file Intimate Partner Violence Answer Date R ecorded Are you denied basic needs s uch as food, clothing, or medical care? No 06/29/2024 In the past 12 months have y ou been in a relationship with a person who hurts, threatens, or tries to control you? No 06/29/2024 Are you denied basic needs s uch as food, clothing, or medical care? No 06/29/2024 In the past 12 months have y ou been in a relationship with a person who hurts, threatens, or tries to control you? No 06/29/2024 Comments Unknown Sex and Gender Information Value Date Recorded Sex Assigned at Female 06/29/2024 4:39 PM EDT Legal Sex Female 2:15 PM EDT Gender Identity Female 06/29/2024 4:39 PM EDT Sexual Orientation Choose not to disclose 2024 4:39 PM EDT documented as of this encounter Functional Status * Calculated C-SSRS Risk Score (Lifetime/Recent) Answer Date of Assessment Author No Risk Indicated 06/29/2024 2:27 PM EDT Hoda Matos RN * [place] Suicide Severity Rating Scale (Screener/Recent Self-Report) Question Answer Date of Assessment Author 1. Wish to be (Past 1 Month) No 025 2:27 PM EDT Hoda Matos RN 2. Non-Specific Active Suici shivam Thoughts (Past 1 Month) No 06/29/2024 2:27 PM EDT Alfonso Matos RN 6. Suicidal Behavior (Lifetime) No 2:27 PM EDT Hoda Matos RN documented as of this encounter Plan of Treatment Not on file documented as of this encounter Visit Diagnoses Not on filedocumented in this encounter Care Teams Dry Drug Worker Relationship Specialty Start Date End Date Melody Robins MD [address] [place] [address] PCP - General Internal Medicine 06/29/24 documented as of this encounter Additional Source Comments The information contained in this document represents components of the legal health record. It is not the complete legal health record.[facility]
== END 2024-10-14 09:39 | disposition home or self-care (01) ==
LOC: HO.HWS 09:05
PROVIDERS: PCP Pediatrics; Visit Provider Obstetrics & Gynecology
DX: R87.610 Atypical squamous cells of undetermined significance on cytologic smear of cervix (ASC-US) (principal); R87.810 Cervical high risk human papillomavirus (HPV) DNA test positive
CPT/HCPCS: 99213

== ENCOUNTER 2024-12-29 10:29 | Outpatient (REF) | payer MEDICAID, SELFPAY ==
[2024-12-29 14:22] LABS: MANUAL DIFF FLAG NO
[2024-12-29 14:31] LABS: Hematocrit 37.7 % (37.0-47.0); Hemoglobin 12.1 g/dl (12.0-16.0); Imm Gran Abs Auto 0.02 X10*3/uL (0.00-0.03); Imm Gran Pct Auto 0.3 % (0.0-0.4); Lymphocytes Absolute Auto 1.5 X10*3/uL (1.2-4.9); Mean Corpuscular HGB Conc 32.1 g/dl (31.0-35.0); Mean Corpuscular Hemoglobin 28.2 pg (27.0-33.0); Mean Corpuscular Volume 87.9 fL (80.0-98.0); NRBC Abs Auto 0.000 X10*3/uL (0.0-0.012); NRBC Pct Auto 0.0 /100WBC (0.0-0.2); Platelet Count 272 X10*3/uL (160-400); Red Blood Count 4.29 X10*6/uL (4.20-5.50); White Blood Count 7.6 X10*3/uL (4.8-10.8)
[2024-12-29 15:28] LABS: Folate 11.0 ng/mL (> or = 4.0); Vitamin B12 451 pg/mL (200-900)
== END 2024-12-29 10:30 | disposition home or self-care (01) ==
LOC: HO.CHCLDS 10:29
PROVIDERS: Visit Provider Pediatrics
DX: E66.813 Obesity, class 3 (principal); E03.9 Hypothyroidism, unspecified; N92.6 Irregular menstruation, unspecified; Z68.41 Body mass index [BMI] 40.0-44.9, adult
CPT/HCPCS: 36415; 82607; 82746; 83036; 83525; 84443; 85025

== ENCOUNTER 2025-03-13 17:54 | Emergency (ER) | payer MEDICAID, SELFPAY ==
--- NOTE | ~2025-03-13 | US_ITS ---
CLINICAL HISTORY: Abdominal Pelvic Pain +Preg at home US OB 1st trimester transabdominal Comparison: US/KS/SR - US PELVIS TRANSABDOMINAL AND TRANSVAGINAL - 04/28/24 13:30 EST Findings: Patient refused transvaginal ultrasound. No IUP is seen. Endometrial thickness 1 cm Right ovary 3.6 x 1.6 x 2.5 cm Left ovary 3.4 x 2.1 x 1.8 cm There is blood flow of the bilateral ovary. IMPRESSION: with unknown location. Clinical correlation and correlation with beta HCG level are recommended. Ultrasound follow-up in 1-2 weeks as indicated. This document has been electronically signed by: Ezra Bautista MD on 03/13/2025 19:56:38
--- NOTE | ~2025-03-13 | US_ITS ---
CLINICAL HISTORY: , r o ectopic --- Additional Notes or Special Instructions: Called ultrasound at 2009 regarding stat ultrasound. Patient already had one done and ultrasound is messaging provider. -[place] US OB 1st Trimester transvaginal with Doppler Comparison: None provided Findings: No IUP identified. Endometrium 1 cm in width. The right ovary measures 3.3 x 2.7 x 2.2 cm and demonstrates blood flow by color Doppler evaluation. The left ovary is not identified. (Transvaginal pelvic examination only). IMPRESSION: 1. No IUP identified. Ectopic has not been excluded. Short-term follow-up in correlation with serial quantitative beta hCG suggested. This document has been electronically signed by: Sergio Wagner MD on 03/13/2025 21:26:52
[2025-03-13 17:59] VITALS: BP 113/58; PULSE 87; RESP 18; TEMP 36.6; O2SAT 98; BMI 35.5
--- NOTE | 2025-03-13 17:59 | ED.FEMALEGU ---
HPI - Female Genitourinary General Chief complaint: Abdominal Pain Stated complaint: stabbing pain vag area Time Seen by Provider: 03/13/25 18:12 Source: patient and cable splicer helper Mode of arrival: ambulatory Limitations: language barrier History of Present Illness ED Provider: Anjelica Hamlin APRN HPI Narrative: 35-year-old female patient , now possibly G2, presents to the ER for evaluation reporting vaginal discomfort/suprapubic discomfort with a positive test at home. Patient took the test at home yesterday. Her LMP was estimated to be 02/01/2025. No vaginal bleeding. No nausea or vomiting. No dysuria, some urgency, frequency. No discharge. No fever, chills. Related Data Home Medications ?Medication ?Instructions ?Recorded ?Confirmed levothyroxine 50 mcg tablet 88 mcg PO QAM 12/31/23 04/12/24 topiramate 50 mg tablet 50 mg PO DAILY 04/07/24 04/12/24 Previous Rx's ?Medication ?Instructions ?Recorded zinc gluconate 30 mg tablet 30 mg PO DAILY #60 tabs 06/30/23 vitamin A palmitate 3,000 mcg 3,000 mcg PO DAILY 90 days #90 caps 07/01/23 (10,000 unit) capsule thiamine HCl (vitamin B1) 100 mg 100 mg PO DAILY 90 days #90 tabs 10/13/23 tablet cephalexin 500 mg capsule 500 mg PO Q8H #21 caps 03/13/25 Allergies Allergy/AdvReac Type Severity Reaction Status Date / Time No Known Allergies (No Known Allergy Verified 03/13/25 18:02 Allergies*) Review of Systems Review of Systems: Yes all other systems are reviewed and are negative Constitutional: Constitutional: Reports no additional constitutional complaints, Denies body ache(s), Denies chills, Denies fever(s), Denies headache(s) and Denies weakness Eyes: Eyes: Reports no additional eye complaints and Denies change in vision ENT: Reports system reviewed and no additional complaints, except as documented, Denies dizziness, Denies headache(s), Denies nasal congestion, Denies nasal discharge and Denies neck pain Cardiovascular: Cardiovascular: Reports no additional cardiovascular complaints, Denies chest pain, Denies leg edema and Denies dyspnea Respiratory: Respiratory: Reports no additional respiratory complaints, Denies cough and Denies dyspnea Gastrointestinal: Gastrointestinal: Reports no additional gastrointestinal complaints, Denies abdominal pain, Denies diarrhea, Denies nausea and Denies vomiting Genitourinary: Genitourinary: Reports no additional female genitourinary complaints, Denies abnormal vaginal bleeding, Denies dysuria, Reports pelvic pain, Denies urinary incontinence, Denies urinary hesitancy, Denies urinary urgency, Denies vaginal discharge and Denies vaginal dryness Musculoskeletal: Musculoskeletal: Reports no additional musculoskeletal complaints, Denies back pain, Denies arthralgias, Denies joint swelling, Denies neck pain, Denies numbness and Denies tingling Integumentary/Breasts: Skin/Breast: Reports system reviewed and no additional complaints, except as docu and Denies rash Neurologic: Reports system reviewed and no additional complaints, except as documented, Denies Abnormal speech present, Denies dizziness, Denies headache(s), Denies numbness, Denies tingling and Denies weakness PMFSH Past Medical History Attestation statement: The following information was validated with the patient. Source: old records reviewed and nursing notes reviewed Medical History Elevated testosterone level Kidney calculi Left ovarian cyst Pelvic pain DALTON I (cervical intraepithelial neoplasia I) ASCUS with positive high risk HPV Pap smear of cervix with ASCUS, cannot exclude HGSIL Obese Kidney stones Surgical History History of appendectomy Family History Family History Maternal Grandmother Colon cancer Father HTN (hypertension) Maternal Grandfather Diabetes Maternal Grandfather Prostate cancer Social History Social History Household Members Other:: mom and son Housing: House Alcohol intake: never Patient Tobacco Use Status: Never used Tobacco Advance Directives: No Advance Directives Information Provided: No Do you have a plan to hurt others: No Plan Current occupational status: 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 Sexual orientation: Straight/Heterosexual Gender identity: Female Physical Exam Vital Signs: Vital Signs: Last Vital Signs Temp 97.8 F 03/13/25 20:53 Pulse 68 03/13/25 20:53 Resp 16 03/13/25 20:53 BP 102/39 L 03/13/25 20:53 Pulse Ox 99 03/13/25 20:53 O2 Del Method Room Air 03/13/25 20:53 BMI result Body Mass Index 35.5 Const: General: cooperative, healthy appearing, comfortable and no acute distress Orientation/consciousness: patient oriented x3 Limitations: no limitations HEENT: Head: Yes normal to inspection Ears: hearing grossly normal bilaterally General nose exam: Normal external nose present Face and sinus: Yes normal facial exam Mouth: Normal oral and palatal mucosa present Throat: Yes posterior oropharynx normal Eyes: General: appearance normal, both eyes and all related structures Pupils: Equal, round and reactive pupils present Neck: Neck: Yes normal visual inspection Chest: Chest palpation & inspection: normal inspection of the chest Resp: Effort & Inspection: normal respiratory effort Auscultation: clear to auscultation bilaterally Cardio: Rate: regular rate Rhythm: regular rhythm Peripheral pulses: Peripheral pulses 2+ throughout GI: Inspection: Yes normal to inspection Palpation (GI): Soft to palpation and nontender Auscultation: normal bowel sounds Back/Spine/Pelvis: Thoracic/Lumbar Spine: thoracic and lumbar spine normal to inspection Skin: General skin exam: no rashes or lesions noted Neuro: General: patient oriented x3, no focal motor deficits and normal sensation to monofilament Cranial nerves: Yes Equal, round and reactive pupils present Cognition (Neuro): normal cognition Speech: No Abnormal speech present Gait exam (Neuro): Normal gait present Motor exam (neuro): 5/5 motor strength present throughout Extrem: General: Yes normal to inspection Course Course Course Narrative: This is a Rapid Medical Examination (RME) performed by Yael Naranjo NP in triage. Full assessment, plan deferred to clip loading machine adjuster. 35-year-old female patient , now possibly G2, presents to the ER for evaluation reporting vaginal discomfort with a positive test at home. Patient took the test at home yesterday. Her LMP was estimated to be 02/01/2025. No vaginal bleeding. No nausea or vomiting. No dysuria, some urgency, frequency. No discharge. No fever, chills. Plan: Labs, UA, hCG, transvaginal ultrasound to rule out ectopic, confirm IUP. Reevaluation(s) Reevaluation #1: 1999-I went in with the annual giving manager to discuss findings. US with no IUP (limited due to exam) with quant 65. I explained we cannot rule out early vs SAB vs ectopic . She now wants to participate in the transvaginal US. US notified. Reevaluation #2: 2100-Sign out to Rajendra Ma MD pending TV US Reevaluation #3: 10:06 PM 03/13/2025 (Chantel Tineo Ma ): Assumed care pain and transvaginal ultrasound. Patient has a quant of 65. Discussed with the patient and sister that I do not expect to see an IUP or conception product. Patient stated that she has been since February 11. They were concerned that her hCG remained low despite being 4 weeks ago. Ultrasound did not show any signs of IUP. Discussed with the patient and sister that I recommend trending of the HCG follow up with the OBGYN Clinic. Patient's blood pressure systolic in the 108. I did review patient's previous blood pressure in previous stay. The patient's blood pressure does run soft in the low 100s. I do not think this is an acute change. Patient appears to be well and in no acute distress. Return precautions return to ER if her abdominal pain worsened and she developed vaginal bleeding. Otherwise we will plan to send the patient a short course of Keflex to take for her UTI. Encouraged to take Tylenol for her abdominal pain. Patient's sister agrees and understands this plan. Medications Administered Discontinued Medications Generic Name Dose Route Start Last Admin Trade Name Freq PRN Reason Stop Dose Admin Acetaminophen 975 mg 03/13/25 18:34 03/13/25 18:38 Acetaminophen 325 Mg Tablet PO 03/13/25 18:35 975 mg ONCE ONE Administration Medical Decision Making Medical Decision Making [facility] Narrative: 35-year-old female patient , now possibly G2, presents to the ER for evaluation reporting vaginal discomfort with a positive test at home. Patient took the test at home yesterday. Her LMP was estimated to be 02/01/2025. No vaginal bleeding. No nausea or vomiting. No dysuria, some urgency, frequency. No discharge. No fever, chills. Abdomen is soft nontender. Triage as ordered labs, UA and an ultrasound Patient hesitant to have TV US but will attempt. She will not elaborate for reasons. She is aware a transabdominal study will be quite limited and we may not be able to rule out SAB, or ectopic Differential Diagnosis Differential Diagnoses: The differential diagnosis associated with the presentation includes see above Admission/Observation Consideration of admission/observation: Escalation of care including admission/observation considered Lab Data MDM Lab Attestation statement: I reviewed the patient's lab results. 03/13/25 19:10 03/13/25 19:10 Labs: Lab Results 03/13/25 Range/Units 19:10 WBC 8.9 (4.8-10.8) X10*3/uL RBC 4.30 (4.20-5.50) X10*6/uL Hgb 12.0 (12.0-16.0) g/dl Hct 37.3 (37.0-47.0) % MCV 86.7 (80.0-98.0) fL MCH 27.9 (27.0-33.0) pg MCHC 32.2 (31.0-35.0) g/dl RDW 13.2 (11.0-16.0) % Plt Count 287 (160-400) X10*3/uL MPV 11.3 (9.4-12.3) fL Immature Gran % (Auto) 0.2 (0.0-0.4) % Neut % (Auto) 65.3 (45-73) % Lymph % (Auto) 22.2 (20-40) % [place] % (Auto) 10.9 (2-11) % Eos % (Auto) 0.9 (0-4) % Baso % (Auto) 0.5 (0-2) % Lymph # (Auto) 2.0 (1.2-4.9) X10*3/uL [place] # (Auto) 1.0 (0.1-1.2) X10*3/uL Eos # (Auto) 0.1 (0.0-0.4) X10*3/uL Baso # (Auto) 0.0 (0.0-0.2) X10*3/uL Abs Immat Gran (auto) 0.02 (0.00-0.03) X10*3/uL Absolute Neuts (auto) 5.8 (2.0-8.3) x10*3/uL Absolute Nucleated RBC 0.000 (0.0-0.012) X10*3/uL Nucleated RBC % (auto) 0.0 (0.0-0.2) /100WBC Sodium 139 (135-145) mmol/L Potassium 3.6 (3.3-5.1) mmol/L Chloride 110 H (96-108) mmol/L Carbon Dioxide 21 L (22-29) mmol/L Anion Gap 12 (12-20) BUN 12 (9-16) mg/dL Creatinine 0.67 (0.5-1.4) mg/dL Estim Creat Clear Calc 123.0 Estimated GFR > 60 Random Glucose 84 (60-115) mg/dL Calcium 9.3 (8.4-10.2) mg/dL Beta HCG, Quant 65 mIU/mL Urine Color Yellow Urine Appearance Clear Urine pH 6.0 (5.0-9.0) Ur Specific [place] 1.015 (1.005-1.025) Urine Protein Negative (Neg-Trace) mg/dL Urine Glucose (UA) Negative (Negative) mg/dL Urine Ketones Negative (Negative) mg/dL Urine Blood Negative (Negative) Urine Nitrite Negative (Negative) Ur Leukocyte Esterase Moderate (2+) H (Negative) Urine RBC 0-2 (0-2) /HPF Urine WBC 11-20 H (0-5) /HPF Ur Squamous Epith Cells 3-5 (0-2) /HPF Urine Bacteria 2+ (None Seen) Hyaline Casts 0-2 (0-2) /LPF Urine Test POSITIVE H (NEGATIVE) Independent Interpretation I performed an independent interpretation of an: Ultrasound Interpretation: I independently viewed the ultrasound agree with the radiology report Radiology Impression Discussion of test interpretation with radiology: I have reviewed the radiologist's reading. Radiologist Impression: [address] [address] Ultrasound Report Signed Patient: Vanessa Menchaca MR#: [id number] : 1990 Acct:[id number] Age/Sex: 35 / F ADM Date: 03/13/25 Loc: .ED Attending Dr: Ordering Physician: Yael NaranjoP-BC Date of Service: 03/13/25 Procedure(s): US OB <= 14 weeks fetus Accession Number(s): [id number] cc: Melody Robins MD; Yael NaranjoP-~ Reason for Exam: Abdominal/Pelvic Pain +Preg at home CLINICAL HISTORY: Abdominal Pelvic Pain +Preg at home US OB 1st trimester transabdominal Comparison: US/TX/SR - US PELVIS TRANSABDOMINAL AND TRANSVAGINAL - 04/28/24 13:30 EST Findings: Patient refused transvaginal ultrasound. No IUP is seen. Endometrial thickness 1 cm Right ovary 3.6 x 1.6 x 2.5 cm Left ovary 3.4 x 2.1 x 1.8 cm There is blood flow of the bilateral ovary. IMPRESSION: with unknown location. Clinical correlation and correlation with beta HCG level are recommended. Ultrasound follow-up in 1-2 weeks as indicated. Discharge Plan Discharge Clinical Impression: Abdominal pain in early Patient Disposition: Home, Self-Care Instructions: Abdominal Pain in (ED) Additional Instructions: Your test is positive. Your hormone level is 65. your ultrasound shows no intrauterine . This could be multifactorial. Ultrasound did not show an intrauterine . We can not rule out an early or a miscarriage or a outside the uterus. You need to have your hormone level rechecked in 48 hours. Please call your rolled gold plater tomorrow to have this ordered. If you have any issues you may also f/u with [facility] OB. If any issue with this please come back to the ER. [facility] [place] [address] [phone] [facility]YN [address] [facility] [phone] [facility] [address] [facility] [address] [place] [address] [phone] [facility] [place] [phone] Prescriptions: New cephalexin 500 mg capsule 500 mg PO Q8H Qty: 21 0RF No Action zinc gluconate 30 mg tablet 30 mg PO DAILY Qty: 60 0RF vitamin A palmitate 3,000 mcg (10,000 unit) capsule 3,000 mcg PO DAILY 90 Days Qty: 90 0RF thiamine HCl (vitamin B1) 100 mg tablet 100 mg PO DAILY 90 Days Qty: 90 0RF topiramate 50 mg tablet 50 mg PO DAILY levothyroxine 50 mcg tablet 88 mcg PO QAM Referrals: Ifrah Lilly CNM [Certified Nurse Signal Operator Technical, TRAIN EXAMINER] Print Language: [place] Citizen
--- OUTSIDE RECORDS SUMMARY | 2025-03-13 18:22 | XMS_ITS | Encounter Summary ---
Author Organization [employer] Address [address] [facility] [address] [place] [address] Care Team Providers Care Needle Process Felt Goods Supervisor Name Role Phone Melody Robins MD Primary Care Provider [phone] Encounter Details Date Type Department Care Team ([facility] st Contact Info) Description 07/01/2024 Orders Only [facility] MED & PEDS [address] [place] [address] Provider, MD Luli Social History Tobacco Use [...] Urine, Routine (06/29/2024 9:16 AM EDT) Urine us Historical Provider LAB MICROBIOLOGY - GENERA L ORDERABLES Final Result documented in this encounter Visit Diagnoses Not on filedocumented in this encounter Additional Health Concerns Assessment Noted Time PHQ-9 Depression Total Score: 11 025 3:59 PM EST documented as of this encounter Care Teams Needle Process Felt Goods Supervisor Relationship Specialty Start Date End Date Melody Robisn MD [address] [place] [address] PCP - General Family Medicine 10/02/16 documented as of this encounter
--- OUTSIDE RECORDS SUMMARY | 2025-03-13 18:22 | XMS_ITS | Encounter Summary ---
Author Organization [employer] Address [address] [facility] [address] [place] [address] Care Team Providers Care Cut Out Operator Name Role Phone Melody Robins MD Primary Care Provider [phone] Reason for Visit * Reason Comments Med Refill Encounter Details Date Type Department Care Team ([facility] Contact Info) Description 02/22/[address] [facility] CHC MED & PEDS [address] [place], [place] [phone] Melody Robins MD [address] [place] [address] Social History Tobacco Use Types Packs/Day Years [...] Answer Date Recorded Patient Health Questionnaire-9 Score 7 12/29/2024 Patient Health Questionnaire-9 Score 7 12/29/2024 Last PHQ-9: Questionnaire Data Not on file 1 Housing Stability Answer Date Recorded What is your housing situation today? I have amara hirsch 09/20/[address] you li ve. Do you have problems with any of the following? None of the above 09/20/2024 Food Insecurity Answer Date Recorded Within the past 12 months, y ou worried that your food would run out before you got money to buy more: Never True 09/20/2024 Within the past 12 months,th e food you bought just didn't last and you didn't have enough money to get more: Never True Transportation Answer Date Recorded In the past 12 months, has l ack of transportation kept you from medical appts, meetings, work or from getting things needed for daily living? No 09/20/2024 Utilities Answer Date Recorded In the past 12 months, has t he electric, gas, oil or water company threatened to shut off services in your home? No 09/20/2024 Depression Answer Date Recorded Patient Health Questionnaire-2 Score 1 12/29/2024 Internet Access Answer Date Recorded Internet Access Q1 Yes 09/20/2024 Internet Access Q2 Not on file 09/20/2024 Comments Unknown Sex and Gender Information Value [...] Assessment Noted Time PHQ-9 Depression Total Score: 7 12/30/19 25 9:51 AM EDT documented as of this encounter Care Teams Cut Out Operator Relationship Specialty Start Date End Date Melody Robins MD [address] [place] [address] PCP - General Family Medicine 10/02/16 documented as of this encounter
--- OUTSIDE RECORDS SUMMARY | 2025-03-13 18:22 | XMS_ITS | Encounter Summary ---
Author Organization [employer] Address [address] [facility] [address] [place] [address] Care Team Providers Care Strap Buckler Name Role Phone Melody Robins MD Primary Care Provider [phone] Encounter Details Date Type Department Care Team ([facility] st Contact Info) Description 12/17/2022 Orders Only [facility] [address] [place] [address] Provider, MD Luli Social History Tobacco Use [...] Procedure Name Priority Date/Time Associated Diagnosis Comments PAP/HPV Routine 01/03/2022 PAP/HPV Routine 08/14/2020 documented in this encounter Results * Hm Pap Smear (01/03/2022) Historical Provider HEALTH MAINTENANCE Final Result * Hm Pap Smear (08/14/2020) us Historical Provider HEALTH MAINTENANCE Final Result documented in this encounter Visit Diagnoses Not on filedocumented in this encounter Care Teams Strap Buckler Relationship Specialty Start Date End Date Melody Robins MD [address] [place] [address] PCP - General Family Medicine 10/02/16 documented as of this encounter
--- OUTSIDE RECORDS SUMMARY | 2025-03-13 18:22 | XMS_ITS | Encounter Summary ---
Author Organization [email or web address] Address [address] [facility] 7 [place] [address] Care Team Providers Care Ice Cutter Name Role Phone Melody Robins MD Primary Care Provider [phone] Reason for Visit * Reason Onset Date Comments Appointment Request 09/19/2023 Encounter Details Date Type Department Care Team ([facility] Contact Info) Description 09/19/2023 Telephone [facility] [address] [place] [address] Melody Robins MD [address] [place] [address] Appointment Request Social History Tobacco Use Types [...] documented as of this encounter Care Teams Ice Cutter Relationship Specialty Start Date End Date Melody Robins MD [address] [place] [address] PCP - General Family Medicine 10/02/16 documented as of this encounter
--- OUTSIDE RECORDS SUMMARY | 2025-03-13 18:22 | XMS_ITS | Encounter Summary ---
Author Organization [employer] Address [address] [facility] [address] [place] [address] Care Team Providers Care Yardage Caller Name Role Phone Melody Robins MD Primary Care Provider Encounter Details Date Type Department Care Team ([facility] st Contact Info) Description 10/14/2024 Orders Only [facility] & PEDS [address] [place] [address] Provider, MD Luli Social History Tobacco Use [...] Recorded Patient Health Questionnaire-2 Score 4 04/21/2024 Internet Access Answer Date Recorded Internet Access [...] Priority Date/Time Associated Diagnosis Comments COLPOSCOPY Routine 09/29/2024 12:20 PM EDT documented in this encounter Results * Colposcopy (09/29/2024 12:20 PM EDT) us Historical Provider MD IN CLINIC/BEDSIDE ORDERAB LES Final Result documented in this encounter Visit Diagnoses Not on filedocumented in this encounter Additional Health Concerns Assessment Noted Time PHQ-9 Depression Total Score: 11 025 3:59 PM EST documented as of this encounter Care Teams Yardage Caller Relationship Specialty Start Date End Date Melody Robins MD [address] [place] [phone] PCP - General Family Medicine 10/02/16 documented as of this encounter
--- OUTSIDE RECORDS SUMMARY | 2025-03-13 18:22 | XMS_ITS | Encounter Summary ---
Author Organization [facility] Address [address] [facility] [address] [place] [phone] Phone Care Team Providers Care Director Manufacturing Engineering Name Role Phone Melody Robins MD Primary Care Provider [phone] Encounter Details Date Type Department Care Team (Late st Contact Info) Description 06/29/2024 Procedure Pass [facility], Ct Scan - [facility] [address] [place] [address] Social History Tobacco Use Types Packs/Day Years [...] PM EDT documented as of this encounter Plan of Treatment Not on file documented as of this encounter Visit Diagnoses Not on filedocumented in this encounter Care Teams Director Manufacturing Engineering Relationship Specialty Start Date End Date Melody Robins MD [address] [place] [address] PCP - General Internal Medicine 06/29/24 documented as of this encounter Additional Source Comments The information contained in this document represents components of the legal health record. It is not the complete legal health record.[facility]
--- OUTSIDE RECORDS SUMMARY | 2025-03-13 18:22 | XMS_ITS | Clinical Summary ---
Author Organization [facility] Address [address] [facility] [address] [place] [phone] Phone Care Team Providers Care Code Official Name Role Phone Melody Robins MD Primary Care Provider [phone] Allergies No known active allergies Medications tamsulosin (FLOMAX) 0.4 mg Cap Take 1 capsule (0.4 mg total) by mouth daily. 14 capsule 5 Active naproxen (NAPROSYN) 500 MG tablet Take 1 tablet (500 mg total) by mouth 2 (two) times a day with meals. 14 tablet 5 Active ondansetron (ZOFRAN-ODT) 4 MG disintegrating tablet Take 1 tablet (4 mg total) by mouth every 8 (eight) hours as needed for nausea. 9 tablet 5 Active cefpodoxime (VANTIN) 100 MG tablet Take 1 tablet (100 mg total) by mouth 2 (two) times a day. 7 tablet 5 Active Social History Tobacco Use Types Packs/Day Years [...] not to disclose 2024 4:39 PM EDT Last Filed Vital Signs Vital Sign Reading Time Taken Comments Blood Pressure 93/52 06/29/2024 5:43 PM EDT Pulse 79 06/29/2024 5:43 PM EDT Temperature 36 C (96.8 F) 06/29/2024 5:43 PM EDT Respiratory Rate 18 06/29/2024 5:43 PM EDT Oxygen Saturation 100% 06/29/2024 5:43 PM EDT Inhaled Oxygen Concentration - - Weight 98.4 kg (217 lb) 06/29/2024 2:26 PM EDT Height 157.5 cm (5' 2 ) 06/29/2024 2:26 PM EDT Body Mass Index 39.69 06/29/2024 2:26 PM EDT Plan of Treatment Health Maintenance Due Date Last Done Comments Adult Td,Tdap Booster 1992 DEPRESSION SCREENING 2004 SMOKING Hx and SMOKELESS TOBACCO SCREENING 2005 HEPATITIS C SCREENING 2010 HIV ONE-TIME SCREENING (18-6 5 YEARS) 2010 INFLUENZA VACCINE (#1) 2024 COVID-19 VACCINE ( - 2024-2 6 season) 2024 PAP SMEAR 05/22/2026 05/23/2023, 08/10/2019 HEPATITIS A VACCINES Aged Out No long er eligible based on patient's age to complete this topic HIB VACCINES Aged Out No longer eligi ble based on patient's age to complete this topic MENINGOCOCCAL VACCINES (ACWY) Aged Out No longer eligible based on patient's age to complete this topic MENINGOCOCCAL VACCINES (B) Aged Out N o longer eligible based on patient's age to complete this topic PNEUMOCOCCAL VACCINES (0-49 years) Aged Out No longer eligible b ased on patient's age to complete this topic Medical Devices Not on file Insurance C3 ACO C3 ACO C3 ACO C3 ACO C3 ACO C3 ACO Care Teams Code Official Relationship Specialty Start Date End Date Melody Robins MD [address] [facility] [place] [address] PCP - General Internal Medicine 06/29/24 Additional Source Comments The information contained in this document represents components of the legal health record. It is not the complete legal health record.[facility]
--- OUTSIDE RECORDS SUMMARY | 2025-03-13 18:22 | XMS_ITS | Encounter Summary ---
Author Organization [email or web address] Address [address] [facility] [address] [place] [address] Care Team Providers Care Inspector Cold Working Name Role Phone Melody Robins MD Primary Care Provider [phone] Encounter Details Date Type Department Care Team ([facility] st Contact Info) Description 12/17/2022 Orders Only [facility] MED[facility]INE [address] [place] [address] Polly Diamond Social History Tobacco Use Types [...] on filedocumented in this encounter Care Teams Inspector Cold Working Relationship Specialty Start Date End Date Melody Robins MD [address] [place] [address] PCP - General Family Medicine 10/02/16 documented as of this encounter
--- OUTSIDE RECORDS SUMMARY | 2025-03-13 18:22 | XMS_ITS | Clinical Summary ---
Author Organization [employer] Address [address] [facility] 7[address] [place] [address] Care Team Providers Care Interactive Art Director Name Role Phone Melody Robins MD Primary Care Provider Allergies No known active allergies Medications * This document contains information received from the source organization and may not represent a complete record from that organization. ergocalciferol (Vitamin D2) 1.25 MG (07263 UT) capsule Take 1 capsule (1.25 mg) by mouth 1 (one) time per week. 15 capsule 4 Active zinc gluconate 30 MG tablet Take 1 tablet by mouth Once per day. 4 Active beta carotene (vitamin A) 3 MG (08283 UT) capsule Take by mouth Once per [...] topamax every morning 30 tablet 4 Active acetaminophen (Tylenol) 500 MG tablet Take [...] to 30 doses. 30 tablet 4 Active fluticasone (Flonase) 50 MCG/ACT nasal spray SPRAY 1 SPRAY INTO EACH NOSTRIL EVERY DAY, SHAKE GENTLY. BEFORE FIRST USE, PRIME PUMP. AFTER USE, CLEAN TIP AND REPLACE CAP. 48 mL Active topiramate 50 MG tablet Take 1 tablet (50 mg) by mouth Once per day. 30 tablet 3 Active phentermine 8 MG tablet Take 1 tab orally daily with topamax 30 tablet Active levothyroxine (Synthroid) 88 MCG tablet TAKE 1 TABLET BY MOUTH BEFORE BREAKFAST 90 tablet 1 5 Active Active Problems Problem Noted Date Diagnosed Date Nephrolithiasis, uric acid 12/29/2024 Moderate depressive disorder 04/21/2024 Assessment & Plan [...] presented to the clinic today for a director of user experience visit for her son. During pedi visit, mom was visible stress and emotionally overwhelmed. Mom reported presentation of sxs are associated with her son diagnosis (Autism). She is currently living with her mother but reports needing assistance to apply for housing. Pt has a therapist with [facility] and have weekly appointments per her report. Not interested at this time to start medication. clinician engaged patient with active/reflective listening. Reviewed and assessed for risk, current stressors and protective factors using open-ended questions. Pt will be referred with CM to assist with housing resources. Explored coping strategies that pt can use during stressful times. Provided [facility] contact information and educated patient on [...] Encounters Date Type Department Care Team Description 02/23/[address] [facility] [address] [place] [address] Melody oRbins MD Pre-visit Planning (SDOH was already completed) 02/23/2025 Travel 02/22/[address] [facility] [address] [place] [address] Melody Robins MD 02/07/2025 Refill [facility] [address] [place] [phone] Melody Robins MD 12/30/2024 Results Follow-Up [facility] [address] [place] [address] Melody Robins MD POCT Urine , CBC auto differential, TSH W/Reflex to FT4, Additional followed-up results: 3 12/29/2024 9:45 AM EDT Office Visit [facility] [address] [place] [address] Melody Robins MD Missed period (Primary Dx); Acquired hypothyroidism; Class 3 severe obesity due to excess calories without serious comorbidity with body mass index (BMI) of 40.0 to 44.9 in adult (HCC); Generalized anxiety disorder; Routine general medical examination at a health care facility; Dietary counseling; Exercise counseling 12/29/2024 Travel 12/22/2024 Travel 12/21/2024 Patient Outreach [facility] [address] [place] [phone] Melody Robins MD Pre-visit Planning (SDOH screening completed on 09/20/24) from Last 3 Months Immunizations Immunization Administration Dates Next Due HPV 9-Valent 07/15/2023 Influenza injectable quadriv alent IIV4 with preservative 01/14/2017 Influenza injectable quadriv alent preservative free 01/19/2021,01/07/2020 Influenza, IIV3, injectable 01/19/2021, 0,01/14/2017 Pfizer Covid-19 Vaccine 12+ 10/22/2020, 1 Pfizer Covid-19 Vaccine 12+ carmen-sucrose (Banks Cap) 05/28/2021 TD (adult), 2 Lf tetanus tox oid, preservative free, adsorbed 01/19/2019 Td (adult), unspecified 01/19/2019 Tdap 01/07/2020 Social History Tobacco Use Types Packs/Day Years [...] Sign Reading Time Taken Comments Blood Pressure 110/70 12/29/2024 9:50 AM EDT Pulse 72 12/29/2024 9:50 AM EDT Temperature 36.8 C (98.3 F) 12/29/2024 9:50 AM EDT Respiratory Rate 20 12/29/2024 9:50 AM EDT Oxygen Saturation 99% 12/04/2023 1:43 PM EDT Inhaled Oxygen Concentration - - Weight 95.3 kg (210 lb) 12/29/2024 9:50 AM EDT Height 157.8 cm (5' 2.13 ) 12/29/2024 9:50 AM ED T Body Mass Index 38.25 12/29/2024 9:50 AM EDT Plan of Treatment Health Maintenance Due Date Last Done Comments Family Planning (PISQ) 2007 Hepatitis B Vaccines (1 of 3 - 19+ 3-dose series) 2011 HPV Vaccines (2 - 3-dose series) 08/12/2023 07/15/2023 COVID-19 Vaccine ( season) 2024 05/28/2021, 10/22/2020, 10/22/2020, Additional history exists Influenza Vaccine (#1) 2024 , 01/19/2021, 01/07/2020, Additional history exists Tobacco Screening 08/23/2025 08/23/2024 Cervical Cancer Screening 09/29/2025 HPV/Cotest 09/29/2025 08/10/2024, 07/23, 08/14/2020 Pap Smear 09/29/2025 08/10/2024, 03/0 03/2023, 05/23/2023, Additional history exists Alcohol/Substance Use Screening 12/29/2025 12/29/2024 Depression Screening 12/29/2025 12/29/2024, 12/30/19 25 Diabetes: Hemoglobin A1C 12/29/2025 025, 06/25/2023, 12/26/2022, Additional history exists Disability Screening 12/29/2025 12/29/2024 SDOH Screening 12/29/2025 12/29/2024 Lipid Panel 06/24/2028 06/25/2023, 12/26/2022 DTaP/Tdap/Td Vaccines (2 - Td or Tdap) 01/06/2030 01/07/2020, 01/19/2019, 01/19/2019 Zoster Vaccines (1 of 2) 2042 RSV Patients and Patients Aged 60 years or older (1 - 1-dose 75+ series) 2067 HIV Screening Completed 01/22/2022, 11/22, 12/15/2019 Hepatitis C Screening Completed 01/22/2022 , 12/08/2020, 07/24/2020, Additional history exists Colposcopy Discontinued 09/29/2024, 09/27/2020 HIB Vaccines Aged Out No longer eligi [...] Years) and At-Risk Patients (6 to 49) Years Aged Out No longer eligible based on patient's age to complete this topic RSV under 20 months Aged Out No longe r eligible based on patient's age to complete this topic Rotavirus Vaccines Aged Out No longer eligible based on patient's age to complete this topic Procedures Procedure Name Priority Date/Time Associated Diagnosis Comments INSULIN Routine 12/29/2024 10:32 AM EDT Acquired hypothyroidism Class 3 severe obesity due to excess calories without serious comorbidity with body mass index (BMI) of 40.0 to 44.9 in adult ([facility]) HEMOGLOBIN A1C Routine 12/29/2024 10:32 AM EDT Acquired hypothyroidism Class 3 severe obesity due to excess calories without serious comorbidity with body mass index (BMI) of 40.0 to 44.9 in adult ([facility]) VITAMIN B12/FOLATE, SERUM PANEL Routine 12/29/2024 10:32 AM EDT Missed period Acquired hypothyroidism Class 3 severe obesity due to excess calories without serious comorbidity with body mass index (BMI) of 40.0 to 44.9 in adult ([facility]) TSH W/REFLEX TO FT4 Routine 12/29/2024 1 0:32 AM EDT Missed period Acquired hypothyroidism Class 3 severe obesity due to excess calories without serious comorbidity with body mass index (BMI) of 40.0 to 44.9 in adult ([facility]) CBC WITH AUTO DIFFERENTIAL Routine 12/29/2024 10:32 AM EDT Missed period Acquired hypothyroidism Class 3 severe obesity due to excess calories without serious comorbidity with body mass index (BMI) of 40.0 to 44.9 in adult ([facility]) POCT , URINE Routine 12/29/2024 10:28 AM EDT Missed period COLPOSCOPY Routine 09/29/2024 12:20 PM EDT HPV DNA, LOW/HIGH RISK Routine 08/10/2024 11:19 AM EDT PAP SMEAR Routine 08/10/2024 11:19 AM EDT LIPID PANEL, STANDARD Routine 06/25/2023 11:40 AM EDT ZZZ HISTORICAL HEPATITIS C AB W/REFL TO HCV RNA, QN, PCR Routine 01/22/2022 10:34 AM EDT HIV 1/2 ANTIGEN/ANTIBODY, FOURTH GENERATION W/RFL Routine 01/22/2022 10:34 AM EDT from Last 3 Months or Most Recently Relevant to Health Maintenance Results * Vitamin B12/Folate, Serum Panel (12/29/2024 10:32 AM EDT) Vitamin B12 451 200 - 900 pg/mL [facility] Comment:NORMAL 200-900 PG/ML INDETERMINATE 160-199 PG/ML DEFICIENT < 160 PG/ML Folate 11.0 > or = 4.0 ng/mL [facility] Comment:Reference Values:> o r = 4.0 ng/mL< 4.0 ng/mL suggests folate deficiency Methotrexate, aminopterin and folinic acid(leucovorin) are chemotherapeutic agents whose molecularstructures are similar to folate; therefore, the Architectfolate assay cannot be used for patients using these drugs. Blood Venous blood specimen / Unknown 12/29/2024 10:32 AM EDT 12/29/2024 2:18 PM EDT Melody Robins MD LAB BLOOD ORDERABLES Final Re sult Performing Organization Address City/[facility]/ZIP Co de Phone Number [facility] [address] [place] [phone] * TSH W/Reflex to FT4 (12/29/2024 10:32 AM EDT) TSH reflex Free T4 0.42 0.32 - 4.0 uIU/mL [facility] Blood Venous blood specimen / Unknown 12/29/2024 10:32 AM EDT 12/29/2024 2:18 PM EDT Melody Robins MD LAB BLOOD ORDERABLES Final Re sult Performing Organization Address City/[facility]/ZIP Co de Phone Number [facility] [address] [place] [phone] * (ABNORMAL) CBC auto differential (12/29/2024 10:32 AM EDT) White Blood Count 7.6 4.8 - 10.8 X10*3/uL [facility] Red Blood Count 4.29 4.20 - 5.50 X10*6/uL [facility] Hemoglobin 12.1 12.0 - 16.0 g/dl [facility] Hematocrit 37.7 37.0 - 47.0 % [facility] Mean Corpuscular Volume 87.9 80.0 - 98.0 fL [facility] Mean Corpuscular Hemoglobin 28.2 27.0 - 33.0 pg [facility] Mean Corpuscular HGB Conc 32.1 31.0 - 35.0 g/dl [facility] Red Cell Distribution Width 14.5 11.0 - 16.0 % [facility] Platelet Count 272 160 - 400 X10*3/uL [facility] Mean Platelet Volume 11.3 9.4 - 12.3 fL [facility] Neutrophils Percent Auto 69.4 45 - 73 % [facility] Imm Gran Pct Auto 0.3 0.0 - 0.4 % [facility] Lymphocytes Percent Auto 19.8(L) 20 - 40 % [facility] Monocytes Percent Auto 9.4 2 - 11 % [facility] Eosinophils Percent Auto 0.4 0 - 4 % [facility] Basophils Percent Auto 0.7 0 - 2 % [facility] NRBC Pct Auto 0.0 0.0 - 0.2 /100WBC [facility] Neutrophils Absolute Auto 5.3 2.0 - 8.3 x10*3/uL [facility] Imm Gran Abs Auto 0.02 0.00 - 0.03 X10*3/uL [facility] Lymphocytes Absolute Auto 1.5 1.2 - 4.9 X10*3/uL [facility] Monocytes Absolute Auto 0.7 0.1 - 1.2 X10*3/uL [facility] Eosinophils Absolute Auto 0.0 0.0 - 0.4 X10*3/uL [facility] Basophils Absolute Auto 0.1 0.0 - 0.2 X10*3/uL [facility] NRBC Abs Auto 0.000 0.0 - 0.012 X10*3/uL [facility] Blood Venous blood specimen / Unknown 12/29/2024 10:32 AM EDT 12/29/2024 2:18 PM EDT Melody Robins MD LAB BLOOD ORDERABLES Final Re sult Performing Organization Address [facility] de Phone Number [facility] [address] [place] [address] [phone] * Insulin (12/29/2024 10:32 AM EDT) Insulin 11 2 - 29 uU/mL [facility] Comment:This test was perfor med using the Braga chemiluminescentmethod. Values obtained from different assay methods cannot beused interchangeably. This insulin assay shows a possiblecross-reactivity with antibodies generated against insulin(immunoreactive insulin and some patients treated withbovine or porcine insulin). Insulin levels may be measuredlower in patients with insulin autoimmune syndrome orfamilial high pro-insulinemia. Blood Venous blood specimen / Unknown 12/29/2024 10:32 AM EDT 12/29/2024 2:18 PM EDT Melody Robins MD LAB BLOOD ORDERABLES Final Re sult Performing Organization Address [facility] de Phone Number [facility] [address] [place] [address] [phone] * Hemoglobin A1c (12/29/2024 10:32 AM EDT) Hemoglobin A1c 5.9 <6.0 % [facility] Comment:Hemoglobin A1C Refer ence Range Adults: 4.8 - 6.0 % Non diabetic: < 6.0 % Goal: < 7.0 %Additional Action Suggested: > 8.0 %Note: Hemoglobin A1c results are invalid for patients with abnormal amounts of HbF. Blood transfusions may impact the HbA1c concentration in the patient sample. Estimated Average Glucose 123 mg/dL [facility] Comment:eAG = Estimated ave rage glucose which is %A1C expressed asaverage glucose, using the formula of the Z4P-MghptpwStdbkmc Glucose study (ADAG), Diabetes Care, Vol.31,#8,Oct. 2007 Blood Venous blood specimen / Unknown 12/29/2024 10:32 AM EDT 12/29/2024 2:18 PM EDT Melody Robins MD LAB BLOOD ORDERABLES Final Re sult [facility] [address] [place] [phone] [phone] * POCT Urine (12/29/2024 10:28 AM EDT) Preg Test, Ur Negative Negative, Indeterminate, None Detected, Invalid, Specimen unsatisfactory for evaluation, Weakly Positive, 2+ Urine 12/29/2024 10:2 8 AM EDT Melody Robins MD POINT OF CARE TEST ENTER/EDIT ORDERABLES Final Result * Colposcopy (09/29/2024 12:20 PM EDT) [facility]/BEDSIDE ORDERAB LES Final Result * (ABNORMAL) HPV DNA, Low/High Risk (08/10/2024 11:19 AM EDT) HPV High Risk Negative Negative [facility] HPV Genotype 16 Positive(A) Negative [facility] HPV Genotype 18 Negative Negative [facility] Comment:HPV testing performe d at [facility] (CLIA#[id number]), [address] [place] [address].Testing for HPV was performed using the Tiesha RADHA 6800system. The presence of HPV in the female genital tract isassociated with a number of diseases, including cervicalcarcinoma. The HPV DNA high risk pool tests for HPV 31, 33,35, 39, 45, 51, 52, 56, 58, 59, 66 and 68. The testing forHPV 16 and 18 genotypes has also been performed. A positiveresult indicates detection of nucleic acid sequences fromone or more subtypes, whereas a negative result indicatessuch sequences were not detected. 08/10/2024 11:1 9 AM EDT 08/10/2024 2:11 PM EDT us Generic External Data Provider LAB BLOOD ORDERAB LES Final Result [facility] [address] [place] [phone] * Pap Smear (08/10/2024 11:19 AM EDT) 08/10/2024 11:1 9 AM EDT 08/10/2024 2:11 PM EDT Bhupinder [facility] - 08/17/2024 4:17 PM EDT ----- ------- Name: Vanessa Menchaca Age/Sex: 34/F : 1990 Unit#: [id number] Attend Dr: Ifrah Lilly [facility] Re08/10/24 Status: DEP REF Location: HO.LNP Disch: ----- ------- SPEC : [id number] RECD: 08/10/24 STATUS: SHIRA MARTIN NUM: [id number] JT: 08/10/241119 [facility] DR: Ifrah Lilly CNM ENTERED: 08/10/24 SP TYPE: Pap Smr OTHR DR: Melody Robins MD ORDERED: Pap Smear, PAP path review Interpretation ABNORMAL PAP TEST. Satisfactory for evaluation, with atypical squamous cells of undetermined significance (ASC-US). Mild inflammation. HPV High Risk: Negative HPV Genotyping 16: Positive HPV Genotyping 18: Negative Clinical Information LMP: Unknown date Previous PAP test: 05/27/23, HPV+ Other history: Papillomavirus as the cause of diseases classified elsewhere Material Received ThinPrep-Cervical Copies To: Melody Robins MD [address] [id number] Ifrah Lilly CNM [facility] [address] [place] [address] ----- ------- Signed (signature on file) Chanel Jensen MD 08/17/24 1617 ----- ------- END OF REPORT us Generic External Data Provider LAB CYTOLOGY YOLIE YU Final Result [facility] [address] [place] [phone] * Lipid Panel, Standard (06/25/2023 11:40 AM EDT) Triglycerides 54 <150 mg/dL [facility] Comment:Desirable Triglyceri de: less than 150 mg/dLBorderline High Triglyceride 150-199 mg/dLHigh Triglyceride: 200-499 mg/dLVery High Triglyceride: greater than or equal to 5OO mg/dL Cholesterol 130 <200 mg/dL [facility] Comment:Desirable Cholestero l: less than 200 mg/dLBorderline High Cholesterol: 200-239 mg/dLHigh Cholesterol: greater than 239 mg/dL LDL Cholesterol Calculated 73 <100 mg/dL [facility] Comment:Desirable LDL: less than 100 mg/dLNear Optimal/Above Optimal LDL: 110- 129 mg/dLBorderline High LDL: 130-159 mg/dLHigh LDL: 160-189 mg/dLVery High LDL: greater than or equal to 190 mg/dL HDL Cholesterol 47 >40 mg/dL [facility] Comment:Desirable HDL: great er than 40 mg/dL Note: This HDL assay may give artificially low results in patients with liver disease. 06/25/2023 11:4 0 AM EDT 06/25/2023 11:40 AM EDT us Generic External Data Provider LAB BLOOD ORDERAB LES Final Result [facility] [address] [place] [address] [phone] * HEPATITIS C AB W/REFL TO HCV RNA, QN, PCR (01/22/2022 10:34 AM EDT) HEPATITIS C ANTIBODY NON-REACTI VE NON-REACT MEL [facility] INDEX 0.09 <1.00 [facility] Comment: HCV antibody was non-reactive. There is no laboratory evidence of HCV infection. In most cases, no further action is required. However, if recent HCV exposure is suspected, a test for HCV RNA (test code 37316) is suggested. For additional information please refer to http://education.questdiagnostics.com/faq/LTF35a5 (This link is being provided for informational/ educational purposes only.) 01/22/2022 10:3 4 AM EDT Brenda Eric ANP HISTORICAL/NON ORDERABLE LABS Fi nal Result [facility] * HIV 1/2 ANTIGEN/ANTIBODY,FOURTH GENERATION W/RFL (01/22/2022 10:34 AM EDT) HIV-1/2 ANTIGEN AND ANTIBODIES, 4TH GENERATION W/ REFLEX NON-REACT MEL NON-REACT MEL [facility] Comment: HIV-1 antigen and HIV-1/HIV-2 antibodies were not detected. There is no laboratory evidence of HIV infection. PLEASE NOTE: This information has been disclosed to you from records whose confidentiality may be protected by state law. If your state requires such protection, then the state law prohibits you from making any further disclosure of the information without the specific written consent of the person to whom it pertains, or as otherwise permitted by law. A general authorization for the release of medical or other information is NOT sufficient for this purpose. For additional information please refer to http://CrowdyHouse.Nanotecture/faq/KJG120 (This link is being provided for informational/ educational purposes only.) The performance of this assay has not been clinically validated in patients less than 2 years old. 01/22/2022 10:3 4 AM EDT Brenda Eric ANP LAB BLOOD ORDERABLES Final Resul t [facility] LAB[facility] from Last 3 Months or Most Recently Relevant to Health Maintenance [place] [address] [address] C3 Care Teams Interactive Art Director Relationship Specialty Start Date End Date Melody Robins MD [address] [place] [phone] PCP - General Family Medicine 10/02/16
--- OUTSIDE RECORDS SUMMARY | 2025-03-13 18:22 | XMS_ITS | Encounter Summary ---
Author Organization [employer] Address [address] [facility] 7t [place] [address] Care Team Providers Care Datastage Developer Name Role Phone Melody Robins MD Primary Care Provider [phone] Encounter Details Date Type Department Care Team ([facility] st Contact Info) Description 10/07/2022 Abstract [facility] [address] [place] [address] Melody Robins MD [address] [place] [address] Social History Tobacco Use Types Packs/Day Years [...] on filedocumented in this encounter Care Teams Datastage Developer Relationship Specialty Start Date End Date Melody Robins MD [address] [place] [address] PCP - General Family Medicine 10/02/16 documented as of this encounter
--- OUTSIDE RECORDS SUMMARY | 2025-03-13 18:22 | XMS_ITS | Encounter Summary ---
Author Organization [employer] Address [address] [facility] [address] [place] [address] Care Team Providers Care Laborer Heading Name Role Phone Melody Robins MD Primary Care Provider [phone] Reason for Visit * Reason Onset Date Comments Appointment Request 09/29/2023 Encounter Details Date Type Department Care Team ([facility] Contact Info) Description 09/29/2023 Telephone [facility] [address] [place] [address] Melody Robins MD [address] [place] [address] Appointment Request Social History Tobacco Use Types [...] documented as of this encounter Care Teams Laborer Heading Relationship Specialty Start Date End Date Melody Robins MD [address] [place] [address] PCP - General Family Medicine 10/02/16 documented as of this encounter
--- OUTSIDE RECORDS SUMMARY | 2025-03-13 18:22 | XMS_ITS | Encounter Summary ---
Author Organization [employer] Address [address] [facility] [place] [address] Care Team Providers Care Folding Machine Feeder Name Role Phone Melody Robins MD Primary Care Provider [phone] Encounter Details Date Type Department Care Team ([facility] st Contact Info) Description 06/30/2024 Orders Only [facility] [address] [place] [address] Provider, MD Luli Social History Tobacco Use [...] documented as of this encounter Care Teams Folding Machine Feeder Relationship Specialty Start Date End Date Melody Robins MD [address] [place] [phone] PCP - General Family Medicine 10/02/16 documented as of this encounter
--- OUTSIDE RECORDS SUMMARY | 2025-03-13 18:22 | XMS_ITS | Encounter Summary ---
Author Organization [employer] Address [address] [facility] [address] [place] [address] Care Team Providers Care Cosmetician Apprentice Name Role Phone Melody Robins MD Primary Care Provider [phone] Reason for Visit * Reason Onset Date Comments Nurse Triage 08/19/2024 Encounter Details Date Type Department Care Team ([facility] Contact Info) Description 08/19/2024 Telephone [facility] [address] [place] [address] Melody Robins MD [address] [place] [address] Nurse Triage Social History Tobacco Use Types [...] seen recently. No med changes noted. 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 Call returned to Vanessa Taylor to triage below. Reports that med levothyroxine was changed from flaring machine operator. Per pt having body pain, lump on head, having itchy skin. Med was changed this month. Pt last dose taken this morning. Call to [facility] [phone] to determine previous flaring machine operator and current med flaring machine operator name. Spoke with Brisa , Pt had been getting rx from [facility]On 07/30/24 pharmacy dispensed supply from flaring machine operator [employer]. Pt offered sick onsite with PCP today [...] Center 08/23/2024 11:[address] [facility] 09/28/2024 9:[address] [facility] Insurance verified as active per Real Time Eligibility in [facility]. Video visit offer not recorded Positive Triage [...] documented as of this encounter Care Teams Cosmetician Apprentice Relationship Specialty Start Date End Date Melody Robins MD [address] [place] [address] PCP - General Family Medicine 10/02/16 documented as of this encounter
[2025-03-13 19:15] LABS: MANUAL DIFF FLAG NO
[2025-03-13 19:17] LABS: Appearance Urine Clear; Glucose Urine UA Negative (Negative); PH 6.0 (5.0-9.0); Specific Gravity - Urine 1.015 (1.005-1.025); UMIC TRIGGER UACC YES
[2025-03-13 19:19] LABS: Hematocrit 37.3 % (37.0-47.0); Hemoglobin 12.0 g/dl (12.0-16.0); Imm Gran Abs Auto 0.02 X10*3/uL (0.00-0.03); Imm Gran Pct Auto 0.2 % (0.0-0.4); Lymphocytes Absolute Auto 2.0 X10*3/uL (1.2-4.9); Mean Corpuscular HGB Conc 32.2 g/dl (31.0-35.0); Mean Corpuscular Hemoglobin 27.9 pg (27.0-33.0); Mean Corpuscular Volume 86.7 fL (80.0-98.0); NRBC Abs Auto 0.000 X10*3/uL (0.0-0.012); NRBC Pct Auto 0.0 /100WBC (0.0-0.2); Platelet Count 287 X10*3/uL (160-400); Red Blood Count 4.30 X10*6/uL (4.20-5.50); White Blood Count 8.9 X10*3/uL (4.8-10.8)
[2025-03-13 19:20] LABS: UPreg QC Valid YES
[2025-03-13 19:35] LABS: Anion Gap 12 (12-20); Blood Urea Nitrogen 12 mg/dL (9-16); Calcium 9.3 mg/dL (8.4-10.2); Carbon Dioxide 21 mmol/L (22-29); Chloride 110 mmol/L (96-108); Creatinine Clr Calc Pharmacy 123.0; Estimated Glomerular Filt Rate > 60; Potassium 3.6 mmol/L (3.3-5.1); Sodium 139 mmol/L (135-145)
[2025-03-13 19:45] LABS: UACC Culture Trigger YES
[2025-03-13 20:53] VITALS: BP 102/39; PULSE 68; RESP 16; TEMP 36.6; O2SAT 99
[2025-03-13 22:54] VITALS: BP 108/61; PULSE 64; RESP 16; O2SAT 98
[2025-03-13 22:58] VITALS: BP 108/61; PULSE 64; RESP 16; TEMP 36.6; O2SAT 98
== END 2025-03-13 22:59 | disposition home or self-care (01) ==
PROVIDERS: Nurse Practitioner; Emergency Provider Student in an Organized Health Care Education/Training Program; PCP Pediatrics
DX: O26.891 Other specified pregnancy related conditions, first trimester (principal); R10.20 Pelvic and perineal pain unspecified side; Z3A.01 Less than 8 weeks gestation of pregnancy
CPT/HCPCS: 36415; 76801; 76817; 80048; 81001; 81025; 84702; 85025; 87086; 87088; 87186; 99283; 99284

== ENCOUNTER → 2025-03-13 18:02 | Outpatient (BNV) | payer MEDICAID, SELFPAY | PROVIDERS: Emergency Provider Emergency Medicine; PCP Pediatrics; Visit Provider Nuclear Medicine | DX: O26.891 Other specified pregnancy related conditions, first trimester (principal); Z3A.00 Weeks of gestation of pregnancy not specified; Z03.89 Encounter for observation for other suspected diseases and conditions ruled out | CPT/HCPCS: 76801; 76817 ==

== ENCOUNTER 2025-03-15 07:11 | Outpatient (REF) | payer MEDICAID, SELFPAY ==
--- OUTSIDE RECORDS SUMMARY | 2025-03-14 17:40 | XMS_ITS | Encounter Summary ---
Author Organization [employer] Address [address] [facility] 7t [place] [address] Care Team Providers Care Tax Manager Cpa Name Role Phone Melody Robins MD Primary Care Provider [phone] Avi Thomas RN Unavailable [phone] Lisa Butler Unavailable Krystin Wagner Unavailable Reason for Visit * Reason Comments Walk-In Need analisis Encounter Details Date Type Department Care Team (Late st Contact Info) Description 03/14/2025 5:40 PM EST Office Visit [facility] [address] [place] [address] Rosalba Gallegos FNP [address] [place] [address] Missed period (Primary Dx) Social History Tobacco Use Types Packs/Day Years [...] AM EDT documented as of this encounter Last Filed Vital Signs Vital Sign Reading Time Taken Comments Blood Pressure 112/72 03/14/2025 6:04 PM EST Pulse 71 03/14/2025 6:04 PM EST Temperature 36.7 C (98.1 F) 03/14/2025 6:04 PM EST Respiratory Rate 18 03/14/2025 6:04 PM EST Oxygen Saturation 100% 03/14/2025 6:04 PM EST Inhaled Oxygen Concentration - - Weight 88 kg (194 lb) 03/14/2025 6:04 PM EST Height - - Body Mass Index 35.33 12/29/2024 9:50 AM EDT documented in this encounter Plan of Treatment Scheduled Orders Name Type Priority Associated Diagnoses Orde r Schedule hCG, Total, Quantitative Lab Routine Missed period Expected: 03/14/2025 (Approximate), Expires: 03/14/2026 documented as of this encounter Visit Diagnoses Diagnosis Missed period- Primary documented in this encounter Additional Health Concerns Assessment Noted Time PHQ-9 Depression Total Score: 7 12/30/19 25 9:51 AM EDT documented as of this encounter Care Teams Tax Manager Cpa Relationship Specialty Start Date End Date Melody Robins MD [address] [place] [address] PCP - General Family Medicine 10/02/16 Avi Thomas, TEVIN [address] [place] [address] Registered Nurse Family Medicine 03/14/25 03/14/25 Lisa Butler Registered Nurse 03/14/25 Krystin Wagner 03/14/25 documented as of this encounter
--- OUTSIDE RECORDS SUMMARY | 2025-03-15 07:14 | XMS_ITS | Encounter Summary ---
Author Organization [employer] Address [address] 7[address] [place] [address] Care Team Providers Care Air Chief Marshal Name Role Phone Melody Robins MD Primary Care Provider [phone] Avi Thomas RN Unavailable [phone] Lisa Butler Unavailable [phone] Krystin Wagner Unavailable Encounter Details Date Type Department Care Team (Late st Contact Info) Description 06/30/2024 Orders Only [facility] & PEDS [address] [place] [address] Provider, MD Luli Social History Tobacco Use [...] to Culture (06/29/2024 10:33 AM EDT) Urine Historical Provider LAB URINE ORDERABLES Mikala l Result documented in this encounter Visit Diagnoses Not on filedocumented in this encounter Additional Health Concerns Assessment Noted Time PHQ-9 Depression Total Score: 11 04/21/ 025 3:59 PM EST documented as of this encounter Care Teams Air Chief Marshal Relationship Specialty Start Date End Date Melody Robins MD [address] [place] [address] PCP - General Family Medicine 10/02/16 Avi Thomas, TEVIN [address] [place] [address] Registered Nurse Family Medicine 03/14/25 03/14/25 Lisa Butler Registered Nurse 03/14/25 Krystin Wagner 03/14/25 documented as of this encounter
--- OUTSIDE RECORDS SUMMARY | 2025-03-15 07:14 | XMS_ITS | Encounter Summary ---
Author Organization [facility] Address [address] [place] [address] Phone Care Team Providers Care International Marketing Manager Name Role Phone Melody Robins MD Primary Care Provider [phone] Encounter Details Date Type Department Care Team (Late st Contact Info) Description 06/29/2024 Procedure Pass [facility], Ct Scan - [facility] [address] [place] [address] Social History Tobacco Use Types Packs/Day Years [...] on filedocumented in this encounter Care Teams International Marketing Manager Relationship Specialty Start Date End Date Melody Robins MD [address] [place] [address] PCP - General Internal Medicine 06/29/24 documented as of this encounter Additional Source Comments The information contained in this document represents components of the legal health record. It is not the complete legal health record.[facility]
--- OUTSIDE RECORDS SUMMARY | 2025-03-15 07:14 | XMS_ITS | Encounter Summary ---
Author Organization [email or web address] Address [address] [facility] 7t [place] [address] Care Team Providers Care Bar Turner Name Role Phone Melody Robins MD Primary Care Provider [phone] Avi Thomas RN Unavailable [phone] Lisa Butler Unavailable Krystin Wagner Unavailable Encounter Details Date Type Department Care Team (Late st Contact Info) Description 12/17/2022 Orders Only [facility] [address] [place] [address] Provider, MD Luli Social History Tobacco Use [...] Final Result * Hm Pap Smear (08/14/2020) Historical Provider HEALTH MAINTENANCE Final Result documented in this encounter Visit Diagnoses Not on filedocumented in this encounter Care Teams Bar Turner Relationship Specialty Start Date End Date Melody Robins MD [address] [place] [address] PCP - General Family Medicine 10/02/16 Avi Thomas, TEVIN [address] [place] [address] Registered Nurse Family Medicine 03/14/25 03/14/25 Lisa Butler Registered Nurse 03/14/25 Krystin Wagner 03/14/25 documented as of this encounter
--- OUTSIDE RECORDS SUMMARY | 2025-03-15 07:14 | XMS_ITS | Encounter Summary ---
Author Organization [employer] Address [address] [facility] 7t [place] [address] Care Team Providers Care Flow Coordinator Name Role Phone Melody Robins MD Primary Care Provider Avi Thomas RN Unavailable [phone] Lisa Butler Unavailable [phone] Krystin Wagner Unavailable Encounter Details Date Type Department Care Team (Late st Contact Info) Description 12/17/2022 Orders Only [facility] [address] [place] [address] Polly Diamond Social History Tobacco Use Types [...] on filedocumented in this encounter Care Teams Flow Coordinator Relationship Specialty Start Date End Date Melody Robins MD [address] [place] [address] PCP - General Family Medicine 10/02/16 Avi Thomas, RN [address] [place] [address] [place] [address] Registered Nurse Family Medicine 03/14/25 03/14/25 Lisa Butler Registered Nurse 03/14/25 Krystin Wagner 03/14/25 documented as of this encounter
--- OUTSIDE RECORDS SUMMARY | 2025-03-15 07:14 | XMS_ITS | Encounter Summary ---
Author Organization [employer] Address [address] [facility] 7t [place] [address] Care Team Providers Care Roller Mill Operator Name Role Phone Melody Robins MD Primary Care Provider [phone] Avi Thomas RN Unavailable [phone] Lisa Butler Unavailable Krystin Wagner Unavailable Reason for Visit * Reason Comments Care Coordination C3/CHW Krystin presley, Initial assessment scheduled Encounter Details Date Type Department Care Team (Latest Contact Info) Description 03/14/2025 Patient Outreach [facility] [address] [place] [address] Melody Robins MD [address] [place] [address] Care Coordination (C3CM/CHW Krystin Wagner, Initial assessment scheduled ) Social History Tobacco Use Types Packs/Day Years [...] as of this encounter Progress Notes * Krystin Wagner - 03/14/2025 1:10 PM EST CHW Krystin Wagner, placed outbound call to patient introducing herself from [facility] CM Department, in regards to offering for C3 Adult Complex Care Program. Patient's name and was confirmed. Patient agrees to participate in program. Appt. for initial assessment scheduled for 03/30/25 @ 10:00 AM with CM/RN Lisa Butler. Patient will come to Walk -in Urgent Care for ED followup. CHW reinforced direct contact information or CM for any additional questions or concerns and extended clinic hours on Mondays and Wednesdays, and [facility] Care[facility] in Lobby of [facility]. Patient provided with after-hours line for [facility], , which offer night triage service and option to transfer to packer insulation provider if needed. Patient verbalizes understanding, and able to repeat back to ad copy writer. documented in this encounter Plan of Treatment Not on file documented as of this encounter Visit Diagnoses Not on filedocumented in this encounter Additional Health Concerns Assessment Noted Time PHQ-9 Depression Total Score: 7 12/30/19 25 9:51 AM EDT documented as of this encounter Care Teams Roller Mill Operator Relationship Specialty Start Date End Date Melody Robins MD [address] [place] [address] PCP - General Family Medicine 10/02/16 Avi Thomas, TEVIN [address] [place] [address] Registered Nurse Family Medicine 03/14/25 03/14/25 Lisa Butler Registered Nurse 03/14/25 Krystin Wagner 03/14/25 documented as of this encounter
--- OUTSIDE RECORDS SUMMARY | 2025-03-15 07:14 | XMS_ITS | Encounter Summary ---
Author Organization [employer] Address [address] [facility] [address]t [place] [address] Care Team Providers Care Electrical Machinist Name Role Phone Melody Robins MD Primary Care Provider Avi Thomas RN Unavailable [phone] CarrieLisa betancourt Unavailable Bernard Krystin Unavailable Encounter Details Date Type Department Care Team (Late st Contact Info) Description 10/07/2022 Abstract [facility] MED & PEDS [address] [place] [address] Melody Robins MD [address] [place] [address] Social History Tobacco Use Types Packs/Day Years [...] on filedocumented in this encounter Care Teams Electrical Machinist Relationship Specialty Start Date End Date Melody Robins MD [address] [place] [address] PCP - General Family Medicine 10/02/16 Avi Thomas RN [address] [place] [address] Registered Nurse Family Medicine 03/14/25 03/14/25 Lisa Butler Registered Nurse 03/14/25 Krystin Wagner 03/14/25 documented as of this encounter
--- OUTSIDE RECORDS SUMMARY | 2025-03-15 07:14 | XMS_ITS | Encounter Summary ---
Author Organization [employer] Address [address] [facility] [address] [place] [address] Care Team Providers Care Movie Projectionist Name Role Phone Melody Robins MD Primary Care Provider [phone] Avi Thomas RN Unavailable [phone] Lisa Butler Unavailable [phone] Krystin Wagner Unavailable Encounter Details Date Type Department Care Team (Late st Contact Info) Description 10/14/2024 Orders Only [facility] MED & PEDS [address] [place] [address] Provider, MD Luli Social History Tobacco Use [...] your housing situation today? I have amara hircsh 09/20/[address] you li [...] Results * Colposcopy (09/29/2024 12:20 PM EDT) Historical Provider MD IN CLINIC/BEDSIDE ORDERAB LES Final Result documented in this encounter Visit Diagnoses Not on filedocumented in this encounter Additional Health Concerns Assessment Noted Time PHQ-9 Depression Total Score: 11 025 3:59 PM EST documented as of this encounter Care Teams Movie Projectionist Relationship Specialty Start Date End Date Melody Robins MD [address] [place] [address] PCP - General Family Medicine 10/02/16 Avi Thomas, TEVIN [address] [place] [address] Registered Nurse Family Medicine 03/14/25 03/14/25 Lisa Butler Registered Nurse 03/14/25 Krystin Wagner 03/14/25 documented as of this encounter
--- OUTSIDE RECORDS SUMMARY | 2025-03-15 07:14 | XMS_ITS | Encounter Summary ---
Author Organization [employer] Address [address] [facility] 7t [place] [address] Care Team Providers Care Food And Beverage Assistant Name Role Phone Melody Robins MD Primary Care Provider [phone] Avi Thomas RN Unavailable Lisa Butler Unavailable [phone] Krystin Wagner Unavailable Reason for Visit * Reason Comments Care Coordination C3CM- chart review Encounter Details Date Type Department Care Team (Latest Contact Info) Description 03/14/2025 Patient Outreach [facility] CH[facility] MED & PEDS [address] [place] [address] Melody Robins MD [address] [place] [address] Care Coordination (C3CM- chart review) Social History Tobacco Use Types Packs/Day Years [...] as of this encounter Progress Notes * Avi Thomas RN - 03/14/2025 8:33 AM EST CM Avi Thomas RN, performed chart review, in anticipation of initial assessment with patient, aspatient has stratified for C3 Adult Complex Care through the ADT feed. History significant for acnevulgaris, generalized anxiety disorder, primary insomnia, class 3 severe obesity, moderate depressive disorder. Specialists include [facility], [facility]. ED visits within the last 12 months include [facility] 03/13/25, [facility] 06/29/24. Last appointment in PCP office on 12/29/24. No future appointment scheduled with PCP at this time. documented in this encounter Plan of Treatment Not on file documented as of this encounter Visit Diagnoses Not on filedocumented in this encounter Additional Health Concerns Assessment Noted Time PHQ-9 Depression Total Score: 7 12/30/19 25 9:51 AM EDT documented as of this encounter Care Teams Food And Beverage Assistant Relationship Specialty Start Date End Date Melody Robins MD [address] [place] [address] PCP - General Family Medicine 10/02/16 Avi Thomas, TEVIN [address] [place] [address] Registered Nurse Family Medicine 03/14/25 03/14/25 Lisa Butler Registered Nurse 03/14/25 Krystin Wagner 03/14/25 documented as of this encounter
--- OUTSIDE RECORDS SUMMARY | 2025-03-15 07:14 | XMS_ITS | Encounter Summary ---
Author Organization [employer] Address [address] [facility] [address] [facility] [address] [address] 7[address] [place] [address] Care Team Providers Care Lens And Frames Prescription Clerk Name Role Phone Melody Robins MD Primary Care Provider [phone] Avi Thomas RN Unavailable [phone] Lisa Butler Unavailable [phone] Krystin Wagner Unavailable Encounter Details Date Type Department Care Team (Late st Contact Info) Description 07/01/2024 Orders Only [facility] MED & PEDS [address] [place] [address] Provider, MD Luli Social History Tobacco Use [...] is your housing situation today? I have amraa hirsch 01/06/[address] you [...] documented as of this encounter Care Teams Lens And Frames Prescription Clerk Relationship Specialty Start Date End Date Melody Robins MD [address] [place] [address] PCP - General Family Medicine 10/02/16 Avi Thomas, RN [address] [place] [address] Registered Nurse Family Medicine 03/14/25 03/14/25 Lisa Butler Registered Nurse 03/14/25 Krystin Wagner 03/14/25 documented as of this encounter
--- OUTSIDE RECORDS SUMMARY | 2025-03-15 07:14 | XMS_ITS | Clinical Summary ---
Author Organization [employer] Address [address] [facility] [address] [place] [address] Care Team Providers Care Laborer Mine Name Role Phone Melody Robins MD Primary Care Provider [phone] Lisa Butler Unavailable [phone] Krystin Wagner Unavailable Allergies No known active allergies Medications * This document contains information received from the source organization and may not represent a complete record from that organization. ergocalciferol (Vitamin D2) 1.25 MG (74179 UT) capsule Take 1 capsule (1.25 mg) by mouth 1 (one) time per week. 15 capsule 4 Active zinc gluconate 30 MG tablet Take 1 tablet by mouth Once per day. 4 Active beta carotene (vitamin A) 3 MG (04762 UT) capsule Take by mouth Once per [...] CLEAN TIP AND REPLACE CAP. 48 mL 5 Active topiramate 50 MG tablet Take 1 tablet (50 mg) by mouth Once per day. 30 tablet 3 5 Active phentermine 8 MG tablet Take 1 tab orally daily with topamax 30 tablet 5 Active levothyroxine (Synthroid) 88 MCG tablet TAKE [...] presented to the clinic today for a project management director visit for her son. During pedi visit, mom was visible stress and emotionally overwhelmed. Mom reported presentation of sxs are associated with her son diagnosis (Autism). She is currently living with her mother but reports needing assistance to apply for housing. Pt has a therapist with [facility] and have weekly appointments per her report. Not interested at this time to start medication. clinician engaged patient with active/reflective listening. Reviewed and assessed for risk, current stressors and protective factors using open-ended questions. Pt will be referred with CM to assist with housing resources. Explored coping strategies that pt can use during stressful times. Provided HC contact information and educated patient on the [...] Encounters Date Type Department Care Team Description 03/14/2025 5:40 PM EST Office Visit [facility] [address] [place] [phone] Rosalba Gallegos FNP Missed period (Primary Dx) 03/14/2025 Patient Outreach [address] [address] Melody Robins MD 03/14/2025 Patient Outreach [address] [address] Melody Robins MD Care Coordination ([facility]/DENISA Wagner, Initial assessment scheduled ) 03/14/[address] [address] Melody Robins MD Call Back Request 03/14/2025 Patient Outreach [address] [address] Melody Robins MD Care Coordination ([facility]/DENISA Wagner, Chart review ) 03/14/2025 Patient Outreach [facility] [address] [place], [place] [phone] Melody Robins MD Care Coordination ([facility]- chart review) 03/14/2025 Patient Outreach [address] [address] Melody Robins MD 03/13/2025 Orders Only GENERIC EXTERNAL DATA DEPARTMENT Provider, Generic External Data 02/23/2025 Patient Outreach [facility] [address] [place] [address] Melody Robins MD Pre-visit Planning (SDOH was already completed) 02/23/2025 Travel 02/22/2025 Refill [facility] [address] [place] [address] Melody Robins MD 02/07/2025 Refill [facility] [address] [place] [address] Melody Robins MD 12/30/2024 Results Follow-Up [facility] [address] [place] [address] Melody Robins MD POCT Urine , CBC auto differential, TSH W/Reflex to FT4, Additional followed-up results: 3 12/29/2024 9:45 AM EDT Office Visit [facility] [address] [place] [address] Melody Robins MD Missed period (Primary Dx); Acquired hypothyroidism; Class 3 severe obesity due to excess calories without serious comorbidity with body mass index (BMI) of 40.0 to 44.9 in adult (HCC); Generalized anxiety disorder; Routine general medical examination at a health care facility; Dietary counseling; Exercise counseling 12/29/2024 Travel 12/22/2024 Travel 12/21/2024 Patient Outreach [facility] [address] [place] [address] Melody Robins MD Pre-visit Planning (SDOH screening [...] (194 lb) 03/14/2025 6:04 PM EST Height 157.8 cm (5' 2.13 ) 12/29/2024 9:50 AM ED T Body Mass Index 35.33 12/29/2024 9:50 AM EDT Plan of Treatment [...] Cervical Cancer Screening 09/29/2025 HPV/Cotest 09/29/2025 08/10/2024, 05/2 06/2020, 08/14/2020 Pap Smear 09/29/2025 08/10/2024, 03/0 03/2023, [...] Name Priority Date/Time Associated Diagnosis Comments US OB TRANSVAGINAL Routine 03/13/2025 9: 26 PM EST US OB <14 WEEKS FETUS Routine 03/13/2025 7:56 PM EST URINALYSIS, COMPLETE, WITH REFLEX TO CULTURE Routine 03/13/2025 7:10 PM EST HCG, TOTAL, QN Routine 03/13/2025 7:10 PM EST BASIC METABOLIC PANEL Routine 03/13/2025 7:10 PM EST HCG, QL, URINE Routine 03/13/2025 7:10 PM EST CBC WITH AUTO DIFFERENTIAL Routine 03/13/2025 7:10 PM EST CULTURE, URINE, ROUTINE Routine 03/13/2025 12:00 AM EST INSULIN Routine 12/29/2024 10:32 AM EDT Acquired hypothyroidism Class 3 severe obesity due to excess calories without serious comorbidity with body mass index (BMI) of 40.0 to 44.9 in adult ([facility]) HEMOGLOBIN A1C Routine 12/29/2024 10:32 AM EDT Acquired hypothyroidism Class 3 severe obesity due to excess calories without serious comorbidity with body mass index (BMI) of 40.0 to 44.9 in adult ([facility]) VITAMIN B12/FOLATE, SERUM PANEL Routine 12/29/2024 10:32 AM EDT Missed period Acquired hypothyroidism Class 3 severe obesity due to excess calories without serious comorbidity with body mass index (BMI) of 40.0 to 44.9 in adult ([facility]) TSH W/REFLEX TO FT4 Routine 12/29/2024 1 0:32 AM EDT Missed period Acquired hypothyroidism Class 3 severe obesity due to excess calories without serious comorbidity with body mass index (BMI) of 40.0 to 44.9 in adult ([facility]) CBC WITH AUTO DIFFERENTIAL Routine 12/29/2024 10:32 AM EDT Missed period Acquired hypothyroidism Class 3 severe obesity due to excess calories without serious comorbidity with body mass index (BMI) of 40.0 to 44.9 in adult ([facility]) POCT , URINE Routine 12/29/2024 10:28 AM [...] Relevant to Health Maintenance Results * US OB Transvaginal (03/13/2025 9:26 PM EST) Anatomical Region Laterality Modality Body Ultrasound 03/13/2025 9:26 PM EST Narrative 03/13/2025 9:29 PM EST [place] [address] Ultrasound Report Signed with Addina Patient: Vanessa Menchaca MR#: [id number] : 1990 Acct:[id number] Age/Sex: 35 / F ADM Date: 03/13/25 Loc: HO.ED Attending Dr: Ordering Physician: Anjelica Hamlin NP Date of Service: 03/13/25 Procedure(s): US OB transvaginal Accession Number(s): [id number] cc: Melody Robins MD; Anjelica Hamlin NP Reason for Exam: , r/o ectopic ADDENDUM This document has been electronically signed by: Sergio Wagner MD on 03/13/2025 21:26:52 ADDENDUM: This report was discussed with Dr. Ma on Mar 13, 2025 21:31:00 EST. This document has been electronically signed by: Hui Benton on 03/13/2025 21:31:34 Addendum Dictated By: Sergio Wagner MD Addendum Signed By: <Electronically signed by Sergio Wagner MD in OV> 03/13/252130 Addendum Cosigned By: DD/ TD/TT: 03/13/25 CLINICAL HISTORY: , r o ectopic --- Additional Notes or Special Instructions: Called ultrasound at 2009 regarding stat ultrasound. Patient already had one done and ultrasound is me ssaging provider. -[place] US OB 1st Trimester transvaginal with Doppler Comparison: None provided Findings: No IUP identified. Endometrium 1 cm in width. The right ovary measures 3.3 x 2.7 x 2.2 cm and demonstrates blood flow by color Doppler evaluation. The left ovary is not identified. (Transvaginal pelvic examination only). IMPRESSION: 1. No IUP identified. Ectopic has not been excluded. Short-term follow-up in correlation with serial quantitative beta hCG suggested. This document has been electronically signed by: Sergio Wagner MD on 03/13/2025 21:26:52 Dictated By: Sergio Wagner MD Signed By: <Electronically signed by Sergio Wagner MD in OV> 03/13/252127 DD/ 25 TD/TT: 03/13/252125 Pbx Installer: Procedure Note Donotuseinterpreter, Image - 03/13/2025 [place] [address] Ultrasound Report Signed with Ronn Patient: Elver Menchaca#: [id number] : 1990Acct:[id number] Age/Sex: 35 / FADM Date: 03/13/25 Loc: HO.ED Attending Dr: Ordering Physician: Anjelica Hamlin NP Date of Service: 03/13/25 Procedure(s): US OB transvaginal Accession Number(s): [id number] cc: Melody Robins MD; Anjelica Hamlin NP Reason for Exam: , r/o ectopic ADDENDUM This document has been electronically signed by: Sergio Wagner MD on 03/13/2025 21:26:52 ADDENDUM: This report was discussed with Dr. Ma on Mar 13, 2025 21:31:00 EST. This document has been electronically signed by: Hui Benton on 03/13/2025 21:31:34 Addendum Dictated By: Sergio Wagner MD Addendum Signed By: <Electronically signed by MD Andrew in OV> 03/13/252130 Addendum Cosigned By: DD/ TD/TT: 03/13/25 CLINICAL HISTORY: , r o ectopic --- Additional Notes or SpecialInstructions: Called ultrasound at 2009 regarding stat ultrasound. Patient already had one doneand ultrasound is me ssaging provider. -[place] US OB 1st Trimester transvaginal with Doppler Comparison: None provided Findings: No IUP identified. Endometrium 1 cm in width. The right ovary measures 3.3 x 2.7 x 2.2 cm and demonstrates blood flow by color Doppler evaluation. The left ovary is not identified. (Transvaginal pelvic examination only). IMPRESSION: 1. No IUP identified. Ectopic has not been excluded. Short-term follow-up in correlation with serial quantitative beta hCG suggested. This document has been electronically signed by: Sergio Wagner MD on 03/13/2025 21:26:52 Dictated By: Sergio Wagner MD Signed By: <Electronically signed by Sergio Wagner MD in OV> 03/13/252127 DD/ 25 TD/TT: 03/13/252125 Pbx Installer: us [facility] External Provider IMG OB US PROCEDURES Edited Result - Final * US OB <14 WEEKS FETUS (03/13/2025 7:56 PM EST) Anatomical Region Laterality Modality Ultrasound 03/13/2025 7:56 PM EST Narrative 03/13/2025 7:58 PM EST [address] [address] Ultrasound Report Signed Patient: Vanessa Menchaca MR#: [id number] : 1990 Acct:[id number] Age/Sex: 35 / F ADM Date: 03/13/25 Loc: HO.ED Attending Dr: Ordering Physician: Yael Naranjo Date of Service: 03/13/25 Procedure(s): US OB <= 14 weeks fetus Accession Number(s): [id number] cc: Melody Robins MD; Yael Naranjo Reason for Exam: Abdominal/Pelvic Pain +Preg at home CLINICAL HISTORY: Abdominal Pelvic Pain +Preg at home US OB 1st trimester transabdominal Comparison: US/OR/SR - US PELVIS TRANSABDOMINAL AND TRANSVAGINAL - 04/28/24 13:30 EST Findings: Patient refused transvaginal ultrasound. No IUP is seen. Endometrial thickness 1 cm Right ovary 3.6 x 1.6 x 2.5 cm Left ovary 3.4 x 2.1 x 1.8 cm There is blood flow of the bilateral ovary. IMPRESSION: with unknown location. Clinical correlation and correlation with beta HCG level are recommended. Ultrasound follow-up in 1-2 weeks as indicated. This document has been electronically signed by: Ezra Bautista MD on 03/13/2025 19:56:38 Dictated By: Ezra Bautista MD Signed By: <Electronically signed by Ezra Bautista MD in OV> 03/13/251957 DD/ 55 TD/TT: 03/13/251955 Pbx Installer: Procedure Note Donotuseinterpreter, Image - 03/14/2025 [place] [address] Ultrasound Report Signed Patient: Elver Menchaca#: [id number] : 1990Acct:[id number] Age/Sex: 35 / FADM Date: 03/13/25 Loc: HO.ED Attending Dr: Ordering Physician: Yael Naranjo Date of Service: 03/13/25 Procedure(s): US OB <= 14 weeks fetus Accession Number(s): [id number] cc: Melody Robins MD; Yael Naranjo Reason for Exam: Abdominal/Pelvic Pain +Preg at home CLINICAL HISTORY: Abdominal Pelvic Pain +Preg at home US OB 1st trimester transabdominal Comparison: US/OR/SR - US PELVIS TRANSABDOMINAL AND TRANSVAGINAL - 04/28/24 13:30 EST Findings: Patient refused transvaginal ultrasound. No IUP is seen. Endometrial thickness 1 cm Right ovary 3.6 x 1.6 x 2.5 cm Left ovary 3.4 x 2.1 x 1.8 cm There is blood flow of the bilateral ovary. IMPRESSION: with unknown location. Clinical correlation and correlation with beta HCG level are recommended. Ultrasound follow-up in 1-2 weeks as indicated. This document has been electronically signed by: Ezra Bautista MD on 03/13/2025 19:56:38 Dictated By: Ezra Bautista MD Signed By: <Electronically signed by Ezra Bautista MD in OV> 03/13/251957 DD/ 55 TD/TT: 03/13/251955 Pbx Installer: us [facility] External Provider IMG OB US PROCEDURES Edited Result - Final * (ABNORMAL) Urinalysis, Complete, with Reflex to Culture (03/13/2025 7:10 PM EST) Color Urine Yellow [facility] Appearance Urine Clear [facility] PH 6.0 5.0 - 9.0 [facility] Glucose Urine UA Negative Negative mg/dL [facility] Urine Blood Negative Negative [facility] Specific [place] - Urine 1.015 1.005 - 1.025 [facility] Urine Protein Negative Neg-Trace mg/dL [facility] Urine Ketones Negative Negative mg/dL [facility] Nitrite Urine Negative Negative [facility] Leukocyte Esterase Urine Moderate (2+)(A) Negative [facility] RBC Urine 0-2 0 - 2 /HPF [facility] Urine WBC 11-20(A) 0 - 5 /HPF [facility] Urine Squamous Epithelial Cell 3-5 0 - 2 /HPF [facility] Urine Bacteria 2+ None Seen [facility] Hyaline Casts, Urine 0-2 0 - 2 /LPF [facility] 03/13/2025 7:10 PM EST 03/13/2025 7:13 PM EST Narrative [facility] - 03/13/2025 7:45 PM EST [id number], Clean Catch us Generic External Data Provider LAB URINE ORDERAB LES Final Result [facility] [address] [place] [address] [phone] * CBC auto differential (03/13/2025 7:10 PM EST) Only the most recent of2 resultswithin the time period is included. White Blood Count 8.9 4.8 - 10.8 X10*3/uL [facility] Red Blood Count 4.30 4.20 - 5.50 X10*6/uL [facility] Hemoglobin 12.0 12.0 - 16.0 g/dl [facility] Hematocrit 37.3 37.0 - 47.0 % [facility] Mean Corpuscular Volume 86.7 80.0 - 98.0 fL [facility] Mean Corpuscular Hemoglobin 27.9 27.0 - 33.0 pg [facility] Mean Corpuscular HGB Conc 32.2 31.0 - 35.0 g/dl [facility] Red Cell Distribution Width 13.2 11.0 - 16.0 % [facility] Platelet Count 287 160 - 400 X10*3/uL [facility] Mean Platelet Volume 11.3 9.4 - 12.3 fL [facility] Neutrophils Percent Auto 65.3 45 - 73 % [facility] Imm Gran Pct Auto 0.2 0.0 - 0.4 % [facility] Lymphocytes Percent Auto 22.2 20 - 40 % [facility] Monocytes Percent Auto 10.9 2 - 11 % [facility] Eosinophils Percent Auto 0.9 0 - 4 % [facility] Basophils Percent Auto 0.5 0 - 2 % [facility] NRBC Pct Auto 0.0 0.0 - 0.2 /100WBC [facility] Neutrophils Absolute Auto 5.8 2.0 - 8.3 x10*3/uL [facility] Imm Gran Abs Auto 0.02 0.00 - 0.03 X10*3/uL [facility] Lymphocytes Absolute Auto 2.0 1.2 - 4.9 X10*3/uL [facility] Monocytes Absolute Auto 1.0 0.1 - 1.2 X10*3/uL [facility] Eosinophils Absolute Auto 0.1 0.0 - 0.4 X10*3/uL [facility] Basophils Absolute Auto 0.0 0.0 - 0.2 X10*3/uL [facility] NRBC Abs Auto 0.000 0.0 - 0.012 X10*3/uL [facility] 03/13/2025 7:10 PM EST 03/13/2025 7:13 PM EST Generic External Data Provider LAB BLOOD ORDERAB LES Final Result Performing Organization Address City/[facility]/ZIP Co de Phone Number [facility] [address] [place] [address] [phone] * (ABNORMAL) HCG, Qualitative, Urine (03/13/2025 7:10 PM EST) Urine POSITIVE(A ) NEGATIVE [facility] 03/13/2025 7:10 PM EST 03/13/2025 7:13 PM EST Generic External Data Provider LAB URINE ORDERAB LES Final Result Performing Organization Address [facility] Co de Phone Number [facility] [address] [place] [address] [phone] * hCG, Total, Quantitative (03/13/2025 7:10 PM EST) HCG Quantitative 65 mIU/mL [facility] Comment:Weeks post LMP Appro ximate hCG(Last Menstrual Period) Range (mIU/ml)3 - 4 weeks 9 - 1304 - 5 weeks 75 - 2,6005 - 6 weeks 850 - 20,8006 - 7 weeks 4000 - 100,2007 - 12 weeks 11,500 - 289,90133 - 16 weeks 18,300 - 137,97888 - 29 weeks (2nd trimester) 1,400 - 53,23743 - 41 weeks (3rd trimester) 940 - 60,000The Braga B- hCG assay is used for the early detection ofpregnancy; it cannot be used to diagnose any conditionunrelated to . If a B-hCG level is not supportedby the clinical evidence, results should be confirmed by analternative method (qualitative urine hCG, for example). 03/13/2025 7:10 PM EST 03/13/2025 7:13 PM EST us Generic External Data Provider LAB BLOOD ORDERAB LES Final Result [facility] [address] [place] [phone] * (ABNORMAL) Basic Metabolic Panel (03/13/2025 7:10 PM EST) Sodium 139 135 - 145 mmol/L [facility] Potassium 3.6 3.3 - 5.1 mmol/L [facility] Chloride 110(H) 96 - 108 mmol/L [facility] Carbon Dioxide 21(L) 22 - 29 mmol/L [facility] Anion Gap 12 12 - 20 [facility] Urea Nitrogen (BUN) 12 9 - 16 mg/dL [facility] Creatinine, Serum 0.67 0.5 - 1.4 mg/dL [facility] Creatinine Clr Calc Pharmacy 123.0 [facility] Comment:Provided height and weight: 157.48 cm,87.997 kg.eGFR (calculated from the MDRD study equation) and eCrCl(calculated from the Cockcroft-Gault equation) are based ondifferent parameters and may not yield comparable results.If eCrCl result is absurd, please check patient'sheight/weight. Estimated Glomerular Filt Rate >60 [facility] Comment:Chronic Kidney Disea se: Estimated GFR < 60 mL/min/1.06f4Enldhm Kidney Disease: Estimated GFR < 15 mL/min/1.73m2 Glucose 84 60 - 115 mg/dL [facility] Calcium 9.3 8.4 - 10.2 mg/dL [facility] 03/13/2025 7:10 PM EST 03/13/2025 7:13 PM EST us Generic External Data Provider LAB BLOOD ORDERAB LES Final Result Performing Organization Address [facility]/ZIP Co de Phone Number [facility] [address] [place] [phone] * Vitamin B12/Folate, Serum Panel (12/29/2024 10:32 AM EDT) Vitamin B12 451 200 - 900 pg/mL [facility] Comment:NORMAL 200-900 PG/ML INDETERMINATE 160-199 PG/ML DEFICIENT < 160 PG/ML Folate 11.0 > or = 4.0 ng/mL [facility] Comment:Reference Values:> o r = 4.0 ng/mL< 4.0 ng/mL suggests folate deficiency Methotrexate, aminopterin and folinic acid(leucovorin) are chemotherapeutic agents whose molecularstructures are similar to folate; therefore, the Architectfolate assay cannot be used for patients using these drugs. Blood Venous blood specimen / Unknown 12/29/2024 10:32 AM EDT 12/29/2024 2:18 PM EDT us Melody Robins MD LAB BLOOD ORDERABLES Final Re sult Performing Organization Address City/[facility]/ZIP Co de Phone Number [facility] [address] [place] [phone] * TSH W/Reflex to FT4 (12/29/2024 10:32 AM EDT) TSH reflex Free T4 0.42 0.32 - 4.0 uIU/mL [facility] Blood Venous blood specimen / Unknown 12/29/2024 10:32 AM EDT 12/29/2024 2:18 PM EDT us Melody Robins MD LAB BLOOD ORDERABLES Final Re sult Performing Organization Address [facility]/ZIP Co de Phone Number [facility] [address] [place] [phone] * Insulin (12/29/2024 10:32 AM EDT) Insulin 11 2 - 29 uU/mL [facility] Comment:This test was perfor med using the wmbly chemiluminescentmethod. Values obtained from different assay methods [...] ORDERABLES Final Re sult Performing Organization Address [facility]/ZIP Co de Phone Number [facility] [address] [place] [phone] * Hemoglobin A1c (12/29/2024 10:32 AM EDT) Hemoglobin A1c 5.9 <6.0 % [facility] Comment:Hemoglobin A1C Refer ence Range Adults: 4.8 - 6.0 % Non diabetic: < 6.0 % Goal: < 7.0 %Additional Action Suggested: > 8.0 %Note: Hemoglobin A1c results are invalid for patients with abnormal amounts of HbF. Blood transfusions may impact the HbA1c concentration in the patient sample. Estimated Average Glucose 123 mg/dL [facility] Comment:eAG = Estimated ave rage glucose which is %A1C expressed asaverage glucose, using the formula of the L4C-UmvtmowOnxplil Glucose study (ADAG), Diabetes Care, Vol.31,#8,2007 Blood Venous blood specimen / Unknown 12/29/2024 10:32 AM EDT 12/29/2024 2:18 PM EDT Melody Robins MD LAB BLOOD ORDERABLES Final Re sult [facility] [address] [place] [address] [phone] * POCT Urine (12/29/2024 10:28 AM EDT) Preg Test, Ur Negative Negative, Indeterminate, None Detected, Invalid, Specimen unsatisfactory for evaluation, Weakly Positive, 2+ Urine 12/29/2024 10:2 8 AM EDT Melody Robins MD POINT OF CARE TEST ENTER/EDIT ORDERABLES Final Result * Colposcopy (09/29/2024 12:20 PM EDT) [facility] Provider IN CLINIC/BEDSIDE ORDERAB LES Final Result * (ABNORMAL) HPV DNA, Low/High Risk (08/10/2024 11:19 AM EDT) Pathologist [facility] HPV High Risk Negative Negative [facility] HPV Genotype 16 Positive(A) Negative [facility] HPV Genotype 18 Negative Negative [facility] Comment:HPV testing performe d at [facility] (CLIA#[id number]), [address] [place] [address].Testing for HPV was performed using the Tiesha [...] Provider LAB BLOOD ORDERAB LES Final Result [facility] [address] [place] [phone] * Pap Smear (08/10/2024 11:19 AM EDT) 08/10/2024 11:1 9 AM EDT 08/10/2024 2:11 PM EDT Narrative [facility] - 08/17/2024 4:17 PM EDT ----- ------- Name: Vanessa Menchaca Age/Sex: 34/F : 1990 Unit#: [id number] Attend Dr: Ifrah Lilly CNM Re08/10/24 Status: DEP REF Location: HO.LNP Disch: ----- ------- SPEC : [id number] RECD: 08/10/24 STATUS: SHIRA MARTIN NUM: [id number] JT: 08/10/24-[address]: Ifrah Lilly CNM ENTERED: 08/10/24 SP [...] Received ThinPrep-Cervical Copies To: Melody Robins MD [facility] [address] [place] [address] [facility] [address] [place] [address] ----- ------- Signed (signature on file) Chanel Jensen MD 08/17/24 1617 ----- ------- END OF REPORT us Generic External Data Provider LAB CYTOLOGY YOLIE YU Final Result [facility] [address] [place] [phone] * Lipid Panel, Standard (06/25/2023 11:40 AM EDT) Triglycerides 54 <150 mg/dL [facility] Comment:Desirable Triglyceri de: less than 150 mg/dLBorderline High Triglyceride 150-199 mg/dLHigh Triglyceride: 200-499 mg/dLVery High Triglyceride: greater than or equal to 5OO mg/dL Cholesterol 130 <200 mg/dL [facility] Comment:Desirable Cholestero l: less than 200 mg/dLBorderline High Cholesterol: 200-239 mg/dLHigh Cholesterol: greater than 239 mg/dL LDL Cholesterol Calculated 73 <100 mg/dL [facility] Comment:Desirable LDL: less than 100 mg/dLNear Optimal/Above Optimal LDL: 110- 129 mg/dLBorderline High LDL: 130-159 mg/dLHigh LDL: 160-189 mg/dLVery High LDL: greater than or equal to 190 mg/dL HDL Cholesterol 47 >40 mg/dL [facility] Comment:Desirable HDL: great er than 40 mg/dL Note: This HDL assay may give artificially low results in patients with liver disease. 06/25/2023 11:4 0 AM EDT 06/25/2023 11:40 AM EDT Generic External Data Provider LAB BLOOD ORDERAB LES Final Result [facility] [address] [place] [phone] * HEPATITIS C AB W/REFL TO [...] a test for HCV RNA (test code 08032) is suggested. For additional information please refer to http://education.C3 Jian/faq/GVY58s9 (This link is being provided for informational/ educational purposes only.) 01/22/2022 10:3 4 AM EDT us Brenda [...] purpose. For additional information please refer to http://education.C3 Jian/faq/AVJ509 (This link is being provided for informational/ educational purposes only.) The performance of this assay has not been clinically validated in patients less than 2 years old. 01/22/2022 10:3 4 AM EDT Brenda Eric ANP LAB BLOOD ORDERABLES Final Resul t Performing Organization Address 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
--- OUTSIDE RECORDS SUMMARY | 2025-03-15 07:14 | XMS_ITS | Encounter Summary ---
Author Organization [employer] Address [address] [facility] 7t [place] [address] Care Team Providers Care Oil Well Services Field Supervisor Name Role Phone Melody Robins MD Primary Care Provider [phone] Encounter Details Date Type Department Care Team ([facility] Contact Info) Description 03/13/2025 Orders Only GENERIC EXTERNAL DATA DEPARTMENT [...] as of this encounter Plan of Treatment Pending Results Name Type Priority Associated Diagnoses Date /Time Culture, Urine, Routine Microbiology Routine 03/13/2025 12:00 AM EST documented as of this encounter Procedures Procedure Name Priority Date/Time Associated Diagnosis Comments US OB TRANSVAGINAL Routine 03/13/2025 9: 26 PM EST US OB <14 WEEKS FETUS Routine 03/13/2025 7:56 PM EST URINALYSIS, COMPLETE, WITH REFLEX TO CULTURE Routine 03/13/2025 7:10 PM EST CBC WITH AUTO DIFFERENTIAL Routine 03/13/2025 7:10 PM EST HCG, QL, URINE Routine 03/13/2025 7:10 PM EST HCG, TOTAL, QN Routine 03/13/2025 7:10 PM EST BASIC METABOLIC PANEL Routine 03/13/2025 7:10 PM EST CULTURE, URINE, ROUTINE Routine 03/13/2025 12:00 AM EST documented in this encounter Results * US OB Transvaginal (03/13/2025 9:26 PM EST) Anatomical Region Laterality Modality Body Ultrasound 03/13/2025 9:26 PM EST Narrative 03/13/2025 9:29 PM EST [address] [address] Ultrasound Report Signed with Addenda Patient: Vanessa Menchaca MR#: [id number] : 1990 Acct:[id number] Age/Sex: 35 / F ADM Date: 03/13/25 Loc: HO.ED Attending Dr: Ordering Physician: Anjelica Hamlin NP Date of Service: 03/13/25 Procedure(s): US OB transvaginal Accession Number(s): [id number] cc: Melody Robins MD; Anjelica Hamlin NP [...] done and ultrasound is me ssaging provider. -MS US OB 1st Trimester transvaginal with Doppler [...] in OV> 03/13/252127 DD/ 25 TD/TT: 03/13/252125 Home Health Nurse Licensed Practical: Procedure Note Donotemanuelinterpreter, Image - 03/13/2025 [place] [address] Ultrasound Report Signed with Addenda Patient: Elver Menchaca#: [id number] : 1990Acct:[id number] Age/Sex: 35 / FADM Date: 03/13/25 Loc: HO.ED Attending Dr: Ordering Physician: Anjelica Hamlin NP Date of Service: 03/13/25 Procedure(s): US OB transvaginal Accession Number(s): [id number] cc: Melody Robins MD; Anjelica Hamlin NP [...] one doneand ultrasound is me ssaging provider. -MS US OB 1st Trimester transvaginal with Doppler [...] in OV> 03/13/252127 DD/ 25 TD/TT: 03/13/252125 Home Health Nurse Licensed Practical: us [facility] External Provider IMG OB US PROCEDURES Edited Result - Final * US OB <14 WEEKS FETUS (03/13/2025 7:56 PM EST) Anatomical Region Laterality Modality Ultrasound 03/13/2025 7:56 PM EST Narrative 03/13/2025 7:58 PM EST [place] [address] Ultrasound Report Signed Patient: Vanessa Menchaca MR#: [id number] : 1990 Acct:[id number] Age/Sex: 35 / F ADM Date: 03/13/25 Loc: HO.ED Attending Dr: Ordering Physician: [facility] Date of Service: 03/13/25 Procedure(s): US OB <= 14 weeks fetus Accession Number(s): [id number] cc: Melody Robins MD; Yael NaranjoFORMERLY [facility] Reason for Exam: Abdominal/Pelvic Pain +Preg at home CLINICAL HISTORY: Abdominal Pelvic Pain +Preg at home US OB 1st trimester transabdominal Comparison: US/UT/SR - US PELVIS TRANSABDOMINAL AND TRANSVAGINAL - [...] in OV> 03/13/251957 DD/ 55 TD/TT: 03/13/251955 Home Health Nurse Licensed Practical: Procedure Note Donotuseinterpreter, Image - 03/14/2025 [place] [address] Ultrasound Report Signed Patient: Elver Menchaca#: [id number] : 1990Acct:[id number] Age/Sex: 35 / FADM Date: 03/13/25 Loc: .ED Attending Dr: Ordering Physician: Yael Naranjo Date of Service: 03/13/25 Procedure(s): US OB <= 14 weeks fetus Accession Number(s): [id number] cc: Melody Robins MD; Yael Naranjo Reason for Exam: Abdominal/Pelvic Pain +Preg at home CLINICAL HISTORY: Abdominal Pelvic Pain +Preg at home US OB 1st trimester transabdominal Comparison: US/UT/SR - US PELVIS TRANSABDOMINAL AND TRANSVAGINAL - [...] in OV> 03/13/251957 DD/ 55 TD/TT: 03/13/251955 Home Health Nurse Licensed Practical: [facility] External Provider IMG OB US PROCEDURES Edited Result - Final * (ABNORMAL) Urinalysis, Complete, with Reflex to Culture (03/13/2025 7:10 PM EST) Color Urine Yellow [facility] Appearance Urine Clear [facility] PH 6.0 5.0 - 9.0 [facility] Glucose Urine UA Negative Negative mg/dL [facility] Urine Blood Negative Negative [facility] Specific Kake - Urine 1.015 1.005 - 1.025 [facility] Urine Protein Negative Neg-Trace mg/dL [facility] Urine Ketones Negative Negative mg/dL [facility] Nitrite Urine Negative Negative [facility] Leukocyte Esterase Urine Moderate (2+)(A) Negative [facility] RBC Urine 0-2 0 - 2 /HPF [facility] Urine WBC 11-20(A) 0 - 5 /HPF [facility] Urine Squamous Epithelial Cell 3-5 0 - 2 /HPF [facility] Urine Bacteria 2+ None Seen [facility] Hyaline Casts, Urine 0-2 0 - 2 /LPF [facility] 03/13/2025 7:10 PM EST 03/13/2025 7:13 PM EST Narrative [facility] - 03/13/2025 7:45 PM EST [id number], Clean Catch Generic External Data Provider LAB URINE ORDERAB LES Final Result [facility] [address] [place] [address] [phone] * hCG, Total, Quantitative (03/13/2025 7:10 PM EST) HCG Quantitative 65 mIU/mL [facility] Comment:Weeks post LMP Appro ximate hCG(Last Menstrual Period) Range (mIU/ml)3 - 4 weeks 9 - 1304 - 5 weeks 75 - 2,6005 - 6 weeks 850 - 20,8006 - 7 weeks 4000 - 100,2007 - 12 weeks 11,500 - 289,10516 - 16 weeks 18,300 - 137,46560 - 29 weeks (2nd trimester) 1,400 - 53,04361 - 41 weeks (3rd trimester) 940 - [...] Provider LAB BLOOD ORDERAB LES Final Result [facility] [address] [place] [address] [phone] * (ABNORMAL) Basic Metabolic Panel (03/13/2025 7:10 PM EST) Sodium 139 135 - 145 mmol/L [facility] Potassium 3.6 3.3 - 5.1 mmol/L [facility] Chloride 110(H) 96 - 108 mmol/L [facility] Carbon Dioxide 21(L) 22 - 29 mmol/L [facility] Anion Gap 12 12 - 20 [facility] Urea Nitrogen (BUN) 12 9 - 16 mg/dL [facility] Creatinine, Serum 0.67 0.5 - 1.4 mg/dL [facility] Creatinine Clr Calc Pharmacy 123.0 [facility] Comment:Provided height and weight: 157.48 cm,87.997 kg.eGFR (calculated from the MDRD study equation) and eCrCl(calculated from the Cockcroft-Gault equation) are based ondifferent parameters and may not yield comparable results.If eCrCl result is absurd, please check patient'sheight/weight. Estimated Glomerular Filt Rate >60 [facility] Comment:Chronic Kidney Disea se: Estimated GFR < 60 mL/min/1.12d9Slvuju Kidney Disease: Estimated GFR < 15 mL/min/1.73m2 Glucose 84 60 - 115 mg/dL [facility] Calcium 9.3 8.4 - 10.2 mg/dL [facility] 03/13/2025 7:10 PM EST 03/13/2025 7:13 PM EST Generic External Data Provider LAB BLOOD ORDERAB LES Final Result Performing Organization Address City/[facility] Co de Phone Number [facility] [address] [place] [phone] * (ABNORMAL) HCG, Qualitative, Urine (03/13/2025 7:10 PM EST) Urine POSITIVE(A ) NEGATIVE [facility] 03/13/2025 7:10 PM EST 03/13/2025 7:13 PM EST [employer] External Data Provider LAB URINE ORDERAB LES Final Result Performing Organization Address [facility] de Phone Number [facility] [address] [place] [phone] * CBC auto differential (03/13/2025 7:10 PM EST) White Blood Count 8.9 4.8 - 10.8 X10*3/uL [facility] Red Blood Count 4.30 4.20 - 5.50 X10*6/uL [facility] Hemoglobin 12.0 12.0 - 16.0 g/dl [facility] Hematocrit 37.3 37.0 - 47.0 % [facility] Mean Corpuscular Volume 86.7 80.0 - 98.0 fL [facility] Mean Corpuscular Hemoglobin 27.9 27.0 - 33.0 pg [facility] Mean Corpuscular HGB Conc 32.2 31.0 - 35.0 g/dl [facility] Red Cell Distribution Width 13.2 11.0 - 16.0 % [facility] Platelet Count 287 160 - 400 X10*3/uL [facility] Mean Platelet Volume 11.3 9.4 - 12.3 fL [facility] Neutrophils Percent Auto 65.3 45 - 73 % [facility] Imm Gran Pct Auto 0.2 0.0 - 0.4 % [facility] Lymphocytes Percent Auto 22.2 20 - 40 % [facility] Monocytes Percent Auto 10.9 2 - 11 % [facility] Eosinophils Percent Auto 0.9 0 - 4 % [facility] Basophils Percent Auto 0.5 0 - 2 % [facility] NRBC Pct Auto 0.0 0.0 - 0.2 /100WBC [facility] Neutrophils Absolute Auto 5.8 2.0 - 8.3 x10*3/uL [facility] Imm Gran Abs Auto 0.02 0.00 - 0.03 X10*3/uL [facility] Lymphocytes Absolute Auto 2.0 1.2 - 4.9 X10*3/uL [facility] Monocytes Absolute Auto 1.0 0.1 - 1.2 X10*3/uL [facility] Eosinophils Absolute Auto 0.1 0.0 - 0.4 X10*3/uL [facility] Basophils Absolute Auto 0.0 0.0 - 0.2 X10*3/uL [facility] NRBC Abs Auto 0.000 0.0 - 0.012 X10*3/uL [facility] 03/13/2025 7:10 PM EST 03/13/2025 7:13 PM EST us Generic External Data Provider LAB BLOOD ORDERAB LES Final Result [facility] [address] [place] [phone] [phone] documented in this encounter Visit Diagnoses Not on filedocumented in this encounter Additional Health Concerns Assessment Noted Time PHQ-9 Depression Total Score: 7 12/30/19 25 9:51 AM EDT documented as of this encounter Care Teams Oil Well Services Field Supervisor Relationship Specialty Start Date End Date Melody Robins MD [address] [place] [phone] PCP - General Family Medicine 10/02/16 documented as of this encounter
--- OUTSIDE RECORDS SUMMARY | 2025-03-15 07:14 | XMS_ITS | Encounter Summary ---
Author Organization [employer] Address [address] [facility] 7t [place] [address] Care Team Providers Care Painter Supervisor Name Role Phone Melody Robins MD Primary Care Provider Avi Thomas RN Unavailable [phone] Lisa Butler Unavailable Krystin Wagner Unavailable Reason for Visit * Reason Onset Date Comments Appointment Request 09/19/2023 Encounter Details Date Type Department Care Team (Late st Contact Info) Description 09/19/2023 Telephone [facility] [address] [place] [address] Melody Robins MD [address] [place] [address] Appointment Request Social History Tobacco Use Types [...] documented as of this encounter Care Teams Painter Supervisor Relationship Specialty Start Date End Date Melody Robins MD [address] [place] [phone] PCP - General Family Medicine 10/02/16 Avi Thomas, RN [facility] [address] Registered Nurse Family Medicine 03/14/25 03/14/25 Lisa Butler Registered Nurse 03/14/25 Krystin Wagner 03/14/25 documented as of this encounter
--- OUTSIDE RECORDS SUMMARY | 2025-03-15 07:14 | XMS_ITS | Encounter Summary ---
Author Organization [employer] Address [address] [facility] 7t [place] [address] Care Team Providers Care Asbestos Pipe Supervisor Name Role Phone Melody Robins MD Primary Care Provider Avi Thomas RN Unavailable [phone] Lisa Butler Unavailable [phone] Krystin Wagner Unavailable Encounter Details Date Type Department Care Team (Late st Contact Info) Description 03/14/2025 Patient Outreach [facility] [address] [place] [address] Melody Robins MD [address] [place] [address] Social History Tobacco Use Types Packs/Day Years [...] documented as of this encounter Care Teams Asbestos Pipe Supervisor Relationship Specialty Start Date End Date Melody Robins MD [address] [place] [address] PCP - General Family Medicine 10/02/16 Avi Thomas, RN [address] [place] [address] Registered Nurse Family Medicine 03/14/25 03/14/25 Lisa Butler Registered Nurse 03/14/25 Krystin Wagner 03/14/25 documented as of this encounter
--- OUTSIDE RECORDS SUMMARY | 2025-03-15 07:14 | XMS_ITS | Encounter Summary ---
Author Organization [employer] Address [address] [facility] [address]t [place] [address] Care Team Providers Care Rn Acute Name Role Phone Melody Robins MD Primary Care Provider Avi Thomas RN Unavailable [phone] Lisa Butler Unavailable Krystin Wagner Unavailable Reason for Visit * Reason Comments Med Refill Encounter Details Date Type Department Care Team ([facility] Contact Info) Description 02/22/2025 Refill [facility] [address] [place] [address] Melody Robins MD [address] [place] [address] Social History Tobacco Use Types Packs/Day Years [...] documented as of this encounter Care Teams Rn Acute Relationship Specialty Start Date End Date Melody Robins MD [address] [place] [address] PCP - General Family Medicine 10/02/16 Avi Thomas, TEVIN [address] [place] [address] Registered Nurse Family Medicine 03/14/25 03/14/25 Lisa Butler Registered Nurse 03/14/25 Krystin Wagner 03/14/25 documented as of this encounter
--- OUTSIDE RECORDS SUMMARY | 2025-03-15 07:14 | XMS_ITS | Encounter Summary ---
Author Organization [employer] Address [address] [facility] 7t [place] [address] Care Team Providers Care Property Investor Name Role Phone Melody Robins MD Primary Care Provider [phone] Avi Thomas RN Unavailable [phone] Lisa Butler Unavailable [phone] Krystin Wagner Unavailable Reason for Visit * Reason Onset Date Comments Call Back Request 03/14/2025 Encounter Details Date Type Department Care Team ([facility] st Contact Info) Description 03/14/2025 Telephone [facility] [address] [place] [address] Melody Robins MD [address] [place] [address] Call Back Request Social History Tobacco Use Types Packs/Day [...] encounter Miscellaneous Notes * Telephone Encounter - Frida Zazueta RN - 03/14/2025 1:39 PM EST TC to patient with front end ui developer. Patient stated she has not been able to reach her [facility] yet. This RN recommended patient call [employer] [facility] again, and ask for the nurse. Patient agreed with plan. Instructed patient to call office back if she is unable to speak with nurse or get any direction regarding if medication is safe for her to take while 6 months . * Telephone Encounter - Jean Bowers - 03/14/2025 12:47 PM EST Tc from pt calling in regards to message prior requesting a call back to discuss. (Sami Speaker) * Telephone Encounter - Mateo Bowers - 03/14/2025 9:12 AM EST Tc from pt stating she requesting call back to see if ok take levothyroxine (Synthroid) 88MCG tablet medication . Please contact at [phone] Please contact documented in this encounter Plan of Treatment Not on file documented as of this encounter Visit Diagnoses Not on filedocumented in this encounter Additional Health Concerns Assessment Noted Time PHQ-9 Depression Total Score: 7 12/30/19 9:51 AM EDT documented as of this encounter Care Teams Property Investor Relationship Specialty Start Date End Date Melody Robins MD [address] [place] [address] PCP - General Family Medicine 10/02/16 Avi Thomas RN [address] [place] [address] Registered Nurse Family Medicine 03/14/25 03/14/25 Lisa Butler Registered Nurse 03/14/25 Krystin Wagner 03/14/25 documented as of this encounter
--- OUTSIDE RECORDS SUMMARY | 2025-03-15 07:14 | XMS_ITS | Encounter Summary ---
Author Organization [employer] Address [address] [facility] 7t [place] [address] Care Team Providers Care Willow Analyst Name Role Phone Melody Robins MD Primary Care Provider [phone] Avi Thomas RN Unavailable [phone] Lisa Butler Unavailable Krystin Wagner Unavailable Reason for Visit * Reason Comments Care Coordination C3/W Krystin presley, Chart review Encounter Details Date Type Department Care Team (Latest Contact Info) Description 03/14/2025 Patient Outreach [facility] [address] [place] [address] Melody Robins MD [address] [place] [address] Care Coordination (C3CM/HUGHW Krystin Wagner, Chart review ) Social History Tobacco Use Types Packs/Day [...] Progress Notes * Krystin Wagner - 03/14/2025 9:06 AM EST CHW Krystin Wagner reviewed chart review completed by MIHIR Thomas RN: MIHIR Thomas RN, performed chart review, in anticipation of initial assessment with patient, as patient has stratified for C3 Adult Complex Care through the ADT feed. History significant for acne vulgaris, generalized anxiety disorder, primary insomnia, class 3 severe obesity, moderate depressive disorder. Specialists include [facility], [facility]. ED visits within the last 12 months include [facility] 03/13/25, [facility] 06/29/24. Last appointment in PCP office on 12/29/24. No future appointment scheduled with PCP at this time. documented in this encounter Plan of Treatment Not on file documented as of this encounter Visit Diagnoses Not on filedocumented in this encounter Additional Health Concerns Assessment Noted Time PHQ-9 Depression Total Score: 7 12/30/19 25 9:51 AM EDT documented as of this encounter Care Teams Willow Analyst Relationship Specialty Start Date End Date Melody Robins MD [address] [place] [address] PCP - General Family Medicine 10/02/16 Avi Thomas, TEVIN [address] [place] [address] Registered Nurse Family Medicine 03/14/25 03/14/25 Lisa Butler Registered Nurse 03/14/25 Krystin Wagner 03/14/25 documented as of this encounter
--- OUTSIDE RECORDS SUMMARY | 2025-03-15 07:14 | XMS_ITS ---
Author Organization [employer] Address [address] [place] [address] 7t [place] [address] Care Team Providers Care Night Coordinator Name Role Phone Melody Robins MD Primary Care Provider Lisa Butler Unavailable [phone] Krystin Wagner Unavailable C3 CM Maternal Advocate Status:Outreach In Progress (Enrolling) Start date:03/14/2025 Enrollment reason:ADT Feed Case Team Name Relationship Phone Krystin Wagner(Responsible Staff) [phone] Continued Care and Services Coordination
--- OUTSIDE RECORDS SUMMARY | 2025-03-15 07:14 | XMS_ITS | Encounter Summary ---
Author Organization [employer] Address [address] [facility] 7t [place] [address] Care Team Providers Care Financial Investment Adviser Name Role Phone Melody Robins MD Primary Care Provider Avi Thomas RN Unavailable [phone] Lisa Butler Unavailable Krystin Wagner Unavailable Reason for Visit * Reason Onset Date Comments Appointment Request 09/29/2023 Encounter Details Date Type Department Care Team (Late st Contact Info) Description 09/29/2023 Telephone [facility] [address] [place] [address] Melody Robins MD [address] [place] [address] Appointment Request Social History Tobacco Use Types [...] documented as of this encounter Care Teams Financial Investment Adviser Relationship Specialty Start Date End Date Melody Robins MD [address] [place] [address] PCP - General Family Medicine 10/02/16 Avi Thomas RN [address] [place] [address] Registered Nurse Family Medicine 03/14/25 03/14/25 Lisa Butler Registered Nurse 03/14/25 Krystin Wagner 03/14/25 documented as of this encounter
--- OUTSIDE RECORDS SUMMARY | 2025-03-15 07:14 | XMS_ITS | Encounter Summary ---
Author Organization [employer] Address [address] [facility] 7t [place] [address] Care Team Providers Care Main Line Station Engineer Name Role Phone Melody Robins MD Primary Care Provider [phone] Avi Thomas RN Unavailable [phone] Lisa Butler Unavailable Krystin Wagner Unavailable Encounter Details Date Type Department Care Team (Late st Contact Info) Description 03/14/2025 Patient Outreach [facility] MEDICINE [address] [place] [address] Melody Robins MD [address] [place] [address] Social History Tobacco Use Types Packs/Day Years [...] documented as of this encounter Care Teams Main Line Station Engineer Relationship Specialty Start Date End Date Melody Robins MD [address] [place] [address] PCP - General Family Medicine 10/02/16 Avi Thomas, RN [address] [place] [address] Registered Nurse Family Medicine 03/14/25 03/14/25 Lisa Butler Registered Nurse 03/14/25 Krystin Wagner 03/14/25 documented as of this encounter
--- OUTSIDE RECORDS SUMMARY | 2025-03-15 07:14 | XMS_ITS ---
Author Organization [employer] Address [address] [place] [address] [address]t [place] [address] Care Team Providers Care Check Cashier Name Role Phone Melody Robins MD Primary Care Provider Lisa Butler Unavailable Krystin Wagner Unavailable C3 CM High Risk Maternity Status:Outreach In Progress (Enrolling) Start date:03/14/2025 Enrollment reason:ADT Feed Overview ED- Pt went to [facility] ED on 03/13/25. Case Team Name Relationship Phone Lisa Butler(Responsible Staff) Registered Nurse [phone] Continued Care and Services Coordination
--- OUTSIDE RECORDS SUMMARY | 2025-03-15 07:14 | XMS_ITS | Clinical Summary ---
Author Organization [facility] Address [address] [facility] [address] [place] [address] Phone Care Team Providers Care Network Operations Technician Name Role Phone Melody Robins MD Primary Care Provider [phone] Allergies No known active allergies Medications tamsulosin [...] ACO C3 ACO C3 ACO Care Teams Network Operations Technician Relationship Specialty Start Date End Date Melody Robins MD [address] [facility] [place] [address] PCP - General Internal Medicine 06/29/24 Additional Source Comments The information contained in this document represents components of the legal health record. It is not the complete legal health record.[facility]
--- OUTSIDE RECORDS SUMMARY | 2025-03-15 07:14 | XMS_ITS ---
Author Organization [employer] Address [address] [place] [address] 7t [place] [address] Care Team Providers Care Firebrick And Refractory Tile Repairer Name Role Phone Melody Robins MD Primary Care Provider [phone] Lisa Butler Unavailable [phone] Krystin Wagner Unavailable CM Complex Status:Closed (Closed) Start date:03/14/2025 Enrollment reason:ADT Feed End date:03/14/2025 Close reason:Transferred to High Risk Maternity Overview ED- Pt went to [facility] ED on 03/13/25. Continued Care and Services Coordination
--- OUTSIDE RECORDS SUMMARY | 2025-03-15 07:14 | XMS_ITS | Encounter Summary ---
Author Organization [employer] Address [address] [facility] 7t [place] [address] Care Team Providers Care Railroad Operator Name Role Phone Melody Robins MD Primary Care Provider Avi Thomas RN Unavailable [phone] Lisa Butler Unavailable Krystin Wagner Unavailable Reason for Visit * Reason Onset Date Comments Nurse Triage 08/19/2024 Encounter Details Date Type Department Care Team (Late st Contact Info) Description 08/19/[address] [facility] MEDICINE [address] [place] [address] Melody Robins MD [address] [place] [address] Nurse Triage Social History Tobacco Use Types [...] noted. No lang interpreter needed as this junior copywriter speaks Wolof. [facility]. Reports that med levothyroxine was changed from manager culture. Per pt having body pain, lump on head, having itchy skin. Med was changed this month. Pt last dose taken this morning. Call to [facility] [phone] to determine previous manager culture and current med manager culture name. Spoke with Brisa , Pt had been getting rx from [facility]On 07/30/24 pharmacy dispensed supply from manager culture [employer]. Pt offered sick onsite with PCP today [...] Center 08/23/2024 11:15 AM Melody Robins MD [facility] 09/28/2024 9:15 AM Melody Robins MD [facility] Insurance verified as active per Real Time Eligibility in [facility]. Video visit offer not recorded Positive Triage [...] documented as of this encounter Care Teams Railroad Operator Relationship Specialty Start Date End Date Melody Robins MD [address] [place] [address] PCP - General Family Medicine 10/02/16 Avi Thomas, TEVIN 505 [place] [address] Registered Nurse Family Medicine 03/14/25 03/14/25 Lisa Butler Registered Nurse 03/14/25 Krystin Wagner 03/14/25 documented as of this encounter
== END 2025-03-15 07:12 | disposition home or self-care (01) ==
LOC: HO.LAB 07:11
PROVIDERS: PCP Pediatrics; Visit Provider Nurse Practitioner Family
DX: N92.6 Irregular menstruation, unspecified (principal)
CPT/HCPCS: 36415; 84702

== ENCOUNTER 2025-03-22 10:17 | Outpatient (REF) | payer MEDICAID, SELFPAY ==
--- OUTSIDE RECORDS SUMMARY | 2025-03-22 09:45 | XMS_ITS | Encounter Summary ---
Author Organization [employer] Address [address] [facility] 7t [place] [address] Care Team Providers Care Whanau Support Worker Name Role Phone Melody Robins MD Primary Care Provider Lisa Butler Unavailable [phone] Krystin Wagner Unavailable Encounter Details Date Type Department Care Team ([facility] st Contact Info) Description 03/22/2025 9:45 AM EST Office Visit [facility] CHC MED & PEDS [address] [place], [place] [phone] Melody Robins MD 505 [place] [address] Missed period (Primary Dx) Social History Tobacco [...] Sign Reading Time Taken Comments Blood Pressure 110/60 03/22/2025 9:29 AM EST Pulse 76 03/22/2025 9:29 AM EST Temperature 36.4 C (97.6 F) 03/22/2025 9:29 AM EST Respiratory Rate 16 03/22/2025 9:29 AM EST Oxygen Saturation - - Inhaled Oxygen Concentration - - Weight 87.1 kg (192 lb) 03/22/2025 9:29 AM EST Height - - Body Mass Index 34.97 12/29/2024 9:50 AM EDT documented in this encounter Plan of Treatment Upcoming Encounters Date Type Department Care Team (Late st Contact Info) Description 03/30/2025 11:30 AM EST Office Visit [facility] CHC MED & PEDS [address] [place] [address] Melody Robins MD [address] [place] [address] Scheduled Orders Name Type Priority Associated Diagnoses Orde r Schedule CBC auto differential Lab Routine Missed period Expected: 03/22/2025 (Approximate), Expires: 03/22/2026 hCG, Total, Quantitative Lab Routine Missed period Expected: 03/22/2025 (Approximate), Expires: 03/22/2026 documented as of this encounter Visit Diagnoses Diagnosis Missed period- Primary documented in this encounter Additional Health Concerns Assessment Noted Time PHQ-9 Depression Total Score: 7 12/30/19 25 9:51 AM EDT documented as of this encounter Care Teams Whanau Support Worker Relationship Specialty Start Date End Date Melody Robins MD [address] [place] [address] PCP - General Family Medicine 10/02/16 Lisa Butler Registered Nurse 03/14/25 Krystin Wagner 03/14/25 documented as of this encounter
--- OUTSIDE RECORDS SUMMARY | 2025-03-22 13:37 | XMS_ITS | Encounter Summary ---
Author Organization [employer] Address [address] [facility] 7t [place] [address] Care Team Providers Care Stripper Color Name Role Phone Melody Robins MD Primary Care Provider Avi Thomas RN Unavailable Lisa Butler Unavailable [phone] Krystin Wagner Unavailable Reason for Visit * Reason Onset Date Comments Nurse Triage 08/19/2024 Encounter Details Date Type Department Care Team (Late st Contact Info) Description 08/19/2024 Telephone [facility] MEDICINE [address] [place] [address] Melody Robins MD 505 [place] [address] Nurse Triage Social History Tobacco Use Types [...] seen recently. No med changes noted. No storage battery charger needed as this mortgage loan underwriter speaks French. [facility]. Reports that med levothyroxine was changed from pole shaver helper. Per pt having body pain, lump on head, having itchy skin. Med was changed this month. Pt last dose taken this morning. Call to [facility] [phone] to determine previous pole shaver helper and current med pole shaver helper name. Spoke with Brisa , Pt had been getting rx from [facility].On 07/30/24 pharmacy dispensed supply from pole shaver helper [employer]. Pt offered sick onsite with PCP today [...] Center 08/23/2024 11:15 AM Melody Robins MD [facility] 09/28/2024 9:15 AM Melody Robins MD [facility] Insurance verified as active per Real Time Eligibility in [facility]. Video visit offer not recorded Positive [...] Upcoming Encounters Date Type Department Care Team ([facility] Contact Info) Description 03/30/2025 11:30 AM EST Office Visit [facility] MED & PEDS [address] [place] [address] Melody Robins MD [address] [place] [address] documented as of this encounter Visit Diagnoses Not on filedocumented in this encounter Additional Health Concerns Assessment Noted Time PHQ-9 Depression Total Score: 11 025 3:59 PM EST documented as of this encounter Care Teams Stripper Color Relationship Specialty Start Date End Date Melody Robins MD 505 [place] [address] PCP - General Family Medicine 10/02/16 Avi Thomas, TEVIN [address] [place] [address] [place] [address] Registered Nurse Family Medicine 03/14/25 03/14/25 Lisa Butler Registered Nurse 03/14/25 Krystin Wagner 03/14/25 documented as of this encounter
--- OUTSIDE RECORDS SUMMARY | 2025-03-22 13:37 | XMS_ITS ---
Author Organization [employer] Address [address] [place] [address] 7t [place] [address] Care Team Providers Care Wet Machine Cutter Name Role Phone Melody Robins MD Primary Care Provider Lisa Butler Unavailable Krystin Wagner Unavailable C3 CM Maternal Advocate Status:Outreach In Progress (Enrolling) Start date:03/14/2025 Enrollment reason:ADT Feed Case Team Name Relationship Phone Krystin Wagner(Responsible Staff) [phone] Continued Care and Services Coordination
--- OUTSIDE RECORDS SUMMARY | 2025-03-22 13:37 | XMS_ITS | Encounter Summary ---
Author Organization [employer] Address [address] [facility] 7t [place] [address] Care Team Providers Care Area Captain Name Role Phone Melody Robins MD Primary Care Provider [phone] Lisa Butler Unavailable [phone] Krystin Wagner Unavailable Encounter Details Date Type Department Care Team (Latest Contact Info) Description 03/22/2025 Travel Social History Tobacco Use Types Packs/Day Years [...] Upcoming Encounters Date Type Department Care Team ([facility] st Contact Info) Description 03/30/2025 11:30 AM EST Office Visit [facility] MED & PEDS [address] [place] [address] Melody Robins MD 505 [place] [address] documented as of this encounter Visit Diagnoses Not on filedocumented in this encounter Additional Health Concerns Assessment Noted Time PHQ-9 Depression Total Score: 7 12/30/19 25 9:51 AM EDT documented as of this encounter Care Teams Area Captain Relationship Specialty Start Date End Date Melody Robins MD 505 [place] [address] PCP - General Family Medicine 10/02/16 Lisa Butler Registered Nurse 03/14/25 Krystin Wagner 03/14/25 documented as of this encounter
--- OUTSIDE RECORDS SUMMARY | 2025-03-22 13:37 | XMS_ITS ---
Author Organization [employer] Address [address] [place] [address] 7t [place] [address] Care Team Providers Care Heating And Ventilating Worker Name Role Phone Melody Robins MD Primary Care Provider [phone] Lisa Butler Unavailable Krystin Wagner Unavailable C3 CM High Risk Maternity Status:Outreach In Progress (Enrolling) Start date:03/14/2025 Enrollment reason:ADT Feed Overview ED- Pt went [facility] on 03/13/25. Case Team Name Relationship Phone Lisa Butler(Responsible Staff) Registered Nurse [phone] Continued Care and Services Coordination
--- OUTSIDE RECORDS SUMMARY | 2025-03-22 13:37 | XMS_ITS | Encounter Summary ---
Author Organization [employer] Address [address] [facility] 7t [place] [address] Care Team Providers Care Otr Owner Operator Name Role Phone Melody Robins MD Primary Care Provider Lisa Butler Unavailable [phone] Krystin Wagner Unavailable Encounter Details Date Type Department Care Team (Latest Contact Info) Description 03/18/2025 Travel Social History Tobacco Use Types Packs/Day [...] Upcoming Encounters Date Type Department Care Team ([facility] st Contact Info) Description 03/30/2025 11:30 AM EST Office Visit [facility] MED & PEDS [address] [place] [address] Melody Robins MD [address] [place] [address] documented as of this encounter Visit Diagnoses Not on filedocumented in this encounter Additional Health Concerns Assessment Noted Time PHQ-9 Depression Total Score: 7 12/30/19 25 9:51 AM EDT documented as of this encounter Care Teams Otr Owner Operator Relationship Specialty Start Date End Date Melody Robins MD 505 [place] [address] PCP - General Family Medicine 10/02/16 Lisa Butler Registered Nurse 03/14/25 Krystin Wagner 03/14/25 documented as of this encounter
--- OUTSIDE RECORDS SUMMARY | 2025-03-22 13:37 | XMS_ITS | Encounter Summary ---
Author Organization [employer] Address [address] [facility] 7t [place] [address] Care Team Providers Care Air Brake Rigger Name Role Phone Melody Robins MD Primary Care Provider Avi Thomas RN Unavailable Lisa Butler Unavailable Krystin Wagner Unavailable Reason for Visit * Reason Onset Date Comments Appointment Request 09/19/2023 Encounter Details Date Type Department Care Team (Late st Contact Info) Description 09/19/2023 Telephone [facility] MEDICINE [address] [place] [address] Melody Robins MD 505 [place] [address] Appointment Request Social History Tobacco Use Types [...] Upcoming Encounters Date Type Department Care Team ([facility] st Contact Info) Description 03/30/2025 11:30 AM EST Office Visit [facility] MED & PEDS [address] [place] [address] Melody Robins MD [address] [place] [address] documented as of this encounter Visit Diagnoses Not on filedocumented in this encounter Additional Health Concerns Assessment Noted Time PHQ-9 Depression Total Score: 9 07/15/19 24 9:49 AM EDT documented as of this encounter Care Teams Air Brake Rigger Relationship Specialty Start Date End Date Melody Robins MD [address] [place] [address] PCP - General Family Medicine 10/02/16 Avi Thomas, TEVIN 505 [place] [address] Registered Nurse Family Medicine 03/14/25 03/14/25 Lisa Butler Registered Nurse 03/14/25 Krystin Wagner 03/14/25 documented as of this encounter
--- OUTSIDE RECORDS SUMMARY | 2025-03-22 13:37 | XMS_ITS | Encounter Summary ---
Author Organization [employer] Address [address] [facility] 7t [place] [address] Care Team Providers Care Sanitation Superintendent Name Role Phone Melody Robins MD Primary Care Provider [phone] Lisa Butler Unavailable [phone] Krystin Wagner Unavailable Reason for Visit * Reason Comments Med Change Request Encounter Details Date Type Department Care Team ([facility] Contact Info) Description 03/22/2025 Refill [facility] CHC MED & PEDS [address] [place] [address] Melody Robins MD [address] [place] [address] Social History Tobacco Use Types Packs/Day Years [...] Description 03/30/2025 11:30 AM EST Office Visit [facility] CHC MED & PEDS [address] [place] [address] Melody Robins MD [address] [place] [address] documented as of this encounter Visit Diagnoses Not on filedocumented in this encounter Additional Health Concerns Assessment Noted Time PHQ-9 Depression Total Score: 7 12/30/19 25 9:51 AM EDT documented as of this encounter Care Teams Sanitation Superintendent Relationship Specialty Start Date End Date Melody Robins MD [address] [place] [address] PCP - General Family Medicine 10/02/16 Lisa Butler Registered Nurse 03/14/25 Krystin Wagner 03/14/25 documented as of this encounter
--- OUTSIDE RECORDS SUMMARY | 2025-03-22 13:37 | XMS_ITS | Encounter Summary ---
Author Organization [employer] Address [address] [facility] 7t [place] [address] Care Team Providers Care Lawnmower Mechanic Name Role Phone Melody Robins MD Primary Care Provider [phone] Avi Thomas RN Unavailable [phone] Lisa Butler Unavailable Krystin Wagner Unavailable Reason for Visit * Reason Onset Date Comments Appointment Request 09/29/2023 Encounter Details Date Type Department Care Team (Late st Contact Info) Description 09/29/2023 Telephone [facility] MEDICINE [address] [place] [address] Melody Robins MD 505 [place] [address] Appointment Request Social History Tobacco Use Types [...] Description 03/30/2025 11:30 AM EST Office Visit [facility] MED & PEDS 505 [place], [place] [phone] Melody Robins MD [address] [place] [address] documented as of this encounter Visit Diagnoses Not on filedocumented in this encounter Additional Health Concerns Assessment Noted Time PHQ-9 Depression Total Score: 9 07/15/19 24 9:49 AM EDT documented as of this encounter Care Teams Lawnmower Mechanic Relationship Specialty Start Date End Date Melody Robins MD [address] [place] [address] PCP - General Family Medicine 10/02/16 Avi Thomas, RN [address] [place] [address] Registered Nurse Family Medicine 03/14/25 03/14/25 Lisa Butler Registered Nurse 03/14/25 Krystin Wagner 03/14/25 documented as of this encounter
--- OUTSIDE RECORDS SUMMARY | 2025-03-22 13:38 | XMS_ITS | Encounter Summary ---
Author Organization [employer] Address [address] 7t [place] [address] Care Team Providers Care Toll Ticket Clerk Name Role Phone Melody Robins MD Primary Care Provider [phone] Avi Thomas RN Unavailable [phone] Lisa Butler Unavailable [phone] Krystin Wagner Unavailable Encounter Details Date Type Department Care Team (Late st Contact Info) Description 06/30/2024 Orders Only [facility] CHC MED & PEDS [address] [place] [address] Provider, MD Luli Social History Tobacco Use [...] [facility]S 505 [place] [address] Melody Robins MD [address] [place] [address] documented as of this encounter Procedures Procedure [...] documented as of this encounter Care Teams Toll Ticket Clerk Relationship Specialty Start Date End Date Melody Robins MD [address] [place] [address] PCP - General Family Medicine 10/02/16 Avi Thomas, RN [address] [place] [address] Registered Nurse Family Medicine 03/14/25 03/14/25 Lisa Butler Registered Nurse 03/14/25 Krystin Wagner 03/14/25 documented as of this encounter
--- OUTSIDE RECORDS SUMMARY | 2025-03-22 13:38 | XMS_ITS | Encounter Summary ---
Author Organization [employer] Address [address] [facility] [address] 7t [place] [address] Care Team Providers Care Esl Professor Name Role Phone Melody Robins MD Primary Care Provider [phone] Avi Thomas RN Unavailable [phone] Lisa Butler Unavailable [phone] Krystin Wagner Unavailable Encounter Details Date Type Department Care Team (Late st Contact Info) Description 07/01/2024 Orders Only [facility] CHC MED & PEDS [address] [place] [address] Provider, MD Luli Social History Tobacco Use [...] Upcoming Encounters Date Type Department Care Team ([facility] st Contact Info) Description 03/30/2025 11:30 AM EST Office Visit [facility] MED & PEDS [address] [place] [address] Melody Robins MD [address] [place] [address] documented as of this encounter Procedures Procedure [...] documented as of this encounter Care Teams Esl Professor Relationship Specialty Start Date End Date Melody Robins MD [address] [place] [address] PCP - General Family Medicine 10/02/16 Avi Thomas, TEVIN 505 [place] [address] Registered Nurse Family Medicine 03/14/25 03/14/25 Lisa Butler Registered Nurse 03/14/25 Krystin Wagner 03/14/25 documented as of this encounter
--- OUTSIDE RECORDS SUMMARY | 2025-03-22 13:38 | XMS_ITS | Encounter Summary ---
Author Organization [employer] Address [address] [facility] 7t [place] [address] Care Team Providers Care Sales Analyst Name Role Phone Melody Robins MD Primary Care Provider Avi Thomas RN Unavailable [phone] Lisa Butler Unavailable Krystin Wagner Unavailable Encounter Details Date Type Department Care Team ([facility] Contact Info) Description 12/17/2022 Orders Only [facility] MEDICINE [address] [place] [address] Polly Diamond Social History Tobacco Use Types [...] Encounters Date Type Department Care Team (Late Contact Info) Description 03/30/2025 11:30 AM EST Office Visit [facility] CHC MED & PEDS 505 [place], [place] [phone] Melody Robins MD [address] [place], [place] [address] documented as of this encounter Procedures Procedure Name Priority Date/Time Associated Diagnosis Comments COLPOSCOPY Routine 09/27/2020 12:00 AM EDT documented in this encounter Results * Colposcopy (09/27/2020 12:00 AM EDT) us Historical Provider MD IN CLINIC/BEDSIDE ORDERAB LES Final Result documented in this encounter Visit Diagnoses Not on filedocumented in this encounter Care Teams Sales Analyst Relationship Specialty Start Date End Date Melody Robins MD [address] [place] [address] PCP - General Family Medicine 10/02/16 Avi Thomas, TEVIN [address] [place] [address] Registered Nurse Family Medicine 03/14/25 03/14/25 Lisa Butler Registered Nurse 03/14/25 Krystin Wagner 03/14/25 documented as of this encounter
--- OUTSIDE RECORDS SUMMARY | 2025-03-22 13:38 | XMS_ITS | Encounter Summary ---
Author Organization [employer] Address [address] [facility] 7t [place] [address] Care Team Providers Care Senior Gis Analyst Name Role Phone Melody Robins MD Primary Care Provider [phone] Avi Thomas RN Unavailable [phone] Lisa Butler Unavailable [phone] Krystin Wagner Unavailable Encounter Details Date Type Department Care Team ([facility] Contact Info) Description 12/17/2022 Orders Only [facility] MEDICINE [address] [place] [address] ProviderLuli MD Social History Tobacco Use Types [...] Upcoming Encounters Date Type Department Care Team ([facility] Contact Info) Description 03/30/2025 11:30 AM EST Office Visit [facility] CHC MED & PEDS [address] [place], [place] [phone] Melody Robins MD [address] [place], [place] [phone] documented as of this encounter Procedures Procedure Name Priority Date/Time Associated Diagnosis Comments HM PAP/HPV Routine 01/03/2022 PAP/HPV Routine 08/14/2020 documented in this encounter Results * Hm Pap Smear (01/03/2022) us Historical Provider HEALTH MAINTENANCE Final Result * Hm Pap Smear (08/14/2020) us Historical Provider HEALTH MAINTENANCE Final Result documented in this encounter Visit Diagnoses Not on filedocumented in this encounter Care Teams Senior Gis Analyst Relationship Specialty Start Date End Date Melody Robins MD [address] [place] [address] PCP - General Family Medicine 10/02/16 Avi Thomas, TEVIN [address] [place] [address] Registered Nurse Family Medicine 03/14/25 03/14/25 Lisa Butler Registered Nurse 03/14/25 Krystin Wagner 03/14/25 documented as of this encounter
--- OUTSIDE RECORDS SUMMARY | 2025-03-22 13:38 | XMS_ITS | Encounter Summary ---
Author Organization [employer] Address [address] [facility] [address] 7t [place] [address] Care Team Providers Care Pipeline Systems Operator Name Role Phone Melody Robins MD Primary Care Provider [phone] Avi Thomas RN Unavailable [phone] Lisa Butler Unavailable [phone] Krystin Wagner Unavailable Encounter Details Date Type Department Care Team (Late st Contact Info) Description 10/14/2024 Orders Only [facility] CHC MED & PEDS [address] [place] [address] Provider, MD Luli Social History Tobacco Use [...] Description 03/30/2025 11:30 AM EST Office Visit [facility] CHC MED & PEDS [address] [place] [address] Melody Robins MD 505 [place] [address] documented as of this encounter Procedures Procedure Name Priority Date/Time Associated Diagnosis Comments COLPOSCOPY Routine 09/29/2024 12:20 PM EDT documented in this encounter Results * Colposcopy (09/29/2024 12:20 PM EDT) us Historical Provider IN CLINIC/BEDSIDE ORDERAB LES Final Result documented in this encounter Visit Diagnoses Not on filedocumented in this encounter Additional Health Concerns Assessment Noted Time PHQ-9 Depression Total Score: 11 025 3:59 PM EST documented as of this encounter Care Teams Pipeline Systems Operator Relationship Specialty Start Date End Date Melody Robins MD [address] [place] [address] PCP - General Family Medicine 10/02/16 Avi Thomas, RN [address] [place] [address] Registered Nurse Family Medicine 03/14/25 03/14/25 Lisa Butler Registered Nurse 03/14/25 Krystin Wagner 03/14/25 documented as of this encounter
--- OUTSIDE RECORDS SUMMARY | 2025-03-22 13:38 | XMS_ITS | Clinical Summary ---
Author Organization [facility] Address [address] [facility] [address] [place] [id number] Phone Care Team Providers Care Wax Coating Machine Tender Name Role Phone Melody Robins MD Primary Care Provider [phone] Allergies No known active allergies Medications tamsulosin [...] ACO C3 ACO C3 ACO Care Teams Wax Coating Machine Tender Relationship Specialty Start Date End Date Melody Robins MD [address] [facility] [place] [address] PCP - General Internal Medicine 06/29/24 Additional Source Comments The information contained in this document represents components of the legal health record. It is not the complete legal health record.[facility]
--- OUTSIDE RECORDS SUMMARY | 2025-03-22 13:38 | XMS_ITS | Encounter Summary ---
Author Organization [employer] Address [address] [facility] [address] [place] [address] Care Team Providers Care Fiscal Manager Name Role Phone Melody Robins MD Primary Care Provider [phone] Avi Thomas RN Unavailable [phone] Lisa Butler Unavailable Krystin Wagner Unavailable Reason for Visit * Reason Comments Med Refill Encounter Details Date Type Department Care Team ([facility] Contact Info) Description 02/22/2025 Refill [facility] [address] [place] [address] Melody Robins MD [address] [place] [address] Social History Tobacco Use Types Packs/Day Years [...] Upcoming Encounters Date Type Department Care Team ([facility] Contact Info) Description 03/30/2025 11:30 AM EST Office Visit [facility] [address] [place] [address] Melody Robins MD [address] [place] [address] documented as of this encounter Visit Diagnoses Not on filedocumented in this encounter Additional Health Concerns Assessment Noted Time PHQ-9 Depression Total Score: 7 12/30/19 25 9:51 AM EDT documented as of this encounter Care Teams Fiscal Manager Relationship Specialty Start Date End Date Melody Robins MD [address] [place] [address] PCP - General Family Medicine 10/02/16 Avi Thomas, TEVIN [address] [place] [id number] Registered Nurse Family Medicine 03/14/25 03/14/25 Lisa Butler Registered Nurse 03/14/25 Krystin Wagner 03/14/25 documented as of this encounter
--- OUTSIDE RECORDS SUMMARY | 2025-03-22 13:38 | XMS_ITS | Encounter Summary ---
Author Organization [facility] Address [address] [facility] [address] [place] [phone] Phone Care Team Providers Care Boring Mill Set Up Operator Name Role Phone Melody Robins MD Primary Care Provider [phone] Encounter Details Date Type Department Care Team (Late st Contact Info) Description 06/29/2024 Procedure Pass [facility], Ct Scan - [address] [address] Social History Tobacco Use Types Packs/Day Years [...] on filedocumented in this encounter Care Teams Boring Mill Set Up Operator Relationship Specialty Start Date End Date Melody Robins MD [address] [place] [address] PCP - General Internal Medicine 06/29/24 documented as of this encounter Additional Source Comments The information contained in this document represents components of the legal health record. It is not the complete legal health record.[facility]
--- OUTSIDE RECORDS SUMMARY | 2025-03-22 13:38 | XMS_ITS | Clinical Summary ---
Author Organization [employer] Address [address] [facility] [address] [place] [address] Care Team Providers Care [employer] Crewmember Name Role Phone Melody Robins MD Primary Care Provider [phone] Lisa Butler Unavailable [phone] Bernard Krystin Unavailable Allergies No known active allergies Medications * This document contains information received from the source organization and may not represent a complete record from that organization. ergocalciferol (Vitamin D2) 1.25 MG (05000 UT) capsule Take 1 capsule (1.25 mg) by mouth 1 (one) time per week. 15 capsule 07/15/19 24 Active zinc gluconate 30 MG tablet Take 1 tablet by mouth Once per day. 06/30/19 24 Active beta carotene (vitamin A) 3 MG (29633 UT) capsule Take by mouth Once per [...] every morning 30 tablet 11/26/19 24 Active acetaminophen (Tylenol) 500 MG tablet Take [...] 30 doses. 30 tablet 12/04/19 24 Active fluticasone (Flonase) 50 MCG/ACT nasal spray SPRAY 1 SPRAY INTO EACH NOSTRIL EVERY DAY, SHAKE GENTLY. BEFORE FIRST USE, PRIME PUMP. AFTER USE, CLEAN TIP AND REPLACE CAP. 48 mL 08/14/19 25 Active topiramate 50 MG tablet Take 1 tablet (50 mg) by mouth Once per day. 30 tablet 3 11/25/19 25 Active phentermine 8 MG tablet Take 1 tab orally daily with topamax 30 tablet 12/30/19 25 Active levothyroxine (Synthroid) 88 MCG tablet TAKE 1 TABLET BY MOUTH BEFORE BREAKFAST 90 tablet 1 02/08/20 25 Active Vit-Fe Fumarate-FA (Multi ) 27-0.8 MG tablet Take 1 tab orally daily 90 tablet 3 03/22/20 25 Active Vit-Fe Fumarate-FA (Multi ) 27-0.8 MG tablet take 1 tab orally daily 03/11/20 19 025 Discontinued(Re order (will not trigger notification to Pharmacy)) Active Problems Problem Noted Date Diagnosed Date [...] presented to the clinic today for a moderate needs teacher visit for her son. During pedi visit, mom was visible stress and emotionally overwhelmed. Mom reported presentation of sxs are associated with her son diagnosis (Autism). She is currently living with her mother but reports needing assistance to apply for housing. Pt has a therapist with [facility] and have weekly appointments per her report. Not interested at this time to start medication. clinician engaged patient with active/reflective listening. Reviewed and assessed for risk, current stressors and protective factors using open-ended questions. Pt will be referred with CM to assist with housing resources. Explored coping strategies that pt can use during stressful times. Provided [facility] contact information and educated patient on the [...] Encounters Date Type Department Care Team Description 03/22/2025 9:45 AM EST Office Visit [facility] [address] [place] [address] Melody Robins MD Missed period (Primary Dx) 03/22/2025 Refill [facility] [address] [place] [address] Melody Robins MD 03/22/2025 Travel 03/18/2025 Travel 03/15/2025 Results Follow-Up [facility] [address] [place] [phone] Jo Bowen MD CBC auto differential, HCG, Qualitative, Urine, Basic Metabolic Panel, Additional followed-up results: 3 03/14/2025 5:40 PM EST Office Visit [facility] [address] [place] [phone] Rosalba Gallegos FNP Missed period (Primary Dx) 03/14/2025 Patient Outreach [facility] [address] [place] [phone] Melody Robins MD 03/14/2025 Patient Outreach [address] [address] Melody Robins MD Care Coordination ([facility]/W Krystin Wagner, Initial assessment scheduled ) 03/14/[address] [address] Melody Robins MD Call Back Request 03/14/2025 Patient Outreach [address] [address] Melody Robins MD Care Coordination ([facility]/W Krystin Wagner, Chart review ) 03/14/2025 Patient Outreach [facility] [address] [place] [address] Melody Robins MD Care Coordination ([facility]- chart review) 03/14/2025 Patient Outreach [address] [address] Melody Robins MD 03/13/2025 Orders Only GENERIC EXTERNAL DATA DEPARTMENT Provider, Generic External Data 02/23/2025 Patient Outreach [facility] [address] [place] [address] Melody Robins MD Pre-visit Planning (SDOH was already completed) 02/23/2025 Travel 02/22/2025 Refill [facility] [address] [place] [address] Melody Robins MD 02/07/[address] [address] Melody Robins MD 12/30/2024 Results Follow-Up [facility] [address] [place] [address] Melody Robins MD POCT Urine , CBC auto differential, TSH W/Reflex to FT4, Additional followed-up results: 3 12/29/2024 9:45 AM EDT Office Visit [facility] [address] [place] [address] Melody Robins MD Missed period (Primary Dx); Acquired hypothyroidism; Class 3 severe obesity due to excess calories without serious comorbidity with body mass index (BMI) of 40.0 to 44.9 in adult (HCC); Generalized anxiety disorder; Routine general medical examination at a health care facility; Dietary counseling; Exercise counseling 12/29/2024 Travel 12/22/2024 Travel 12/21/2024 Patient Outreach [facility] [address] [place] [address] [phone] Melody Robins MD Pre-visit Planning (SDOH screening [...] 16 03/22/2025 9:29 AM EST Oxygen Saturation 100% 03/14/2025 6:04 PM EST Inhaled Oxygen Concentration - - Weight 87.1 kg (192 lb) 03/22/2025 9:29 AM EST Height 157.8 cm (5' 2.13 ) 12/29/2024 9:50 AM ED T Body Mass Index 34.97 12/29/2024 9:50 AM EDT Plan of Treatment Upcoming Encounters Date Type Department Care Team (Late st Contact Info) Description 03/30/2025 11:30 AM EST Office Visit [facility] [address], [place] [phone] Melody Robins MD [address] [place] [address] Health Maintenance Due Date Last Done Comments Family Planning (PISQ) 2007 Hepatitis B Vaccines (1 of 3 - 19+ 3-dose series) 2011 HPV Vaccines (2 - 3-dose series) 08/12/2023 07/15/2023 COVID-19 Vaccine ( season) 2024 05/28/2021, 10/22/2020, 10/22/2020, Additional history exists Influenza Vaccine (#1) 2024 , 01/19/2021, 01/07/2020, Additional history exists Cervical Cancer Screening 09/29/2025 HPV/Cotest 09/29/2025 08/10/2024, 07/23, 08/14/2020 Pap Smear 09/29/2025 08/10/2024, 03/0 03/2023, 05/23/2023, Additional history exists Alcohol/Substance Use Screening 12/29/2025 12/29/2024 Depression Screening 12/29/2025 12/29/2024, 12/30/19 25 Diabetes: Hemoglobin A1C 12/29/2025 025, 06/25/2023, 12/26/2022, Additional history exists Disability Screening 12/29/2025 12/29/2024 SDOH Screening 12/29/2025 12/29/2024 Tobacco Screening 03/22/2026 03/22/2025 Lipid Panel 06/24/2028 06/25/2023, 12/26/2022 DTaP/Tdap/Td Vaccines [...] Procedure Name Priority Date/Time Associated Diagnosis Comments HCG, TOTAL, QN Routine 03/15/2025 7:20 AM EST Missed period US OB TRANSVAGINAL Routine 03/13/2025 9: 26 [...] (BMI) of 40.0 to 44.9 in adult (HCC) HEMOGLOBIN A1C Routine 12/29/2024 10:32 AM EDT Acquired hypothyroidism Class 3 severe obesity due to excess calories without serious comorbidity with body mass index (BMI) of 40.0 to 44.9 in adult (HCC) VITAMIN B12/FOLATE, SERUM PANEL Routine 12/29/2024 10:32 AM EDT Missed period Acquired hypothyroidism Class 3 severe obesity due to excess calories without serious comorbidity with body mass index (BMI) of 40.0 to 44.9 in adult ([facility]) TSH W/REFLEX TO FT4 Routine 12/29/2024 1 0:32 AM EDT Missed period Acquired hypothyroidism Class 3 severe obesity due to excess calories without serious comorbidity with body mass index (BMI) of 40.0 to 44.9 in adult ([facility]) CBC WITH AUTO DIFFERENTIAL Routine 12/29/2024 10:32 AM EDT Missed period Acquired hypothyroidism Class 3 severe obesity due to excess calories without serious comorbidity with body mass index (BMI) of 40.0 to 44.9 in adult ([facility]) POCT , URINE Routine 12/29/2024 10:28 AM [...] Recently Relevant to Health Maintenance Results * hCG, Total, Quantitative (03/15/2025 7:20 AM EST) Only the most recent of2 resultswithin the time period is included. HCG Quantitative 133 mIU/mL [facility] Comment:Weeks post LMP Appro ximate hCG(Last Menstrual Period) Range (mIU/ml)3 - 4 weeks 9 - 1304 - 5 weeks 75 - 2,6005 - 6 weeks 850 - 20,8006 - 7 weeks 4000 - 100,2007 - 12 weeks 11,500 - 289,87149 - 16 weeks 18,300 - 137,57559 - 29 weeks (2nd trimester) 1,400 - 53,78753 - 41 weeks (3rd trimester) 940 - 60,000The Braga B- hCG assay is used for the early detection ofpregnancy; it cannot be used to diagnose any conditionunrelated to . If a B-hCG level is not supportedby the clinical evidence, results should be confirmed by analternative method (qualitative urine hCG, for example). Blood Venous blood specimen / Unknown 03/15/2025 7:20 AM EST 03/15/2025 7:20 AM EST us Rosalba Gallegos BOOK CUTTER LAB BLOOD ORDERABLES Final Res ult [facility] [address] [place] [phone] * US OB Transvaginal (03/13/2025 9:26 PM EST) Anatomical Region Laterality Modality Body Ultrasound 03/13/2025 9:26 PM EST Narrative 03/13/2025 9:29 PM EST [place] [address] Ultrasound Report Signed with Ronn Patient: Vanessa Menchaca MR#: [id number] : 1990 Acct:[id number] Age/Sex: 35 / F ADM Date: 03/13/25 Loc: HO.ED Attending Dr: Ordering Physician: Anjelica Hamlin NP Date of Service: 03/13/25 Procedure(s): US OB transvaginal Accession Number(s): [id number] cc: Melody Robins MD; Anjelica Hamlin NP [...] done and ultrasound is me ssaging provider. -GA US OB 1st Trimester transvaginal with Doppler [...] in OV> 03/13/252127 DD/ 25 TD/TT: 03/13/252125 Fire Protection Specialist: Procedure Note Donotuseinterpreter, Image - 03/13/[address] [place] [address] Ultrasound Report Signed with Ronn Patient: Parag MenchacaR#: [id number] : 1990Acct:[id number] Age/Sex: 35 / FADM Date: 03/13/25 Loc: HO.ED Attending Dr: Ordering Physician: Anjelica Hamlin NP Date of Service: 03/13/25 Procedure(s): US OB transvaginal Accession Number(s): [id number] cc: Melody Robins MD; Anjelica Hamlin NP [...] one doneand ultrasound is me ssaging provider. -GA US OB 1st Trimester transvaginal with Doppler [...] in OV> 03/13/252127 DD/ 25 TD/TT: 03/13/252125 Fire Protection Specialist: us [facility] External Provider IMG OB US PROCEDURES Edited Result - Final * US OB <14 WEEKS FETUS (03/13/2025 7:56 PM EST) Anatomical Region Laterality Modality Ultrasound 03/13/2025 7:56 PM EST Narrative 03/13/2025 7:58 PM EST [address] [address] Ultrasound Report Signed Patient: Vanessa Menchaca MR#: [id number] : 1990 Acct:[id number] Age/Sex: 35 / F ADM Date: 03/13/25 Loc: HO.ED Attending Dr: Ordering Physician: Yael Naranjo Date of Service: 03/13/25 Procedure(s): US OB <= 14 weeks fetus Accession Number(s): [id number] cc: Melody Robins MD; Yael Naranjo Reason for Exam: Abdominal/Pelvic Pain +Preg at home CLINICAL HISTORY: Abdominal Pelvic Pain +Preg at home US OB 1st trimester transabdominal Comparison: [place]/SR - US PELVIS TRANSABDOMINAL AND TRANSVAGINAL - [...] in OV> 03/13/251957 DD/ 55 TD/TT: 03/13/251955 Fire Protection Specialist: Procedure Note Donotuseinterpreter, Image - 03/14/[address] [address] Ultrasound Report Signed Patient: Elver Menchaca#: [id number] : 1990Acct:[id number] Age/Sex: 35 / FADM Date: 03/13/25 Loc: HO.ED Attending Dr: Ordering Physician[facility] Date of Service: 03/13/25 Procedure(s): US OB <= 14 weeks fetus Accession Number(s): [id number] cc: Melody Robins MD; [facility] Reason for Exam: Abdominal/Pelvic Pain +Preg at home CLINICAL HISTORY: Abdominal Pelvic Pain +Preg at home US OB 1st trimester transabdominal Comparison: [place]/SR - US PELVIS TRANSABDOMINAL AND TRANSVAGINAL - [...] in OV> 03/13/251957 DD/ 55 TD/TT: 03/13/251955 Fire Protection Specialist: us [facility] External Provider IMG OB US PROCEDURES Edited Result - Final * (ABNORMAL) Urinalysis, Complete, with Reflex to Culture (03/13/2025 7:10 PM EST) Color Urine Yellow [facility] Appearance Urine Clear [facility] PH 6.0 5.0 - 9.0 [facility] Glucose Urine UA Negative Negative mg/dL [facility] Urine Blood Negative Negative [facility] Specific Baxter - Urine 1.015 1.005 - 1.025 [facility] Urine Protein Negative Neg-Trace mg/dL [facility] Urine Ketones Negative Negative mg/dL [facility] Nitrite Urine Negative Negative [facility] Leukocyte Esterase Urine Moderate (2+)(A) Negative [facility] RBC Urine 0-2 0 - 2 /HPF [facility] Urine WBC 11-20(A) 0 - 5 /HPF [facility] Urine Squamous Epithelial Cell 3-5 0 - 2 /HPF [facility] Urine Bacteria 2+ None Seen [facility] Hyaline Casts, Urine 0-2 0 - 2 /LPF [facility] 03/13/2025 7:10 PM EST 03/13/2025 7:13 PM EST Narrative [facility] - 03/13/2025 7:45 PM EST [id number], Clean Catch us Generic External Data Provider LAB URINE ORDERAB LES Final Result [facility] [address] [place] [phone] * CBC auto differential (03/13/2025 7:10 PM EST) Only the most recent of2 resultswithin the time period is included. White Blood Count 8.9 4.8 - 10.8 X10*3/uL [facility] Red Blood Count 4.30 4.20 - 5.50 X10*6/uL [facility] Hemoglobin 12.0 12.0 - 16.0 g/dl [facility] Hematocrit 37.3 37.0 - 47.0 % [facility] Mean Corpuscular Volume 86.7 80.0 - 98.0 fL [facility] Mean Corpuscular Hemoglobin 27.9 27.0 - 33.0 pg [facility] Mean Corpuscular HGB Conc 32.2 31.0 - 35.0 g/dl [facility] Red Cell Distribution Width 13.2 11.0 - 16.0 % [facility] Platelet Count 287 160 - 400 X10*3/uL [facility] Mean Platelet Volume 11.3 9.4 - 12.3 fL [facility] Neutrophils Percent Auto 65.3 45 - 73 % [facility] Imm Gran Pct Auto 0.2 0.0 - 0.4 % [facility] Lymphocytes Percent Auto 22.2 20 - 40 % [facility] Monocytes Percent Auto 10.9 2 - 11 % [facility] Eosinophils Percent Auto 0.9 0 - 4 % [facility] Basophils Percent Auto 0.5 0 - 2 % [facility] NRBC Pct Auto 0.0 0.0 - 0.2 /100WBC [facility] Neutrophils Absolute Auto 5.8 2.0 - 8.3 x10*3/uL [facility] Imm Gran Abs Auto 0.02 0.00 - 0.03 X10*3/uL [facility] Lymphocytes Absolute Auto 2.0 1.2 - 4.9 X10*3/uL [facility] Monocytes Absolute Auto 1.0 0.1 - 1.2 X10*3/uL [facility] Eosinophils Absolute Auto 0.1 0.0 - 0.4 X10*3/uL [facility] Basophils Absolute Auto 0.0 0.0 - 0.2 X10*3/uL [facility] NRBC Abs Auto 0.000 0.0 - 0.012 X10*3/uL [facility] 03/13/2025 7:10 PM EST 03/13/2025 7:13 PM EST us Generic External Data Provider LAB BLOOD ORDERAB LES Final Result [facility] [address] [place] [address] [phone] * (ABNORMAL) HCG, Qualitative, Urine (03/13/2025 7:10 PM EST) Urine POSITIVE(A ) NEGATIVE [facility] 03/13/2025 7:10 PM EST 03/13/2025 7:13 PM EST us Generic External Data Provider LAB URINE ORDERAB LES Final Result [facility] [address] [place] [phone] * (ABNORMAL) Basic Metabolic Panel (03/13/2025 7:10 PM EST) Sodium 139 135 - 145 mmol/L [facility] Potassium 3.6 3.3 - 5.1 mmol/L [facility] Chloride 110(H) 96 - 108 mmol/L [facility] Carbon Dioxide 21(L) 22 - 29 mmol/L [facility] Anion Gap 12 12 - 20 [facility] Urea Nitrogen (BUN) 12 9 - 16 mg/dL [facility] Creatinine, Serum 0.67 0.5 - 1.4 mg/dL [facility] Creatinine Clr Calc Pharmacy 123.0 [facility] Comment:Provided height and weight: 157.48 cm,87.997 kg.eGFR (calculated from the MDRD study equation) and eCrCl(calculated from the Cockcroft-Gault equation) are based ondifferent parameters and may not yield comparable results.If eCrCl result is absurd, please check patient'sheight/weight. Estimated Glomerular Filt Rate >60 [facility] Comment:Chronic Kidney Disea se: Estimated GFR < 60 mL/min/1.46x6Vnkjbh Kidney Disease: Estimated GFR < 15 mL/min/1.73m2 Glucose 84 60 - 115 mg/dL [facility] Calcium 9.3 8.4 - 10.2 mg/dL [facility] 03/13/2025 7:10 PM EST 03/13/2025 7:13 PM EST us Generic External Data Provider LAB BLOOD ORDERAB LES Final Result Performing Organization Address [facility] Co de Phone Number [facility] [address] [place] [phone] * Culture, Urine, Routine (03/13/2025 12:00 AM EST) Urine Urine specimen obtained by clean catch procedure / Unknown 03/13/2025 03/13/2025 Comment:[facility] Narrative [facility] - 03/16/2025 7:38 AM EST Klebsiella aerogenes Quant > 100,000 cfu/mL Klebsiella aerogenes: Ampicillin >=32(R) Klebsiella aerogenes: Cefazolin >=32(R) Klebsiella aerogenes: Cefepime <=0.12(S) Klebsiella aerogenes: Ceftriaxone <=0.25(S) Klebsiella aerogenes: Ciprofloxacin <=0.06(S) Klebsiella aerogenes: Gentamicin <=1(S) Klebsiella aerogenes: Nitrofurantoin 64(I) Klebsiella aerogenes: Trimethoprim/Sulfamethoxazole <=20(S) Specimen Source: Urine clean catch Generic External Data Provider LAB MICROBIOLOGY - GENERAL ORDERABLES Final Result Performing Organization Address [facility] Co de Phone Number [facility] [address] [place] [phone] * Vitamin B12/Folate, Serum Panel (12/29/2024 10:32 AM EDT) Vitamin B12 451 200 - 900 pg/mL [facility] Comment:NORMAL 200-900 PG/ML INDETERMINATE 160-199 PG/ML DEFICIENT < 160 PG/ML Folate 11.0 > or = 4.0 ng/mL [facility] Comment:Reference Values:> o r = 4.0 [...] ORDERABLES Final Re sult Performing Organization Address [facility] Co de Phone Number [facility] [address] [place] [phone] * TSH W/Reflex to FT4 (12/29/2024 10:32 AM EDT) TSH reflex Free T4 0.42 0.32 - 4.0 uIU/mL [facility] Blood Venous blood specimen / Unknown 12/29/2024 10:32 AM EDT 12/29/2024 2:18 PM EDT us Melody Robins MD LAB BLOOD ORDERABLES Final Re sult Performing Organization Address [facility] Number [facility] [address] [place] [phone] * Insulin (12/29/2024 10:32 AM EDT) Insulin 11 2 - 29 uU/mL [facility] Comment:This test was perfor med using the Cobrain chemiluminescentmethod. Values obtained from different assay methods cannot beused interchangeably. This insulin assay shows a possiblecross-reactivity with antibodies generated against insulin(immunoreactive insulin and some patients treated withbovine or porcine insulin). Insulin levels may be measuredlower in patients with insulin autoimmune syndrome orfamilial high pro-insulinemia. Blood Venous blood specimen / Unknown 12/29/2024 10:32 AM EDT 12/29/2024 2:18 PM EDT us Melody Rboins MD LAB BLOOD ORDERABLES Final Re sult Performing Organization Address [facility] Co de Phone Number [facility] [address] [place] [phone] * Hemoglobin A1c (12/29/2024 10:32 AM EDT) Hemoglobin A1c 5.9 <6.0 % [facility] Comment:Hemoglobin A1C Refer ence Range Adults: 4.8 - 6.0 % Non diabetic: < 6.0 % Goal: < 7.0 %Additional Action Suggested: > 8.0 %Note: Hemoglobin A1c results are invalid for patients with abnormal amounts of HbF. Blood transfusions may impact the HbA1c concentration in the patient sample. Estimated Average Glucose 123 mg/dL [facility] Comment:eAG = Estimated ave rage glucose which is %A1C expressed asaverage glucose, using the formula of the T2S-PlmktlrTmnzbwi Glucose study (ADAG), Diabetes Care, Vol.31,#8,2007 Blood Venous blood specimen / Unknown 12/29/2024 10:32 AM EDT 12/29/2024 2:18 PM EDT Melody Robins MD LAB BLOOD ORDERABLES Final Re sult Performing Organization Address City/State/[facility] Co de Phone Number [facility] [address] [place] [phone] * POCT Urine (12/29/2024 10:28 AM EDT) [facility] Preg Test, Ur Negative Negative, Indeterminate, None Detected, Invalid, Specimen unsatisfactory for evaluation, Weakly Positive, 2+ Urine 12/29/2024 10:2 8 AM EDT us Melody Robins MD POINT OF CARE TEST ENTER/EDIT ORDERABLES Final Result * Colposcopy (09/29/2024 12:20 PM EDT) us Luli Doll MD IN CLINIC/BEDSIDE ORDERAB LES Final Result * (ABNORMAL) HPV DNA, Low/High Risk (08/10/2024 11:19 AM EDT) [facility] HPV High Risk Negative Negative [facility] HPV Genotype 16 Positive(A) Negative [facility] HPV Genotype 18 Negative Negative [facility] Comment:HPV testing performe d at [facility] (CLIA#[id number]), [address] [place] [phone].Testing for HPV was performed using the Tiesha [...] LES Final Result Performing Organization Address City/State/[facility] Co de Phone Number [facility] [address] [place] [phone] * Pap Smear (08/10/2024 11:19 AM EDT) 08/10/2024 11:1 9 AM EDT 08/10/2024 2:11 PM EDT Narrative [facility] - 08/17/2024 4:17 PM EDT ----- ------- Name: Vanessa Menchaca Age/Sex: 34/F : 1990 Unit#: [id number] Attend Dr: Ifrah Lilly CNM Re08/10/24 Status: DEP REF Location: [facility] Disch: ----- ------- SPEC : [id number] RECD: 08/10/24 STATUS: SHIRA MARTIN NUM: [id number] JT: 08/10/249 [facility] DR: Ifrah Lilly CNM ENTERED: 08/10/24 SP [...] Received ThinPrep-Cervical Copies To: Melody Robins MD [address] [address] Ifrah Lilly CNM [facility] [address] [place] [address] Drive [address] [place] [phone] ----- ------- Signed (signature on file) Chanel Jensen MD 08/17/24 1617 ----- ------- END OF REPORT Generic External Data Provider LAB CYTOLOGY ORDE RABLES Final Result Performing Organization Address [facility]/ZIP Co de Phone Number [facility] [address] [place] [phone] * Lipid Panel, Standard (06/25/2023 11:40 AM EDT) Triglycerides 54 <150 mg/dL [facility] Comment:Desirable Triglyceri de: less than 150 mg/dLBorderline High Triglyceride 150-199 mg/dLHigh Triglyceride: 200-499 mg/dLVery High Triglyceride: greater than or equal to 5OO mg/dL Cholesterol 130 <200 mg/dL [facility] Comment:Desirable Cholestero l: less than 200 mg/dLBorderline High Cholesterol: 200-239 mg/dLHigh Cholesterol: greater than 239 mg/dL LDL Cholesterol Calculated 73 <100 mg/dL [facility] Comment:Desirable LDL: less than 100 mg/dLNear Optimal/Above Optimal LDL: 110- 129 mg/dLBorderline High LDL: 130-159 mg/dLHigh LDL: 160-189 mg/dLVery High LDL: greater than or equal to 190 mg/dL HDL Cholesterol 47 >40 mg/dL [facility] Comment:Desirable HDL: great er than 40 mg/dL Note: This HDL assay may give artificially low results in patients with liver disease. 06/25/2023 11:4 0 AM EDT 06/25/2023 11:40 AM EDT Generic External Data Provider LAB BLOOD ORDERAB LES Final Result Performing Organization Address [facility]/ZIP Co de Phone Number [facility] [address] [place] [address] [phone] * HEPATITIS C AB W/REFL TO [...] a test for HCV RNA (test code 82421) is suggested. For additional information please refer to http://[employer]/faq/JVV74i1 (This link is being provided for informational/ educational purposes only.) 01/22/2022 10:3 4 AM EDT us Brenda Eric ANP HISTORICAL/NON ORDERABLE LABS Fi nal Result Performing Organization Address [facility] de Phone Number [facility]GACY [facility] * [...] purpose. For additional information please refer to http://education.[employer]/faq/HSZ281 (This link is being provided for informational/ educational purposes only.) The performance of this assay has not been clinically validated in patients less than 2 years old. 01/22/2022 10:3 4 AM EDT us Brenda Eric ANP LAB BLOOD ORDERABLES Final Resul t Performing Organization Address [facility] de Phone Number CON[facility]GACY [facility]S from Last 3 Months or Most Recently Relevant to Health Maintenance Insurance [facility] C3 Care Teams [employer] Crewmember Relationship Specialty Start Date End Date Melody Robins MD [address] [place] [phone] PCP - General Family Medicine 10/02/16 Lisa Butler Registered Nurse 03/14/25 Krystin Wagner 03/14/25
--- OUTSIDE RECORDS SUMMARY | 2025-03-22 13:38 | XMS_ITS | Encounter Summary ---
Author Organization [email or web address] [facility] Address [address] [place] [address] Care Team Providers Care Cuffing Machine Operator Name Role Phone Melody Robins MD Primary Care Provider Avi Thomas RN Unavailable [phone] Lisa Butler Unavailable Krystin Wagner Unavailable Encounter Details Date Type Department Care Team (Late Contact Info) Description 10/07/2022 Abstract [facility] [address] [place] [address] Melody Robins MD [address] [place], [place] [phone] Social History Tobacco Use Types Packs/Day Years [...] 03/30/2025 11:30 AM EST Office Visit [facility] [address] [place] [address] Melody Robins MD [address] [place] [address] documented as of this encounter Visit Diagnoses Not on filedocumented in this encounter Care Teams Cuffing Machine Operator Relationship Specialty Start Date End Date Melody Robins MD [address] [place] [address] PCP - General Family Medicine 10/02/16 Avi Thomas, RN [address] [place] [address] Registered Nurse Family Medicine 03/14/25 03/14/25 Lisa Butler Registered Nurse 03/14/25 Krystin Wagner 03/14/25 documented as of this encounter
[2025-03-22 15:09] LABS: MANUAL DIFF FLAG NO
[2025-03-22 15:19] LABS: Hematocrit 37.4 % (37.0-47.0); Hemoglobin 11.7 g/dl (12.0-16.0); Imm Gran Pct Auto 0.3 % (0.0-0.4); Mean Corpuscular HGB Conc 31.3 g/dl (31.0-35.0); Mean Corpuscular Hemoglobin 28.0 pg (27.0-33.0); Mean Corpuscular Volume 89.5 fL (80.0-98.0); Platelet Count 291 X10*3/uL (160-400); Red Blood Count 4.18 X10*6/uL (4.20-5.50); White Blood Count 7.9 X10*3/uL (4.8-10.8)
[2025-03-22 15:20] LABS: Imm Gran Abs Auto 0.02 X10*3/uL (0.00-0.03); Lymphocytes Absolute Auto 1.6 X10*3/uL (1.2-4.9); NRBC Abs Auto 0.000 X10*3/uL (0.0-0.012); NRBC Pct Auto 0.0 /100WBC (0.0-0.2)
== END 2025-03-22 10:18 | disposition home or self-care (01) ==
LOC: HO.CHCLDS 10:17
PROVIDERS: Visit Provider Pediatrics
DX: N92.6 Irregular menstruation, unspecified (principal)
CPT/HCPCS: 36415; 84702; 85025